=== PATIENT | male | born 1950 | race African-American/Black ===

== ENCOUNTER 2018-08-25 16:32 | Inpatient (IN) | payer MEDICARE, OTHER ==
[~2018-08-25] VITALS: Ht 180.3 cm; Wt 68.0 kg
--- NOTE | 2018-08-25 16:40 | NUR ---
ED Nurse Note: pt walked in c/o sorethroat and difficulty swallowing for past four days. noted dry cracked white tongue with swelling in throat. airway intact, resp even and unlabored on RA. pt VSS, caregiver at the bedside, will cont monitor.
--- NOTE | 2018-08-25 16:45 | NUR ---
ED Nurse Note: pt states pt goes to dialysis on Sun//Sun, last time was this past sat, noted AV shunt on left upper arm +bruit/thrill.
[2018-08-25] MEDS ORDERED: SENSIPAR30 MG ORAL (16:51)
[2018-08-25] MEDS ORDERED: LABETALOL HCL300 MG ORAL (16:51)
[2018-08-25] MEDS ORDERED: DIALYVITE TABL1 EAC1 PO (16:51)
[2018-08-25] MEDS ORDERED: AMLODIPINE BESY10 MG ORAL (16:51)
[2018-08-25] MEDS ORDERED: VELPHORO500 MG PO (16:51)
[2018-08-25] MEDS ORDERED: ASPIR 8181 MG ORAL (16:51)
[2018-08-25] MEDS ORDERED: Isovue-300 100ml vial INJ PRN (17:00)
--- NOTE | 2018-08-25 17:06 | Emergency Room Report ---
History of Present Illness General Chief Complaint: Sore Throat Source: Patient, Medical Record Present Illness HPI 68-year-old male presents to ED for evaluation. Complaining of throat pain and swelling times one week. States it is difficult to swallow. Denies fevers or chills. Pain is dull, 8 out of 10, nonradiating. Denies cough. Known history of end-stage renal disease. Gets dialysis Sunday. No other aggravating relieving factors. Denies any other associated symptoms Allergies: Coded Allergies: No Known Allergies (Unverified , 08/25/18) Patient History Past Medical History: renal disease, dialysis Past Surgical History: none Pertinent Family History: none Social History: Denies: smoking, alcohol use, drug use Immunizations: UTD Reviewed Nursing Documentation: PMH: Agreed; PSxH: Agreed Nursing Documentation-PMH Past Medical History: No History, Except For Hx Dialysis: Yes - T, Th, Sat Review of Systems All Other Systems: negative except mentioned in HPI Physical Exam Vital Signs Date Time Temp Pulse Resp B/P (MAP) Pulse Ox O2 Delivery O2 Flow Rate FiO2 08/25/18 16:42 98.8 102 18 142/87 (105) 98 Room Air Sp02 EP Interpretation: reviewed, normal General Appearance: no apparent distress, alert, GCS 15, non-toxic Head: normocephalic Eyes: bilateral eye normal inspection, bilateral eye PERRL ENT: hearing grossly normal, normal voice, TMs + canals normal, other - swelling to pharyngeal area. unable to identify uvula Neck: full range of motion, supple, supple/symm/no masses Respiratory: chest non-tender, lungs clear, normal breath sounds, speaking full sentences Cardiovascular #1: regular rate, rhythm, no edema Gastrointestinal: normal inspection Rectal: deferred Genitourinary: no CVA tenderness Musculoskeletal: normal inspection Neurologic: alert, oriented x3, responsive, motor strength/tone normal, sensory intact, speech normal Psychiatric: normal inspection Skin: normal inspection Lymphatic: normal inspection Procedures Critical Care Time Critical Care Time i. I feel this is a highly complex case requiring extensive working including EKG/Rhythm strip, Xray/CT/US, Blood/urine lab work, repeat exams while in ED, and administration of strong opiates/narcotics for pain control, admission to hospital or close patient follow up. Total time: 45 min bedside evaluation and treatment excludes procedures (EKG). Reason for critical care: tonsillar abscess with swelling Possible complications: hypotension, hypertension, AK, shock, arrhythmias, metabolic acidosis, end organ damage, respiratory failure. Interventions: labs, IV solumedrol, IV Abx, CT neck and Facial Bones. discussion with ENT. Course: patient presenting with throat pain. On exam there is significant pharyngeal swelling without clear landmarks for the uvula. No stridor. I ordered CT which shows fairly large tonsillar abscess versus neoplasm. Given Solu-Medrol and antibiotics. Discussed with ENT Dr Blanco; patient will require admission and likely drainage of abscess in the OR. Patient protecting airway. Per discussion with ENT patient will not require intubation based on location. Consultations: nursing staff, EMS, family Performed by: Dr Finnegan Tolerated well condition = serious j. because of unstable vital signs this patient had a condition that could potentially threaten life or limb. I feel this is a critical patient who required my full attention while patient was considered critical. Total Critical Care Time excluding procedures was greater than 45 minutes Medical Decision Making Diagnostic Impression: Primary Impression: Tonsillar abscess Additional Impression: ESRD (end stage renal disease) on dialysis ER Course Hospital Course 68-year-old male presents with pain and swelling to throat. Differential diagnoses include: pharyngitis, tonsillitis, ludwigs angina, GR[employer] BAGGER Clinical course Patient placed on stretcher. monitoring specialist. After initial history and physical I ordered labs, IV solumedrol, IV Abx, and CT Labs - noted leukocytosis, Hb/Hct stable, BUN/Cr elevated, K ok EKG - NSR, no acute ischemic changes interpreted by me CT neck and Facial Bones -Enlargement of right pontine tonsil with large rim- enhancing hypodense structure measuring approximately 2.6 x 2.8 x 4.4 cm. Also concern for neoplasm. Patient does have a smoking history discussed case with ENT Dr Blanco; he agrees that patient will require admission and will require drainage in the OR Based on position of abscess in pontine tonsil will not require intubation. Patient is protecting airway with no stridor and will O2 sats Case discussed with Dr. Borjas and he agreed to accept the patient to his service for further care and support I feel this is a highly complex case requiring extensive working including EKG/ Rhythm strip, Xray/CT/US, Blood/urine lab work, repeat exams while in ED, and administration of strong opiates/narcotics for pain control, admission to hospital or close patient follow up. Diagnosis - tonsillar abscess, ESRD on dialysis Patient admitted to SDU in serious condition Labs Test 08/25/18 17:04 White Blood Count 16.2 K/UL (4.8-10.8) Red Blood Count 4.67 M/UL (4.70-6.10) Hemoglobin 14.0 G/DL (14.2-18.0) Hematocrit 39.6 % (42.0-52.0) Mean Corpuscular Volume 85 FL (80-99) Mean Corpuscular Hemoglobin 30.0 PG (27.0-31.0) Mean Corpuscular Hemoglobin Concent 35.4 G/DL (32.0-36.0) Red Cell Distribution Width 12.2 % (11.6-14.8) Platelet Count 317 K/UL (150-450) Mean Platelet Volume 5.8 FL (6.5-10.1) Neutrophils (%) (Auto) 79.6 % (45.0-75.0) Lymphocytes (%) (Auto) 10.1 % (20.0-45.0) Monocytes (%) (Auto) 7.5 % (1.0-10.0) Eosinophils (%) (Auto) 1.0 % (0.0-3.0) Basophils (%) (Auto) 1.9 % (0.0-2.0) Prothrombin Time 11.9 SEC (9.30-11.50) Prothromb Time International Ratio 1.1 (0.9-1.1) Activated Partial Thromboplast Time 31 SEC (23-33) Sodium Level 137 MMOL/L (136-145) Potassium Level 4.4 MMOL/L (3.5-5.1) Chloride Level 96 MMOL/L (98-107) Carbon Dioxide Level 30 MMOL/L (21-32) Anion Gap 11 mmol/L (5-15) Blood Urea Nitrogen 38 mg/dL (7-18) Creatinine 11.5 MG/DL (0.55-1.30) Estimat Glomerular Filtration Rate 5.3 mL/min (>60) Glucose Level 115 MG/DL (74-106) Calcium Level 10.4 MG/DL (8.5-10.1) Total Bilirubin 0.7 MG/DL (0.2-1.0) Aspartate Amino Transf (AST/SGOT) 13 U/L (15-37) Alanine Aminotransferase (ALT/SGPT) 20 U/L (12-78) Alkaline Phosphatase 136 U/L (46-116) Total Protein 9.7 G/DL (6.4-8.2) Albumin 3.5 G/DL (3.4-5.0) Globulin 6.2 g/dL Albumin/Globulin Ratio 0.6 (1.0-2.7) EKG Diagnostic Results Rate: normal Rhythm: NSR ST Segments: no acute changes ASA given to the pt in ED: No Rhythm Strip Diag. Results EP Interpretation: yes Rhythm: NSR, no PVC's, no ectopy CT/MRI/US Diagnostic Results CT/MRI/US Diagnostic Results #1: Imaging Test Ordered: CT neck w/ contrast Impression Oropharynx: Enlarged right palatine tonsil with rim-enhancing hypodense structure within the tonsil partially visualized, concerning for tonsillitis with abscess. Please see accompanying CT face. Hypopharynx: Unremarkable. Larynx: Unremarkable. Normal epiglottis. Trachea: Unremarkable. Retropharyngeal space: Unremarkable. Submandibular/parotid glands: Unremarkable. Glands are normal in size. Thyroid: Unremarkable. No enlarged or calcified nodules. Bones/joints: No acute fracture. Soft tissues: Unremarkable. Vasculature: No acute findings. Lymph nodes: Unremarkable. No lymphadenopathy. Lung apices: Unremarkable as visualized. CT/MRI/US Diagnostic Results #2: Imaging Test Ordered: CT Facial Bones w/ contrast Impression SOFT TISSUES: Significant enlargement of right pontine tonsil with large rim- enhancing hypodense structure in the right palatine tonsil measuring approximately 2.6 x 2.8 x 4.4 cm. Narrowing of the oropharynx. ADDENDUM - Added by Johnny Alonzo M.D. on 08/25/2018 6:39 PM (-07:00) Component of neoplastic process with necrosis cannot be entirely excluded. Further evaluation could be performed with direct visualization and/or tissue sampling. Last Vital Signs Date Time Temp Pulse Resp B/P (MAP) Pulse Ox O2 Delivery O2 Flow Rate FiO2 08/25/18 16:42 98.8 102 18 142/87 (105) 98 Room Air Status: improved Disposition: ADMITTED INPATIENT Condition: Serious Referrals: NON PHYSICIAN (PCP) Anand Finnegan MD August 25, 2018 17:06
[2018-08-25] MEDS ORDERED: Solu-MEDROL 125mg Inj IVP ONE (17:15)
[2018-08-25 17:16] LABS: BASOPHILS % (AUTO) 1.9 % (0.0-2.0); HEMATOCRIT 39.6 % (42.0-52.0); LYMPHOCYTES % (AUTO) 10.1 % (20.0-45.0); MEAN CORPUSCULAR VOLUME 85 FL (80-99); MONOCYTES % (AUTO) 7.5 % (1.0-10.0); NEUTROPHILS % (AUTO) 79.6 % (45.0-75.0); PLATELET COUNT 317 K/UL (150-450); RED BLOOD COUNT 4.67 M/UL (4.70-6.10); RED CELL DISTRIBUTION WIDTH 12.2 % (11.6-14.8); WHITE BLOOD COUNT 16.2 K/UL (4.8-10.8)
[2018-08-25 17:33] VITALS: BP 153/93
--- NOTE | 2018-08-25 17:37 | NUR ---
ED Nurse Note: pt off to CT, consent signed.
[2018-08-25 17:40] LABS: ANION GAP 11 mmol/L (5-15); BLOOD UREA NITROGEN 38 mg/dL (7-18); CALCIUM 10.4 MG/DL (8.5-10.1); CARBON DIOXIDE 30 MMOL/L (21-32); CHLORIDE 96 MMOL/L (98-107); CREATININE 11.5 MG/DL (0.55-1.30); POTASSIUM 4.4 MMOL/L (3.5-5.1); SODIUM 137 MMOL/L (136-145)
[2018-08-25 17:41] LABS: INR 1.1 (0.9-1.1)
[2018-08-25 17:45] LABS: ALANINE AMINOTRANSFERASE 20 U/L (12-78); ALBUMIN 3.5 G/DL (3.4-5.0); ALBUMIN/GLOBULIN RATIO 0.6 (1.0-2.7); ALKALINE PHOSPHATASE 136 U/L (46-116); ASPARTATE AMINO TRANSFERASE 13 U/L (15-37); BILIRUBIN,TOTAL 0.7 MG/DL (0.2-1.0)
--- NOTE | 2018-08-25 19:00 | NUR ---
ED Nurse Note: report given to RN Denisha and endorsed care, vss. caregiver at the bedside
--- NOTE | 2018-08-25 19:01 | NUR ---
ED Nurse Note: Received report from Keny/RN. Pt is A/OX4. VSS, will continue to monitor.
[2018-08-25] MEDS ORDERED: Miralax 17gm pkt ORAL PRN (19:30)
[2018-08-25] MEDS ORDERED: Promethazine/Codeine 5ml UD ORAL PRN (19:30)
[2018-08-25] MEDS ORDERED: Nitroglycerin Subl 0.4mg tab SL PRN (19:30)
[2018-08-25] MEDS ORDERED: Albuterol/Ipratropium 3ml neb HHN PRN (19:30)
--- NOTE | 2018-08-25 20:25 | NUR ---
ED Nurse Note: report given to RN Randall from SDU.
--- NOTE | 2018-08-25 20:35 | NUR ---
NURSE NOTES: Received patient from ED from Nurse Joanie ODOM. Patient is awake and oriented x4. He is on room air tolerating well, showing no signs of distress. On admission there is a discoloration on his upper buttocks area, pictures were taken. All belongings were brought with patient and patient signed belonging's list. Bed is locked, placed in lowest position, side rails up x3, call light within reach. Will continue to monitor.
--- NOTE | 2018-08-25 20:40 | NUR ---
ED Nurse Note: pt transferred to SDU and care endorsed to ILENE Pereira, all belongings sent w/ pt with completed belonging list, vss, resp even and unlabored on RA, IV intact. picture taken and uploaded by ILENE Denny.
[2018-08-25] MEDS ORDERED: Vancomycin 1.25gm Premix IVPB ONE (21:30)
--- NOTE | 2018-08-25 21:38 | Infectious Diseases Prog Note ---
Assessment/Plan Assessment/Plan CHART WAS REVIEWED - leukocytosis - probable pharyngitis vs tonsillar abscess - Unasyn - Cx ( Bl, throat _ - Rapid Strep - Ct of Neck : P will follow Subjective Allergies: Coded Allergies: No Known Allergies (Unverified , 08/25/18) Objective Vital Signs Last 24 Hour Vital Signs Date Time Temp Pulse Resp B/P (MAP) Pulse Ox O2 Delivery O2 Flow Rate FiO2 08/25/18 20:40 99.1 97 18 118/86 100 Room Air 08/25/18 17:33 99.4 86 18 153/93 98 Room Air 08/25/18 16:52 88 18 Room Air 08/25/18 16:42 98.8 102 18 142/87 (105) 98 Room Air Height (Feet): 5 Height (Inches): 11.00 Weight (Pounds): 160 Laboratory Tests Test 08/25/18 17:04 White Blood Count 16.2 K/UL (4.8-10.8) H Red Blood Count 4.67 M/UL (4.70-6.10) L Hemoglobin 14.0 G/DL (14.2-18.0) L Hematocrit 39.6 % (42.0-52.0) L Mean Corpuscular Volume 85 FL (80-99) Mean Corpuscular Hemoglobin 30.0 PG (27.0-31.0) Mean Corpuscular Hemoglobin Concent 35.4 G/DL (32.0-36.0) Red Cell Distribution Width 12.2 % (11.6-14.8) Platelet Count 317 K/UL (150-450) Mean Platelet Volume 5.8 FL (6.5-10.1) L Neutrophils (%) (Auto) 79.6 % (45.0-75.0) H Lymphocytes (%) (Auto) 10.1 % (20.0-45.0) L Monocytes (%) (Auto) 7.5 % (1.0-10.0) Eosinophils (%) (Auto) 1.0 % (0.0-3.0) Basophils (%) (Auto) 1.9 % (0.0-2.0) Prothrombin Time 11.9 SEC (9.30-11.50) H Prothromb Time International Ratio 1.1 (0.9-1.1) Activated Partial Thromboplast Time 31 SEC (23-33) Sodium Level 137 MMOL/L (136-145) Potassium Level 4.4 MMOL/L (3.5-5.1) Chloride Level 96 MMOL/L (98-107) L Carbon Dioxide Level 30 MMOL/L (21-32) Anion Gap 11 mmol/L (5-15) Blood Urea Nitrogen 38 mg/dL (7-18) H Creatinine 11.5 MG/DL (0.55-1.30) H Estimat Glomerular Filtration Rate 5.3 mL/min (>60) Glucose Level 115 MG/DL (74-106) H Calcium Level 10.4 MG/DL (8.5-10.1) H Total Bilirubin 0.7 MG/DL (0.2-1.0) Aspartate Amino Transf (AST/SGOT) 13 U/L (15-37) L Alanine Aminotransferase (ALT/SGPT) 20 U/L (12-78) Alkaline Phosphatase 136 U/L (46-116) H Total Protein 9.7 G/DL (6.4-8.2) H Albumin 3.5 G/DL (3.4-5.0) Globulin 6.2 g/dL Albumin/Globulin Ratio 0.6 (1.0-2.7) L Current Medications Medications (Trade) Dose Ordered Sig/Shayan Route PRN Reason Start Time Stop Time Status Last Admin Dose Admin Acetaminophen (Tylenol) 650 mg Q4H PRN ORAL T>100.5 08/25/18 19:30 09/24/18 19:29 Albuterol/ Ipratropium (Albuterol/ Ipratropium) 3 ml Q4H PRN HHN Shortness of Breath 08/25/18 19:30 08/30/18 19:29 Amlodipine Besylate (Norvasc) 10 mg DAILY ORAL 08/26/18 09:00 09/25/18 08:59 Cefepime HCl 1 gm/ Dextrose 55 ml @ 110 mls/hr ONCE IV 08/25/18 23:00 08/26/18 00:30 Cefepime HCl 500 mg/Dextrose 55 ml @ 110 mls/hr Q24H IVPB 08/26/18 23:00 09/02/18 22:59 Cinacalcet (Sensipar) 30 mg DAILY ORAL 08/26/18 09:00 09/25/18 08:59 Heparin Sodium (Porcine) (Heparin 5000 units/ml) 5,000 units EVERY 12 HOURS SUBQ 08/25/18 21:00 09/24/18 20:59 Iopamidol (Isovue-300 100ml) 100 ml NOW PRN INJ Radiology Procedure 08/25/18 17:00 08/27/18 16:52 Labetalol HCl (Normodyne) 300 mg TID ORAL 08/26/18 09:00 09/25/18 08:59 Nitroglycerin (Ntg) 0.4 mg Q5M PRN SL Prn Chest Pain 08/25/18 19:30 09/24/18 19:29 Ondansetron HCl (Zofran) 4 mg Q6H PRN IVP Nausea & Vomiting 08/25/18 19:30 09/24/18 19:29 Polyethylene Glycol (Miralax) 17 gm DAILYPRN PRN ORAL Constipation 08/25/18 19:30 09/24/18 19:29 Promethazine HCl/ Codeine (Phenergan with Codeine) 5 ml Q4H PRN ORAL For Cough 08/25/18 19:30 09/24/18 19:29 Temazepam (Restoril) 15 mg HSPRN PRN ORAL Insomnia 08/25/18 21:00 09/01/18 20:59 Vancomycin HCl (Vanco rx to dose) 1 ea DAILY PRN MISC Per rx protocol 08/25/18 19:30 09/24/18 19:29 Vancomycin HCl/ Dextrose 275 ml @ 183.333 mls/hr ONCE ONCE IVPB 08/25/18 21:30 08/25/18 22:59 Derrick La MD August 25, 2018 21:38
[2018-08-25] MEDS: Heparin 5000 units/ml inj SUBQ SCH (21:45)
[2018-08-25] MEDS ORDERED: Cefepime HCl 1 GM in D5W 55 ML IV SCH (23:00)
[2018-08-25] MEDS: Ampicillin/Sulbactam Sod 3 GM in NS 110 ML IVPB SCH (23:21)
[2018-08-26] VITALS: BP 150/88
[2018-08-26 04:00] VITALS: BP 145/100
[2018-08-26 06:23] LABS: ALBUMIN 3.1 G/DL (3.4-5.0); ANION GAP 13 mmol/L (5-15); BLOOD UREA NITROGEN 47 mg/dL (7-18); CALCIUM 10.1 MG/DL (8.5-10.1); CARBON DIOXIDE 25 MMOL/L (21-32); CHLORIDE 94 MMOL/L (98-107); CREATININE 12.5 MG/DL (0.55-1.30); PHOSPHORUS 5.3 MG/DL (2.5-4.9); SODIUM 132 MMOL/L (136-145)
[2018-08-26 06:37] LABS: HEMATOCRIT 43.1 % (42.0-52.0); HEMOGLOBIN 14.4 G/DL (14.2-18.0); MEAN CORPUSCULAR VOLUME 88 FL (80-99); PLATELET COUNT 283 K/UL (150-450); RED BLOOD COUNT 4.87 M/UL (4.70-6.10); RED CELL DISTRIBUTION WIDTH 12.6 % (11.6-14.8); WHITE BLOOD COUNT 13.4 K/UL (4.8-10.8)
--- NOTE | 2018-08-26 07:10 | NUR ---
HAND-OFF: Report given to Alyse ODOM. Patient showing no signs of distress.
--- NOTE | 2018-08-26 07:34 | NUR ---
NURSE NOTES: Received report from Pennie Mirza RN. Patient awake, alert and oriented x 4, able to make needs known. On room air, respirations even and unlabored. Right AC 20g saline lock patent and asymptomatic. Left lower arm fistula noted with bruit and thrill present. Right tonsillar mass noted. Patient remains NPO at this time. Bed locked in lowest position with side rails up x 3. All needs attended to. Call light within reach. Will continue to monitor.
[2018-08-26 08:00] VITALS: BP 152/101
[2018-08-26] MEDS: Sensipar 30mg Tab ORAL SCH (08:45)
[2018-08-26] MEDS: Heparin 5000 units/ml inj SUBQ SCH ×2 (08:50→20:45)
--- NOTE | 2018-08-26 10:21 | Consultation ---
Consult Note Consult Note asked to evaluate for dialysis management 68-year-old male presents to ED for evaluation. Complaining of throat pain and swelling times one week. States it is difficult to swallow. Denies fevers or chills. Pain is dull, 8 out of 10, nonradiating. Denies cough. Known history of end-stage renal disease. Gets dialysis Sunday. No other aggravating relieving factors. Denies any other associated symptoms No Known Allergies (Unverified , 08/25/18) Past Medical History: renal disease, dialysis Past Medical History: No History, Except For Hx Dialysis: Yes - T, , Sat HTN has fistula left forearm . Assessment/Plan ESRD Hypertensive kidney disease Pharyngitis / Tonsilar abcess / mass Antibiotics BP meds and PRN meds per ID HD in am Tate Leong MD August 26, 2018 10:21
[2018-08-26] MEDS ORDERED: traMADol 50mg tab ORAL PRN (10:30)
--- NOTE | 2018-08-26 10:45 | History and Physical Report ---
DATE OF ADMISSION: 08/25/2018 DATE AND TIME: 08/26/2018 at 8 a.m. CONSULTANTS: 1. Francis. 2. Derrick La M.D. 3. Salazar Horvath M.D. 4. Tate Leong M.D. CHIEF COMPLAINT: Poor swallow, throat pain. BRIEF HISTORY: This is a 68-year-old male, who lives at home by himself. Apparently one week history of increased throat pain and swelling, and could not really swallow up. The patient came to [facility], diagnosed with possible tonsil abscesses versus neoplasm, admitted to [facility] for further care. Currently, calm in bed, slight throat pain, no complaint otherwise. REVIEW OF SYSTEMS: No chest pain. No shortness of breath. No nausea, vomiting, or diarrhea. PAST MEDICAL HISTORY: Renal failure, on dialysis and heart disease. PAST SURGICAL HISTORY: None. ALLERGIES: Denies. MEDICATIONS: Include cefepime, amlodipine, labetalol, Augmentin, vancomycin, temazepam, Tylenol, nitroglycerin, albuterol, Zofran, and methylprednisolone. SOCIAL HISTORY: Positive smoking. No alcohol. No intravenous drug abuse. Positive marijuana use. PHYSICAL EXAMINATION: GENERAL: Calm in bed, oriented x3, in no acute distress. VITAL SIGNS: Temperature is 97 degrees, pulse 92, respirations 24, and blood pressure 152/101. HEENT: Throat exam, slightly swollen, slightly tender, opening the mouth long term. CARDIOVASCULAR: No murmurs. LUNGS: Distant and clear. ABDOMEN: Bowel sounds positive. Nontender. Nondistended. EXTREMITIES: No cyanosis, clubbing, or edema. NEUROLOGIC: The patient moves all extremities, slightly weak. LABORATORY AND DIAGNOSTIC DATA: White count 13, otherwise CBC is normal. BMP shows BUN and creatinine 47 and 4.5, otherwise glucose 151. Albumin 3.1. INR is 1.1, PTT 31. ASSESSMENT: 1. Throat pain. 2. Tonsil abscess versus neoplasm. 3. Renal failure, on dialysis. 4. Heart disease. 5. Hypertension. 6. Malnutrition. PLAN: 1. Pain control. 2. Blood pressure control. 3. Dialysis p.r.n. 4. Dietary followup. 5. Resume home medications. 6. We will continue to follow the patient. Chaim Borjas D.O. DR: MICK JOB#: [id number] CC:
--- NOTE | 2018-08-26 11:09 | Consultation ---
History of Present Illness General Date patient seen: August 26, 2018 Time patient seen: 10:30 Chief Complaint: Sore Throat Referring physician: Chaim Borjas Present Illness HPI This 68 year old presented with a 1.5 week history of a worsening sore throat. He was seen by his dialysis doctor and told to go to the ER. He received abx, steroids and CT with contrast. He is doing much better since and is able to swallow and talk and feels MUCH improved. He has a smoking history from long ago but does smoke marijuana for appetite. he also complains of recent weight loss but no recent dysphonia, dysphagia or dyspnea. He complains of a cough and some hemoptysis. He says in the last six months he had something similar happen but it was not as bad. Allergies: Coded Allergies: No Known Allergies (Unverified , 08/25/18) Medication History Scheduled Amlodipine Besylate* (Amlodipine Besylate*), 10 MG ORAL DAILY, (Reported) Aspirin* (Aspir 81*), 81 MG ORAL DAILY, (Reported) Cinacalcet* (Sensipar*), 30 MG ORAL DAILY, (Reported) Folic Acid/Vitamin B Comp W-C (Dialyvite Tablet), 1 EACH PO DAILY, (Reported) Labetalol Hcl* (Normodyne*), 300 MG ORAL TID, (Reported) Sucroferric Oxyhydroxide (Velphoro), 500 MG PO BID, (Reported) Patient History History Provided By: Patient Healthcare decision maker Oriana Raman Resuscitation status Full Code Advanced Directive on File Past Medical/Surgical History Past Medical/Surgical History: (1) ESRD (end stage renal disease) on dialysis Review of Systems Constitutional: Reports: no symptoms Eye: Reports: no symptoms ENT: Reports: throat pain Respiratory: Reports: cough Cardiovascular: Reports: no symptoms Gastrointestinal: Reports: no symptoms Genitourinary: Reports: no symptoms Musculoskeletal: Reports: no symptoms Skin: Reports: no symptoms Psychiatric: Reports: no symptoms Neurological: Reports: no symptoms Endocrine: Reports: no symptoms Hematologic/Lymphatic: Reports: no symptoms Physical Exam General Appearance: WD/WN, no apparent distress, alert, thin HEENT: normocephalic, atraumatic, PERRL, EOMI, supple, no JVD, other Neck: non-tender, supple, normal inspection Respiratory/Chest: no respiratory distress Last 24 Hour Vital Signs Date Time Temp Pulse Resp B/P (MAP) Pulse Ox O2 Delivery O2 Flow Rate FiO2 08/26/18 08:45 92 152/101 08/26/18 08:44 92 152/101 08/26/18 08:00 97.5 92 24 152/101 (118) 100 08/26/18 08:00 Room Air 08/26/18 07:41 81 16 99 Room Air 21 08/26/18 07:35 84 16 99 Room Air 21 08/26/18 05:36 87 18 97 Room Air 21 08/26/18 05:34 87 18 97 Room Air 21 08/26/18 04:00 Room Air 08/26/18 04:00 96.7 89 18 145/100 (115) 94 08/26/18 03:32 92 08/26/18 00:00 95 08/26/18 00:00 Room Air 08/26/18 00:00 97.8 89 16 150/88 (108) 100 08/25/18 22:44 Room Air 08/25/18 20:51 95 08/25/18 20:40 99.1 97 18 118/86 100 Room Air 08/25/18 17:33 99.4 86 18 153/93 98 Room Air 08/25/18 16:52 88 18 Room Air 08/25/18 16:42 98.8 102 18 142/87 (105) 98 Room Air Intake and Output 08/25/18 08/26/18 19:00 07:00 Intake Total 440 ml Balance 440 ml Intake IV Total 440 ml Laboratory Tests Test 08/25/18 17:04 08/26/18 05:30 White Blood Count 16.2 K/UL (4.8-10.8) H 13.4 K/UL (4.8-10.8) H Red Blood Count 4.67 M/UL (4.70-6.10) L 4.87 M/UL (4.70-6.10) Hemoglobin 14.0 G/DL (14.2-18.0) L 14.4 G/DL (14.2-18.0) Hematocrit 39.6 % (42.0-52.0) L 43.1 % (42.0-52.0) Mean Corpuscular Volume 85 FL (80-99) 88 FL (80-99) Mean Corpuscular Hemoglobin 30.0 PG (27.0-31.0) 29.5 PG (27.0-31.0) Mean Corpuscular Hemoglobin Concent 35.4 G/DL (32.0-36.0) 33.4 G/DL (32.0-36.0) Red Cell Distribution Width 12.2 % (11.6-14.8) 12.6 % (11.6-14.8) Platelet Count 317 K/UL (150-450) 283 K/UL (150-450) Mean Platelet Volume 5.8 FL (6.5-10.1) L 7.4 FL (6.5-10.1) Neutrophils (%) (Auto) 79.6 % (45.0-75.0) H % (45.0-75.0) Lymphocytes (%) (Auto) 10.1 % (20.0-45.0) L % (20.0-45.0) Monocytes (%) (Auto) 7.5 % (1.0-10.0) % (1.0-10.0) Eosinophils (%) (Auto) 1.0 % (0.0-3.0) % (0.0-3.0) Basophils (%) (Auto) 1.9 % (0.0-2.0) % (0.0-2.0) Prothrombin Time 11.9 SEC (9.30-11.50) H Prothromb Time International Ratio 1.1 (0.9-1.1) Activated Partial Thromboplast Time 31 SEC (23-33) Sodium Level 137 MMOL/L (136-145) 132 MMOL/L (136-145) L Potassium Level 4.4 MMOL/L (3.5-5.1) 5.0 MMOL/L (3.5-5.1) Chloride Level 96 MMOL/L (98-107) L 94 MMOL/L (98-107) L Carbon Dioxide Level 30 MMOL/L (21-32) 25 MMOL/L (21-32) Anion Gap 11 mmol/L (5-15) 13 mmol/L (5-15) Blood Urea Nitrogen 38 mg/dL (7-18) H 47 mg/dL (7-18) H Creatinine 11.5 MG/DL (0.55-1.30) H 12.5 MG/DL (0.55-1.30) H Estimat Glomerular Filtration Rate 5.3 mL/min (>60) 4.8 mL/min (>60) Glucose Level 115 MG/DL (74-106) H 151 MG/DL (74-106) H Calcium Level 10.4 MG/DL (8.5-10.1) H 10.1 MG/DL (8.5-10.1) Total Bilirubin 0.7 MG/DL (0.2-1.0) Aspartate Amino Transf (AST/SGOT) 13 U/L (15-37) L Alanine Aminotransferase (ALT/SGPT) 20 U/L (12-78) Alkaline Phosphatase 136 U/L (46-116) H Total Protein 9.7 G/DL (6.4-8.2) H Albumin 3.5 G/DL (3.4-5.0) 3.1 G/DL (3.4-5.0) L Globulin 6.2 g/dL Albumin/Globulin Ratio 0.6 (1.0-2.7) L Differential Total Cells Counted 100 Neutrophils % (Manual) 88 % (45-75) H Lymphocytes % (Manual) 9 % (20-45) L Monocytes % (Manual) 3 % (1-10) Eosinophils % (Manual) 0 % (0-3) Basophils % (Manual) 0 % (0-2) Band Neutrophils 0 % (0-8) Platelet Estimate Adequate Platelet Morphology Normal Red Blood Cell Morphology Normal Phosphorus Level 5.3 MG/DL (2.5-4.9) H Height (Feet): 5 Height (Inches): 11.00 Weight (Pounds): 160 Medications Current Medications Medications (Trade) Dose Ordered Sig/Shayan Route PRN Reason Start Time Stop Time Status Last Admin Dose Admin Acetaminophen (Tylenol) 650 mg Q4H PRN ORAL T>100.5 08/25/18 19:30 09/24/18 19:29 Albuterol/ Ipratropium (Albuterol/ Ipratropium) 3 ml Q4H PRN HHN Shortness of Breath 08/25/18 19:30 08/30/18 19:29 Amlodipine Besylate (Norvasc) 10 mg DAILY ORAL 08/27/18 09:00 09/25/18 08:59 Ampicillin Sodium/ Sulbactam Sodium 3 gm/Sodium Chloride 110 ml @ 220 mls/hr Q12HR@1100,2300 IVPB 08/25/18 23:00 09/01/18 22:59 08/25/18 23:21 Cinacalcet (Sensipar) 30 mg DAILY ORAL 08/26/18 09:00 09/25/18 08:59 08/26/18 08:45 Heparin Sodium (Porcine) (Heparin 5000 units/ml) 5,000 units EVERY 12 HOURS SUBQ 08/25/18 21:00 09/24/18 20:59 08/26/18 08:50 Hydralazine HCl (Apresoline) 10 mg Q4H PRN IV bp over 160 syst and 100 diast 08/26/18 10:30 09/25/18 10:29 Iopamidol (Isovue-300 100ml) 100 ml NOW PRN INJ Radiology Procedure 08/25/18 17:00 08/27/18 16:52 Labetalol HCl (Normodyne) 300 mg TID ORAL 08/26/18 09:00 09/25/18 08:59 08/26/18 08:44 Nitroglycerin (Ntg) 0.4 mg Q5M PRN SL Prn Chest Pain 08/25/18 19:30 09/24/18 19:29 Ondansetron HCl (Zofran) 4 mg Q6H PRN IVP Nausea & Vomiting 08/25/18 19:30 09/24/18 19:29 Pantoprazole (Protonix) 40 mg DAILY ORAL 08/26/18 11:00 09/25/18 10:59 Polyethylene Glycol (Miralax) 17 gm DAILYPRN PRN ORAL Constipation 08/25/18 19:30 09/24/18 19:29 Promethazine HCl/ Codeine (Phenergan with Codeine) 5 ml Q4H PRN ORAL For Cough 08/25/18 19:30 09/24/18 19:29 Temazepam (Restoril) 15 mg HSPRN PRN ORAL Insomnia 08/25/18 21:00 09/01/18 20:59 08/26/18 00:46 Tramadol HCl (Ultram) 50 mg Q6H PRN ORAL mod to sever pain 08/26/18 10:30 09/02/18 10:29 Assessment/Plan Status: doing well, progressing Assessment/Plan: Possible Throat mass with superimposed infection Diagnosis [place] I: Exam was very difficult to visualize pharynx given tongue position. On palpation the area was soft. I spent time reviewing the CT scan and the irregularity makes me very concerned for a malignant process. I explained the importance of follow up with this kind gentelman and would like to see him in a week. Continue Augmentin. Will scope and possible return to take him to the OR for triple endoscopy with biopsy. On a side note he did mention issues with housing so that might need to be addressed prior to discharge. Danya Blanco MD August 26, 2018 11:09
[2018-08-26] MEDS: Ampicillin/Sulbactam Sod 3 GM in NS 110 ML IVPB SCH ×2 (11:11→22:31)
--- NOTE | 2018-08-26 11:22 | Consultation ---
History of Present Illness General Date patient seen: August 26, 2018 Chief Complaint: Sore Throat Referring physician: Chaim Borjas Present Illness HPI 68-year-old male with hx of smoking, HTN, Dialysis (t,sharonda, sat) , presented to ED for evaluation of throat pain and swelling of neck for one week. He also has difficulty to swallow. Pain is dull, 8 out of 10, nonradiating. Denies cough. Pt is admitted for further evaluation. Allergies: Coded Allergies: No Known Allergies (Unverified , 08/25/18) Medication History Scheduled Amlodipine Besylate* (Amlodipine Besylate*), 10 MG ORAL DAILY, (Reported) Aspirin* (Aspir 81*), 81 MG ORAL DAILY, (Reported) Cinacalcet* (Sensipar*), 30 MG ORAL DAILY, (Reported) Folic Acid/Vitamin B Comp W-C (Dialyvite Tablet), 1 EACH PO DAILY, (Reported) Labetalol Hcl* (Normodyne*), 300 MG ORAL TID, (Reported) Sucroferric Oxyhydroxide (Velphoro), 500 MG PO BID, (Reported) Patient History Healthcare decision maker Oriana Lamine Resuscitation status Full Code Advanced Directive on File Past Medical/Surgical History Past Medical/Surgical History: (1) History of hypertension (2) History of smoking Review of Systems All Other Systems: negative except mentioned in HPI Physical Exam General Appearance: WD/WN Lines, tubes and drains: peripheral HEENT: normocephalic, atraumatic Neck: non-tender, normal alignment Respiratory/Chest: chest wall non-tender, lungs clear Breasts: no masses Cardiovascular/Chest: normal rate Abdomen: normal bowel sounds Genitourinary/Rectal: normal genital exam Last 24 Hour Vital Signs Date Time Temp Pulse Resp B/P (MAP) Pulse Ox O2 Delivery O2 Flow Rate FiO2 08/26/18 08:45 92 152/101 08/26/18 08:44 92 152/101 08/26/18 08:00 97.5 92 24 152/101 (118) 100 08/26/18 08:00 Room Air 08/26/18 07:41 81 16 99 Room Air 21 08/26/18 07:35 84 16 99 Room Air 21 08/26/18 05:36 87 18 97 Room Air 21 08/26/18 05:34 87 18 97 Room Air 21 08/26/18 04:00 Room Air 08/26/18 04:00 96.7 89 18 145/100 (115) 94 08/26/18 03:32 92 08/26/18 00:00 95 08/26/18 00:00 Room Air 08/26/18 00:00 97.8 89 16 150/88 (108) 100 08/25/18 22:44 Room Air 08/25/18 20:51 95 08/25/18 20:40 99.1 97 18 118/86 100 Room Air 08/25/18 17:33 99.4 86 18 153/93 98 Room Air 08/25/18 16:52 88 18 Room Air 08/25/18 16:42 98.8 102 18 142/87 (105) 98 Room Air Intake and Output 08/25/18 08/26/18 19:00 07:00 Intake Total 440 ml Balance 440 ml Intake IV Total 440 ml Laboratory Tests Test 08/25/18 17:04 08/26/18 05:30 White Blood Count 16.2 K/UL (4.8-10.8) H 13.4 K/UL (4.8-10.8) H Red Blood Count 4.67 M/UL (4.70-6.10) L 4.87 M/UL (4.70-6.10) Hemoglobin 14.0 G/DL (14.2-18.0) L 14.4 G/DL (14.2-18.0) Hematocrit 39.6 % (42.0-52.0) L 43.1 % (42.0-52.0) Mean Corpuscular Volume 85 FL (80-99) 88 FL (80-99) Mean Corpuscular Hemoglobin 30.0 PG (27.0-31.0) 29.5 PG (27.0-31.0) Mean Corpuscular Hemoglobin Concent 35.4 G/DL (32.0-36.0) 33.4 G/DL (32.0-36.0) Red Cell Distribution Width 12.2 % (11.6-14.8) 12.6 % (11.6-14.8) Platelet Count 317 K/UL (150-450) 283 K/UL (150-450) Mean Platelet Volume 5.8 FL (6.5-10.1) L 7.4 FL (6.5-10.1) Neutrophils (%) (Auto) 79.6 % (45.0-75.0) H % (45.0-75.0) Lymphocytes (%) (Auto) 10.1 % (20.0-45.0) L % (20.0-45.0) Monocytes (%) (Auto) 7.5 % (1.0-10.0) % (1.0-10.0) Eosinophils (%) (Auto) 1.0 % (0.0-3.0) % (0.0-3.0) Basophils (%) (Auto) 1.9 % (0.0-2.0) % (0.0-2.0) Prothrombin Time 11.9 SEC (9.30-11.50) H Prothromb Time International Ratio 1.1 (0.9-1.1) Activated Partial Thromboplast Time 31 SEC (23-33) Sodium Level 137 MMOL/L (136-145) 132 MMOL/L (136-145) L Potassium Level 4.4 MMOL/L (3.5-5.1) 5.0 MMOL/L (3.5-5.1) Chloride Level 96 MMOL/L (98-107) L 94 MMOL/L (98-107) L Carbon Dioxide Level 30 MMOL/L (21-32) 25 MMOL/L (21-32) Anion Gap 11 mmol/L (5-15) 13 mmol/L (5-15) Blood Urea Nitrogen 38 mg/dL (7-18) H 47 mg/dL (7-18) H Creatinine 11.5 MG/DL (0.55-1.30) H 12.5 MG/DL (0.55-1.30) H Estimat Glomerular Filtration Rate 5.3 mL/min (>60) 4.8 mL/min (>60) Glucose Level 115 MG/DL (74-106) H 151 MG/DL (74-106) H Calcium Level 10.4 MG/DL (8.5-10.1) H 10.1 MG/DL (8.5-10.1) Total Bilirubin 0.7 MG/DL (0.2-1.0) Aspartate Amino Transf (AST/SGOT) 13 U/L (15-37) L Alanine Aminotransferase (ALT/SGPT) 20 U/L (12-78) Alkaline Phosphatase 136 U/L (46-116) H Total Protein 9.7 G/DL (6.4-8.2) H Albumin 3.5 G/DL (3.4-5.0) 3.1 G/DL (3.4-5.0) L Globulin 6.2 g/dL Albumin/Globulin Ratio 0.6 (1.0-2.7) L Differential Total Cells Counted 100 Neutrophils % (Manual) 88 % (45-75) H Lymphocytes % (Manual) 9 % (20-45) L Monocytes % (Manual) 3 % (1-10) Eosinophils % (Manual) 0 % (0-3) Basophils % (Manual) 0 % (0-2) Band Neutrophils 0 % (0-8) Platelet Estimate Adequate Platelet Morphology Normal Red Blood Cell Morphology Normal Phosphorus Level 5.3 MG/DL (2.5-4.9) H Height (Feet): 5 Height (Inches): 11.00 Weight (Pounds): 160 Medications Current Medications Medications (Trade) Dose Ordered Sig/Shayan Route PRN Reason Start Time Stop Time Status Last Admin Dose Admin Acetaminophen (Tylenol) 650 mg Q4H PRN ORAL T>100.5 08/25/18 19:30 09/24/18 19:29 Albuterol/ Ipratropium (Albuterol/ Ipratropium) 3 ml Q4H PRN HHN Shortness of Breath 08/25/18 19:30 08/30/18 19:29 Amlodipine Besylate (Norvasc) 10 mg DAILY ORAL 08/27/18 09:00 09/25/18 08:59 Ampicillin Sodium/ Sulbactam Sodium 3 gm/Sodium Chloride 110 ml @ 220 mls/hr Q12HR@1100,2300 IVPB 08/25/18 23:00 09/01/18 22:59 08/25/18 23:21 Cinacalcet (Sensipar) 30 mg DAILY ORAL 08/26/18 09:00 09/25/18 08:59 08/26/18 08:45 Heparin Sodium (Porcine) (Heparin 5000 units/ml) 5,000 units EVERY 12 HOURS SUBQ 08/25/18 21:00 09/24/18 20:59 08/26/18 08:50 Hydralazine HCl (Apresoline) 10 mg Q4H PRN IV bp over 160 syst and 100 diast 08/26/18 10:30 09/25/18 10:29 Iopamidol (Isovue-300 100ml) 100 ml NOW PRN INJ Radiology Procedure 08/25/18 17:00 08/27/18 16:52 Labetalol HCl (Normodyne) 300 mg TID ORAL 08/26/18 09:00 09/25/18 08:59 08/26/18 08:44 Nitroglycerin (Ntg) 0.4 mg Q5M PRN SL Prn Chest Pain 08/25/18 19:30 09/24/18 19:29 Ondansetron HCl (Zofran) 4 mg Q6H PRN IVP Nausea & Vomiting 08/25/18 19:30 09/24/18 19:29 Pantoprazole (Protonix) 40 mg DAILY ORAL 08/26/18 11:00 09/25/18 10:59 Polyethylene Glycol (Miralax) 17 gm DAILYPRN PRN ORAL Constipation 08/25/18 19:30 09/24/18 19:29 Promethazine HCl/ Codeine (Phenergan with Codeine) 5 ml Q4H PRN ORAL For Cough 08/25/18 19:30 09/24/18 19:29 Temazepam (Restoril) 15 mg HSPRN PRN ORAL Insomnia 08/25/18 21:00 09/01/18 20:59 08/26/18 00:46 Tramadol HCl (Ultram) 50 mg Q6H PRN ORAL mod to sever pain 08/26/18 10:30 09/02/18 10:29 Assessment/Plan Problem List: (1) Tonsillar abscess ICD Codes: J36 - Peritonsillar abscess; Z99.2 - Dependence on renal dialysis SNOMED: 20141923 (2) Tonsillar mass ICD Codes: R22.0 - Localized swelling, mass and lump, head SNOMED: 847141919 (3) Dysphagia ICD Codes: R13.10 - Dysphagia, unspecified SNOMED: 03749117, 004909872 (4) ESRD (end stage renal disease) on dialysis ICD Codes: N18.6 - End stage renal disease; Z99.2 - Dependence on renal dialysis SNOMED: 755823042 (5) History of hypertension ICD Codes: Z86.79 - Personal history of other diseases of the circulatory system SNOMED: 503813767 (6) History of smoking ICD Codes: Z87.891 - Personal history of nicotine dependence SNOMED: 280321396 Assessment/Plan: culture and biopsy of the mass ENT evaluation IV abx symptomatic treatment respiratory treatment check electrolytes tumor markers. Salazar Horvath MD August 26, 2018 11:22
[2018-08-26 12:00] VITALS: BP 138/87
--- NOTE | 2018-08-26 12:46 | Consultation ---
History of Present Illness General Chief Complaint: Sore Throat Referring physician: Chaim Borjas Present Illness Allergies: Coded Allergies: No Known Allergies (Unverified , 08/25/18) Medication History Scheduled Amlodipine Besylate* (Amlodipine Besylate*), 10 MG ORAL DAILY, (Reported) Aspirin* (Aspir 81*), 81 MG ORAL DAILY, (Reported) Cinacalcet* (Sensipar*), 30 MG ORAL DAILY, (Reported) Folic Acid/Vitamin B Comp W-C (Dialyvite Tablet), 1 EACH PO DAILY, (Reported) Labetalol Hcl* (Normodyne*), 300 MG ORAL TID, (Reported) Sucroferric Oxyhydroxide (Velphoro), 500 MG PO BID, (Reported) Patient History Healthcare decision maker Oriana Raman Resuscitation status Full Code Advanced Directive on File Physical Exam Last 24 Hour Vital Signs Date Time Temp Pulse Resp B/P (MAP) Pulse Ox O2 Delivery O2 Flow Rate FiO2 08/26/18 12:39 89 138/87 08/26/18 12:00 98.4 89 20 138/87 (104) 100 08/26/18 12:00 Room Air 08/26/18 11:33 88 18 98 Room Air 21 08/26/18 11:24 88 18 98 Room Air 21 08/26/18 08:45 92 152/101 08/26/18 08:44 92 152/101 08/26/18 08:00 97.5 92 24 152/101 (118) 100 08/26/18 08:00 Room Air 08/26/18 07:44 87 08/26/18 07:41 81 16 99 Room Air 21 08/26/18 07:35 84 16 99 Room Air 21 08/26/18 05:36 87 18 97 Room Air 21 08/26/18 05:34 87 18 97 Room Air 21 08/26/18 04:00 Room Air 08/26/18 04:00 96.7 89 18 145/100 (115) 94 08/26/18 03:32 92 08/26/18 00:00 95 08/26/18 00:00 Room Air 08/26/18 00:00 97.8 89 16 150/88 (108) 100 08/25/18 22:44 Room Air 08/25/18 20:51 95 08/25/18 20:40 99.1 97 18 118/86 100 Room Air 08/25/18 17:33 99.4 86 18 153/93 98 Room Air 08/25/18 16:52 88 18 Room Air 08/25/18 16:42 98.8 102 18 142/87 (105) 98 Room Air Intake and Output 08/25/18 08/26/18 19:00 07:00 Intake Total 440 ml Balance 440 ml Intake IV Total 440 ml Laboratory Tests Test 08/25/18 17:04 08/26/18 05:30 White Blood Count 16.2 K/UL (4.8-10.8) H 13.4 K/UL (4.8-10.8) H Red Blood Count 4.67 M/UL (4.70-6.10) L 4.87 M/UL (4.70-6.10) Hemoglobin 14.0 G/DL (14.2-18.0) L 14.4 G/DL (14.2-18.0) Hematocrit 39.6 % (42.0-52.0) L 43.1 % (42.0-52.0) Mean Corpuscular Volume 85 FL (80-99) 88 FL (80-99) Mean Corpuscular Hemoglobin 30.0 PG (27.0-31.0) 29.5 PG (27.0-31.0) Mean Corpuscular Hemoglobin Concent 35.4 G/DL (32.0-36.0) 33.4 G/DL (32.0-36.0) Red Cell Distribution Width 12.2 % (11.6-14.8) 12.6 % (11.6-14.8) Platelet Count 317 K/UL (150-450) 283 K/UL (150-450) Mean Platelet Volume 5.8 FL (6.5-10.1) L 7.4 FL (6.5-10.1) Neutrophils (%) (Auto) 79.6 % (45.0-75.0) H % (45.0-75.0) Lymphocytes (%) (Auto) 10.1 % (20.0-45.0) L % (20.0-45.0) Monocytes (%) (Auto) 7.5 % (1.0-10.0) % (1.0-10.0) Eosinophils (%) (Auto) 1.0 % (0.0-3.0) % (0.0-3.0) Basophils (%) (Auto) 1.9 % (0.0-2.0) % (0.0-2.0) Prothrombin Time 11.9 SEC (9.30-11.50) H Prothromb Time International Ratio 1.1 (0.9-1.1) Activated Partial Thromboplast Time 31 SEC (23-33) Sodium Level 137 MMOL/L (136-145) 132 MMOL/L (136-145) L Potassium Level 4.4 MMOL/L (3.5-5.1) 5.0 MMOL/L (3.5-5.1) Chloride Level 96 MMOL/L (98-107) L 94 MMOL/L (98-107) L Carbon Dioxide Level 30 MMOL/L (21-32) 25 MMOL/L (21-32) Anion Gap 11 mmol/L (5-15) 13 mmol/L (5-15) Blood Urea Nitrogen 38 mg/dL (7-18) H 47 mg/dL (7-18) H Creatinine 11.5 MG/DL (0.55-1.30) H 12.5 MG/DL (0.55-1.30) H Estimat Glomerular Filtration Rate 5.3 mL/min (>60) 4.8 mL/min (>60) Glucose Level 115 MG/DL (74-106) H 151 MG/DL (74-106) H Calcium Level 10.4 MG/DL (8.5-10.1) H 10.1 MG/DL (8.5-10.1) Total Bilirubin 0.7 MG/DL (0.2-1.0) Aspartate Amino Transf (AST/SGOT) 13 U/L (15-37) L Alanine Aminotransferase (ALT/SGPT) 20 U/L (12-78) Alkaline Phosphatase 136 U/L (46-116) H Total Protein 9.7 G/DL (6.4-8.2) H Albumin 3.5 G/DL (3.4-5.0) 3.1 G/DL (3.4-5.0) L Globulin 6.2 g/dL Albumin/Globulin Ratio 0.6 (1.0-2.7) L Differential Total Cells Counted 100 Neutrophils % (Manual) 88 % (45-75) H Lymphocytes % (Manual) 9 % (20-45) L Monocytes % (Manual) 3 % (1-10) Eosinophils % (Manual) 0 % (0-3) Basophils % (Manual) 0 % (0-2) Band Neutrophils 0 % (0-8) Platelet Estimate Adequate Platelet Morphology Normal Red Blood Cell Morphology Normal Phosphorus Level 5.3 MG/DL (2.5-4.9) H Height (Feet): 5 Height (Inches): 11.00 Weight (Pounds): 160 Medications Current Medications Medications (Trade) Dose Ordered Sig/Shayan Route PRN Reason Start Time Stop Time Status Last Admin Dose Admin Acetaminophen (Tylenol) 650 mg Q4H PRN ORAL T>100.5 08/25/18 19:30 09/24/18 19:29 Albuterol/ Ipratropium (Albuterol/ Ipratropium) 3 ml Q4H PRN HHN Shortness of Breath 08/25/18 19:30 08/30/18 19:29 Amlodipine Besylate (Norvasc) 10 mg DAILY ORAL 08/27/18 09:00 09/25/18 08:59 Ampicillin Sodium/ Sulbactam Sodium 3 gm/Sodium Chloride 110 ml @ 220 mls/hr Q12HR@1100,2300 IVPB 08/25/18 23:00 09/01/18 22:59 08/26/18 11:11 Cinacalcet (Sensipar) 30 mg DAILY ORAL 08/26/18 09:00 09/25/18 08:59 08/26/18 08:45 Heparin Sodium (Porcine) (Heparin 5000 units/ml) 5,000 units EVERY 12 HOURS SUBQ 08/25/18 21:00 09/24/18 20:59 08/26/18 08:50 Hydralazine HCl (Apresoline) 10 mg Q4H PRN IV bp over 160 syst and 100 diast 08/26/18 10:30 09/25/18 10:29 Iopamidol (Isovue-300 100ml) 100 ml NOW PRN INJ Radiology Procedure 08/25/18 17:00 08/27/18 16:52 Labetalol HCl (Normodyne) 300 mg TID ORAL 08/26/18 09:00 09/25/18 08:59 08/26/18 12:39 Nitroglycerin (Ntg) 0.4 mg Q5M PRN SL Prn Chest Pain 08/25/18 19:30 09/24/18 19:29 Ondansetron HCl (Zofran) 4 mg Q6H PRN IVP Nausea & Vomiting 08/25/18 19:30 09/24/18 19:29 Pantoprazole (Protonix) 40 mg DAILY ORAL 08/26/18 11:00 09/25/18 10:59 08/26/18 11:12 Polyethylene Glycol (Miralax) 17 gm DAILYPRN PRN ORAL Constipation 08/25/18 19:30 09/24/18 19:29 Promethazine HCl/ Codeine (Phenergan with Codeine) 5 ml Q4H PRN ORAL For Cough 08/25/18 19:30 09/24/18 19:29 Temazepam (Restoril) 15 mg HSPRN PRN ORAL Insomnia 08/25/18 21:00 09/01/18 20:59 08/26/18 00:46 Tramadol HCl (Ultram) 50 mg Q6H PRN ORAL mod to sever pain 08/26/18 10:30 09/02/18 10:29 Assessment/Plan Assessment/Plan: Oncology Consult Date patient seen: August 26, 2018 Time patient seen: 10:30 Chief Complaint: Sore Throat Referring physician: Chaim Borjas RFC: Neck mass, elevated Ca++ HPI This 68 year old presented with a 1.5 week history of a worsening sore throat. He was seen by his dialysis doctor and told to go to the ER. He received abx, steroids and CT with contrast. He is doing much better since and is able to swallow and talk and feels MUCH improved. He has a smoking history from long ago but does smoke marijuana for appetite. he also complains of recent weight loss but no recent dysphonia, dysphagia or dyspnea. He complains of a cough and some hemoptysis. He says in the last six months he had something similar happen but it was not as bad. Allergies: Coded Allergies: No Known Allergies (Unverified , 08/25/18) Scheduled Amlodipine Besylate* (Amlodipine Besylate*), 10 MG ORAL DAILY, (Reported) Aspirin* (Aspir 81*), 81 MG ORAL DAILY, (Reported) Cinacalcet* (Sensipar*), 30 MG ORAL DAILY, (Reported) Folic Acid/Vitamin B Comp W-C (Dialyvite Tablet), 1 EACH PO DAILY, (Reported) Labetalol Hcl* (Normodyne*), 300 MG ORAL TID, (Reported) Sucroferric Oxyhydroxide (Velphoro), 500 MG PO BID, (Reported) History Provided By: Patient Healthcare decision maker Oriana Raman Resuscitation status Full Code Advanced Directive on File Past Medical/Surgical History: (1) ESRD (end stage renal disease) on dialysis ROS Constitutional: Reports: no symptoms Eye: Reports: no symptoms ENT: Reports: throat pain Respiratory: Reports: cough Cardiovascular: Reports: no symptoms Gastrointestinal: Reports: no symptoms Genitourinary: Reports: no symptoms Musculoskeletal: Reports: no symptoms Skin: Reports: no symptoms Psychiatric: Reports: no symptoms Neurological: Reports: no symptoms Endocrine: Reports: no symptoms Hematologic/Lymphatic: Reports: no symptoms PE General Appearance: WD/WN, no apparent distress, alert, thin HEENT: normocephalic, atraumatic, PERRL, EOMI, supple, no JVD, other Neck: non-tender, supple, normal inspection Respiratory/Chest: no respiratory distress Last 24 Hour Vital Signs Date Time Temp Pulse Resp B/P (MAP) Pulse Ox O2 Delivery O2 Flow Rate FiO2 08/26/18 08:45 92 152/101 08/26/18 08:44 92 152/101 08/26/18 08:00 97.5 92 24 152/101 (118) 100 08/26/18 08:00 Room Air 08/26/18 07:41 81 16 99 Room Air 21 08/26/18 07:35 84 16 99 Room Air 21 08/26/18 05:36 87 18 97 Room Air 21 08/26/18 05:34 87 18 97 Room Air 08/26/18 04:00 Room Air 08/26/18 04:00 96.7 89 18 145/100 (115) 94 08/26/18 03:32 92 08/26/18 00:00 95 08/26/18 00:00 Room Air 08/26/18 00:00 97.8 89 16 150/88 (108) 100 08/25/18 22:44 Room Air 08/25/18 20:51 95 08/25/18 20:40 99.1 97 18 118/86 100 Room Air 08/25/18 17:33 99.4 86 18 153/93 98 Room Air 08/25/18 16:52 88 18 Room Air 08/25/18 16:42 98.8 102 18 142/87 (105) 98 Room Air Intake and Output 08/25/18 08/26/18 19:00 07:00 Intake Total 440 ml Balance 440 ml Intake IV Total 440 ml Laboratory Tests Test 08/25/18 17:04 08/26/18 05:30 White Blood Count 16.2 K/UL (4.8-10.8) H 13.4 K/UL (4.8-10.8) H Red Blood Count 4.67 M/UL (4.70-6.10) L 4.87 M/UL (4.70-6.10) Hemoglobin 14.0 G/DL (14.2-18.0) L 14.4 G/DL (14.2-18.0) Hematocrit 39.6 % (42.0-52.0) L 43.1 % (42.0-52.0) Mean Corpuscular Volume 85 FL (80-99) 88 FL (80-99) Mean Corpuscular Hemoglobin 30.0 PG (27.0-31.0) 29.5 PG (27.0-31.0) Mean Corpuscular Hemoglobin Concent 35.4 G/DL (32.0-36.0) 33.4 G/DL (32.0-36.0) Red Cell Distribution Width 12.2 % (11.6-14.8) 12.6 % (11.6-14.8) Platelet Count 317 K/UL (150-450) 283 K/UL (150-450) Mean Platelet Volume 5.8 FL (6.5-10.1) L 7.4 FL (6.5-10.1) Neutrophils (%) (Auto) 79.6 % (45.0-75.0) H % (45.0-75.0) Lymphocytes (%) (Auto) 10.1 % (20.0-45.0) L % (20.0-45.0) Monocytes (%) (Auto) 7.5 % (1.0-10.0) % (1.0-10.0) Eosinophils (%) (Auto) 1.0 % (0.0-3.0) % (0.0-3.0) Basophils (%) (Auto) 1.9 % (0.0-2.0) % (0.0-2.0) Prothrombin Time 11.9 SEC (9.30-11.50) H Prothromb Time International Ratio 1.1 (0.9-1.1) Activated Partial Thromboplast Time 31 SEC (23-33) Sodium Level 137 MMOL/L (136-145) 132 MMOL/L (136-145) L Potassium Level 4.4 MMOL/L (3.5-5.1) 5.0 MMOL/L (3.5-5.1) Chloride Level 96 MMOL/L (98-107) L 94 MMOL/L (98-107) L Carbon Dioxide Level 30 MMOL/L (21-32) 25 MMOL/L (21-32) Anion Gap 11 mmol/L (5-15) 13 mmol/L (5-15) Blood Urea Nitrogen 38 mg/dL (7-18) H 47 mg/dL (7-18) H Creatinine 11.5 MG/DL (0.55-1.30) H 12.5 MG/DL (0.55-1.30) H Estimat Glomerular Filtration Rate 5.3 mL/min (>60) 4.8 mL/min (>60) Glucose Level 115 MG/DL (74-106) H 151 MG/DL (74-106) H Calcium Level 10.4 MG/DL (8.5-10.1) H 10.1 MG/DL (8.5-10.1) Total Bilirubin 0.7 MG/DL (0.2-1.0) Aspartate Amino Transf (AST/SGOT) 13 U/L (15-37) L Alanine Aminotransferase (ALT/SGPT) 20 U/L (12-78) Alkaline Phosphatase 136 U/L (46-116) H Total Protein 9.7 G/DL (6.4-8.2) H Albumin 3.5 G/DL (3.4-5.0) 3.1 G/DL (3.4-5.0) L Globulin 6.2 g/dL Albumin/Globulin Ratio 0.6 (1.0-2.7) L Differential Total Cells Counted 100 Neutrophils % (Manual) 88 % (45-75) H Lymphocytes % (Manual) 9 % (20-45) L Monocytes % (Manual) 3 % (1-10) Eosinophils % (Manual) 0 % (0-3) Basophils % (Manual) 0 % (0-2) Band Neutrophils 0 % (0-8) Platelet Estimate Adequate Platelet Morphology Normal Red Blood Cell Morphology Normal Phosphorus Level 5.3 MG/DL (2.5-4.9) H Height (Feet): 5 Height (Inches): 11.00 Weight (Pounds): 160 Medications Current Medications Medications (Trade) Dose Ordered Sig/Shayan Route PRN Reason Start Time Stop Time Status Last Admin Dose Admin Acetaminophen (Tylenol) 650 mg Q4H PRN ORAL T>100.5 08/25/18 19:30 09/24/18 19:29 Albuterol/ Ipratropium (Albuterol/ Ipratropium) 3 ml Q4H PRN HHN Shortness of Breath 08/25/18 19:30 08/30/18 19:29 Amlodipine Besylate (Norvasc) 10 mg DAILY ORAL 08/27/18 09:00 09/25/18 08:59 Ampicillin Sodium/ Sulbactam Sodium 3 gm/Sodium Chloride 110 ml @ 220 mls/hr Q12HR@1100,2300 IVPB 08/25/18 23:00 09/01/18 22:59 08/25/18 23:21 Cinacalcet (Sensipar) 30 mg DAILY ORAL 08/26/18 09:00 09/25/18 08:59 08/26/18 08:45 Heparin Sodium (Porcine) (Heparin 5000 units/ml) 5,000 units EVERY 12 HOURS SUBQ 08/25/18 21:00 09/24/18 20:59 08/26/18 08:50 Hydralazine HCl (Apresoline) 10 mg Q4H PRN IV bp over 160 syst and 100 diast 08/26/18 10:30 09/25/18 10:29 Iopamidol (Isovue-300 100ml) 100 ml NOW PRN INJ Radiology Procedure 08/25/18 17:00 08/27/18 16:52 Labetalol HCl (Normodyne) 300 mg TID ORAL 08/26/18 09:00 09/25/18 08:59 08/26/18 08:44 Nitroglycerin (Ntg) 0.4 mg Q5M PRN SL Prn Chest Pain 08/25/18 19:30 09/24/18 19:29 Ondansetron HCl (Zofran) 4 mg Q6H PRN IVP Nausea & Vomiting 08/25/18 19:30 09/24/18 19:29 Pantoprazole (Protonix) 40 mg DAILY ORAL 08/26/18 11:00 09/25/18 10:59 Polyethylene Glycol (Miralax) 17 gm DAILYPRN PRN ORAL Constipation 08/25/18 19:30 09/24/18 19:29 Promethazine HCl/ Codeine (Phenergan with Codeine) 5 ml Q4H PRN ORAL For Cough 08/25/18 19:30 09/24/18 19:29 Temazepam (Restoril) 15 mg HSPRN PRN ORAL Insomnia 08/25/18 21:00 09/01/18 20:59 08/26/18 00:46 Tramadol HCl (Ultram) 50 mg Q6H PRN ORAL mod to sever pain 08/26/18 10:30 09/02/18 10:29 Assessment/Recs: # Throat mass with superimposed infection -- per ENT, exam was very difficult to visualize pharynx given tongue position. On palpation the area was soft. I spent time reviewing the CT scan and the irregularity makes me very concerned for a malignant process. I explained the importance of follow up with this kind greg and would like to see him in a week. Continue Augmentin. Will scope and possible return to take him to the OR for triple endoscopy with biopsy. On a side note he did mention issues with housing so that might need to be addressed prior to discharge. --> imaging has been reviewed --> may need further management, as per ent first --> outpatient care # Hypercalcemia likely related to esrd --> CA++ has been re-ordered may need meds per renal --> PTH has been ordered # Dysphagia has improved, likely due to mass --> reviewed recs gi eval as needed --> ent recs # ESRD (end stage renal disease) on dialysis --> per renal recs # History of hypertension --> sbp goal <140 # History of smoking The timing of this note does not necessarily reflect the time of the patient was seen. Greatly appreciate consultation! Julius Franco MD August 26, 2018 12:46
--- NOTE | 2018-08-26 13:33 | Consultation ---
Consult Note Assessment/Plan Cardiology for Dr. Riojas Full consult dictated. #[id number] Aviva Gutiérrez MD August 26, 2018 13:33
--- NOTE | 2018-08-26 14:37 | NUR ---
CASE MANAGEMENT: REVIEW 68Y/F PRESENTED TO ED FROM HOME CC: THROAT MASS . ABSCESS . SORE THROAT X3 DAYS SI: TONSIL ABSCESS VS NEOPLASM . ESRD ON HD T 99.4 HR 102 RR 18 BP 153/93 SAT 98% ROOM AIR WBC 16.2 BUN 38 CR 11.5 IS: VANCO IV X1 CLINDAMYCIN IV X1 SOLU MEDROL IV X1 PATIENT ADMITTED TO STEP DOWN UNIT 08/25/2018 DCP: PATIENT IS FROM HOME
--- NOTE | 2018-08-26 14:40 | Cardiology Report ---
APPROVED REPORT EKG Measurement Heart [id number] Sinus rhythm with occasional premature ventricular complexes Possible Left atrial enlargement Nonspecific ST abnormality Prolonged QT Abnormal ECG
[2018-08-26 16:00] VITALS: BP 142/96
--- NOTE | 2018-08-26 19:02 | Consultation ---
DATE OF CONSULTATION: 08/26/2018 CARDIOLOGY CONSULTATION REASON FOR CONSULT: Transient bradycardia. HISTORY OF PRESENT ILLNESS: The patient is a 68-year-old man with a history of hypertension, end-stage renal disease, on hemodialysis, and previous smoking history, who presents with a 3 to 4 week history of throat pain and right neck swelling. He reports difficulty swallowing. He has chills, but no fever. No cough or sputum production. In the emergency room, he was reported to have transient bradycardia down to the 30s, which resolved. Cardiology evaluation was requested. His admission vital signs were blood pressure 142/87 and pulse 102 beats per minute. He denies any dizziness, lightheadedness, palpitations, or syncope. He denies any previous cardiac history. PAST MEDICAL HISTORY: As noted above. Hypertension and chronic kidney disease stage 5, on dialysis. MEDICATIONS ON ADMISSION: Include labetalol 300 mg three times daily, amlodipine 10 mg daily, Berta-Cruz 1 daily, aspirin 81 mg daily, Sensipar 30 mg daily, folic acid B complex, and Sensipar 30 mg daily. ALLERGIES: No known drug allergies. SOCIAL HISTORY: The patient smokes marijuana occasionally. He does not use tobacco products. No history of alcohol or drug abuse. PHYSICAL EXAMINATION: VITAL SIGNS: Blood pressure is 138/87, pulse 89 and regular, respirations 18, afebrile, and oxygen saturation 100% on room air. HEENT: Normocephalic and atraumatic. Pupils are equal, round, and reactive to light. Sclerae anicteric. Oral mucosa are moist. There is mild erythema of the right oropharynx. No facial swelling or tenderness. NECK: Supple. There is no jugular venous distention. No carotid bruits. No edema or erythema. No mass. LUNGS: Clear to auscultation bilaterally. HEART: Regular rate and rhythm. S1, S2. No murmurs or S3. ABDOMEN: Soft and nontender. No palpable mass. EXTREMITIES: No cyanosis, clubbing, or edema. NEUROLOGIC: No gross focal motor deficits. LABORATORY AND DIAGNOSTIC DATA: Hemoglobin 14, white blood count 16,000 on admission, currently 13,000, and platelets 283,000. Sodium 132, potassium 5.0, chloride 94, bicarb 25, BUN 47, and creatinine 12.5. INR 1.1. EKG shows normal sinus rhythm at a rate of 96 beats per minute with occasional premature ventricular complex, left atrial enlargement, and nonspecific ST-segment changes. A CT scan of the neck shows an enlarged right palatine tonsil with rim enhancing hypodense structure. Maxillofacial CT with and without contrast showed enlargement of the right tonsil with an abscess of 2.6 x 2.8 x 4.4 cm. ASSESSMENT AND RECOMMENDATIONS: The patient is a 68-year-old man with hypertension and end-stage renal disease, on dialysis, who was admitted with a right tonsillar mass. He had a reported episode of bradycardia in the emergency room. However, the tracings are not currently available. He is currently stable with borderline elevated blood pressures and normal sinus rhythm without arrhythmia symptoms. I would recommend continuing the patient on telemetry today. His EKG does not appear with any ischemic changes. We will obtain an echo to assess left ventricular function, rule out left ventricular hypertrophy given his history of hypertension and renal disease. Dr. Riojas will continue to follow him starting 08/26/2018. Would continue current labetalol dose unless further bradyarrhythmias occur. Aviva Gutiérrez M.D. DR: MELIDA JOB#: [id number] CC:
--- NOTE | 2018-08-26 19:16 | NUR ---
HAND-OFF: Report given to Pennie Mirza RN.
--- NOTE | 2018-08-26 19:17 | NUR ---
NURSE NOTES: Received patient from Alyse ODOM. Patient is awake, talkative, and oriented x4. He is on room air tolerating well. Patient is currently NPO and is scheduled for dialysis tomorrow. Bed is locked, placed in lowest position, side rails up x3, call light within reach, and all needs attended to. Will continue to monitor.
[2018-08-26 20:00] VITALS: BP 132/82
[2018-08-26] MEDS ORDERED: Cefepime 500mg in D5W 55ml IVPB SCH (23:00)
[2018-08-27] VITALS: BP 133/84
[2018-08-27 04:00] VITALS: BP 127/78
[2018-08-27 05:52] LABS: HEMOGLOBIN 12.9 G/DL (14.2-18.0); MEAN CORPUSCULAR VOLUME 88 FL (80-99); PLATELET COUNT 316 K/UL (150-450); RED BLOOD COUNT 4.31 M/UL (4.70-6.10); RED CELL DISTRIBUTION WIDTH 12.8 % (11.6-14.8); WHITE BLOOD COUNT 20.3 K/UL (4.8-10.8)
--- NOTE | 2018-08-27 06:26 | NUR ---
NURSE NOTES: Contacted Dr. La's office to report change in patient's WBC. August 26 WBC was 13.4 and on August 27 WBC increased to 20.3. Left message with straightening press operator helper at [id number]
[2018-08-27 06:54] LABS: ALANINE AMINOTRANSFERASE 11 U/L (12-78); ALBUMIN 2.9 G/DL (3.4-5.0); ALBUMIN/GLOBULIN RATIO 0.5 (1.0-2.7); ALKALINE PHOSPHATASE 118 U/L (46-116); ANION GAP 18 mmol/L (5-15); ASPARTATE AMINO TRANSFERASE 11 U/L (15-37); BILIRUBIN,TOTAL 0.6 MG/DL (0.2-1.0); BLOOD UREA NITROGEN 67 mg/dL (7-18); CALCIUM 8.7 MG/DL (8.5-10.1); CARBON DIOXIDE 23 MMOL/L (21-32); CHLORIDE 93 MMOL/L (98-107); CHOLESTEROL 146 MG/DL (< 200); CREATININE 15.3 MG/DL (0.55-1.30); HDL CHOLESTEROL 49 MG/DL (40-60); PHOSPHORUS 6.1 MG/DL (2.5-4.9); POTASSIUM 4.8 MMOL/L (3.5-5.1); SODIUM 134 MMOL/L (136-145); TRIGLYCERIDES 100 MG/DL (30-150)
--- NOTE | 2018-08-27 06:58 | NUR ---
NURSE NOTES: Called Dr. Borjas's office. Left message regarding patient's change in level of consciousness.
--- NOTE | 2018-08-27 07:52 | NUR ---
HAND-OFF: Report given to Kimi Tejada RN. Nurse aware of patient's change in condition. Dr. Horvath and Dr. Borjas made aware of change.
[2018-08-27 08:00] VITALS: BP 159/97
--- NOTE | 2018-08-27 08:00 | NUR ---
NURSE NOTES: Report received from Raul Mirza RN.Pt with ongoing dialysis ,HD RN at bedside.Pt alert now awake, responding verbally to questions noted no resp distress or discomfort, SR on the monitor,SR up x2,call kuhn at bedside,,HOB elevated, bed lock in lowest position,will continue with plans of care.
[2018-08-27] MEDS: Sensipar 30mg Tab ORAL SCH (09:00)
[2018-08-27] MEDS ORDERED: LORazepam Inj 2mg/ml 1ml IV PRN (10:00)
--- NOTE | 2018-08-27 10:00 | Pulmonology Progress Note ---
Assessment/Plan Problems: (1) Acute encephalopathy (2) Acute psychosis (3) Tonsillar abscess (4) Tonsillar mass (5) Dysphagia (6) ESRD (end stage renal disease) on dialysis (7) History of hypertension (8) History of smoking Assessment/Plan start seroquel bid MRI of head continue abx check cultures HD by director channel. monitor BP Subjective ROS Limited/Unobtainable: No Constitutional: Reports: no symptoms HEENT: Repors: no symptoms Respiratory: Reports: no symptoms Allergies: Coded Allergies: No Known Allergies (Unverified , 08/25/18) Objective Last 24 Hour Vital Signs Date Time Temp Pulse Resp B/P (MAP) Pulse Ox O2 Delivery O2 Flow Rate FiO2 08/27/18 08:00 97.3 87 20 159/97 (117) 100 08/27/18 06:44 Room Air 08/27/18 06:44 Room Air 08/27/18 04:00 Room Air 08/27/18 04:00 98.3 83 20 127/78 (94) 100 08/27/18 03:40 81 08/27/18 03:16 Room Air 21 08/27/18 03:16 Room Air 21 08/27/18 01:00 87 08/27/18 00:00 Room Air 08/27/18 00:00 97.6 85 20 133/84 (100) 98 08/26/18 23:23 86 25 98 Room Air 21 08/26/18 23:14 86 18 98 Room Air 21 08/26/18 20:00 97.7 85 20 132/82 (99) 96 08/26/18 20:00 Room Air 08/26/18 19:39 86 25 98 Room Air 21 08/26/18 19:30 83 18 98 Room Air 21 08/26/18 19:29 86 08/26/18 18:05 97 135/93 08/26/18 16:00 90 08/26/18 16:00 Room Air 08/26/18 16:00 97.9 64 20 142/96 (111) 99 08/26/18 15:35 86 25 98 Room Air 21 08/26/18 15:25 84 20 99 Room Air 21 08/26/18 12:39 89 138/87 08/26/18 12:00 98.4 89 20 138/87 (104) 100 08/26/18 12:00 Room Air 08/26/18 11:52 98 08/26/18 11:33 88 18 98 Room Air 21 08/26/18 11:24 88 18 98 Room Air 21 Intake and Output 08/26/18 08/27/18 19:00 07:00 Intake Total 110 ml 110 ml Balance 110 ml 110 ml Intake IV Total 110 ml 110 ml # Voids 1 Objective more confused General Appearance: WD/WN HEENT: normocephalic, atraumatic Respiratory/Chest: chest wall non-tender, lungs clear Abdomen: soft, non tender, no organomegaly Genitourinary: normal external genitalia Extremities: no clubbing Skin: no lesions Neurologic/Psychiatric: no motor/sensory deficits, oriented x 3 Lymphatic: no neck adenopathy Microbiology Date/Time Source Procedure Growth Status 08/25/18 17:20 Blood Blood Culture - Preliminary NO GROWTH AFTER 24 HOURS Resulted 08/25/18 17:00 Blood Blood Culture - Preliminary NO GROWTH AFTER 24 HOURS Resulted 08/26/18 07:20 Sputum Gram Stain - Final Resulted 08/26/18 07:20 Sputum Sputum Culture Pending Resulted Laboratory Tests 08/26/18 14:43: Calcium (Send out) [Pending], Total Protein (PEP) [Pending], Albumin (PEP) [ Pending], Globulin (PEP) [Pending], Albumin/Globulin Ratio [Pending], Alpha-1- Globulins [Pending], Ychvj-4-Xegaffemp [Pending], Beta Globulins [Pending], Beta Gamma Globulin [Pending], PEP Abnormal Protein Bands [Pending], Protein Electrophoresis Interpret [Pending], Parathyroid Hormone (Intact) [Pending] 08/27/18 03:40: Albumin/Globulin Ratio 0.5L, White Blood Count 20.3#H, Red Blood Count 4.31L, Hemoglobin 12.9L, Hematocrit 38.0L, Mean Corpuscular Volume 88, Mean Corpuscular Hemoglobin 30.0, Mean Corpuscular Hemoglobin Concent 34.0, Red Cell Distribution Width 12.8, Platelet Count 316, Mean Platelet Volume 6.2L, Neutrophils (%) (Auto) , Lymphocytes (%) (Auto) , Monocytes (%) (Auto) , Eosinophils (%) (Auto) , Basophils (%) (Auto) , Differential Total Cells Counted 100, Neutrophils % (Manual) 83H, Lymphocytes % (Manual) 10L, Monocytes % (Manual) 7, Eosinophils % (Manual) 0, Basophils % (Manual) 0, Band Neutrophils 0, Platelet Estimate Adequate, Platelet Morphology Normal, Red Blood Cell Morphology Normal, Sodium Level 134L, Potassium Level 4.8, Chloride Level 93L, Carbon Dioxide Level 23, Anion Gap 18H, Blood Urea Nitrogen 67H, Creatinine 15.3H, Estimat Glomerular Filtration Rate 3.9, Glucose Level 95, Hemoglobin A1c 5.5, Uric Acid 7.3H, Calcium Level 8.7, Phosphorus Level 6.1H, Magnesium Level 2.3, Total Bilirubin 0.6, Aspartate Amino Transf (AST/SGOT) 11L , Alanine Aminotransferase (ALT/SGPT) 11L, Alkaline Phosphatase 118H, C- Reactive Protein, Quantitative 3.3H, Pro-B-Type Natriuretic Peptide > [id number], Total Protein 8.3H, Albumin 2.9L, Globulin 5.4, Triglycerides Level 100, Cholesterol Level 146, LDL Cholesterol 75, HDL Cholesterol 49, Cholesterol/HDL Ratio 3.0L, Thyroid Stimulating Hormone (TSH) 1.084 Current Medications Medications (Trade) Dose Ordered Sig/Shayan Route PRN Reason Start Time Stop Time Status Last Admin Dose Admin Acetaminophen (Tylenol) 650 mg Q4H PRN ORAL T>100.5 08/25/18 19:30 09/24/18 19:29 Albuterol/ Ipratropium (Albuterol/ Ipratropium) 3 ml Q4H PRN HHN Shortness of Breath 08/25/18 19:30 08/30/18 19:29 Amlodipine Besylate (Norvasc) 10 mg DAILY ORAL 08/27/18 09:00 09/25/18 08:59 Ampicillin Sodium/ Sulbactam Sodium 3 gm/Sodium Chloride 110 ml @ 220 mls/hr Q12HR@1100,2300 IVPB 08/25/18 23:00 09/01/18 22:59 08/26/18 22:31 Cinacalcet (Sensipar) 30 mg DAILY ORAL 08/26/18 09:00 09/25/18 08:59 08/26/18 08:45 Heparin Sodium (Porcine) (Heparin 5000 units/ml) 5,000 units EVERY 12 HOURS SUBQ 08/25/18 21:00 09/24/18 20:59 08/26/18 20:45 Hydralazine HCl (Apresoline) 10 mg Q4H PRN IV bp over 160 syst and 100 diast 08/26/18 10:30 09/25/18 10:29 Iopamidol (Isovue-300 100ml) 100 ml NOW PRN INJ Radiology Procedure 08/25/18 17:00 08/27/18 16:52 Labetalol HCl (Normodyne) 300 mg TID ORAL 08/26/18 09:00 09/25/18 08:59 08/26/18 18:05 Nitroglycerin (Ntg) 0.4 mg Q5M PRN SL Prn Chest Pain 08/25/18 19:30 09/24/18 19:29 Ondansetron HCl (Zofran) 4 mg Q6H PRN IVP Nausea & Vomiting 08/25/18 19:30 09/24/18 19:29 Pantoprazole (Protonix) 40 mg DAILY ORAL 08/26/18 11:00 09/25/18 10:59 08/26/18 11:12 Polyethylene Glycol (Miralax) 17 gm DAILYPRN PRN ORAL Constipation 08/25/18 19:30 09/24/18 19:29 Promethazine HCl/ Codeine (Phenergan with Codeine) 5 ml Q4H PRN ORAL For Cough 08/25/18 19:30 09/24/18 19:29 Temazepam (Restoril) 15 mg HSPRN PRN ORAL Insomnia 08/25/18 21:00 09/01/18 20:59 08/26/18 23:06 Tramadol HCl (Ultram) 50 mg Q6H PRN ORAL mod to sever pain 08/26/18 10:30 09/02/18 10:29 Salazar Horvath MD August 27, 2018 10:00
--- NOTE | 2018-08-27 10:10 | NUR ---
NURSE NOTES: NIHS scale intervention done.
--- NOTE | 2018-08-27 10:10 | NUR ---
RAPID RESPONSE: Rapid Response was called in @ 1010 due to pt was witnessed by JENNA Madrid nurse in change of mentation, cold, clammy skin, pt staring blank. 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 vital signs taken- initially-178/100,hr-69,rr-24, spo2-100%, pain level -0, Dr Leong at the bedside, Dr Dane Borjas was notified @ 1025 returned call @ 1044. Stat CBC,PT/PTT,CMP DONE @ 1030, ekg DONE @ 1030. Results relayed to Dr Pennie Street and Dr Leong. 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
[2018-08-27 10:47] LABS: HEMATOCRIT 43.3 % (42.0-52.0); HEMOGLOBIN 14.5 G/DL (14.2-18.0); MEAN CORPUSCULAR VOLUME 87 FL (80-99); PLATELET COUNT 387 K/UL (150-450); RED BLOOD COUNT 4.99 M/UL (4.70-6.10); RED CELL DISTRIBUTION WIDTH 12.3 % (11.6-14.8)
[2018-08-27 10:55] LABS: ANION GAP 16 mmol/L (5-15); BLOOD UREA NITROGEN 42 mg/dL (7-18); CALCIUM 9.4 MG/DL (8.5-10.1); CARBON DIOXIDE 26 MMOL/L (21-32); CHLORIDE 95 MMOL/L (98-107); CREATININE 10.7 MG/DL (0.55-1.30); POTASSIUM 3.7 MMOL/L (3.5-5.1); SODIUM 137 MMOL/L (136-145)
--- NOTE | 2018-08-27 10:57 | NUR ---
NURSE NOTES: Pt given Ativan 2mg ivp for MRI procedure.Pt brought down to MRI per juan,sedated,in no resp distress accompanied by transporter and RN.
[2018-08-27 10:59] LABS: INR 1.1 (0.9-1.1)
[2018-08-27 11:00] LABS: ALANINE AMINOTRANSFERASE 17 U/L (12-78); ALBUMIN 3.4 G/DL (3.4-5.0); ALBUMIN/GLOBULIN RATIO 0.5 (1.0-2.7); ALKALINE PHOSPHATASE 128 U/L (46-116); ASPARTATE AMINO TRANSFERASE 13 U/L (15-37); BILIRUBIN,TOTAL 0.7 MG/DL (0.2-1.0)
--- NOTE | 2018-08-27 11:26 | Consultation ---
History of Present Illness General Date patient seen: August 27, 2018 Chief Complaint: Sore Throat Referring physician: Chaim Borjas Present Illness HPI 68 y/o M with hx of ESRD on HD, tobacco abuse, HTN, malnutrition presents to ED on 08/25 with 1 week of increased throat pain, R neck swelling and difficulty swallowing; pain described as dull, 8/10 intensity, nonradiating. +chills but not fever. Patient was found to have possible tonsil abscess vs neoplasm Denied CP, SOB, n/v/d, cough upon admission Allergies: Coded Allergies: No Known Allergies (Unverified , 08/25/18) Medication History Scheduled Amlodipine Besylate* (Amlodipine Besylate*), 10 MG ORAL DAILY, (Reported) Aspirin* (Aspir 81*), 81 MG ORAL DAILY, (Reported) Cinacalcet* (Sensipar*), 30 MG ORAL DAILY, (Reported) Folic Acid/Vitamin B Comp W-C (Dialyvite Tablet), 1 EACH PO DAILY, (Reported) Labetalol Hcl* (Normodyne*), 300 MG ORAL TID, (Reported) Sucroferric Oxyhydroxide (Velphoro), 500 MG PO BID, (Reported) Patient History Healthcare decision maker Oriana Vazquezt Resuscitation status Full Code Advanced Directive on File Patient History Narrative PMhx: as above Shx: Positive smoking. No alcohol. No intravenous drug abuse. Positive marijuana use. Fhx: non contributory Review of Systems All Other Systems: negative except mentioned in HPI Physical Exam Physical Exam Narrative HEENT: Normocephalic and atraumatic. Pupils are equal, round, and reactive to light. Sclerae anicteric. Oral mucosa are moist. There is mild erythema of the right oropharynx. No facial swelling or tenderness. NECK: Supple. There is no jugular venous distention. No carotid bruits. No edema or erythema. No mass. LUNGS: Clear to auscultation bilaterally. HEART: Regular rate and rhythm. S1, S2. No murmurs or S3. ABDOMEN: Soft and nontender. No palpable mass. EXTREMITIES: No cyanosis, clubbing, or edema. NEUROLOGIC: No gross focal motor deficits. Last 24 Hour Vital Signs Date Time Temp Pulse Resp B/P (MAP) Pulse Ox O2 Delivery O2 Flow Rate FiO2 08/27/18 10:31 Room Air 08/27/18 10:31 Room Air 08/27/18 08:00 97.3 87 20 159/97 (117) 100 08/27/18 06:44 Room Air 08/27/18 06:44 Room Air 08/27/18 04:00 Room Air 08/27/18 04:00 98.3 83 20 127/78 (94) 100 08/27/18 03:40 81 08/27/18 03:16 Room Air 21 08/27/18 03:16 Room Air 21 08/27/18 01:00 87 08/27/18 00:00 Room Air 08/27/18 00:00 97.6 85 20 133/84 (100) 98 08/26/18 23:23 86 25 98 Room Air 21 08/26/18 23:14 86 18 98 Room Air 21 08/26/18 20:00 97.7 85 20 132/82 (99) 96 08/26/18 20:00 Room Air 08/26/18 19:39 86 25 98 Room Air 21 08/26/18 19:30 83 18 98 Room Air 21 08/26/18 19:29 86 08/26/18 18:05 97 135/93 08/26/18 16:00 90 08/26/18 16:00 Room Air 08/26/18 16:00 97.9 64 20 142/96 (111) 99 08/26/18 15:35 86 25 98 Room Air 21 08/26/18 15:25 84 20 99 Room Air 21 08/26/18 12:39 89 138/87 08/26/18 12:00 98.4 89 20 138/87 (104) 100 08/26/18 12:00 Room Air 08/26/18 11:52 98 08/26/18 11:33 88 18 98 Room Air 21 08/26/18 11:24 88 18 98 Room Air 21 Intake and Output 08/26/18 08/27/18 19:00 07:00 Intake Total 110 ml 110 ml Balance 110 ml 110 ml Intake IV Total 110 ml 110 ml # Voids 1 Laboratory Tests Test 08/26/18 14:43 08/27/18 03:40 08/27/18 10:20 08/27/18 10:30 Calcium (Send out) Pending Total Protein (PEP) Pending Albumin (PEP) Pending Globulin (PEP) Pending Albumin/Globulin Ratio Pending 0.5 (1.0-2.7) L 0.5 (1.0-2.7) L Wteyb-0-Cbxddrqpb Pending Qzdte-4-Eliupremz Pending Beta Globulins Pending Beta Gamma Globulin Pending PEP Abnormal Protein Bands Pending Protein Electrophoresis Interpret Pending Parathyroid Hormone (Intact) Pending White Blood Count 20.3 K/UL (4.8-10.8) #H 19.0 K/UL (4.8-10.8) H Red Blood Count 4.31 M/UL (4.70-6.10) L 4.99 M/UL (4.70-6.10) Hemoglobin 12.9 G/DL (14.2-18.0) L 14.5 G/DL (14.2-18.0) Hematocrit 38.0 % (42.0-52.0) L 43.3 % (42.0-52.0) Mean Corpuscular Volume 88 FL (80-99) 87 FL (80-99) Mean Corpuscular Hemoglobin 30.0 PG (27.0-31.0) 29.2 PG (27.0-31.0) Mean Corpuscular Hemoglobin Concent 34.0 G/DL (32.0-36.0) 33.6 G/DL (32.0-36.0) Red Cell Distribution Width 12.8 % (11.6-14.8) 12.3 % (11.6-14.8) Platelet Count 316 K/UL (150-450) 387 K/UL (150-450) Mean Platelet Volume 6.2 FL (6.5-10.1) L 5.9 FL (6.5-10.1) L Neutrophils (%) (Auto) % (45.0-75.0) % (45.0-75.0) Lymphocytes (%) (Auto) % (20.0-45.0) % (20.0-45.0) Monocytes (%) (Auto) % (1.0-10.0) % (1.0-10.0) Eosinophils (%) (Auto) % (0.0-3.0) % (0.0-3.0) Basophils (%) (Auto) % (0.0-2.0) % (0.0-2.0) Differential Total Cells Counted 100 Neutrophils % (Manual) 83 % (45-75) H Pending Lymphocytes % (Manual) 10 % (20-45) L Pending Monocytes % (Manual) 7 % (1-10) Eosinophils % (Manual) 0 % (0-3) Basophils % (Manual) 0 % (0-2) Band Neutrophils 0 % (0-8) Platelet Estimate Adequate Pending Platelet Morphology Normal Pending Red Blood Cell Morphology Normal Sodium Level 134 MMOL/L (136-145) L 137 MMOL/L (136-145) Potassium Level 4.8 MMOL/L (3.5-5.1) 3.7 MMOL/L (3.5-5.1) Chloride Level 93 MMOL/L (98-107) L 95 MMOL/L (98-107) L Carbon Dioxide Level 23 MMOL/L (21-32) 26 MMOL/L (21-32) Anion Gap 18 mmol/L (5-15) H 16 mmol/L (5-15) H Blood Urea Nitrogen 67 mg/dL (7-18) H 42 mg/dL (7-18) H Creatinine 15.3 MG/DL (0.55-1.30) H 10.7 MG/DL (0.55-1.30) H Estimat Glomerular Filtration Rate 3.9 mL/min (>60) 5.8 mL/min (>60) Glucose Level 95 MG/DL (74-106) 132 MG/DL (74-106) H Hemoglobin A1c 5.5 % (4.3-6.0) Uric Acid 7.3 MG/DL (2.6-7.2) H Calcium Level 8.7 MG/DL (8.5-10.1) 9.4 MG/DL (8.5-10.1) Phosphorus Level 6.1 MG/DL (2.5-4.9) H Magnesium Level 2.3 MG/DL (1.8-2.4) Total Bilirubin 0.6 MG/DL (0.2-1.0) 0.7 MG/DL (0.2-1.0) Aspartate Amino Transf (AST/SGOT) 11 U/L (15-37) L 13 U/L (15-37) L Alanine Aminotransferase (ALT/SGPT) 11 U/L (12-78) L 17 U/L (12-78) Alkaline Phosphatase 118 U/L (46-116) H 128 U/L (46-116) H C-Reactive Protein, Quantitative 3.3 mg/dL (0.00-0.90) H Pro-B-Type Natriuretic Peptide > 96170 pg/mL (0-125) H Total Protein 8.3 G/DL (6.4-8.2) H 9.6 G/DL (6.4-8.2) H Albumin 2.9 G/DL (3.4-5.0) L 3.4 G/DL (3.4-5.0) Globulin 5.4 g/dL 6.2 g/dL Triglycerides Level 100 MG/DL (30-150) Cholesterol Level 146 MG/DL (< 200) LDL Cholesterol 75 mg/dL (<100) HDL Cholesterol 49 MG/DL (40-60) Cholesterol/HDL Ratio 3.0 (3.3-4.4) L Thyroid Stimulating Hormone (TSH) 1.084 uiU/mL (0.358-3.740) Arterial Blood pH 7.450 (7.350-7.450) Arterial Blood Partial Pressure CO2 35.4 mmHg (35.0-45.0) Arterial Blood Partial Pressure O2 > 494.6 mmHg (75.0-100.0) H Arterial Blood HCO3 24.1 mmol/L (22.0-26.0) Arterial Blood Oxygen Saturation 99.9 % (95-100) Arterial Blood Base Excess 0.6 (-2-2) Maxwell Test Positive Prothrombin Time Pending Prothromb Time International Ratio Pending Activated Partial Thromboplast Time Pending Height (Feet): 5 Height (Inches): 11.00 Weight (Pounds): 160 Medications Current Medications Medications (Trade) Dose Ordered Sig/Shayan Route PRN Reason Start Time Stop Time Status Last Admin Dose Admin Acetaminophen (Tylenol) 650 mg Q4H PRN ORAL T>100.5 08/25/18 19:30 09/24/18 19:29 Albuterol/ Ipratropium (Albuterol/ Ipratropium) 3 ml Q4H PRN HHN Shortness of Breath 08/25/18 19:30 08/30/18 19:29 Amlodipine Besylate (Norvasc) 10 mg DAILY ORAL 08/27/18 09:00 09/25/18 08:59 Ampicillin Sodium/ Sulbactam Sodium 3 gm/Sodium Chloride 110 ml @ 220 mls/hr Q12HR@1100,2300 IVPB 08/25/18 23:00 09/01/18 22:59 08/26/18 22:31 Cinacalcet (Sensipar) 30 mg DAILY ORAL 08/26/18 09:00 09/25/18 08:59 08/26/18 08:45 Heparin Sodium (Porcine) (Heparin 5000 units/ml) 5,000 units EVERY 12 HOURS SUBQ 08/25/18 21:00 09/24/18 20:59 08/26/18 20:45 Hydralazine HCl (Apresoline) 10 mg Q4H PRN IV bp over 160 syst and 100 diast 08/26/18 10:30 09/25/18 10:29 Iopamidol (Isovue-300 100ml) 100 ml NOW PRN INJ Radiology Procedure 08/25/18 17:00 08/27/18 16:52 Labetalol HCl (Normodyne) 300 mg TID ORAL 08/26/18 09:00 09/25/18 08:59 08/26/18 18:05 Lorazepam (Ativan 2mg/ml 1ml) 2 mg ONCE PRN IV prior to MRI 08/27/18 10:00 08/27/18 23:59 08/27/18 10:57 Nitroglycerin (Ntg) 0.4 mg Q5M PRN SL Prn Chest Pain 08/25/18 19:30 09/24/18 19:29 Ondansetron HCl (Zofran) 4 mg Q6H PRN IVP Nausea & Vomiting 08/25/18 19:30 09/24/18 19:29 Pantoprazole (Protonix) 40 mg DAILY ORAL 08/26/18 11:00 09/25/18 10:59 08/26/18 11:12 Polyethylene Glycol (Miralax) 17 gm DAILYPRN PRN ORAL Constipation 08/25/18 19:30 09/24/18 19:29 Promethazine HCl/ Codeine (Phenergan with Codeine) 5 ml Q4H PRN ORAL For Cough 08/25/18 19:30 09/24/18 19:29 Temazepam (Restoril) 15 mg HSPRN PRN ORAL Insomnia 08/25/18 21:00 09/01/18 20:59 08/26/18 23:06 Tramadol HCl (Ultram) 50 mg Q6H PRN ORAL mod to sever pain 08/26/18 10:30 09/02/18 10:29 Assessment/Plan Assessment/Plan: Abx: Unasyn 08/25- Cefepime x1 08/25 Unasyn x1 08/25 IV Vancomycin x1 08/25 Assessment: Possible Throat mass with superimposed infection - CT neck/maxillofacial: Enlarged right palatine tonsil with rim-enhancing hypodense structure within the tonsil partially visualized, concerning for tonsillitis with abscess. Please see accompanying CT face. 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 Will continue to follow along with you. Discussed with Mandy Cueto M.D. August 27, 2018 11:26
--- NOTE | 2018-08-27 11:47 | NUR ---
MRI BRAIN COMPLETED.
[2018-08-27 12:00] VITALS: BP 138/65
--- NOTE | 2018-08-27 12:00 | NUR ---
NURSE NOTES: Back from MRI , in no resp distress,lethargic,unable to give po medic.
--- NOTE | 2018-08-27 12:28 | Diagnostic Imaging Report ---
Indication: Altered level of consciousness 68-year-old male Technique: The head was imaged in a 1.5 Bhargavi magnet. Sequences obtained include sagittal and axial T1 FLAIR, axial T2 fast spin echo with fat saturation, axial T2 FLAIR, diffusion and ADC map. Comparison: None Findings: There is moderate prominence of the sulci, ventricles, and basal cisterns consistent with atrophy. Moderate, nonspecific T2 hyperintensity noted within white matter. This may be due to chronic small vessel disease. 1 to 2 mm focus demonstrated within the left aspect of the patricia consistent with an old lacunar infarct. Similar findings with 1 to 2 mm cystic foci within the basal ganglia and thalami bilaterally. These may be old lacunar infarcts or perivascular Virchow-Bubba spaces. There is no restricted diffusion. Brennan-white differentiation is normal. There is no mass effect, midline shift, edema, or hemorrhage. There are no abnormal extra-axial or intra-axial fluid collections. Fluid retention cyst in the left maxillary sinus noted. The corpus callosum and sella are unremarkable. The brainstem and cerebellum are unremarkable. Bone marrow signal within the visualized osseous structures appears age appropriate and unremarkable otherwise. Impression: No acute intracranial findings. 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 Moderate atrophy and evidence of chronic small vessel disease involving white matter tracts. Sinus disease
--- NOTE | 2018-08-27 12:35 | General Progress Note ---
Assessment/Plan Problem List: (1) ESRD (end stage renal disease) on dialysis ICD Codes: N18.6 - End stage renal disease; Z99.2 - Dependence on renal dialysis SNOMED: 111465685 (2) History of smoking ICD Codes: Z87.891 - Personal history of nicotine dependence SNOMED: 438439484 (3) History of hypertension ICD Codes: Z86.79 - Personal history of other diseases of the circulatory system SNOMED: 682944578 (4) Tonsillar abscess ICD Codes: J36 - Peritonsillar abscess; Z99.2 - Dependence on renal dialysis SNOMED: 34493535 (5) Tonsillar mass ICD Codes: R22.0 - Localized swelling, mass and lump, head SNOMED: 370186483 (6) Dysphagia ICD Codes: R13.10 - Dysphagia, unspecified SNOMED: 55702301, 715793153 (7) Acute encephalopathy ICD Codes: G93.40 - Encephalopathy, unspecified SNOMED: 48845763, 208655644 Status: unchanged Assessment/Plan: pt diet neuro f/u abx per id ent f/u cbc bmp am Subjective Constitutional: Reports: weakness Allergies: Coded Allergies: No Known Allergies (Unverified , 08/25/18) All Systems: reviewed and negative except above Subjective altered just had mri Objective Last 24 Hour Vital Signs Date Time Temp Pulse Resp B/P (MAP) Pulse Ox O2 Delivery O2 Flow Rate FiO2 08/27/18 10:31 Room Air 08/27/18 10:31 Room Air 08/27/18 08:00 97.3 87 20 159/97 (117) 100 08/27/18 06:44 Room Air 08/27/18 06:44 Room Air 08/27/18 04:00 Room Air 08/27/18 04:00 98.3 83 20 127/78 (94) 100 08/27/18 03:40 81 08/27/18 03:16 Room Air 21 08/27/18 03:16 Room Air 21 08/27/18 01:00 87 08/27/18 00:00 Room Air 08/27/18 00:00 97.6 85 20 133/84 (100) 98 08/26/18 23:23 86 25 98 Room Air 21 08/26/18 23:14 86 18 98 Room Air 21 08/26/18 20:00 97.7 85 20 132/82 (99) 96 08/26/18 20:00 Room Air 08/26/18 19:39 86 25 98 Room Air 21 08/26/18 19:30 83 18 98 Room Air 21 08/26/18 19:29 86 08/26/18 18:05 97 135/93 08/26/18 16:00 90 08/26/18 16:00 Room Air 08/26/18 16:00 97.9 64 20 142/96 (111) 99 08/26/18 15:35 86 25 98 Room Air 21 08/26/18 15:25 84 20 99 Room Air 21 08/26/18 12:39 89 138/87 Intake and Output 08/26/18 08/27/18 19:00 07:00 Intake Total 110 ml 110 ml Balance 110 ml 110 ml Intake IV Total 110 ml 110 ml # Voids 1 Laboratory Tests 08/26/18 14:43: Calcium (Send out) [Pending], Total Protein (PEP) [Pending], Albumin (PEP) [ Pending], Globulin (PEP) [Pending], Albumin/Globulin Ratio [Pending], Alpha-1- Globulins [Pending], [id number]-[id number] [Pending], Beta Globulins [Pending], Beta Gamma Globulin [Pending], PEP Abnormal Protein Bands [Pending], Protein Electrophoresis Interpret [Pending], Parathyroid Hormone (Intact) [Pending] 08/27/18 03:40: Albumin/Globulin Ratio 0.5L, White Blood Count 20.3#H, Red Blood Count 4.31L, Hemoglobin 12.9L, Hematocrit 38.0L, Mean Corpuscular Volume 88, Mean Corpuscular Hemoglobin 30.0, Mean Corpuscular Hemoglobin Concent 34.0, Red Cell Distribution Width 12.8, Platelet Count 316, Mean Platelet Volume 6.2L, Neutrophils (%) (Auto) , Lymphocytes (%) (Auto) , Monocytes (%) (Auto) , Eosinophils (%) (Auto) , Basophils (%) (Auto) , Differential Total Cells Counted 100, Neutrophils % (Manual) 83H, Lymphocytes % (Manual) 10L, Monocytes % (Manual) 7, Eosinophils % (Manual) 0, Basophils % (Manual) 0, Band Neutrophils 0, Platelet Estimate Adequate, Platelet Morphology Normal, Red Blood Cell Morphology Normal, Sodium Level 134L, Potassium Level 4.8, Chloride Level 93L, Carbon Dioxide Level 23, Anion Gap 18H, Blood Urea Nitrogen 67H, Creatinine 15.3H, Estimat Glomerular Filtration Rate 3.9, Glucose Level 95, Hemoglobin A1c 5.5, Uric Acid 7.3H, Calcium Level 8.7, Phosphorus Level 6.1H, Magnesium Level 2.3, Total Bilirubin 0.6, Aspartate Amino Transf (AST/SGOT) 11L , Alanine Aminotransferase (ALT/SGPT) 11L, Alkaline Phosphatase 118H, C- Reactive Protein, Quantitative 3.3H, Pro-B-Type Natriuretic Peptide > 87685F, Total Protein 8.3H, Albumin 2.9L, Globulin 5.4, Triglycerides Level 100, Cholesterol Level 146, LDL Cholesterol 75, HDL Cholesterol 49, Cholesterol/HDL Ratio 3.0L, Thyroid Stimulating Hormone (TSH) 1.084 08/27/18 10:20: Arterial Blood pH 7.450, Arterial Blood Partial Pressure CO2 35.4, Arterial Blood Partial Pressure O2 > 494.6H, Arterial Blood HCO3 24.1, Arterial Blood Oxygen Saturation 99.9, Arterial Blood Base Excess 0.6, Maxwell Test Positive 08/27/18 10:30: Albumin/Globulin Ratio 0.5L, White Blood Count 19.0H, Red Blood Count 4.99, Hemoglobin 14.5, Hematocrit 43.3, Mean Corpuscular Volume 87, Mean Corpuscular Hemoglobin 29.2, Mean Corpuscular Hemoglobin Concent 33.6, Red Cell Distribution Width 12.3, Platelet Count 387, Mean Platelet Volume 5.9L, Neutrophils (%) (Auto) , Lymphocytes (%) (Auto) , Monocytes (%) (Auto) , Eosinophils (%) (Auto) , Basophils (%) (Auto) , Differential Total Cells Counted 100, Neutrophils % (Manual) 84H, Lymphocytes % (Manual) 12L, Monocytes % (Manual) 4, Eosinophils % (Manual) 0, Basophils % (Manual) 0, Band Neutrophils 0, Platelet Estimate Adequate, Platelet Morphology Normal, Red Blood Cell Morphology Normal, Sodium Level 137, Potassium Level 3.7, Chloride Level 95L, Carbon Dioxide Level 26, Anion Gap 16H, Blood Urea Nitrogen 42H, Creatinine 10.7H, Estimat Glomerular Filtration Rate 5.8, Glucose Level 132H, Calcium Level 9.4, Total Bilirubin 0.7, Aspartate Amino Transf (AST/SGOT) 13L, Alanine Aminotransferase (ALT/SGPT) 17, Alkaline Phosphatase 128H, Total Protein 9.6H, Albumin 3.4, Globulin 6.2, Prothrombin Time 11.6H, Prothromb Time International Ratio 1.1, Activated Partial Thromboplast Time 26 Height (Feet): 5 Height (Inches): 11.00 Weight (Pounds): 160 EENT: normal ENT inspection Neck: normal alignment Cardiovascular: normal peripheral pulses, normal rate, regular rhythm Respiratory/Chest: chest wall non-tender, lungs clear, normal breath sounds Abdomen: normal bowel sounds, non tender, soft Extremities: normal inspection Edema: no edema noted Arm (L), no edema noted Arm (R), no edema noted Leg (L), no edema noted Leg (R), no edema noted Pedal (L), no edema noted Pedal (R), no edema noted Generalized Neurologic: motor weakness Skin: normal pigmentation, warm/dry Chaim Borjas DO August 27, 2018 12:35
--- NOTE | 2018-08-27 13:13 | Diagnostic Imaging Report ---
EXAM: CT Neck With Intravenous Contrast CLINICAL HISTORY: SWELLING and pain TECHNIQUE: Axial computed tomography images of the neck with intravenous contrast. CTDI is 17.81 mGy and DLP is 489.78 mGy-cm. One or more of the following dose reduction techniques were used: automated exposure control, adjustment of the mA and/or kV according to patient size, use of iterative reconstruction technique. COMPARISON: None FINDINGS: Oropharynx: Enlarged right palatine tonsil with rim-enhancing hypodense structure within the tonsil partially visualized, concerning for tonsillitis with abscess. Please see accompanying CT face. Hypopharynx: Unremarkable. Larynx: Unremarkable. Normal epiglottis. Trachea: Unremarkable. Retropharyngeal space: Unremarkable. Submandibular/parotid glands: Unremarkable. Glands are normal in size. Thyroid: Unremarkable. No enlarged or calcified nodules. Bones/joints: No acute fracture. Soft tissues: Unremarkable. Vasculature: No acute findings. Lymph nodes: Unremarkable. No lymphadenopathy. Lung apices: Unremarkable as visualized. IMPRESSION: Enlarged right palatine tonsil with rim-enhancing hypodense structure within the tonsil partially visualized, concerning for tonsillitis with abscess. Please see accompanying CT face.
--- NOTE | 2018-08-27 13:13 | Diagnostic Imaging Report ---
ADDENDUM - Added by Johnny Alonzo M.D. on 08/25/2018 6:39 PM (-07:00) Component of neoplastic process with necrosis cannot be entirely excluded. Further evaluation could be performed with direct visualization and/or tissue sampling. EXAM: CT Maxillofacial Without And With Intravenous Contrast CLINICAL HISTORY: SWELLING and pain TECHNIQUE: Axial computed tomography images of the face without and with intravenous contrast. CTDI is 28.19 mGy and DLP is 651.22 mGy-cm. One or more of the following dose reduction techniques were used: automated exposure control, adjustment of the mA and/or kV according to patient size, use of iterative reconstruction technique. COMPARISON: None FINDINGS: FACIAL BONES: Degenerative changes of the left temporomandibular joint. No facial fracture identified. NASAL FOSSA: Normal. No significant nasal septal deviation. No nasal bone fracture. SINUSES: Polyps versus mucous retention cysts in the left maxillary sinus. Mild mucosal thickening in the maxillary sinuses. Old fracture deformity of the left lamina papyracea. ORBITS: Normal. SOFT TISSUES: Significant enlargement of right pontine tonsil with large rim-enhancing hypodense structure in the right palatine tonsil measuring approximately 2.6 x 2.8 x 4.4 cm. Narrowing of the oropharynx. OTHER: Atherosclerotic calcifications in the vasculature. IMPRESSION: Enlargement of the right palatine tonsil with phlegmon and abscess measuring 2.6 x 2.8 x 4.4 cm. Narrowing of the oropharynx.
--- NOTE | 2018-08-27 13:15 | Hematology/Onc Progress Note ---
Assessment/Plan Assessment/Plan Assessment/Recs: # Throat mass with superimposed infection -- per ENT, exam was very difficult to visualize pharynx given tongue position. On palpation the area was soft. I spent time reviewing the CT scan and the irregularity makes me very concerned for a malignant process. I explained the importance of follow up with this kind greg and would like to see him in a week. Continue Augmentin. Will scope and possible return to take him to the OR for triple endoscopy with biopsy. On a side note he did mention issues with housing so that might need to be addressed prior to discharge. --> imaging has been reviewed --> may need further management, as per ent first --> outpatient care --> ID recs reviewed # Hypercalcemia likely related to esrd --> CA++ has been re-ordered may need meds per renal --> PTH has been ordered # Dysphagia has improved, likely due to mass --> reviewed recs gi eval as needed --> ent recs # ESRD (end stage renal disease) on dialysis --> per renal recs # History of hypertension --> sbp goal <140 # History of smoking The timing of this note does not necessarily reflect the time of the patient was seen. Greatly appreciate consultation! Subjective HEENT: Denies: no symptoms, eye pain, blurred vision, tearing, double vision, ear pain, ear discharge, nose pain, nose congestion, throat pain, throat swelling, mouth pain, mouth swelling, other Cardiovascular: Denies: no symptoms, chest pain, edema, irregular heart rate, lightheadedness, palpitations, syncope, other Respiratory: Denies: no symptoms, cough, shortness of breath, SOB with excertion, SOB at rest, sputum, wheezing, other Gastrointestinal/Abdominal: Denies: no symptoms, abdomen distended, abdominal pain, black stools, tarry stools, blood in stool, constipated, diarrhea, difficulty swallowing, nausea, poor appetite, poor fluid intake, rectal bleeding , vomiting, other Genitourinary: Denies: no symptoms, burning, discharge, frequency, flank pain, hematuria, incontinence, pain, urgency, other Neurologic/Psychiatric: Denies: no symptoms, anxiety, depressed, emotional problems, headache, numbness, paresthesia, pre-existing deficit, seizure, tingling, tremors, weakness, other Endocrine: Denies: no symptoms, excessive sweating, flushing, intolerance to cold, intolerance to heat, increased hunger, increased thirst, increased urine, unexplained weight gain, unexplained weight loss, other Hematologic/Lymphatic: Denies: no symptoms, anemia, easy bleeding, easy bruising, adenopathy, other Allergies: Coded Allergies: No Known Allergies (Unverified , 08/25/18) Subjective 08/27: getting hd today, apparently had a rapid response in the am after I left, lytes repleted Objective Objective Current Medications Medications (Trade) Dose Ordered Sig/Shayan Route PRN Reason Start Time Stop Time Status Last Admin Dose Admin Acetaminophen (Tylenol) 650 mg Q4H PRN ORAL T>100.5 08/25/18 19:30 09/24/18 19:29 Albuterol/ Ipratropium (Albuterol/ Ipratropium) 3 ml Q4H PRN HHN Shortness of Breath 08/25/18 19:30 08/30/18 19:29 Amlodipine Besylate (Norvasc) 10 mg DAILY ORAL 08/27/18 09:00 09/25/18 08:59 Ampicillin Sodium/ Sulbactam Sodium 3 gm/Sodium Chloride 110 ml @ 220 mls/hr Q12HR@1100,2300 IVPB 08/25/18 23:00 09/01/18 22:59 08/26/18 22:31 Cinacalcet (Sensipar) 30 mg DAILY ORAL 08/26/18 09:00 09/25/18 08:59 08/26/18 08:45 Heparin Sodium (Porcine) (Heparin 5000 units/ml) 5,000 units EVERY 12 HOURS SUBQ 08/25/18 21:00 09/24/18 20:59 08/26/18 20:45 Hydralazine HCl (Apresoline) 10 mg Q4H PRN IV bp over 160 syst and 100 diast 08/26/18 10:30 09/25/18 10:29 Iopamidol (Isovue-300 100ml) 100 ml NOW PRN INJ Radiology Procedure 08/25/18 17:00 08/27/18 16:52 Labetalol HCl (Normodyne) 300 mg TID ORAL 08/26/18 09:00 09/25/18 08:59 08/26/18 18:05 Lorazepam (Ativan 2mg/ml 1ml) 2 mg ONCE PRN IV prior to MRI 08/27/18 10:00 08/27/18 23:59 08/27/18 10:57 Nitroglycerin (Ntg) 0.4 mg Q5M PRN SL Prn Chest Pain 08/25/18 19:30 09/24/18 19:29 Ondansetron HCl (Zofran) 4 mg Q6H PRN IVP Nausea & Vomiting 08/25/18 19:30 09/24/18 19:29 Pantoprazole (Protonix) 40 mg DAILY ORAL 08/26/18 11:00 09/25/18 10:59 08/26/18 11:12 Polyethylene Glycol (Miralax) 17 gm DAILYPRN PRN ORAL Constipation 08/25/18 19:30 09/24/18 19:29 Promethazine HCl/ Codeine (Phenergan with Codeine) 5 ml Q4H PRN ORAL For Cough 08/25/18 19:30 09/24/18 19:29 Quetiapine Fumarate (SEROquel) 25 mg Q12HR ORAL 08/27/18 21:00 09/26/18 20:59 Temazepam (Restoril) 15 mg HSPRN PRN ORAL Insomnia 08/25/18 21:00 09/01/18 20:59 08/26/18 23:06 Tramadol HCl (Ultram) 50 mg Q6H PRN ORAL mod to sever pain 08/26/18 10:30 09/02/18 10:29 Last 24 Hour Vital Signs Date Time Temp Pulse Resp B/P (MAP) Pulse Ox O2 Delivery O2 Flow Rate FiO2 08/27/18 10:31 Room Air 08/27/18 10:31 Room Air 08/27/18 08:00 97.3 87 20 159/97 (117) 100 08/27/18 06:44 Room Air 08/27/18 06:44 Room Air 08/27/18 04:00 Room Air 08/27/18 04:00 98.3 83 20 127/78 (94) 100 08/27/18 03:40 81 08/27/18 03:16 Room Air 21 08/27/18 03:16 Room Air 21 08/27/18 01:00 87 08/27/18 00:00 Room Air 08/27/18 00:00 97.6 85 20 133/84 (100) 98 08/26/18 23:23 86 25 98 Room Air 21 08/26/18 23:14 86 18 98 Room Air 21 08/26/18 20:00 97.7 85 20 132/82 (99) 96 08/26/18 20:00 Room Air 08/26/18 19:39 86 25 98 Room Air 21 08/26/18 19:30 83 18 98 Room Air 21 08/26/18 19:29 86 08/26/18 18:05 97 135/93 08/26/18 16:00 90 08/26/18 16:00 Room Air 08/26/18 16:00 97.9 64 20 142/96 (111) 99 08/26/18 15:35 86 25 98 Room Air 21 08/26/18 15:25 84 20 99 Room Air 21 08/26/18 12:39 89 138/87 08/26/18 12:00 98.4 89 20 138/87 (104) 100 08/26/18 12:00 Room Air 08/26/18 11:52 98 08/26/18 11:33 88 18 98 Room Air 21 08/26/18 11:24 88 18 98 Room Air 21 08/26/18 08:45 92 152/101 08/26/18 08:44 92 152/101 08/26/18 08:00 97.5 92 24 152/101 (118) 100 08/26/18 08:00 Room Air 08/26/18 07:44 87 08/26/18 07:41 81 16 99 Room Air 21 08/26/18 07:35 84 16 99 Room Air 21 08/26/18 05:36 87 18 97 Room Air 21 08/26/18 05:34 87 18 97 Room Air 21 08/26/18 04:00 Room Air 08/26/18 04:00 96.7 89 18 145/100 (115) 94 08/26/18 03:32 92 08/26/18 00:00 95 08/26/18 00:00 Room Air 08/26/18 00:00 97.8 89 16 150/88 (108) 100 08/25/18 22:44 Room Air 08/25/18 20:51 95 08/25/18 20:40 99.1 97 18 118/86 100 Room Air 08/25/18 17:33 99.4 86 18 153/93 98 Room Air 08/25/18 16:52 88 18 Room Air 08/25/18 16:42 98.8 102 18 142/87 (105) 98 Room Air Intake and Output 08/26/18 08/27/18 19:00 07:00 Intake Total 110 ml 110 ml Balance 110 ml 110 ml Intake IV Total 110 ml 110 ml # Voids 1 Labs Test 08/25/18 17:04 08/26/18 05:30 08/26/18 14:43 08/27/18 03:40 White Blood Count 16.2 K/UL (4.8-10.8) 13.4 K/UL (4.8-10.8) 20.3 K/UL (4.8-10.8) Red Blood Count 4.67 M/UL (4.70-6.10) 4.87 M/UL (4.70-6.10) 4.31 M/UL (4.70-6.10) Hemoglobin 14.0 G/DL (14.2-18.0) 14.4 G/DL (14.2-18.0) 12.9 G/DL (14.2-18.0) Hematocrit 39.6 % (42.0-52.0) 43.1 % (42.0-52.0) 38.0 % (42.0-52.0) Mean Corpuscular Volume 85 FL (80-99) 88 FL (80-99) 88 FL (80-99) Mean Corpuscular Hemoglobin 30.0 PG (27.0-31.0) 29.5 PG (27.0-31.0) 30.0 PG (27.0-31.0) Mean Corpuscular Hemoglobin Concent 35.4 G/DL (32.0-36.0) 33.4 G/DL (32.0-36.0) 34.0 G/DL (32.0-36.0) Red Cell Distribution Width 12.2 % (11.6-14.8) 12.6 % (11.6-14.8) 12.8 % (11.6-14.8) Platelet Count 317 K/UL (150-450) 283 K/UL (150-450) 316 K/UL (150-450) Mean Platelet Volume 5.8 FL (6.5-10.1) 7.4 FL (6.5-10.1) 6.2 FL (6.5-10.1) Neutrophils (%) (Auto) 79.6 % (45.0-75.0) % (45.0-75.0) % (45.0-75.0) Lymphocytes (%) (Auto) 10.1 % (20.0-45.0) % (20.0-45.0) % (20.0-45.0) Monocytes (%) (Auto) 7.5 % (1.0-10.0) % (1.0-10.0) % (1.0-10.0) Eosinophils (%) (Auto) 1.0 % (0.0-3.0) % (0.0-3.0) % (0.0-3.0) Basophils (%) (Auto) 1.9 % (0.0-2.0) % (0.0-2.0) % (0.0-2.0) Prothrombin Time 11.9 SEC (9.30-11.50) Prothromb Time International Ratio 1.1 (0.9-1.1) Activated Partial Thromboplast Time 31 SEC (23-33) Sodium Level 137 MMOL/L (136-145) 132 MMOL/L (136-145) 134 MMOL/L (136-145) Potassium Level 4.4 MMOL/L (3.5-5.1) 5.0 MMOL/L (3.5-5.1) 4.8 MMOL/L (3.5-5.1) Chloride Level 96 MMOL/L (98-107) 94 MMOL/L (98-107) 93 MMOL/L (98-107) Carbon Dioxide Level 30 MMOL/L (21-32) 25 MMOL/L (21-32) 23 MMOL/L (21-32) Anion Gap 11 mmol/L (5-15) 13 mmol/L (5-15) 18 mmol/L (5-15) Blood Urea Nitrogen 38 mg/dL (7-18) 47 mg/dL (7-18) 67 mg/dL (7-18) Creatinine 11.5 MG/DL (0.55-1.30) 12.5 MG/DL (0.55-1.30) 15.3 MG/DL (0.55-1.30) Estimat Glomerular Filtration Rate 5.3 mL/min (>60) 4.8 mL/min (>60) 3.9 mL/min (>60) Glucose Level 115 MG/DL (74-106) 151 MG/DL (74-106) 95 MG/DL (74-106) Calcium Level 10.4 MG/DL (8.5-10.1) 10.1 MG/DL (8.5-10.1) 8.7 MG/DL (8.5-10.1) Total Bilirubin 0.7 MG/DL (0.2-1.0) 0.6 MG/DL (0.2-1.0) Aspartate Amino Transf (AST/SGOT) 13 U/L (15-37) 11 U/L (15-37) Alanine Aminotransferase (ALT/SGPT) 20 U/L (12-78) 11 U/L (12-78) Alkaline Phosphatase 136 U/L (46-116) 118 U/L (46-116) Total Protein 9.7 G/DL (6.4-8.2) 8.3 G/DL (6.4-8.2) Albumin 3.5 G/DL (3.4-5.0) 3.1 G/DL (3.4-5.0) 2.9 G/DL (3.4-5.0) Globulin 6.2 g/dL 5.4 g/dL Albumin/Globulin Ratio 0.6 (1.0-2.7) 0.5 (1.0-2.7) Differential Total Cells Counted 100 100 Neutrophils % (Manual) 88 % (45-75) 83 % (45-75) Lymphocytes % (Manual) 9 % (20-45) 10 % (20-45) Monocytes % (Manual) 3 % (1-10) 7 % (1-10) Eosinophils % (Manual) 0 % (0-3) 0 % (0-3) Basophils % (Manual) 0 % (0-2) 0 % (0-2) Band Neutrophils 0 % (0-8) 0 % (0-8) Platelet Estimate Adequate Adequate Platelet Morphology Normal Normal Red Blood Cell Morphology Normal Normal Phosphorus Level 5.3 MG/DL (2.5-4.9) 6.1 MG/DL (2.5-4.9) Hemoglobin A1c 5.5 % (4.3-6.0) Uric Acid 7.3 MG/DL (2.6-7.2) Magnesium Level 2.3 MG/DL (1.8-2.4) C-Reactive Protein, Quantitative 3.3 mg/dL (0.00-0.90) Pro-B-Type Natriuretic Peptide > 80133 pg/mL (0-125) Triglycerides Level 100 MG/DL (30-150) Cholesterol Level 146 MG/DL (< 200) LDL Cholesterol 75 mg/dL (<100) HDL Cholesterol 49 MG/DL (40-60) Cholesterol/HDL Ratio 3.0 (3.3-4.4) Thyroid Stimulating Hormone (TSH) 1.084 uiU/mL (0.358-3.740) Test 08/27/18 10:20 08/27/18 10:30 Arterial Blood pH 7.450 (7.350-7.450) Arterial Blood Partial Pressure CO2 35.4 mmHg (35.0-45.0) Arterial Blood Partial Pressure O2 > 494.6 mmHg (75.0-100.0) Arterial Blood HCO3 24.1 mmol/L (22.0-26.0) Arterial Blood Oxygen Saturation 99.9 % (95-100) Arterial Blood Base Excess 0.6 (-2-2) Maxwell Test Positive White Blood Count 19.0 K/UL (4.8-10.8) Red Blood Count 4.99 M/UL (4.70-6.10) Hemoglobin 14.5 G/DL (14.2-18.0) Hematocrit 43.3 % (42.0-52.0) Mean Corpuscular Volume 87 FL (80-99) Mean Corpuscular Hemoglobin 29.2 PG (27.0-31.0) Mean Corpuscular Hemoglobin Concent 33.6 G/DL (32.0-36.0) Red Cell Distribution Width 12.3 % (11.6-14.8) Platelet Count 387 K/UL (150-450) Mean Platelet Volume 5.9 FL (6.5-10.1) Neutrophils (%) (Auto) % (45.0-75.0) Lymphocytes (%) (Auto) % (20.0-45.0) Monocytes (%) (Auto) % (1.0-10.0) Eosinophils (%) (Auto) % (0.0-3.0) Basophils (%) (Auto) % (0.0-2.0) Differential Total Cells Counted 100 Neutrophils % (Manual) 84 % (45-75) Lymphocytes % (Manual) 12 % (20-45) Monocytes % (Manual) 4 % (1-10) Eosinophils % (Manual) 0 % (0-3) Basophils % (Manual) 0 % (0-2) Band Neutrophils 0 % (0-8) Platelet Estimate Adequate Platelet Morphology Normal Red Blood Cell Morphology Normal Prothrombin Time 11.6 SEC (9.30-11.50) Prothromb Time International Ratio 1.1 (0.9-1.1) Activated Partial Thromboplast Time 26 SEC (23-33) Sodium Level 137 MMOL/L (136-145) Potassium Level 3.7 MMOL/L (3.5-5.1) Chloride Level 95 MMOL/L (98-107) Carbon Dioxide Level 26 MMOL/L (21-32) Anion Gap 16 mmol/L (5-15) Blood Urea Nitrogen 42 mg/dL (7-18) Creatinine 10.7 MG/DL (0.55-1.30) Estimat Glomerular Filtration Rate 5.8 mL/min (>60) Glucose Level 132 MG/DL (74-106) Calcium Level 9.4 MG/DL (8.5-10.1) Total Bilirubin 0.7 MG/DL (0.2-1.0) Aspartate Amino Transf (AST/SGOT) 13 U/L (15-37) Alanine Aminotransferase (ALT/SGPT) 17 U/L (12-78) Alkaline Phosphatase 128 U/L (46-116) Total Protein 9.6 G/DL (6.4-8.2) Albumin 3.4 G/DL (3.4-5.0) Globulin 6.2 g/dL Albumin/Globulin Ratio 0.5 (1.0-2.7) Height (Feet): 5 Height (Inches): 11.00 Weight (Pounds): 160 Objective PE General Appearance: WD/WN, no apparent distress, alert, thin HEENT: normocephalic, atraumatic, PERRL, EOMI, supple, no JVD, other Neck: non-tender, supple, normal inspection ++ mass on right periaricular area Respiratory/Chest: no respiratory distress EXT: no cce Julius Franco MD August 27, 2018 13:15
--- NOTE | 2018-08-27 13:26 | Cardiology Progress Note ---
Assessment/Plan Assessment/Plan tonsillar mass vs abcess ams post dialysis ESRD on HD, tobacco abuse, HTN, malnutrition Objective Last 24 Hour Vital Signs Date Time Temp Pulse Resp B/P (MAP) Pulse Ox O2 Delivery O2 Flow Rate FiO2 08/27/18 10:31 Room Air 08/27/18 10:31 Room Air 08/27/18 08:00 97.3 87 20 159/97 (117) 100 08/27/18 06:44 Room Air 08/27/18 06:44 Room Air 08/27/18 04:00 Room Air 08/27/18 04:00 98.3 83 20 127/78 (94) 100 08/27/18 03:40 81 08/27/18 03:16 Room Air 21 08/27/18 03:16 Room Air 21 08/27/18 01:00 87 08/27/18 00:00 Room Air 08/27/18 00:00 97.6 85 20 133/84 (100) 98 08/26/18 23:23 86 25 98 Room Air 21 08/26/18 23:14 86 18 98 Room Air 21 08/26/18 20:00 97.7 85 20 132/82 (99) 96 08/26/18 20:00 Room Air 08/26/18 19:39 86 25 98 Room Air 21 08/26/18 19:30 83 18 98 Room Air 21 08/26/18 19:29 86 08/26/18 18:05 97 135/93 08/26/18 16:00 90 08/26/18 16:00 Room Air 08/26/18 16:00 97.9 64 20 142/96 (111) 99 08/26/18 15:35 86 25 98 Room Air 21 08/26/18 15:25 84 20 99 Room Air 21 Intake and Output 08/26/18 08/27/18 19:00 07:00 Intake Total 110 ml 110 ml Balance 110 ml 110 ml Intake IV Total 110 ml 110 ml # Voids 1 Laboratory Tests Test 08/26/18 14:43 08/27/18 03:40 08/27/18 10:20 08/27/18 10:30 Calcium (Send out) Pending Total Protein (PEP) Pending Albumin (PEP) Pending Globulin (PEP) Pending Albumin/Globulin Ratio Pending 0.5 (1.0-2.7) L 0.5 (1.0-2.7) L [id number] Pending [id number] Pending Beta Globulins Pending Beta Gamma Globulin Pending PEP Abnormal Protein Bands Pending Protein Electrophoresis Interpret Pending Parathyroid Hormone (Intact) Pending White Blood Count 20.3 K/UL (4.8-10.8) #H 19.0 K/UL (4.8-10.8) H Red Blood Count 4.31 M/UL (4.70-6.10) L 4.99 M/UL (4.70-6.10) Hemoglobin 12.9 G/DL (14.2-18.0) L 14.5 G/DL (14.2-18.0) Hematocrit 38.0 % (42.0-52.0) L 43.3 % (42.0-52.0) Mean Corpuscular Volume 88 FL (80-99) 87 FL (80-99) Mean Corpuscular Hemoglobin 30.0 PG (27.0-31.0) 29.2 PG (27.0-31.0) Mean Corpuscular Hemoglobin Concent 34.0 G/DL (32.0-36.0) 33.6 G/DL (32.0-36.0) Red Cell Distribution Width 12.8 % (11.6-14.8) 12.3 % (11.6-14.8) Platelet Count 316 K/UL (150-450) 387 K/UL (150-450) Mean Platelet Volume 6.2 FL (6.5-10.1) L 5.9 FL (6.5-10.1) L Neutrophils (%) (Auto) % (45.0-75.0) % (45.0-75.0) Lymphocytes (%) (Auto) % (20.0-45.0) % (20.0-45.0) Monocytes (%) (Auto) % (1.0-10.0) % (1.0-10.0) Eosinophils (%) (Auto) % (0.0-3.0) % (0.0-3.0) Basophils (%) (Auto) % (0.0-2.0) % (0.0-2.0) Differential Total Cells Counted 100 100 Neutrophils % (Manual) 83 % (45-75) H 84 % (45-75) H Lymphocytes % (Manual) 10 % (20-45) L 12 % (20-45) L Monocytes % (Manual) 7 % (1-10) 4 % (1-10) Eosinophils % (Manual) 0 % (0-3) 0 % (0-3) Basophils % (Manual) 0 % (0-2) 0 % (0-2) Band Neutrophils 0 % (0-8) 0 % (0-8) Platelet Estimate Adequate Adequate Platelet Morphology Normal Normal Red Blood Cell Morphology Normal Normal Sodium Level 134 MMOL/L (136-145) L 137 MMOL/L (136-145) Potassium Level 4.8 MMOL/L (3.5-5.1) 3.7 MMOL/L (3.5-5.1) Chloride Level 93 MMOL/L (98-107) L 95 MMOL/L (98-107) L Carbon Dioxide Level 23 MMOL/L (21-32) 26 MMOL/L (21-32) Anion Gap 18 mmol/L (5-15) H 16 mmol/L (5-15) H Blood Urea Nitrogen 67 mg/dL (7-18) H 42 mg/dL (7-18) H Creatinine 15.3 MG/DL (0.55-1.30) H 10.7 MG/DL (0.55-1.30) H Estimat Glomerular Filtration Rate 3.9 mL/min (>60) 5.8 mL/min (>60) Glucose Level 95 MG/DL (74-106) 132 MG/DL (74-106) H Hemoglobin A1c 5.5 % (4.3-6.0) Uric Acid 7.3 MG/DL (2.6-7.2) H Calcium Level 8.7 MG/DL (8.5-10.1) 9.4 MG/DL (8.5-10.1) Phosphorus Level 6.1 MG/DL (2.5-4.9) H Magnesium Level 2.3 MG/DL (1.8-2.4) Total Bilirubin 0.6 MG/DL (0.2-1.0) 0.7 MG/DL (0.2-1.0) Aspartate Amino Transf (AST/SGOT) 11 U/L (15-37) L 13 U/L (15-37) L Alanine Aminotransferase (ALT/SGPT) 11 U/L (12-78) L 17 U/L (12-78) Alkaline Phosphatase 118 U/L (46-116) H 128 U/L (46-116) H C-Reactive Protein, Quantitative 3.3 mg/dL (0.00-0.90) H Pro-B-Type Natriuretic Peptide > 09369 pg/mL (0-125) H Total Protein 8.3 G/DL (6.4-8.2) H 9.6 G/DL (6.4-8.2) H Albumin 2.9 G/DL (3.4-5.0) L 3.4 G/DL (3.4-5.0) Globulin 5.4 g/dL 6.2 g/dL Triglycerides Level 100 MG/DL (30-150) Cholesterol Level 146 MG/DL (< 200) LDL Cholesterol 75 mg/dL (<100) HDL Cholesterol 49 MG/DL (40-60) Cholesterol/HDL Ratio 3.0 (3.3-4.4) L Thyroid Stimulating Hormone (TSH) 1.084 uiU/mL (0.358-3.740) Arterial Blood pH 7.450 (7.350-7.450) Arterial Blood Partial Pressure CO2 35.4 mmHg (35.0-45.0) Arterial Blood Partial Pressure O2 > 494.6 mmHg (75.0-100.0) H Arterial Blood HCO3 24.1 mmol/L (22.0-26.0) Arterial Blood Oxygen Saturation 99.9 % (95-100) Arterial Blood Base Excess 0.6 (-2-2) Maxwell Test Positive Prothrombin Time 11.6 SEC (9.30-11.50) H Prothromb Time International Ratio 1.1 (0.9-1.1) Activated Partial Thromboplast Time 26 SEC (23-33) Microbiology Date/Time Source Procedure Growth Status 08/25/18 17:20 Blood Blood Culture - Preliminary NO GROWTH AFTER 24 HOURS Resulted 08/25/18 17:00 Blood Blood Culture - Preliminary NO GROWTH AFTER 24 HOURS Resulted 08/26/18 07:20 Sputum Gram Stain - Final Resulted 08/26/18 07:20 Sputum Sputum Culture Pending Resulted Sarabjit Riojas MD August 27, 2018 13:26
--- NOTE | 2018-08-27 13:33 | Cardiology Progress Note ---
Assessment/Plan Assessment/Plan tonsillar mass vs abcess ams post dialysis ESRD on HD, tobacco abuse, HTN, malnutrition had tool filer called immediately post dialysis for ams mri showed Impression: No acute intracranial findings. 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 patricia echo beign performed now not yet complete but wall motion seems fine ekg seem unchanged no evidence of injury or ischemia mentaion seem slwo but responds appropriately at this moment in time is not hypoxemic however when he falls asleep has snoring sound pulm following may need ent as well ekg will be repeated blood cx neg so far ekg personally reviewed tele personally reviewed no ashely no svt no vt no pauses reported will check trop Objective Last 24 Hour Vital Signs Date Time Temp Pulse Resp B/P (MAP) Pulse Ox O2 Delivery O2 Flow Rate FiO2 08/27/18 10:31 Room Air 08/27/18 10:31 Room Air 08/27/18 08:00 97.3 87 20 159/97 (117) 100 08/27/18 06:44 Room Air 08/27/18 06:44 Room Air 08/27/18 04:00 Room Air 08/27/18 04:00 98.3 83 20 127/78 (94) 100 08/27/18 03:40 81 08/27/18 03:16 Room Air 21 08/27/18 03:16 Room Air 21 08/27/18 01:00 87 08/27/18 00:00 Room Air 08/27/18 00:00 97.6 85 20 133/84 (100) 98 08/26/18 23:23 86 25 98 Room Air 21 08/26/18 23:14 86 18 98 Room Air 21 08/26/18 20:00 97.7 85 20 132/82 (99) 96 08/26/18 20:00 Room Air 08/26/18 19:39 86 25 98 Room Air 21 08/26/18 19:30 83 18 98 Room Air 21 08/26/18 19:29 86 08/26/18 18:05 97 135/93 08/26/18 16:00 90 08/26/18 16:00 Room Air 08/26/18 16:00 97.9 64 20 142/96 (111) 99 08/26/18 15:35 86 25 98 Room Air 21 08/26/18 15:25 84 20 99 Room Air 21 Intake and Output 08/26/18 08/27/18 19:00 07:00 Intake Total 110 ml 110 ml Balance 110 ml 110 ml Intake IV Total 110 ml 110 ml # Voids 1 Laboratory Tests Test 08/26/18 14:43 08/27/18 03:40 08/27/18 10:20 08/27/18 10:30 Calcium (Send out) Pending Total Protein (PEP) Pending Albumin (PEP) Pending Globulin (PEP) Pending Albumin/Globulin Ratio Pending 0.5 (1.0-2.7) L 0.5 (1.0-2.7) L [id number] Pending [id number] Pending Beta Globulins Pending Beta Gamma Globulin Pending PEP Abnormal Protein Bands Pending Protein Electrophoresis Interpret Pending Parathyroid Hormone (Intact) Pending White Blood Count 20.3 K/UL (4.8-10.8) #H 19.0 K/UL (4.8-10.8) H Red Blood Count 4.31 M/UL (4.70-6.10) L 4.99 M/UL (4.70-6.10) Hemoglobin 12.9 G/DL (14.2-18.0) L 14.5 G/DL (14.2-18.0) Hematocrit 38.0 % (42.0-52.0) L 43.3 % (42.0-52.0) Mean Corpuscular Volume 88 FL (80-99) 87 FL (80-99) Mean Corpuscular Hemoglobin 30.0 PG (27.0-31.0) 29.2 PG (27.0-31.0) Mean Corpuscular Hemoglobin Concent 34.0 G/DL (32.0-36.0) 33.6 G/DL (32.0-36.0) Red Cell Distribution Width 12.8 % (11.6-14.8) 12.3 % (11.6-14.8) Platelet Count 316 K/UL (150-450) 387 K/UL (150-450) Mean Platelet Volume 6.2 FL (6.5-10.1) L 5.9 FL (6.5-10.1) L Neutrophils (%) (Auto) % (45.0-75.0) % (45.0-75.0) Lymphocytes (%) (Auto) % (20.0-45.0) % (20.0-45.0) Monocytes (%) (Auto) % (1.0-10.0) % (1.0-10.0) Eosinophils (%) (Auto) % (0.0-3.0) % (0.0-3.0) Basophils (%) (Auto) % (0.0-2.0) % (0.0-2.0) Differential Total Cells Counted 100 100 Neutrophils % (Manual) 83 % (45-75) H 84 % (45-75) H Lymphocytes % (Manual) 10 % (20-45) L 12 % (20-45) L Monocytes % (Manual) 7 % (1-10) 4 % (1-10) Eosinophils % (Manual) 0 % (0-3) 0 % (0-3) Basophils % (Manual) 0 % (0-2) 0 % (0-2) Band Neutrophils 0 % (0-8) 0 % (0-8) Platelet Estimate Adequate Adequate Platelet Morphology Normal Normal Red Blood Cell Morphology Normal Normal Sodium Level 134 MMOL/L (136-145) L 137 MMOL/L (136-145) Potassium Level 4.8 MMOL/L (3.5-5.1) 3.7 MMOL/L (3.5-5.1) Chloride Level 93 MMOL/L (98-107) L 95 MMOL/L (98-107) L Carbon Dioxide Level 23 MMOL/L (21-32) 26 MMOL/L (21-32) Anion Gap 18 mmol/L (5-15) H 16 mmol/L (5-15) H Blood Urea Nitrogen 67 mg/dL (7-18) H 42 mg/dL (7-18) H Creatinine 15.3 MG/DL (0.55-1.30) H 10.7 MG/DL (0.55-1.30) H Estimat Glomerular Filtration Rate 3.9 mL/min (>60) 5.8 mL/min (>60) Glucose Level 95 MG/DL (74-106) 132 MG/DL (74-106) H Hemoglobin A1c 5.5 % (4.3-6.0) Uric Acid 7.3 MG/DL (2.6-7.2) H Calcium Level 8.7 MG/DL (8.5-10.1) 9.4 MG/DL (8.5-10.1) Phosphorus Level 6.1 MG/DL (2.5-4.9) H Magnesium Level 2.3 MG/DL (1.8-2.4) Total Bilirubin 0.6 MG/DL (0.2-1.0) 0.7 MG/DL (0.2-1.0) Aspartate Amino Transf (AST/SGOT) 11 U/L (15-37) L 13 U/L (15-37) L Alanine Aminotransferase (ALT/SGPT) 11 U/L (12-78) L 17 U/L (12-78) Alkaline Phosphatase 118 U/L (46-116) H 128 U/L (46-116) H C-Reactive Protein, Quantitative 3.3 mg/dL (0.00-0.90) H Pro-B-Type Natriuretic Peptide > 20683 pg/mL (0-125) H Total Protein 8.3 G/DL (6.4-8.2) H 9.6 G/DL (6.4-8.2) H Albumin 2.9 G/DL (3.4-5.0) L 3.4 G/DL (3.4-5.0) Globulin 5.4 g/dL 6.2 g/dL Triglycerides Level 100 MG/DL (30-150) Cholesterol Level 146 MG/DL (< 200) LDL Cholesterol 75 mg/dL (<100) HDL Cholesterol 49 MG/DL (40-60) Cholesterol/HDL Ratio 3.0 (3.3-4.4) L Thyroid Stimulating Hormone (TSH) 1.084 uiU/mL (0.358-3.740) Arterial Blood pH 7.450 (7.350-7.450) Arterial Blood Partial Pressure CO2 35.4 mmHg (35.0-45.0) Arterial Blood Partial Pressure O2 > 494.6 mmHg (75.0-100.0) H Arterial Blood HCO3 24.1 mmol/L (22.0-26.0) Arterial Blood Oxygen Saturation 99.9 % (95-100) Arterial Blood Base Excess 0.6 (-2-2) Maxwell Test Positive Prothrombin Time 11.6 SEC (9.30-11.50) H Prothromb Time International Ratio 1.1 (0.9-1.1) Activated Partial Thromboplast Time 26 SEC (23-33) Microbiology Date/Time Source Procedure Growth Status 08/25/18 17:20 Blood Blood Culture - Preliminary NO GROWTH AFTER 24 HOURS Resulted 08/25/18 17:00 Blood Blood Culture - Preliminary NO GROWTH AFTER 24 HOURS Resulted 08/26/18 07:20 Sputum Gram Stain - Final Resulted 08/26/18 07:20 Sputum Sputum Culture Pending Resulted Sarabjit Riojas MD August 27, 2018 13:33
[2018-08-27] MEDS: Ampicillin/Sulbactam Sod 3 GM in NS 110 ML IVPB SCH ×2 (13:58→22:50)
[2018-08-27] MEDS: Heparin 5000 units/ml inj SUBQ SCH ×2 (13:59→20:15)
--- NOTE | 2018-08-27 14:07 | Cardiology Report ---
APPROVED REPORT EXAM: Two-dimensional and M-mode echocardiogram with Doppler and color Doppler. INDICATION Bradycardia M-Mode DIMENSIONS IVSd1.3 (0.7-1.1cm)Left Atrium (MM)3.8 (1.6-4.0cm) LVDd5.4 (3.5-5.6cm)Aortic Root2.8 (2.0-3.7cm) PWd1.1 (0.7-1.1cm)Aortic Cusp Exc.1.8 (1.5-2.0cm) LVDs3.6 (2.5-4.0cm) PWs1.6 cm Normal left ventricular chamber size, systolic function and wall motion. Left ventricular ejection fraction estimated to be 50- 55 %. Mild left ventricular hypertrophy. Anterior Echo-free space, may be due to pericardial fat or effusion. Mild left atrial enlargement. Right cardiac chamber sizes are within normal limits. Thickening of non coronary cusp of the aortic valve with adequate cusp excursion. Clinical correlation is recommended. Thickened mitral valve leaflets with normal excursion. Mitral annulus and aortic root calcification. Pulmonic valve not well visualized. Normal tricuspid valve structure. IVC at normal size with physiologic collapse. A color flow and spectral Doppler study was performed and revealed: Trace mitral regurgitation. Mitral diastolic velocities suggest reduced left ventricular relaxation c/w mild LV diastolic dysfunction (Grade I). Trace to mild tricuspid regurgitation. Tricuspid systolic velocities suggests peak right ventricular systolic pressure of 32 mmHg.
--- NOTE | 2018-08-27 14:13 | Consultation ---
History of Present Illness General Date patient seen: August 27, 2018 Referring physician: Chaim Borjas Reason for Consultation: AMS/ Dysarthria Present Illness HPI Josh Damon is a 68-year-old man with a history of hypertension, end-stage renal disease, on hemodialysis, and previous smoking history, who presents with a 3 to 4 week history of throat pain and right neck swelling. He reports difficulty swallowing. He has chills, but no fever. No cough or sputum production. Neurological consultation has been requested secondary to disorientation and confusion for Mr. Damon following dialysis today. Upon interview, Mr. Damon tells me he believes we are in a dungeon, however he does discuss his recent history as per his medical record with good recall. Allergies: Coded Allergies: No Known Allergies (Unverified , 08/25/18) Medication History Scheduled Amlodipine Besylate* (Amlodipine Besylate*), 10 MG ORAL DAILY, (Reported) Aspirin* (Aspir 81*), 81 MG ORAL DAILY, (Reported) Cinacalcet* (Sensipar*), 30 MG ORAL DAILY, (Reported) Folic Acid/Vitamin B Comp W-C (Dialyvite Tablet), 1 EACH PO DAILY, (Reported) Labetalol Hcl* (Normodyne*), 300 MG ORAL TID, (Reported) Sucroferric Oxyhydroxide (Velphoro), 500 MG PO BID, (Reported) Patient History Limited by: medical condition History Provided By: Patient, Medical Record Healthcare decision maker Oriana Vazquezt Resuscitation status Full Code Advanced Directive on File Review of Systems Constitutional: Reports: weakness; Denies: no symptoms, see HPI, chills, sweats , fever, malaise, other Eye: Denies: no symptoms, see HPI, eye pain, blurred vision, tearing, double vision, nose pain, nose congestion, acuity changes, discharge, other ENT: Reports: throat swelling; Denies: no symptoms, see HPI, ear pain, ear discharge, nose pain, nose congestion, throat pain, mouth pain, hearing loss, nasal discharge, other Respiratory: Denies: no symptoms, see HPI, cough, orthopnea, shortness of breath, stridor, wheezing, ECHAVARRIA, sputum, other Cardiovascular: Denies: no symptoms, see HPI, chest pain, edema, palpitations, syncope, PND, other Gastrointestinal: Denies: no symptoms, see HPI, abdominal pain, constipation, diarrhea, nausea, vomiting, melena, hematemesis, other Genitourinary: Denies: no symptoms, see HPI, discharge, dysuria, frequency, hematuria, pain, retention, incontinence, urgency, vag bleed/dc, other Musculoskeletal: Denies: no symptoms, see HPI, back pain, gout, joint pain, joint swelling, muscle pain, muscle stiffness, other Skin: Denies: no symptoms, see HPI, rash, change in color, change in hair/nails , dryness, lesions, other Psychiatric: Denies: no symptoms, see HPI, prior hx, anxiety, depressed feelings, emotional problems, SI, HI, hallucinations, other Neurological: Denies: no symptoms, see HPI, headache, numbness, paresthesia, seizure, tingling, tremors, focal weakness, syncope, dizziness, other Endocrine: Denies: no symptoms, see HPI, excessive sweating, flushing, intolerance to temperature, increased thirst, increased urine, unexplained weight loss, other Hematologic/Lymphatic: Denies: no symptoms, see HPI, anemia, blood clots, easy bleeding, easy bruising, swollen glands, diathesis, other Physical Exam General Appearance: WD/WN, no apparent distress, alert, confused Lines, tubes and drains: peripheral HEENT: normocephalic, atraumatic, anicteric, mucous membranes moist, PERRL, other Neck: normal alignment, tenderness Respiratory/Chest: no respiratory distress, no accessory muscle use Cardiovascular/Chest: normal peripheral pulses Extremities: normal range of motion, non-tender, normal inspection, no calf tenderness, normal capillary refill, non-pitting, no edema, no cyanosis Skin Exam: normal pigmentation, warm/dry, no diaphoresis Neurologic: alert, responsive, disoriented, other Physical Exam Narrative Patient has large mass at back of oropharynx/ base of tongue and is dysarthric secondary to this He denies any significant issues eating but reports discomfort and denies impedement of breathing with mass. He is following all commands with generalized non focal weakness but is confused about where he is currently. He knows that he recently had dialysis and what is happening with his tongue but does not recognize his surroundings at present. Last 24 Hour Vital Signs Date Time Temp Pulse Resp B/P (MAP) Pulse Ox O2 Delivery O2 Flow Rate FiO2 5/28/19 10:31 Room Air 08/27/18 10:31 Room Air 08/27/18 09:00 82 140/91 08/27/18 09:00 82 140/91 08/27/18 08:00 97.3 87 20 159/97 (117) 100 08/27/18 06:44 Room Air 08/27/18 06:44 Room Air 08/27/18 04:00 Room Air 08/27/18 04:00 98.3 83 20 127/78 (94) 100 08/27/18 03:40 81 08/27/18 03:16 Room Air 21 08/27/18 03:16 Room Air 21 08/27/18 01:00 87 08/27/18 00:00 Room Air 08/27/18 00:00 97.6 85 20 133/84 (100) 98 08/26/18 23:23 86 25 98 Room Air 21 08/26/18 23:14 86 18 98 Room Air 21 08/26/18 20:00 97.7 85 20 132/82 (99) 96 08/26/18 20:00 Room Air 08/26/18 19:39 86 25 98 Room Air 21 08/26/18 19:30 83 18 98 Room Air 21 08/26/18 19:29 86 08/26/18 18:05 97 135/93 08/26/18 16:00 90 08/26/18 16:00 Room Air 08/26/18 16:00 97.9 64 20 142/96 (111) 99 08/26/18 15:35 86 25 98 Room Air 21 08/26/18 15:25 84 20 99 Room Air 21 Intake and Output 08/26/18 08/27/18 19:00 07:00 Intake Total 110 ml 110 ml Balance 110 ml 110 ml Intake IV Total 110 ml 110 ml # Voids 1 Laboratory Tests Test 08/26/18 14:43 08/27/18 03:40 08/27/18 10:20 08/27/18 10:30 Calcium (Send out) Pending Total Protein (PEP) Pending Albumin (PEP) Pending Globulin (PEP) Pending Albumin/Globulin Ratio Pending 0.5 (1.0-2.7) L 0.5 (1.0-2.7) L Dsyso-[id number] Pending Fhstx-6-Xuqhxkcyf Pending Beta Globulins Pending Beta Gamma Globulin Pending PEP Abnormal Protein Bands Pending Protein Electrophoresis Interpret Pending Parathyroid Hormone (Intact) Pending White Blood Count 20.3 K/UL (4.8-10.8) #H 19.0 K/UL (4.8-10.8) H Red Blood Count 4.31 M/UL (4.70-6.10) L 4.99 M/UL (4.70-6.10) Hemoglobin 12.9 G/DL (14.2-18.0) L 14.5 G/DL (14.2-18.0) Hematocrit 38.0 % (42.0-52.0) L 43.3 % (42.0-52.0) Mean Corpuscular Volume 88 FL (80-99) 87 FL (80-99) Mean Corpuscular Hemoglobin 30.0 PG (27.0-31.0) 29.2 PG (27.0-31.0) Mean Corpuscular Hemoglobin Concent 34.0 G/DL (32.0-36.0) 33.6 G/DL (32.0-36.0) Red Cell Distribution Width 12.8 % (11.6-14.8) 12.3 % (11.6-14.8) Platelet Count 316 K/UL (150-450) 387 K/UL (150-450) Mean Platelet Volume 6.2 FL (6.5-10.1) L 5.9 FL (6.5-10.1) L Neutrophils (%) (Auto) % (45.0-75.0) % (45.0-75.0) Lymphocytes (%) (Auto) % (20.0-45.0) % (20.0-45.0) Monocytes (%) (Auto) % (1.0-10.0) % (1.0-10.0) Eosinophils (%) (Auto) % (0.0-3.0) % (0.0-3.0) Basophils (%) (Auto) % (0.0-2.0) % (0.0-2.0) Differential Total Cells Counted 100 100 Neutrophils % (Manual) 83 % (45-75) H 84 % (45-75) H Lymphocytes % (Manual) 10 % (20-45) L 12 % (20-45) L Monocytes % (Manual) 7 % (1-10) 4 % (1-10) Eosinophils % (Manual) 0 % (0-3) 0 % (0-3) Basophils % (Manual) 0 % (0-2) 0 % (0-2) Band Neutrophils 0 % (0-8) 0 % (0-8) Platelet Estimate Adequate Adequate Platelet Morphology Normal Normal Red Blood Cell Morphology Normal Normal Sodium Level 134 MMOL/L (136-145) L 137 MMOL/L (136-145) Potassium Level 4.8 MMOL/L (3.5-5.1) 3.7 MMOL/L (3.5-5.1) Chloride Level 93 MMOL/L (98-107) L 95 MMOL/L (98-107) L Carbon Dioxide Level 23 MMOL/L (21-32) 26 MMOL/L (21-32) Anion Gap 18 mmol/L (5-15) H 16 mmol/L (5-15) H Blood Urea Nitrogen 67 mg/dL (7-18) H 42 mg/dL (7-18) H Creatinine 15.3 MG/DL (0.55-1.30) H 10.7 MG/DL (0.55-1.30) H Estimat Glomerular Filtration Rate 3.9 mL/min (>60) 5.8 mL/min (>60) Glucose Level 95 MG/DL (74-106) 132 MG/DL (74-106) H Hemoglobin A1c 5.5 % (4.3-6.0) Uric Acid 7.3 MG/DL (2.6-7.2) H Calcium Level 8.7 MG/DL (8.5-10.1) 9.4 MG/DL (8.5-10.1) Phosphorus Level 6.1 MG/DL (2.5-4.9) H Magnesium Level 2.3 MG/DL (1.8-2.4) Total Bilirubin 0.6 MG/DL (0.2-1.0) 0.7 MG/DL (0.2-1.0) Aspartate Amino Transf (AST/SGOT) 11 U/L (15-37) L 13 U/L (15-37) L Alanine Aminotransferase (ALT/SGPT) 11 U/L (12-78) L 17 U/L (12-78) Alkaline Phosphatase 118 U/L (46-116) H 128 U/L (46-116) H C-Reactive Protein, Quantitative 3.3 mg/dL (0.00-0.90) H Pro-B-Type Natriuretic Peptide > 71327 pg/mL (0-125) H Total Protein 8.3 G/DL (6.4-8.2) H 9.6 G/DL (6.4-8.2) H Albumin 2.9 G/DL (3.4-5.0) L 3.4 G/DL (3.4-5.0) Globulin 5.4 g/dL 6.2 g/dL Triglycerides Level 100 MG/DL (30-150) Cholesterol Level 146 MG/DL (< 200) LDL Cholesterol 75 mg/dL (<100) HDL Cholesterol 49 MG/DL (40-60) Cholesterol/HDL Ratio 3.0 (3.3-4.4) L Thyroid Stimulating Hormone (TSH) 1.084 uiU/mL (0.358-3.740) Arterial Blood pH 7.450 (7.350-7.450) Arterial Blood Partial Pressure CO2 35.4 mmHg (35.0-45.0) Arterial Blood Partial Pressure O2 > 494.6 mmHg (75.0-100.0) H Arterial Blood HCO3 24.1 mmol/L (22.0-26.0) Arterial Blood Oxygen Saturation 99.9 % (95-100) Arterial Blood Base Excess 0.6 (-2-2) Maxwell Test Positive Prothrombin Time 11.6 SEC (9.30-11.50) H Prothromb Time International Ratio 1.1 (0.9-1.1) Activated Partial Thromboplast Time 26 SEC (23-33) Height (Feet): 5 Height (Inches): 11.00 Weight (Pounds): 160 Medications Current Medications Medications (Trade) Dose Ordered Sig/Shayan Route PRN Reason Start Time Stop Time Status Last Admin Dose Admin Acetaminophen (Tylenol) 650 mg Q4H PRN ORAL T>100.5 08/25/18 19:30 09/24/18 19:29 Albuterol/ Ipratropium (Albuterol/ Ipratropium) 3 ml Q4H PRN HHN Shortness of Breath 5/26/19 19:30 08/30/18 19:29 Amlodipine Besylate (Norvasc) 10 mg DAILY ORAL 08/27/18 09:00 09/25/18 08:59 Ampicillin Sodium/ Sulbactam Sodium 3 gm/Sodium Chloride 110 ml @ 220 mls/hr Q12HR@1100,2300 IVPB 08/25/18 23:00 09/01/18 22:59 08/27/18 13:58 Cinacalcet (Sensipar) 30 mg DAILY ORAL 08/26/18 09:00 09/25/18 08:59 08/26/18 08:45 Heparin Sodium (Porcine) (Heparin 5000 units/ml) 5,000 units EVERY 12 HOURS SUBQ 08/25/18 21:00 09/24/18 20:59 08/27/18 13:59 Hydralazine HCl (Apresoline) 10 mg Q4H PRN IV bp over 160 syst and 100 diast 08/26/18 10:30 09/25/18 10:29 Iopamidol (Isovue-300 100ml) 100 ml NOW PRN INJ Radiology Procedure 08/25/18 17:00 08/27/18 16:52 Labetalol HCl (Normodyne) 300 mg TID ORAL 08/26/18 09:00 09/25/18 08:59 08/26/18 18:05 Lorazepam (Ativan 2mg/ml 1ml) 2 mg ONCE PRN IV prior to MRI 08/27/18 10:00 08/27/18 23:59 08/27/18 10:57 Nitroglycerin (Ntg) 0.4 mg Q5M PRN SL Prn Chest Pain 08/25/18 19:30 09/24/18 19:29 Ondansetron HCl (Zofran) 4 mg Q6H PRN IVP Nausea & Vomiting 08/25/18 19:30 09/24/18 19:29 Pantoprazole (Protonix) 40 mg DAILY ORAL 08/26/18 11:00 09/25/18 10:59 08/26/18 11:12 Polyethylene Glycol (Miralax) 17 gm DAILYPRN PRN ORAL Constipation 08/25/18 19:30 09/24/18 19:29 Promethazine HCl/ Codeine (Phenergan with Codeine) 5 ml Q4H PRN ORAL For Cough 08/25/18 19:30 09/24/18 19:29 Quetiapine Fumarate (SEROquel) 25 mg Q12HR ORAL 08/27/18 21:00 09/26/18 20:59 Temazepam (Restoril) 15 mg HSPRN PRN ORAL Insomnia 08/25/18 21:00 09/01/18 20:59 08/26/18 23:06 Tramadol HCl (Ultram) 50 mg Q6H PRN ORAL mod to sever pain 08/26/18 10:30 09/02/18 10:29 Assessment/Plan Problem List: (1) ESRD (end stage renal disease) on dialysis ICD Codes: N18.6 - End stage renal disease; Z99.2 - Dependence on renal dialysis SNOMED: 347955710 (2) History of smoking ICD Codes: Z87.891 - Personal history of nicotine dependence SNOMED: 131443242 (3) History of hypertension ICD Codes: Z86.79 - Personal history of other diseases of the circulatory system SNOMED: 272168470 (4) Tonsillar abscess ICD Codes: J36 - Peritonsillar abscess; Z99.2 - Dependence on renal dialysis SNOMED: 06459958 (5) Tonsillar mass ICD Codes: R22.0 - Localized swelling, mass and lump, head SNOMED: 064665931 (6) Dysphagia ICD Codes: R13.10 - Dysphagia, unspecified SNOMED: 74348534, 991012469 (7) Acute psychosis ICD Codes: F23 - Brief psychotic disorder SNOMED: 8719618, 03313048 (8) Acute encephalopathy ICD Codes: G93.40 - Encephalopathy, unspecified SNOMED: 22419156, 869201615 Status: stable Assessment/Plan: Q4 Neuro Obs MRI Brain w/wo contrast Na 135-145 Frequently reorient the patient and maintain good sleep hygiene by making the room dark and quiet at night Continue IVH Swallow eval Heme/Onc W/U Abx as per Katie Buchanan N.P. August 27, 2018 14:13
--- NOTE | 2018-08-27 15:02 | Nephrology Progress Note ---
Assessment/Plan Problem List: (1) ESRD (end stage renal disease) on dialysis (2) History of hypertension (3) Tonsillar mass (4) Tonsillar abscess Assessment ESRD Hypertensive kidney disease Pharyngitis / Tonsilar abcess / mass Plan Antibiotics BP meds and PRN meds per ID HD done this am - 2 liters removed per ENT Subjective ROS Limited/Unobtainable: No Objective Objective Last 24 Hour Vital Signs Date Time Temp Pulse Resp B/P (MAP) Pulse Ox O2 Delivery O2 Flow Rate FiO2 08/27/18 14:55 Room Air 08/27/18 14:55 Room Air 08/27/18 12:00 Room Air 08/27/18 12:00 97.9 69 18 138/65 (89) 98 08/27/18 10:31 Room Air 08/27/18 10:31 Room Air 08/27/18 09:00 82 140/91 08/27/18 09:00 82 140/91 08/27/18 08:00 97.3 87 20 159/97 (117) 100 08/27/18 08:00 Room Air 08/27/18 08:00 85 08/27/18 06:44 Room Air 08/27/18 06:44 Room Air 08/27/18 04:00 Room Air 08/27/18 04:00 98.3 83 20 127/78 (94) 100 08/27/18 03:40 81 08/27/18 03:16 Room Air 21 08/27/18 03:16 Room Air 21 08/27/18 01:00 87 08/27/18 00:00 Room Air 08/27/18 00:00 97.6 85 20 133/84 (100) 98 08/26/18 23:23 86 25 98 Room Air 21 08/26/18 23:14 86 18 98 Room Air 21 08/26/18 20:00 97.7 85 20 132/82 (99) 96 08/26/18 20:00 Room Air 08/26/18 19:39 86 25 98 Room Air 21 08/26/18 19:30 83 18 98 Room Air 21 08/26/18 19:29 86 08/26/18 18:05 97 135/93 08/26/18 16:00 90 08/26/18 16:00 Room Air 08/26/18 16:00 97.9 64 20 142/96 (111) 99 08/26/18 15:35 86 25 98 Room Air 21 08/26/18 15:25 84 20 99 Room Air 21 Intake and Output 08/26/18 08/27/18 19:00 07:00 Intake Total 110 ml 110 ml Balance 110 ml 110 ml Intake IV Total 110 ml 110 ml # Voids 1 Laboratory Tests 08/27/18 03:40: White Blood Count 20.3#H, Red Blood Count 4.31L, Hemoglobin 12.9L, Hematocrit 38.0L, Mean Corpuscular Volume 88, Mean Corpuscular Hemoglobin 30.0, Mean Corpuscular Hemoglobin Concent 34.0, Red Cell Distribution Width 12.8, Platelet Count 316, Mean Platelet Volume 6.2L, Neutrophils (%) (Auto) , Lymphocytes (%) ( Auto) , Monocytes (%) (Auto) , Eosinophils (%) (Auto) , Basophils (%) (Auto) , Differential Total Cells Counted 100, Neutrophils % (Manual) 83H, Lymphocytes % (Manual) 10L, Monocytes % (Manual) 7, Eosinophils % (Manual) 0, Basophils % ( Manual) 0, Band Neutrophils 0, Platelet Estimate Adequate, Platelet Morphology Normal, Red Blood Cell Morphology Normal, Sodium Level 134L, Potassium Level 4.8 , Chloride Level 93L, Carbon Dioxide Level 23, Anion Gap 18H, Blood Urea Nitrogen 67H, Creatinine 15.3H, Estimat Glomerular Filtration Rate 3.9, Glucose Level 95, Hemoglobin A1c 5.5, Uric Acid 7.3H, Calcium Level 8.7, Phosphorus Level 6.1H, Magnesium Level 2.3, Total Bilirubin 0.6, Aspartate Amino Transf ( AST/SGOT) 11L, Alanine Aminotransferase (ALT/SGPT) 11L, Alkaline Phosphatase 118H, C-Reactive Protein, Quantitative 3.3H, Pro-B-Type Natriuretic Peptide > 05879Q, Total Protein 8.3H, Albumin 2.9L, Globulin 5.4, Albumin/Globulin Ratio 0.5L, Triglycerides Level 100, Cholesterol Level 146, LDL Cholesterol 75, HDL Cholesterol 49, Cholesterol/HDL Ratio 3.0L, Thyroid Stimulating Hormone (TSH) 1.084 08/27/18 10:20: Arterial Blood pH 7.450, Arterial Blood Partial Pressure CO2 35.4, Arterial Blood Partial Pressure O2 > 494.6H, Arterial Blood HCO3 24.1, Arterial Blood Oxygen Saturation 99.9, Arterial Blood Base Excess 0.6, Maxwell Test Positive 08/27/18 10:30: White Blood Count 19.0H, Red Blood Count 4.99, Hemoglobin 14.5, Hematocrit 43.3 , Mean Corpuscular Volume 87, Mean Corpuscular Hemoglobin 29.2, Mean Corpuscular Hemoglobin Concent 33.6, Red Cell Distribution Width 12.3, Platelet Count 387, Mean Platelet Volume 5.9L, Neutrophils (%) (Auto) , Lymphocytes (%) ( Auto) , Monocytes (%) (Auto) , Eosinophils (%) (Auto) , Basophils (%) (Auto) , Differential Total Cells Counted 100, Neutrophils % (Manual) 84H, Lymphocytes % (Manual) 12L, Monocytes % (Manual) 4, Eosinophils % (Manual) 0, Basophils % ( Manual) 0, Band Neutrophils 0, Platelet Estimate Adequate, Platelet Morphology Normal, Red Blood Cell Morphology Normal, Sodium Level 137, Potassium Level 3.7 , Chloride Level 95L, Carbon Dioxide Level 26, Anion Gap 16H, Blood Urea Nitrogen 42H, Creatinine 10.7H, Estimat Glomerular Filtration Rate 5.8, Glucose Level 132H, Calcium Level 9.4, Total Bilirubin 0.7, Aspartate Amino Transf (AST/ SGOT) 13L, Alanine Aminotransferase (ALT/SGPT) 17, Alkaline Phosphatase 128H, Total Protein 9.6H, Albumin 3.4, Globulin 6.2, Albumin/Globulin Ratio 0.5L, Prothrombin Time 11.6H, Prothromb Time International Ratio 1.1, Activated Partial Thromboplast Time 26 Height (Feet): 5 Height (Inches): 11.00 Weight (Pounds): 160 General Appearance: lethargic, other - sedated after MRI Cardiovascular: normal rate Respiratory/Chest: decreased breath sounds Abdomen: soft Tate Leong MD August 27, 2018 15:02
[2018-08-27 16:00] VITALS: BP 159/87
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
--- NOTE | 2018-08-27 16:44 | NUR ---
ST NOTE: BEDSIDE SWALLOW EVAL RECEIVED BEDSIDE SWALLOW EVAL CHART REVIEWED PRIOR THE EVALUATION PT IS A 68-YEAR-OLD MALE WHO WAS ADMITTED DUE TO THROAT ABSCESS/MASS DYSPHAGIA RISK FACTORS: TONSILLAR MASS, H/O SMOKING, H/O SMOKING FROM LONG AGO, ESRD, HTN. PER CT NECK: Enlarged right palatine tonsil with rim-enhancing hypodense structure within the tonsil partially visualized, concerning for tonsillitis with abscess. Please see accompanying CT face. PER BRAIN MRI: Impression: No acute intracranial findings. 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 Moderate atrophy and evidence of chronic small vessel disease involving white matter tracts. Sinus disease PLOF: PT RESIDES AT HOME CURRENT STATUS: PT SEEN AT BEDSIDE IN PM. RR CALLED IN AM. PT SEEMS MORE ALERT AND FOLLOWS DIRECTIONS, BUT SEEMS DISORIENTED, CONFUSED. HOWEVER, PT REPORTED THAT FEELING VERY HUNGRY AND WOULD LIKE TO EAT. GIVEN PO TRIALS: THIN(CUP), PUREE(TSP) AND CRACKER X1 INITIAL IMPRESSION: SLOW LABIAL MOVEMENT AND GOOD LINGUAL MOVEMENT MIN TO MILD ORAL TRANSIT TIME AND OROPHARYNGEAL TRANSIT TIME, FAIR TO GOOD LARYNGEAL ELEVATION, NO OVERT S/S OF ASPIRATION WAS NOTED. HAS RISK FOR ASPIRATION DUE TO TONSILLAR ABSCESS/MASS, H/O CVA AND POSS TIA. RECOMMENDATIONS: 1. FOR QUALITY OF LIFE, SLOWLY INITIATE MOIST PUREE WITH THIN LIQUIDS 2. ASPIRATION PRECAUTIONS WITH 1TO1 SUPERVISION 3. MODIFIED BARIUM SWALLOW STUDY D/W PT AND RN AND THE STAFF POSTED ASPIRATION PRECAUTIONS SIGN.
--- NOTE | 2018-08-27 17:00 | NUR ---
NURSE NOTES: Pt woke up,appears more alert,dinner tray served,ate with good appetite.
[2018-08-27] MEDS ORDERED: NS 275ml ONE (17:46)
[2018-08-27] MEDS ORDERED: Tubing IV Secondary IV ONE (17:46)
--- NOTE | 2018-08-27 19:25 | NUR ---
HAND-OFF: Report given to Charlotte ODOM.
--- NOTE | 2018-08-27 19:26 | NUR ---
NURSE NOTES: BEDSIDE REPORT RECEIVED FROM ILENE VAUGHAN. PT IS X4, ABLE TO MAKE NEEDS KNOWN. 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 PT IS NOW ABLE TO RECALL NAME, BIRTHDAY, THE CURRENT PRESIDENT, AND HOSPITAL. CURRENTLY ON RA, SATING WELL. SKIN IS CLEAN, DRY, INTACT. RAC 20, LLA SHUNT ASYMPTOMATIC. 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 BED IS LOCKED IN LOWEST POSITION, SRX3, CALL WILLIS W/ IN REACH, BED ALARM ON. WILL CONTINUE TO MONITOR AND FOLLOW W/ PLAN OF CARE.
[2018-08-27 20:00] VITALS: BP 138/78
[2018-08-28] VITALS: BP 146/67
--- NOTE | 2018-08-28 03:01 | Neurology Progress Note ---
Interim History Interim History ROS Limited/Unobtainable: No Complaints: AMS Events: Improved MS today. Interim History This visit was performed on August 28, [address] Pablito Quick. Review of Systems All Systems: reviewed and negative except above Objective Physical Exam Last Vital Signs Date Time Temp Pulse Resp B/P (MAP) Pulse Ox O2 Delivery O2 Flow Rate FiO2 08/28/18 00:00 Room Air 08/28/18 00:00 94 08/28/18 00:00 97.7 18 146/67 (93) 96 08/27/18 03:16 21 Laboratory Tests Test 08/27/18 03:40 08/27/18 10:20 08/27/18 10:30 White Blood Count 20.3 K/UL (4.8-10.8) #H 19.0 K/UL (4.8-10.8) H Red Blood Count 4.31 M/UL (4.70-6.10) L 4.99 M/UL (4.70-6.10) Hemoglobin 12.9 G/DL (14.2-18.0) L 14.5 G/DL (14.2-18.0) Hematocrit 38.0 % (42.0-52.0) L 43.3 % (42.0-52.0) Mean Corpuscular Volume 88 FL (80-99) 87 FL (80-99) Mean Corpuscular Hemoglobin 30.0 PG (27.0-31.0) 29.2 PG (27.0-31.0) Mean Corpuscular Hemoglobin Concent 34.0 G/DL (32.0-36.0) 33.6 G/DL (32.0-36.0) Red Cell Distribution Width 12.8 % (11.6-14.8) 12.3 % (11.6-14.8) Platelet Count 316 K/UL (150-450) 387 K/UL (150-450) Mean Platelet Volume 6.2 FL (6.5-10.1) L 5.9 FL (6.5-10.1) L Neutrophils (%) (Auto) % (45.0-75.0) % (45.0-75.0) Lymphocytes (%) (Auto) % (20.0-45.0) % (20.0-45.0) Monocytes (%) (Auto) % (1.0-10.0) % (1.0-10.0) Eosinophils (%) (Auto) % (0.0-3.0) % (0.0-3.0) Basophils (%) (Auto) % (0.0-2.0) % (0.0-2.0) Differential Total Cells Counted 100 100 Neutrophils % (Manual) 83 % (45-75) H 84 % (45-75) H Lymphocytes % (Manual) 10 % (20-45) L 12 % (20-45) L Monocytes % (Manual) 7 % (1-10) 4 % (1-10) Eosinophils % (Manual) 0 % (0-3) 0 % (0-3) Basophils % (Manual) 0 % (0-2) 0 % (0-2) Band Neutrophils 0 % (0-8) 0 % (0-8) Platelet Estimate Adequate Adequate Platelet Morphology Normal Normal Red Blood Cell Morphology Normal Normal Sodium Level 134 MMOL/L (136-145) L 137 MMOL/L (136-145) Potassium Level 4.8 MMOL/L (3.5-5.1) 3.7 MMOL/L (3.5-5.1) Chloride Level 93 MMOL/L (98-107) L 95 MMOL/L (98-107) L Carbon Dioxide Level 23 MMOL/L (21-32) 26 MMOL/L (21-32) Anion Gap 18 mmol/L (5-15) H 16 mmol/L (5-15) H Blood Urea Nitrogen 67 mg/dL (7-18) H 42 mg/dL (7-18) H Creatinine 15.3 MG/DL (0.55-1.30) H 10.7 MG/DL (0.55-1.30) H Estimat Glomerular Filtration Rate 3.9 mL/min (>60) 5.8 mL/min (>60) Glucose Level 95 MG/DL (74-106) 132 MG/DL (74-106) H Hemoglobin A1c 5.5 % (4.3-6.0) Uric Acid 7.3 MG/DL (2.6-7.2) H Calcium Level 8.7 MG/DL (8.5-10.1) 9.4 MG/DL (8.5-10.1) Phosphorus Level 6.1 MG/DL (2.5-4.9) H Magnesium Level 2.3 MG/DL (1.8-2.4) Total Bilirubin 0.6 MG/DL (0.2-1.0) 0.7 MG/DL (0.2-1.0) Aspartate Amino Transf (AST/SGOT) 11 U/L (15-37) L 13 U/L (15-37) L Alanine Aminotransferase (ALT/SGPT) 11 U/L (12-78) L 17 U/L (12-78) Alkaline Phosphatase 118 U/L (46-116) H 128 U/L (46-116) H C-Reactive Protein, Quantitative 3.3 mg/dL (0.00-0.90) H Pro-B-Type Natriuretic Peptide > 32905 pg/mL (0-125) H Total Protein 8.3 G/DL (6.4-8.2) H 9.6 G/DL (6.4-8.2) H Albumin 2.9 G/DL (3.4-5.0) L 3.4 G/DL (3.4-5.0) Globulin 5.4 g/dL 6.2 g/dL Albumin/Globulin Ratio 0.5 (1.0-2.7) L 0.5 (1.0-2.7) L Triglycerides Level 100 MG/DL (30-150) Cholesterol Level 146 MG/DL (< 200) LDL Cholesterol 75 mg/dL (<100) HDL Cholesterol 49 MG/DL (40-60) Cholesterol/HDL Ratio 3.0 (3.3-4.4) L Thyroid Stimulating Hormone (TSH) 1.084 uiU/mL (0.358-3.740) Arterial Blood pH 7.450 (7.350-7.450) Arterial Blood Partial Pressure CO2 35.4 mmHg (35.0-45.0) Arterial Blood Partial Pressure O2 > 494.6 mmHg (75.0-100.0) H Arterial Blood HCO3 24.1 mmol/L (22.0-26.0) Arterial Blood Oxygen Saturation 99.9 % (95-100) Arterial Blood Base Excess 0.6 (-2-2) Maxwell Test Positive Prothrombin Time 11.6 SEC (9.30-11.50) H Prothromb Time International Ratio 1.1 (0.9-1.1) Activated Partial Thromboplast Time 26 SEC (23-33) Neurologic Exam Mental Status: awake, alert, normal cognition, good mathematical skills, normal recent memory, normal remote memory, preserved visuospatial function Speech: other Language: normal language, no aphasia Cranial Nerve II: fundus normal, visual martinez, no papilledema Cranial Nerves III, IV, : PERRLA, EOMI, pupils Cranial Nerve V: normal facial sensations, temporales function normal, masseters function normal, pterygoids function normal Cranial Nerve VII: no facial asymmetry Cranial Nerve VIII: normal hearing Cranial Nerve IX: normal palate elevation Cranial Nerve X: no voice hoarseness Cranial Nerve XI: SCM symmetric, trapezii function normal Cranial Nerve XII: tongue midline, no tongue atrophy/fasciculations Motor System: normal muscle tone, strength 5/5, no involuntary movement, no muscle wasting Sensory: normal pinprick, normal light touch, normal position sense, normal graphesthesia Coordination: normal finger to nose bilaterally, normal heel to amador bilaterally Deep Tendon Reflexes: 2+ bicep (L), 2+ bicep (R), 2+ tricep (L), 2+ tricep (R) , 2+ brachioradialis (L), 2+ brachioradialis (R), 2+ knee (L), 2+ knee (R), 2+ ankle (L), 2+ ankle (R) Reflexes: flexor plantar (L), flexor plantar (R); extensor plantar (L), extensor plantar (R) Gait: stable, normal regular Objective Patient has large mass at back of oropharynx/ base of tongue and is dysarthric secondary to this He denies any significant issues eating but reports discomfort and denies impedement of breathing with mass. He is following all commands with generalized non focal weakness - He is now aware that he is in the hospital- he is more alert and oriented today. Imaging [facility] [address] [place] , [place] [id number] , fax [phone] Joshua Ahn M.D. Seismic Plotter Patient : RAUL ROSSI Referring Physician: Salazar Horvath MD ID Number: [id number] Service Date: 08/27/18 : 1950 Report Date: 08/27/18 Gender: M Accession No.: [id number] Location: 2W Procedure: MRI Brain no Contrast Indication: Altered level of consciousness 68-year-old male Technique: The head was imaged in a 1.5 Bhargavi magnet. Sequences obtained include sagittal and axial T1 FLAIR, axial T2 fast spin echo with fat saturation, axial T2 FLAIR, diffusion and ADC map. Comparison: None Findings: There is moderate prominence of the sulci, ventricles, and basal cisterns consistent with atrophy. Moderate, nonspecific T2 hyperintensity noted within white matter. This may be due to chronic small vessel disease. 1 to 2 mm focus demonstrated within the left aspect of the patricia consistent with an old lacunar infarct. Similar findings with 1 to 2 mm cystic foci within the basal ganglia and thalami bilaterally. These may be old lacunar infarcts or perivascular Virchow-Bubba spaces. There is no restricted diffusion. Brennan-white differentiation is normal. There is no mass effect, midline shift, edema, or hemorrhage. There are no abnormal extra- axial or intra-axial fluid collections. Fluid retention cyst in the left maxillary sinus noted. The corpus callosum and sella are unremarkable. The brainstem and cerebellum are unremarkable. Bone marrow signal within the visualized osseous structures appears age appropriate and unremarkable otherwise. Impression: No acute intracranial findings. 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 Moderate atrophy and evidence of chronic small vessel disease involving white matter tracts. 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 Status: stable, tolerating diet Recommendations Continue Q 4 Neuro Obs MRI completed - negative for acute infarct or other acute process. SBP<140 Na 135-145 Prevent Delirium by : Frequently reorienting the patient to place and time Maintain sleep hygiene by keeping room dark and quiet at night, with minimal interruptions for nonessential care. Swallow Evaluation PT Eval OOB during day Abx as per ID Heme/Onc w/u Katie Lema N.P. August 28, 2018 03:01
[2018-08-28 04:00] VITALS: BP 154/92
[2018-08-28 05:26] LABS: BASOPHILS % (AUTO) 1.1 % (0.0-2.0); EOSINOPHILS % (AUTO) 0.2 % (0.0-3.0); HEMATOCRIT 41.7 % (42.0-52.0); HEMOGLOBIN 13.8 G/DL (14.2-18.0); LYMPHOCYTES % (AUTO) 15.4 % (20.0-45.0); MEAN CORPUSCULAR VOLUME 88 FL (80-99); MONOCYTES % (AUTO) 10.1 % (1.0-10.0); NEUTROPHILS % (AUTO) 73.2 % (45.0-75.0); PLATELET COUNT 339 K/UL (150-450); RED BLOOD COUNT 4.71 M/UL (4.70-6.10); WHITE BLOOD COUNT 10.3 K/UL (4.8-10.8)
[2018-08-28 05:33] LABS: ANION GAP 15 mmol/L (5-15); BLOOD UREA NITROGEN 58 mg/dL (7-18); CALCIUM 9.2 MG/DL (8.5-10.1); CARBON DIOXIDE 26 MMOL/L (21-32); CHLORIDE 96 MMOL/L (98-107); CREATININE 13.5 MG/DL (0.55-1.30); POTASSIUM 4.6 MMOL/L (3.5-5.1); SODIUM 137 MMOL/L (136-145)
--- NOTE | 2018-08-28 07:13 | NUR ---
HAND-OFF: Report given to ILENE VAUGHAN.
--- NOTE | 2018-08-28 07:15 | NUR ---
NURSE NOTES: Report received from Diane Eason RN.Pt awake,alert,sitting up on bed noted no resp distress,c/o burning pain to Lt eye,appears red and teary,pt more coherent at this time,no signs of confusion presented,IV site to RAC and,AV Shunt to Lt LA intact, skin warm and dry,SR up x2 ,bed lock in lowest position will continue with plans of care.
[2018-08-28 08:00] VITALS: BP 155/90
--- NOTE | 2018-08-28 09:08 | NUR ---
RADIOLOGY DEPT., CHEST X-RAY DONE.-P.DYE
[2018-08-28] MEDS: Sensipar 30mg Tab ORAL SCH (09:25)
[2018-08-28] MEDS: Heparin 5000 units/ml inj SUBQ SCH ×2 (09:28→20:17)
--- NOTE | 2018-08-28 10:14 | Pulmonology Progress Note ---
Assessment/Plan Problems: (1) Acute encephalopathy (2) Acute psychosis (3) Tonsillar abscess (4) Tonsillar mass (5) Dysphagia (6) ESRD (end stage renal disease) on dialysis (7) History of hypertension (8) History of smoking Assessment/Plan start seroquel bid MRI of brain: Impression: No acute intracranial findings. 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 Moderate atrophy and evidence of chronic small vessel disease involving white matter tracts. continue abx check cultures HD by supervisor tower. monitor BP social service note reviewed and appreciated pt will need placement. Subjective ROS Limited/Unobtainable: No Constitutional: Reports: no symptoms HEENT: Repors: no symptoms Respiratory: Reports: no symptoms Allergies: Coded Allergies: No Known Allergies (Unverified , 08/25/18) Objective Last 24 Hour Vital Signs Date Time Temp Pulse Resp B/P (MAP) Pulse Ox O2 Delivery O2 Flow Rate FiO2 08/28/18 09:25 98 155/90 08/28/18 09:24 98 155/90 08/28/18 08:00 97.8 98 20 155/90 (111) 100 08/28/18 07:17 82 18 98 Room Air 21 08/28/18 07:12 75 18 98 Room Air 21 08/28/18 04:00 98.4 89 20 154/92 (112) 93 08/28/18 04:00 94 08/28/18 04:00 Room Air 08/28/18 02:48 Room Air 08/28/18 02:48 Room Air 08/28/18 00:00 Room Air 08/28/18 00:00 94 08/28/18 00:00 97.7 94 18 146/67 (93) 96 08/27/18 23:14 Room Air 08/27/18 23:14 Room Air 08/27/18 20:05 Room Air 08/27/18 20:05 Room Air 08/27/18 20:00 Room Air 08/27/18 20:00 96 08/27/18 20:00 98.4 92 20 138/78 (98) 98 08/27/18 18:25 102 159/87 08/27/18 16:00 102 08/27/18 16:00 97.9 99 20 159/87 (111) 100 08/27/18 16:00 Room Air 08/27/18 14:55 Room Air 08/27/18 14:55 Room Air 08/27/18 12:01 Room Air 08/27/18 12:00 84 08/27/18 12:00 97.9 69 18 138/65 (89) 98 08/27/18 10:31 Room Air 08/27/18 10:31 Room Air Intake and Output 08/27/18 08/28/18 19:00 07:00 Intake Total 2240 ml 350 ml Balance 2240 ml 350 ml Intake Oral 240 ml 240 ml IV Total 110 ml Hemodialysis 2000 ml Objective less confused General Appearance: cachetic HEENT: normocephalic Respiratory/Chest: chest wall non-tender, lungs clear Cardiovascular: normal peripheral pulses, regular rhythm Abdomen: normal bowel sounds, soft, non tender Genitourinary: normal external genitalia Extremities: no clubbing Skin: no lesions Neurologic/Psychiatric: utility hand II-XII grossly normal Lymphatic: no neck adenopathy Musculoskeletal: normal muscle bulk Microbiology Date/Time Source Procedure Growth Status 08/25/18 17:20 Blood Blood Culture - Preliminary NO GROWTH AFTER 48 HOURS Resulted 08/25/18 17:00 Blood Blood Culture - Preliminary NO GROWTH AFTER 48 HOURS Resulted 08/26/18 07:20 Sputum Gram Stain - Final Complete 08/26/18 07:20 Sputum Sputum Culture - Final NORMAL UPPER RESPIRATORY IRMA PRESENT Complete 08/25/18 21:52 Throat Throat Culture - Preliminary Resulted 08/25/18 20:24 Nasal Nares MRSA Culture - Final Staphylococcus Aureus - Mrsa Complete 08/25/18 20:24 Rectum - Final NO CARBAPENEM-RESISTANT ENTEROBACTERI... Complete 08/25/18 20:24 Rectum VRE Culture - Final NO VANCOMYCIN RESISTANT ENTEROCOCCUS ... Complete Laboratory Tests 08/27/18 10:20: Arterial Blood pH 7.450, Arterial Blood Partial Pressure CO2 35.4, Arterial Blood Partial Pressure O2 > 494.6H, Arterial Blood HCO3 24.1, Arterial Blood Oxygen Saturation 99.9, Arterial Blood Base Excess 0.6, Maxwell Test Positive 08/27/18 10:30: White Blood Count 19.0H, Red Blood Count 4.99, Hemoglobin 14.5, Hematocrit 43.3 , Mean Corpuscular Volume 87, Mean Corpuscular Hemoglobin 29.2, Mean Corpuscular Hemoglobin Concent 33.6, Red Cell Distribution Width 12.3, Platelet Count 387, Mean Platelet Volume 5.9L, Neutrophils (%) (Auto) , Lymphocytes (%) ( Auto) , Monocytes (%) (Auto) , Eosinophils (%) (Auto) , Basophils (%) (Auto) , Differential Total Cells Counted 100, Neutrophils % (Manual) 84H, Lymphocytes % (Manual) 12L, Monocytes % (Manual) 4, Eosinophils % (Manual) 0, Basophils % ( Manual) 0, Band Neutrophils 0, Platelet Estimate Adequate, Platelet Morphology Normal, Red Blood Cell Morphology Normal, Prothrombin Time 11.6H, Prothromb Time International Ratio 1.1, Activated Partial Thromboplast Time 26, Sodium Level 137, Potassium Level 3.7, Chloride Level 95L, Carbon Dioxide Level 26, Anion Gap 16H, Blood Urea Nitrogen 42H, Creatinine 10.7H, Estimat Glomerular Filtration Rate 5.8, Glucose Level 132H, Calcium Level 9.4, Total Bilirubin 0.7 , Aspartate Amino Transf (AST/SGOT) 13L, Alanine Aminotransferase (ALT/SGPT) 17 , Alkaline Phosphatase 128H, Total Protein 9.6H, Albumin 3.4, Globulin 6.2, Albumin/Globulin Ratio 0.5L 08/28/18 03:50: White Blood Count 10.3, Red Blood Count 4.71, Hemoglobin 13.8L, Hematocrit 41.7L , Mean Corpuscular Volume 88, Mean Corpuscular Hemoglobin 29.4, Mean Corpuscular Hemoglobin Concent 33.2, Red Cell Distribution Width 13.0, Platelet Count 339, Mean Platelet Volume 6.1L, Neutrophils (%) (Auto) 73.2, Lymphocytes ( %) (Auto) 15.4L, Monocytes (%) (Auto) 10.1H, Eosinophils (%) (Auto) 0.2, Basophils (%) (Auto) 1.1, Sodium Level 137, Potassium Level 4.6, Chloride Level 96L, Carbon Dioxide Level 26, Anion Gap 15, Blood Urea Nitrogen 58H, Creatinine 13.5H, Estimat Glomerular Filtration Rate 4.5, Glucose Level 91, Calcium Level 9.2, Troponin I 0.002, Pro-B-Type Natriuretic Peptide > 70430Q Current Medications Medications (Trade) Dose Ordered Sig/Shayan Route PRN Reason Start Time Stop Time Status Last Admin Dose Admin Acetaminophen (Tylenol) 650 mg Q4H PRN ORAL T>100.5 08/25/18 19:30 09/24/18 19:29 Albuterol/ Ipratropium (Albuterol/ Ipratropium) 3 ml Q4H PRN HHN Shortness of Breath 08/25/18 19:30 08/30/18 19:29 Amlodipine Besylate (Norvasc) 10 mg DAILY ORAL 08/27/18 09:00 09/25/18 08:59 08/28/18 09:24 Ampicillin Sodium/ Sulbactam Sodium 3 gm/Sodium Chloride 110 ml @ 220 mls/hr Q12HR@1100,2300 IVPB 08/25/18 23:00 09/01/18 22:59 08/27/18 22:50 Cinacalcet (Sensipar) 30 mg DAILY ORAL 08/26/18 09:00 09/25/18 08:59 08/28/18 09:25 Heparin Sodium (Porcine) (Heparin 5000 units/ml) 5,000 units EVERY 12 HOURS SUBQ 08/25/18 21:00 09/24/18 20:59 08/28/18 09:28 Hydralazine HCl (Apresoline) 10 mg Q4H PRN IV bp over 160 syst and 100 diast 08/26/18 10:30 09/25/18 10:29 Labetalol HCl (Normodyne) 300 mg TID ORAL 08/26/18 09:00 09/25/18 08:59 08/28/18 09:25 Nitroglycerin (Ntg) 0.4 mg Q5M PRN SL Prn Chest Pain 08/25/18 19:30 09/24/18 19:29 Ondansetron HCl (Zofran) 4 mg Q6H PRN IVP Nausea & Vomiting 08/25/18 19:30 09/24/18 19:29 Pantoprazole (Protonix) 40 mg DAILY ORAL 08/26/18 11:00 09/25/18 10:59 08/28/18 09:24 Polyethylene Glycol (Miralax) 17 gm DAILYPRN PRN ORAL Constipation 08/25/18 19:30 09/24/18 19:29 Promethazine HCl/ Codeine (Phenergan with Codeine) 5 ml Q4H PRN ORAL For Cough 08/25/18 19:30 09/24/18 19:29 Quetiapine Fumarate (SEROquel) 25 mg Q12HR ORAL 08/27/18 21:00 09/26/18 20:59 08/28/18 09:25 Temazepam (Restoril) 15 mg HSPRN PRN ORAL Insomnia 08/25/18 21:00 09/01/18 20:59 08/26/18 23:06 Tramadol HCl (Ultram) 50 mg Q6H PRN ORAL mod to sever pain 08/26/18 10:30 09/02/18 10:29 Salazar Horvath MD August 28, 2018 10:14
--- NOTE | 2018-08-28 11:00 | NUR ---
NURSE NOTES: Pt resting in bed ,more alert and coherent,no signs of confusion presented,sister at bedside
--- NOTE | 2018-08-28 11:50 | Diagnostic Imaging Report ---
Indication: Cough Technique: One view of the chest Comparison: none Findings: Lungs and pleural spaces are clear. The heart size is upper limits normal. Impression: No acute process
--- NOTE | 2018-08-28 11:58 | NUR ---
RD ASSESSMENT & RECOMMENDATIONS SEE CARE ACTIVITY FOR COMPLETE ASSESSMENT DAILY ESTIMATED NEEDS: Needs based on ESRD on HD 70kg 30-35 kcals/kg 1184-9208 total kcals 1.2-1.8 g protein/kg 84-126 g total protein Fluid per MD, on Hd NUTRITION DIAGNOSIS: Increased kcal and pro needs r/t ESRD as evidenced by pt on dialysis, w/ generalized mild to moderate wasting. CURRENT DIET: Regular puree, thin liquids PO DIET RECOMMENDATIONS: RENAL DIET (texture per QUILL MACHINE OPERATOR) ADDITIONAL RECOMMENDATIONS: 1) Add snacks in b/w meals 2) Add NEPRO x1 daily (425 kcal/19g pro each) 3) Obtain a calibrated bed scale or standing wt as able 4) Monitor po intake on puree diet
[2018-08-28 12:00] VITALS: BP 146/92
[2018-08-28] MEDS: Ampicillin/Sulbactam Sod 3 GM in NS 110 ML IVPB SCH ×2 (12:11→22:39)
--- NOTE | 2018-08-28 12:42 | Hematology/Onc Progress Note ---
Assessment/Plan Assessment/Plan Assessment/Recs: # Throat mass with superimposed infection -- per ENT, exam was very difficult to visualize pharynx given tongue position. On palpation the area was soft. I spent time reviewing the CT scan and the irregularity makes me very concerned for a malignant process. I explained the importance of follow up with this kind greg and would like to see him in a week. Continue Augmentin. Will scope and possible return to take him to the OR for triple endoscopy with biopsy. On a side note he did mention issues with housing so that might need to be addressed prior to discharge. --> imaging has been reviewed --> may need further management, as per ent first --> outpatient care --> ID recs reviewed # Hypercalcemia likely related to esrd --> has been on sensipar, as per renal --> PTH has been ordered # Dysphagia has improved, likely due to mass --> reviewed recs gi eval as needed --> ent recs # ESRD (end stage renal disease) on dialysis --> per renal recs # History of hypertension --> sbp goal <140 # History of smoking The timing of this note does not necessarily reflect the time of the patient was seen. Greatly appreciate consultation! Subjective HEENT: Denies: no symptoms, eye pain, blurred vision, tearing, double vision, ear pain, ear discharge, nose pain, nose congestion, throat pain, throat swelling, mouth pain, mouth swelling, other Cardiovascular: Denies: no symptoms, chest pain, edema, irregular heart rate, lightheadedness, palpitations, syncope, other Respiratory: Denies: no symptoms, cough, shortness of breath, SOB with excertion, SOB at rest, sputum, wheezing, other Gastrointestinal/Abdominal: Denies: no symptoms, abdomen distended, abdominal pain, black stools, tarry stools, blood in stool, constipated, diarrhea, difficulty swallowing, nausea, poor appetite, poor fluid intake, rectal bleeding , vomiting, other Genitourinary: Denies: no symptoms, burning, discharge, frequency, flank pain, hematuria, incontinence, pain, urgency, other Neurologic/Psychiatric: Denies: no symptoms, anxiety, depressed, emotional problems, headache, numbness, paresthesia, pre-existing deficit, seizure, tingling, tremors, weakness, other Hematologic/Lymphatic: Denies: no symptoms, anemia, easy bleeding, easy bruising, adenopathy, other Allergies: Coded Allergies: No Known Allergies (Unverified , 08/25/18) Subjective 08/27: getting hd today, apparently had a rapid response in the am after I left, lytes repleted 08/28: no events, no f/c, no night sweats, comfortable Objective Objective Current Medications Medications (Trade) Dose Ordered Sig/Shayan Route PRN Reason Start Time Stop Time Status Last Admin Dose Admin Acetaminophen (Tylenol) 650 mg Q4H PRN ORAL T>100.5 08/25/18 19:30 09/24/18 19:29 Albuterol/ Ipratropium (Albuterol/ Ipratropium) 3 ml Q4H PRN HHN Shortness of Breath 08/25/18 19:30 08/30/18 19:29 Amlodipine Besylate (Norvasc) 10 mg DAILY ORAL 08/27/18 09:00 09/25/18 08:59 08/28/18 09:24 Ampicillin Sodium/ Sulbactam Sodium 3 gm/Sodium Chloride 110 ml @ 220 mls/hr Q12HR@1100,2300 IVPB 08/25/18 23:00 09/01/18 22:59 08/28/18 12:11 Cinacalcet (Sensipar) 30 mg DAILY ORAL 08/26/18 09:00 09/25/18 08:59 08/28/18 09:25 Heparin Sodium (Porcine) (Heparin 5000 units/ml) 5,000 units EVERY 12 HOURS SUBQ 08/25/18 21:00 09/24/18 20:59 08/28/18 09:28 Hydralazine HCl (Apresoline) 10 mg Q4H PRN IV bp over 160 syst and 100 diast 08/26/18 10:30 09/25/18 10:29 Labetalol HCl (Normodyne) 300 mg TID ORAL 08/26/18 09:00 09/25/18 08:59 08/28/18 09:25 Nitroglycerin (Ntg) 0.4 mg Q5M PRN SL Prn Chest Pain 08/25/18 19:30 09/24/18 19:29 Ondansetron HCl (Zofran) 4 mg Q6H PRN IVP Nausea & Vomiting 08/25/18 19:30 09/24/18 19:29 Pantoprazole (Protonix) 40 mg DAILY ORAL 08/26/18 11:00 09/25/18 10:59 08/28/18 09:24 Polyethylene Glycol (Miralax) 17 gm DAILYPRN PRN ORAL Constipation 08/25/18 19:30 09/24/18 19:29 Promethazine HCl/ Codeine (Phenergan with Codeine) 5 ml Q4H PRN ORAL For Cough 08/25/18 19:30 09/24/18 19:29 Quetiapine Fumarate (SEROquel) 25 mg Q12HR ORAL 08/27/18 21:00 09/26/18 20:59 08/28/18 09:25 Temazepam (Restoril) 15 mg HSPRN PRN ORAL Insomnia 08/25/18 21:00 09/01/18 20:59 08/26/18 23:06 Tramadol HCl (Ultram) 50 mg Q6H PRN ORAL mod to sever pain 08/26/18 10:30 09/02/18 10:29 Last 24 Hour Vital Signs Date Time Temp Pulse Resp B/P (MAP) Pulse Ox O2 Delivery O2 Flow Rate FiO2 08/28/18 12:00 Room Air 08/28/18 10:50 75 16 98 Room Air 08/28/18 10:47 79 16 98 Room Air 08/28/18 09:25 98 155/90 08/28/18 09:24 98 155/90 08/28/18 08:00 Room Air 08/28/18 08:00 97.8 98 20 155/90 (111) 100 08/28/18 07:37 106 08/28/18 07:17 82 18 98 Room Air 21 08/28/18 07:12 75 18 98 Room Air 21 08/28/18 04:00 98.4 89 20 154/92 (112) 93 08/28/18 04:00 94 08/28/18 04:00 Room Air 08/28/18 02:48 Room Air 08/28/18 02:48 Room Air 08/28/18 00:00 Room Air 08/28/18 00:00 94 08/28/18 00:00 97.7 94 18 146/67 (93) 96 08/27/18 23:14 Room Air 08/27/18 23:14 Room Air 08/27/18 20:05 Room Air 08/27/18 20:05 Room Air 08/27/18 20:00 Room Air 08/27/18 20:00 96 08/27/18 20:00 98.4 92 20 138/78 (98) 98 08/27/18 18:25 102 159/87 08/27/18 16:00 102 08/27/18 16:00 97.9 99 20 159/87 (111) 100 08/27/18 16:00 Room Air 08/27/18 14:55 Room Air 08/27/18 14:55 Room Air 08/27/18 12:01 Room Air 08/27/18 12:00 84 08/27/18 12:00 97.9 69 18 138/65 (89) 98 08/27/18 10:31 Room Air 08/27/18 10:31 Room Air 08/27/18 09:00 82 140/91 08/27/18 09:00 82 140/91 08/27/18 08:00 97.3 87 20 159/97 (117) 100 08/27/18 08:00 Room Air 08/27/18 08:00 85 08/27/18 06:44 Room Air 08/27/18 06:44 Room Air 08/27/18 04:00 Room Air 08/27/18 04:00 98.3 83 20 127/78 (94) 100 08/27/18 03:40 81 08/27/18 03:16 Room Air 21 08/27/18 03:16 Room Air 21 08/27/18 01:00 87 08/27/18 00:00 Room Air 08/27/18 00:00 97.6 85 20 133/84 (100) 98 08/26/18 23:23 86 25 98 Room Air 21 08/26/18 23:14 86 18 98 Room Air 21 08/26/18 20:00 97.7 85 20 132/82 (99) 96 08/26/18 20:00 Room Air 08/26/18 19:39 86 25 98 Room Air 21 08/26/18 19:30 83 18 98 Room Air 21 08/26/18 19:29 86 08/26/18 18:05 97 135/93 08/26/18 16:00 90 5/27/19 16:00 Room Air 08/26/18 16:00 97.9 64 20 142/96 (111) 99 08/26/18 15:35 86 25 98 Room Air 21 08/26/18 15:25 84 20 99 Room Air 21 Intake and Output 08/27/18 08/28/18 19:00 07:00 Intake Total 2240 ml 350 ml Balance 2240 ml 350 ml Intake Oral 240 ml 240 ml IV Total 110 ml Hemodialysis 2000 ml Labs Test 08/25/18 17:04 08/26/18 05:30 08/26/18 14:43 08/27/18 03:40 White Blood Count 16.2 K/UL (4.8-10.8) 13.4 K/UL (4.8-10.8) 20.3 K/UL (4.8-10.8) Red Blood Count 4.67 M/UL (4.70-6.10) 4.87 M/UL (4.70-6.10) 4.31 M/UL (4.70-6.10) Hemoglobin 14.0 G/DL (14.2-18.0) 14.4 G/DL (14.2-18.0) 12.9 G/DL (14.2-18.0) Hematocrit 39.6 % (42.0-52.0) 43.1 % (42.0-52.0) 38.0 % (42.0-52.0) Mean Corpuscular Volume 85 FL (80-99) 88 FL (80-99) 88 FL (80-99) Mean Corpuscular Hemoglobin 30.0 PG (27.0-31.0) 29.5 PG (27.0-31.0) 30.0 PG (27.0-31.0) Mean Corpuscular Hemoglobin Concent 35.4 G/DL (32.0-36.0) 33.4 G/DL (32.0-36.0) 34.0 G/DL (32.0-36.0) Red Cell Distribution Width 12.2 % (11.6-14.8) 12.6 % (11.6-14.8) 12.8 % (11.6-14.8) Platelet Count 317 K/UL (150-450) 283 K/UL (150-450) 316 K/UL (150-450) Mean Platelet Volume 5.8 FL (6.5-10.1) 7.4 FL (6.5-10.1) 6.2 FL (6.5-10.1) Neutrophils (%) (Auto) 79.6 % (45.0-75.0) % (45.0-75.0) % (45.0-75.0) Lymphocytes (%) (Auto) 10.1 % (20.0-45.0) % (20.0-45.0) % (20.0-45.0) Monocytes (%) (Auto) 7.5 % (1.0-10.0) % (1.0-10.0) % (1.0-10.0) Eosinophils (%) (Auto) 1.0 % (0.0-3.0) % (0.0-3.0) % (0.0-3.0) Basophils (%) (Auto) 1.9 % (0.0-2.0) % (0.0-2.0) % (0.0-2.0) Prothrombin Time 11.9 SEC (9.30-11.50) Prothromb Time International Ratio 1.1 (0.9-1.1) Activated Partial Thromboplast Time 31 SEC (23-33) Sodium Level 137 MMOL/L (136-145) 132 MMOL/L (136-145) 134 MMOL/L (136-145) Potassium Level 4.4 MMOL/L (3.5-5.1) 5.0 MMOL/L (3.5-5.1) 4.8 MMOL/L (3.5-5.1) Chloride Level 96 MMOL/L (98-107) 94 MMOL/L (98-107) 93 MMOL/L (98-107) Carbon Dioxide Level 30 MMOL/L (21-32) 25 MMOL/L (21-32) 23 MMOL/L (21-32) Anion Gap 11 mmol/L (5-15) 13 mmol/L (5-15) 18 mmol/L (5-15) Blood Urea Nitrogen 38 mg/dL (7-18) 47 mg/dL (7-18) 67 mg/dL (7-18) Creatinine 11.5 MG/DL (0.55-1.30) 12.5 MG/DL (0.55-1.30) 15.3 MG/DL (0.55-1.30) Estimat Glomerular Filtration Rate 5.3 mL/min (>60) 4.8 mL/min (>60) 3.9 mL/min (>60) Glucose Level 115 MG/DL (74-106) 151 MG/DL (74-106) 95 MG/DL (74-106) Calcium Level 10.4 MG/DL (8.5-10.1) 10.1 MG/DL (8.5-10.1) 8.7 MG/DL (8.5-10.1) Total Bilirubin 0.7 MG/DL (0.2-1.0) 0.6 MG/DL (0.2-1.0) Aspartate Amino Transf (AST/SGOT) 13 U/L (15-37) 11 U/L (15-37) Alanine Aminotransferase (ALT/SGPT) 20 U/L (12-78) 11 U/L (12-78) Alkaline Phosphatase 136 U/L (46-116) 118 U/L (46-116) Total Protein 9.7 G/DL (6.4-8.2) 8.3 G/DL (6.4-8.2) Albumin 3.5 G/DL (3.4-5.0) 3.1 G/DL (3.4-5.0) 2.9 G/DL (3.4-5.0) Globulin 6.2 g/dL 5.4 g/dL Albumin/Globulin Ratio 0.6 (1.0-2.7) 0.7 (0.7-1.7) 0.5 (1.0-2.7) Differential Total Cells Counted 100 100 Neutrophils % (Manual) 88 % (45-75) 83 % (45-75) Lymphocytes % (Manual) 9 % (20-45) 10 % (20-45) Monocytes % (Manual) 3 % (1-10) 7 % (1-10) Eosinophils % (Manual) 0 % (0-3) 0 % (0-3) Basophils % (Manual) 0 % (0-2) 0 % (0-2) Band Neutrophils 0 % (0-8) 0 % (0-8) Platelet Estimate Adequate Adequate Platelet Morphology Normal Normal Red Blood Cell Morphology Normal Normal Phosphorus Level 5.3 MG/DL (2.5-4.9) 6.1 MG/DL (2.5-4.9) Total Protein (PEP) 8.2 g/dL (6.0-8.5) Albumin (PEP) 3.3 g/dL (2.9-4.4) Globulin (PEP) 4.9 g/dL (2.2-3.9) Mahyv-9-Frnrrldel 0.4 g/dL (0.0-0.4) Mxxav-9-Tvatntzqk 1.1 g/dL (0.4-1.0) Beta Globulins 1.1 g/dL (0.7-1.3) Beta Gamma Globulin 2.3 g/dL (0.4-1.8) PEP Abnormal Protein Bands Not observed g/dL (Not Protein Electrophoresis Interpret Comment (.) Hemoglobin A1c 5.5 % (4.3-6.0) Uric Acid 7.3 MG/DL (2.6-7.2) Magnesium Level 2.3 MG/DL (1.8-2.4) C-Reactive Protein, Quantitative 3.3 mg/dL (0.00-0.90) Pro-B-Type Natriuretic Peptide > 64492 pg/mL (0-125) Triglycerides Level 100 MG/DL (30-150) Cholesterol Level 146 MG/DL (< 200) LDL Cholesterol 75 mg/dL (<100) HDL Cholesterol 49 MG/DL (40-60) Cholesterol/HDL Ratio 3.0 (3.3-4.4) Thyroid Stimulating Hormone (TSH) 1.084 uiU/mL (0.358-3.740) Test 08/27/18 10:20 08/27/18 10:30 08/28/18 03:50 Arterial Blood pH 7.450 (7.350-7.450) Arterial Blood Partial Pressure CO2 35.4 mmHg (35.0-45.0) Arterial Blood Partial Pressure O2 > 494.6 mmHg (75.0-100.0) Arterial Blood HCO3 24.1 mmol/L (22.0-26.0) Arterial Blood Oxygen Saturation 99.9 % (95-100) Arterial Blood Base Excess 0.6 (-2-2) Maxwell Test Positive White Blood Count 19.0 K/UL (4.8-10.8) 10.3 K/UL (4.8-10.8) Red Blood Count 4.99 M/UL (4.70-6.10) 4.71 M/UL (4.70-6.10) Hemoglobin 14.5 G/DL (14.2-18.0) 13.8 G/DL (14.2-18.0) Hematocrit 43.3 % (42.0-52.0) 41.7 % (42.0-52.0) Mean Corpuscular Volume 87 FL (80-99) 88 FL (80-99) Mean Corpuscular Hemoglobin 29.2 PG (27.0-31.0) 29.4 PG (27.0-31.0) Mean Corpuscular Hemoglobin Concent 33.6 G/DL (32.0-36.0) 33.2 G/DL (32.0-36.0) Red Cell Distribution Width 12.3 % (11.6-14.8) 13.0 % (11.6-14.8) Platelet Count 387 K/UL (150-450) 339 K/UL (150-450) Mean Platelet Volume 5.9 FL (6.5-10.1) 6.1 FL (6.5-10.1) Neutrophils (%) (Auto) % (45.0-75.0) 73.2 % (45.0-75.0) Lymphocytes (%) (Auto) % (20.0-45.0) 15.4 % (20.0-45.0) Monocytes (%) (Auto) % (1.0-10.0) 10.1 % (1.0-10.0) Eosinophils (%) (Auto) % (0.0-3.0) 0.2 % (0.0-3.0) Basophils (%) (Auto) % (0.0-2.0) 1.1 % (0.0-2.0) Differential Total Cells Counted 100 Neutrophils % (Manual) 84 % (45-75) Lymphocytes % (Manual) 12 % (20-45) Monocytes % (Manual) 4 % (1-10) Eosinophils % (Manual) 0 % (0-3) Basophils % (Manual) 0 % (0-2) Band Neutrophils 0 % (0-8) Platelet Estimate Adequate Platelet Morphology Normal Red Blood Cell Morphology Normal Prothrombin Time 11.6 SEC (9.30-11.50) Prothromb Time International Ratio 1.1 (0.9-1.1) Activated Partial Thromboplast Time 26 SEC (23-33) Sodium Level 137 MMOL/L (136-145) 137 MMOL/L (136-145) Potassium Level 3.7 MMOL/L (3.5-5.1) 4.6 MMOL/L (3.5-5.1) Chloride Level 95 MMOL/L (98-107) 96 MMOL/L (98-107) Carbon Dioxide Level 26 MMOL/L (21-32) 26 MMOL/L (21-32) Anion Gap 16 mmol/L (5-15) 15 mmol/L (5-15) Blood Urea Nitrogen 42 mg/dL (7-18) 58 mg/dL (7-18) Creatinine 10.7 MG/DL (0.55-1.30) 13.5 MG/DL (0.55-1.30) Estimat Glomerular Filtration Rate 5.8 mL/min (>60) 4.5 mL/min (>60) Glucose Level 132 MG/DL (74-106) 91 MG/DL (74-106) Calcium Level 9.4 MG/DL (8.5-10.1) 9.2 MG/DL (8.5-10.1) Total Bilirubin 0.7 MG/DL (0.2-1.0) Aspartate Amino Transf (AST/SGOT) 13 U/L (15-37) Alanine Aminotransferase (ALT/SGPT) 17 U/L (12-78) Alkaline Phosphatase 128 U/L (46-116) Total Protein 9.6 G/DL (6.4-8.2) Albumin 3.4 G/DL (3.4-5.0) Globulin 6.2 g/dL Albumin/Globulin Ratio 0.5 (1.0-2.7) Troponin I 0.002 ng/mL (0.000-0.056) Pro-B-Type Natriuretic Peptide > 00657 pg/mL (0-125) Height (Feet): 5 Height (Inches): 11.00 Weight (Pounds): 150 Objective PE General Appearance: WD/WN, no apparent distress, alert, thin HEENT: normocephalic, atraumatic, PERRL, EOMI, supple, no JVD, other Neck: non-tender, supple, normal inspection ++ mass on right periaricular area Respiratory/Chest: no respiratory distress EXT: no cce Julius Franco MD August 28, 2018 12:42
--- NOTE | 2018-08-28 13:52 | General Progress Note ---
Assessment/Plan Problem List: (1) ESRD (end stage renal disease) on dialysis ICD Codes: N18.6 - End stage renal disease; Z99.2 - Dependence on renal dialysis SNOMED: 730430455 (2) History of smoking ICD Codes: Z87.891 - Personal history of nicotine dependence SNOMED: 773557209 (3) History of hypertension ICD Codes: Z86.79 - Personal history of other diseases of the circulatory system SNOMED: 682429350 (4) Tonsillar abscess ICD Codes: J36 - Peritonsillar abscess; Z99.2 - Dependence on renal dialysis SNOMED: 18131946 (5) Tonsillar mass ICD Codes: R22.0 - Localized swelling, mass and lump, head SNOMED: 895225544 (6) Dysphagia ICD Codes: R13.10 - Dysphagia, unspecified SNOMED: 80890331, 488244731 (7) Acute encephalopathy ICD Codes: G93.40 - Encephalopathy, unspecified SNOMED: 52242060, 350225240 Status: unchanged Assessment/Plan: pt diet neuro f/u abx per id ent f/u cbc bmp am aru eval Subjective Constitutional: Reports: weakness Allergies: Coded Allergies: No Known Allergies (Unverified , 08/25/18) All Systems: reviewed and negative except above Subjective sleepy in bed calm Objective Last 24 Hour Vital Signs Date Time Temp Pulse Resp B/P (MAP) Pulse Ox O2 Delivery O2 Flow Rate FiO2 08/28/18 12:00 Room Air 08/28/18 10:50 75 16 98 Room Air 08/28/18 10:47 79 16 98 Room Air 08/28/18 09:25 98 155/90 08/28/18 09:24 98 155/90 08/28/18 08:00 Room Air 08/28/18 08:00 97.8 98 20 155/90 (111) 100 08/28/18 07:37 106 08/28/18 07:17 82 18 98 Room Air 08/28/18 07:12 75 18 98 Room Air 08/28/18 04:00 98.4 89 20 154/92 (112) 93 08/28/18 04:00 94 08/28/18 04:00 Room Air 08/28/18 02:48 Room Air 08/28/18 02:48 Room Air 08/28/18 00:00 Room Air 08/28/18 00:00 94 08/28/18 00:00 97.7 94 18 146/67 (93) 96 08/27/18 23:14 Room Air 08/27/18 23:14 Room Air 08/27/18 20:05 Room Air 08/27/18 20:05 Room Air 08/27/18 20:00 Room Air 08/27/18 20:00 96 08/27/18 20:00 98.4 92 20 138/78 (98) 98 08/27/18 18:25 102 159/87 08/27/18 16:00 102 08/27/18 16:00 97.9 99 20 159/87 (111) 100 08/27/18 16:00 Room Air 08/27/18 14:55 Room Air 08/27/18 14:55 Room Air Intake and Output 08/27/18 08/28/18 19:00 07:00 Intake Total 2240 ml 350 ml Balance 2240 ml 350 ml Intake Oral 240 ml 240 ml IV Total 110 ml Hemodialysis 2000 ml Laboratory Tests 08/28/18 03:50: White Blood Count 10.3, Red Blood Count 4.71, Hemoglobin 13.8L, Hematocrit 41.7L , Mean Corpuscular Volume 88, Mean Corpuscular Hemoglobin 29.4, Mean Corpuscular Hemoglobin Concent 33.2, Red Cell Distribution Width 13.0, Platelet Count 339, Mean Platelet Volume 6.1L, Neutrophils (%) (Auto) 73.2, Lymphocytes ( %) (Auto) 15.4L, Monocytes (%) (Auto) 10.1H, Eosinophils (%) (Auto) 0.2, Basophils (%) (Auto) 1.1, Sodium Level 137, Potassium Level 4.6, Chloride Level 96L, Carbon Dioxide Level 26, Anion Gap 15, Blood Urea Nitrogen 58H, Creatinine 13.5H, Estimat Glomerular Filtration Rate 4.5, Glucose Level 91, Calcium Level 9.2, Troponin I 0.002, Pro-B-Type Natriuretic Peptide > 47982V Height (Feet): 5 Height (Inches): 11.00 Weight (Pounds): 150 General Appearance: lethargic EENT: normal ENT inspection Neck: normal alignment Cardiovascular: normal peripheral pulses, normal rate, regular rhythm Respiratory/Chest: chest wall non-tender, lungs clear, normal breath sounds Abdomen: normal bowel sounds, non tender, soft Extremities: normal inspection Edema: no edema noted Arm (L), no edema noted Arm (R), no edema noted Leg (L), no edema noted Leg (R), no edema noted Pedal (L), no edema noted Pedal (R), no edema noted Generalized Neurologic: motor weakness Skin: normal pigmentation, warm/dry Chaim Borjas August 28, 2018 13:52
--- NOTE | 2018-08-28 14:42 | Infectious Diseases Prog Note ---
Assessment/Plan Assessment/Plan Abx: Unasyn 08/25- Cefepime x1 08/25 Unasyn x1 08/25 IV Vancomycin x1 08/25 Assessment: Possible Throat mass with superimposed infection - CT neck/maxillofacial: Enlarged right palatine tonsil with rim-enhancing hypodense structure within the tonsil partially visualized, concerning for tonsillitis with abscess. Please see accompanying CT face. 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 Will continue to follow along with you. Discussed with RN Subjective Allergies: Coded Allergies: No Known Allergies (Unverified , 08/25/18) Subjective afebrile leukocytosis resolved Bcx NTD Objective Vital Signs Last 24 Hour Vital Signs Date Time Temp Pulse Resp B/P (MAP) Pulse Ox O2 Delivery O2 Flow Rate FiO2 08/28/18 14:28 91 146/92 08/28/18 12:00 98.1 89 22 146/92 (110) 100 08/28/18 12:00 Room Air 08/28/18 12:00 91 08/28/18 10:50 75 16 98 Room Air 21 08/28/18 10:47 79 16 98 Room Air 21 08/28/18 09:25 98 155/90 08/28/18 09:24 98 155/90 08/28/18 08:00 Room Air 08/28/18 08:00 97.8 98 20 155/90 (111) 100 08/28/18 07:37 106 08/28/18 07:17 82 18 98 Room Air 21 08/28/18 07:12 75 18 98 Room Air 21 08/28/18 04:00 98.4 89 20 154/92 (112) 93 08/28/18 04:00 94 08/28/18 04:00 Room Air 08/28/18 02:48 Room Air 08/28/18 02:48 Room Air 08/28/18 00:00 Room Air 08/28/18 00:00 94 08/28/18 00:00 97.7 94 18 146/67 (93) 96 08/27/18 23:14 Room Air 08/27/18 23:14 Room Air 08/27/18 20:05 Room Air 08/27/18 20:05 Room Air 08/27/18 20:00 Room Air 08/27/18 20:00 96 08/27/18 20:00 98.4 92 20 138/78 (98) 98 08/27/18 18:25 102 159/87 08/27/18 16:00 102 08/27/18 16:00 97.9 99 20 159/87 (111) 100 08/27/18 16:00 Room Air 08/27/18 14:55 Room Air 08/27/18 14:55 Room Air Height (Feet): 5 Height (Inches): 11.00 Weight (Pounds): 150 Objective HEENT: Normocephalic and atraumatic. Pupils are equal, round, and reactive to light. Sclerae anicteric. Oral mucosa are moist. There is mild erythema of the right oropharynx. No facial swelling or tenderness. NECK: Supple. There is no jugular venous distention. No carotid bruits. No edema or erythema. No mass. LUNGS: Clear to auscultation bilaterally. HEART: Regular rate and rhythm. S1, S2. No murmurs or S3. ABDOMEN: Soft and nontender. No palpable mass. EXTREMITIES: No cyanosis, clubbing, or edema. NEUROLOGIC: No gross focal motor deficits. Microbiology Date/Time Source Procedure Growth Status 08/25/18 17:20 Blood Blood Culture - Preliminary NO GROWTH AFTER 48 HOURS Resulted 08/25/18 17:00 Blood Blood Culture - Preliminary NO GROWTH AFTER 48 HOURS Resulted 08/26/18 07:20 Sputum Gram Stain - Final Complete 08/26/18 07:20 Sputum Sputum Culture - Final NORMAL UPPER RESPIRATORY MADHURI PRESENT Complete 08/25/18 21:52 Throat Throat Culture - Preliminary Resulted 08/25/18 20:24 Nasal Nares MRSA Culture - Final Staphylococcus Aureus - Mrsa Complete 08/25/18 20:24 Rectum - Final NO CARBAPENEM-RESISTANT ENTEROBACTERI... Complete 08/25/18 20:24 Rectum VRE Culture - Final NO VANCOMYCIN RESISTANT ENTEROCOCCUS ... Complete Laboratory Tests Test 08/28/18 03:50 White Blood Count 10.3 K/UL (4.8-10.8) Red Blood Count 4.71 M/UL (4.70-6.10) Hemoglobin 13.8 G/DL (14.2-18.0) L Hematocrit 41.7 % (42.0-52.0) L Mean Corpuscular Volume 88 FL (80-99) Mean Corpuscular Hemoglobin 29.4 PG (27.0-31.0) Mean Corpuscular Hemoglobin Concent 33.2 G/DL (32.0-36.0) Red Cell Distribution Width 13.0 % (11.6-14.8) Platelet Count 339 K/UL (150-450) Mean Platelet Volume 6.1 FL (6.5-10.1) L Neutrophils (%) (Auto) 73.2 % (45.0-75.0) Lymphocytes (%) (Auto) 15.4 % (20.0-45.0) L Monocytes (%) (Auto) 10.1 % (1.0-10.0) H Eosinophils (%) (Auto) 0.2 % (0.0-3.0) Basophils (%) (Auto) 1.1 % (0.0-2.0) Sodium Level 137 MMOL/L (136-145) Potassium Level 4.6 MMOL/L (3.5-5.1) Chloride Level 96 MMOL/L (98-107) L Carbon Dioxide Level 26 MMOL/L (21-32) Anion Gap 15 mmol/L (5-15) Blood Urea Nitrogen 58 mg/dL (7-18) H Creatinine 13.5 MG/DL (0.55-1.30) H Estimat Glomerular Filtration Rate 4.5 mL/min (>60) Glucose Level 91 MG/DL (74-106) Calcium Level 9.2 MG/DL (8.5-10.1) Troponin I 0.002 ng/mL (0.000-0.056) Pro-B-Type Natriuretic Peptide > 46700 pg/mL (0-125) H Current Medications Medications (Trade) Dose Ordered Sig/Shayan Route PRN Reason Start Time Stop Time Status Last Admin Dose Admin Acetaminophen (Tylenol) 650 mg Q4H PRN ORAL T>100.5 08/25/18 19:30 09/24/18 19:29 Albuterol/ Ipratropium (Albuterol/ Ipratropium) 3 ml Q4H PRN HHN Shortness of Breath 08/25/18 19:30 08/30/18 19:29 Amlodipine Besylate (Norvasc) 10 mg DAILY ORAL 08/27/18 09:00 09/25/18 08:59 08/28/18 09:24 Ampicillin Sodium/ Sulbactam Sodium 3 gm/Sodium Chloride 110 ml @ 220 mls/hr Q12HR@1100,2300 IVPB 08/25/18 23:00 09/03/18 22:59 08/28/18 12:11 Cinacalcet (Sensipar) 30 mg DAILY ORAL 08/26/18 09:00 09/25/18 08:59 08/28/18 09:25 Heparin Sodium (Porcine) (Heparin 5000 units/ml) 5,000 units EVERY 12 HOURS SUBQ 08/25/18 21:00 09/24/18 20:59 08/28/18 09:28 Hydralazine HCl (Apresoline) 10 mg Q4H PRN IV bp over 160 syst and 100 diast 08/26/18 10:30 09/25/18 10:29 Labetalol HCl (Normodyne) 300 mg Q8HR ORAL 08/28/18 14:00 09/27/18 13:59 08/28/18 14:28 Nitroglycerin (Ntg) 0.4 mg Q5M PRN SL Prn Chest Pain 08/25/18 19:30 09/24/18 19:29 Ondansetron HCl (Zofran) 4 mg Q6H PRN IVP Nausea & Vomiting 08/25/18 19:30 09/24/18 19:29 Pantoprazole (Protonix) 40 mg DAILY ORAL 08/26/18 11:00 09/25/18 10:59 08/28/18 09:24 Polyethylene Glycol (Miralax) 17 gm DAILYPRN PRN ORAL Constipation 08/25/18 19:30 09/24/18 19:29 Promethazine HCl/ Codeine (Phenergan with Codeine) 5 ml Q4H PRN ORAL For Cough 08/25/18 19:30 09/24/18 19:29 Quetiapine Fumarate (SEROquel) 25 mg Q12HR ORAL 08/27/18 21:00 09/26/18 20:59 08/28/18 09:25 Temazepam (Restoril) 15 mg HSPRN PRN ORAL Insomnia 08/25/18 21:00 09/01/18 20:59 08/26/18 23:06 Tramadol HCl (Ultram) 50 mg Q6H PRN ORAL mod to sever pain 08/26/18 10:30 09/02/18 10:29 Mandy Waddell M.D. August 28, 2018 14:42
--- NOTE | 2018-08-28 15:48 | Nephrology Progress Note ---
Assessment/Plan Problem List: (1) ESRD (end stage renal disease) on dialysis (2) History of hypertension (3) Tonsillar mass (4) Tonsillar abscess Assessment ESRD Hypertensive kidney disease Pharyngitis / Tonsilar abcess / mass Plan Antibiotics BP meds and PRN meds per ID HD 08/27 next 08/29 per ENT MRI brain wo: No acute intracranial findings.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 patricia.Moderate atrophy and evidence of chronic small vessel disease involving white matter tracts.Sinus disease Subjective ROS Limited/Unobtainable: No Objective Objective Last 24 Hour Vital Signs Date Time Temp Pulse Resp B/P (MAP) Pulse Ox O2 Delivery O2 Flow Rate FiO2 08/28/18 14:56 Room Air 21 08/28/18 14:56 Room Air 21 08/28/18 14:28 91 146/92 08/28/18 12:00 98.1 89 22 146/92 (110) 100 08/28/18 12:00 Room Air 08/28/18 12:00 91 08/28/18 10:50 75 16 98 Room Air 08/28/18 10:47 79 16 98 Room Air 08/28/18 09:25 98 155/90 08/28/18 09:24 98 155/90 08/28/18 08:00 Room Air 08/28/18 08:00 97.8 98 20 155/90 (111) 100 08/28/18 07:37 106 08/28/18 07:17 82 18 98 Room Air 08/28/18 07:12 75 18 98 Room Air 08/28/18 04:00 98.4 89 20 154/92 (112) 93 08/28/18 04:00 94 08/28/18 04:00 Room Air 08/28/18 02:48 Room Air 08/28/18 02:48 Room Air 08/28/18 00:00 Room Air 08/28/18 00:00 94 08/28/18 00:00 97.7 94 18 146/67 (93) 96 08/27/18 23:14 Room Air 08/27/18 23:14 Room Air 08/27/18 20:05 Room Air 08/27/18 20:05 Room Air 08/27/18 20:00 Room Air 08/27/18 20:00 96 08/27/18 20:00 98.4 92 20 138/78 (98) 98 08/27/18 18:25 102 159/87 08/27/18 16:00 102 08/27/18 16:00 97.9 99 20 159/87 (111) 100 08/27/18 16:00 Room Air Intake and Output 08/27/18 08/28/18 19:00 07:00 Intake Total 2240 ml 350 ml Balance 2240 ml 350 ml Intake Oral 240 ml 240 ml IV Total 110 ml Hemodialysis 2000 ml Laboratory Tests 08/28/18 03:50: White Blood Count 10.3, Red Blood Count 4.71, Hemoglobin 13.8L, Hematocrit 41.7L , Mean Corpuscular Volume 88, Mean Corpuscular Hemoglobin 29.4, Mean Corpuscular Hemoglobin Concent 33.2, Red Cell Distribution Width 13.0, Platelet Count 339, Mean Platelet Volume 6.1L, Neutrophils (%) (Auto) 73.2, Lymphocytes ( %) (Auto) 15.4L, Monocytes (%) (Auto) 10.1H, Eosinophils (%) (Auto) 0.2, Basophils (%) (Auto) 1.1, Sodium Level 137, Potassium Level 4.6, Chloride Level 96L, Carbon Dioxide Level 26, Anion Gap 15, Blood Urea Nitrogen 58H, Creatinine 13.5H, Estimat Glomerular Filtration Rate 4.5, Glucose Level 91, Calcium Level 9.2, Troponin I 0.002, Pro-B-Type Natriuretic Peptide > 14875Q Height (Feet): 5 Height (Inches): 11.00 Weight (Pounds): 150 General Appearance: no apparent distress Cardiovascular: normal rate Respiratory/Chest: decreased breath sounds Abdomen: soft Tate Leong MD August 28, 2018 15:48
[2018-08-28 16:00] VITALS: BP 142/76
--- NOTE | 2018-08-28 16:04 | NUR ---
ST NOTE: SWALLOW/SPEECH/COGNITION STATUS FOLLOWED UP PT'S CONDITION. PT SEEN AT BEDSIDE IN AM AND PM. MORE ALERT, COOPERATIVE, SOFT VOICE, ORIENTED X 4. PT STATED THAT COUPLE DAYS AGO, HE WAS UNABLE TO SWALLOW AND SWOLLEN ON THE R-SIDED OF NECK. AFTER HE GOT ADMITTED TO HOSPITAL, RECEIVING ANTIBIOTIC, IT SEEMS THE SWELLING WENT AWAY; AND HIS SWALLOWING RETURNS NORMAL. PT CONSUMED THE MEAL 90 TO 100% OF THE TRAY. ADVANCED DIET TOLERATED. D/W PT AND THE STAFF.
--- NOTE | 2018-08-28 16:35 | Cardiology Report ---
APPROVED REPORT EKG Measurement Heart [id number] Normal sinus rhythm Biatrial enlargement Left ventricular hypertrophy Prolonged QT Abnormal ECG
--- NOTE | 2018-08-28 19:13 | NUR ---
: HAND-OFF: Report given to Diane Eason RN.Pt asleep in bed no distress presented.
--- NOTE | 2018-08-28 19:14 | NUR ---
NURSE NOTES: BEDSIDE REPORT RECEIVED FROM ILENE VAUGHAN. PT IS X4, ABLE TO MAKE NEEDS KNOWN. CURRENTLY ON RA, SATING WELL. SKIN IS CLEAN, DRY, INTACT. RAC 20, LLA SHUNT ASYMPTOMATIC. OIL BURNER JOURNEYMAN SHOWING NSR. ORDER TO TX TO TELE, AWAITING BED. BED IS LOCKED IN LOWEST POSITION, SRX3, CALL [facility] W/ IN REACH, BED ALARM ON. WILL CONTINUE TO MONITOR AND FOLLOW W/ PLAN OF CARE.
--- NOTE | 2018-08-28 19:46 | Cardiology Progress Note ---
Assessment/Plan Assessment/Plan tonsillar mass vs abcess ams post dialysis ESRD on HD, tobacco abuse, HTN, malnutrition had benefits counselor called immediately post dialysis for ams mri showed Impression: No acute intracranial findings. 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 patricia echo noraml wall motion av thickening blood cx remain neg ekg seem unchanged no evidence of injury or ischemia mentaion seem better wbc better notmuch upper airway sounds pulm following tele personally reviewed no ashely no svt no vt no pauses reported normal rop Subjective Cardiovascular: Denies: chest pain, lightheadedness, palpitations Respiratory: Denies: shortness of breath Gastrointestinal/Abdominal: Denies: abdominal pain Genitourinary: Denies: burning Objective Last 24 Hour Vital Signs Date Time Temp Pulse Resp B/P (MAP) Pulse Ox O2 Delivery O2 Flow Rate FiO2 08/28/18 19:25 82 16 99 Room Air 21 08/28/18 19:25 84 16 99 Room Air 21 08/28/18 16:00 98.7 86 21 142/76 (98) 100 08/28/18 16:00 Room Air 08/28/18 16:00 90 08/28/18 14:56 Room Air 21 08/28/18 14:56 Room Air 08/28/18 14:28 91 146/92 08/28/18 12:00 98.1 89 22 146/92 (110) 100 08/28/18 12:00 Room Air 08/28/18 12:00 91 08/28/18 10:50 75 16 98 Room Air 08/28/18 10:47 79 16 98 Room Air 08/28/18 09:25 98 155/90 08/28/18 09:24 98 155/90 08/28/18 08:00 Room Air 08/28/18 08:00 97.8 98 20 155/90 (111) 100 08/28/18 07:37 106 08/28/18 07:17 82 18 98 Room Air 08/28/18 07:12 75 18 98 Room Air 08/28/18 04:00 98.4 89 20 154/92 (112) 93 08/28/18 04:00 94 08/28/18 04:00 Room Air 08/28/18 02:48 Room Air 08/28/18 02:48 Room Air 08/28/18 00:00 Room Air 08/28/18 00:00 94 08/28/18 00:00 97.7 94 18 146/67 (93) 96 08/27/18 23:14 Room Air 08/27/18 23:14 Room Air 08/27/18 20:05 Room Air 08/27/18 20:05 Room Air 08/27/18 20:00 Room Air 08/27/18 20:00 96 08/27/18 20:00 98.4 92 20 138/78 (98) 98 General Appearance: no apparent distress, alert Neck: supple Cardiovascular: normal rate Respiratory/Chest: lungs clear, normal breath sounds Abdomen: normal bowel sounds, non tender, soft Extremities: no swelling Intake and Output 08/27/18 08/28/18 19:00 07:00 Intake Total 2240 ml 350 ml Balance 2240 ml 350 ml Intake Oral 240 ml 240 ml IV Total 110 ml Hemodialysis 2000 ml Laboratory Tests Test 08/28/18 03:50 White Blood Count 10.3 K/UL (4.8-10.8) Red Blood Count 4.71 M/UL (4.70-6.10) Hemoglobin 13.8 G/DL (14.2-18.0) L Hematocrit 41.7 % (42.0-52.0) L Mean Corpuscular Volume 88 FL (80-99) Mean Corpuscular Hemoglobin 29.4 PG (27.0-31.0) Mean Corpuscular Hemoglobin Concent 33.2 G/DL (32.0-36.0) Red Cell Distribution Width 13.0 % (11.6-14.8) Platelet Count 339 K/UL (150-450) Mean Platelet Volume 6.1 FL (6.5-10.1) L Neutrophils (%) (Auto) 73.2 % (45.0-75.0) Lymphocytes (%) (Auto) 15.4 % (20.0-45.0) L Monocytes (%) (Auto) 10.1 % (1.0-10.0) H Eosinophils (%) (Auto) 0.2 % (0.0-3.0) Basophils (%) (Auto) 1.1 % (0.0-2.0) Sodium Level 137 MMOL/L (136-145) Potassium Level 4.6 MMOL/L (3.5-5.1) Chloride Level 96 MMOL/L (98-107) L Carbon Dioxide Level 26 MMOL/L (21-32) Anion Gap 15 mmol/L (5-15) Blood Urea Nitrogen 58 mg/dL (7-18) H Creatinine 13.5 MG/DL (0.55-1.30) H Estimat Glomerular Filtration Rate 4.5 mL/min (>60) Glucose Level 91 MG/DL (74-106) Calcium Level 9.2 MG/DL (8.5-10.1) Troponin I 0.002 ng/mL (0.000-0.056) Pro-B-Type Natriuretic Peptide > 09606 pg/mL (0-125) H Microbiology Date/Time Source Procedure Growth Status 08/26/18 07:20 Sputum Gram Stain - Final Complete 08/26/18 07:20 Sputum Sputum Culture - Final NORMAL UPPER RESPIRATORY IRMA PRESENT Complete 08/25/18 21:52 Throat Throat Culture - Preliminary Resulted 08/25/18 20:24 Nasal Nares MRSA Culture - Final Staphylococcus Aureus - Mrsa Complete 08/25/18 20:24 Rectum - Final NO CARBAPENEM-RESISTANT ENTEROBACTERI... Complete 08/25/18 20:24 Rectum VRE Culture - Final NO VANCOMYCIN RESISTANT ENTEROCOCCUS ... Complete Sarabjit Riojas MD August 28, 2018 19:46
[2018-08-28 20:00] VITALS: BP 144/84
[2018-08-28] MEDS ORDERED: Miralax 17gm pkt ORAL PRN (21:30)
[2018-08-28] MEDS ORDERED: Nitroglycerin Subl 0.4mg tab SL PRN (21:35)
--- NOTE | 2018-08-28 21:40 | NUR ---
TRANSFER TO FLOOR: Patient transferred to [facility], per DR. ROMERO. Report given to ILENE POLLARD. Belongings and medications given to ILENE POLLARD. Family and or S/O informed of transfer.
[2018-08-28] MEDS ORDERED: Promethazine/Codeine 5ml UD ORAL PRN (21:45)
[2018-08-28] MEDS ORDERED: Albuterol/Ipratropium 3ml neb HHN PRN (21:45)
[2018-08-28] MEDS ORDERED: traMADol 50mg tab ORAL PRN (21:45)
[2018-08-29] VITALS (7 sets, daily range): BP systolic 139–159; BP diastolic 69–120
[2018-08-29 07:46] LABS: EOSINOPHILS % (AUTO) 1.3 % (0.0-3.0); HEMOGLOBIN 13.3 G/DL (14.2-18.0); LYMPHOCYTES % (AUTO) 22.8 % (20.0-45.0); MEAN CORPUSCULAR VOLUME 88 FL (80-99); MONOCYTES % (AUTO) 10.1 % (1.0-10.0); NEUTROPHILS % (AUTO) 64.7 % (45.0-75.0); PLATELET COUNT 311 K/UL (150-450); RED BLOOD COUNT 4.55 M/UL (4.70-6.10); RED CELL DISTRIBUTION WIDTH 12.8 % (11.6-14.8); WHITE BLOOD COUNT 9.3 K/UL (4.8-10.8)
[2018-08-29 07:58] LABS: ANION GAP 18 mmol/L (5-15); BLOOD UREA NITROGEN 67 mg/dL (7-18); CALCIUM 9.4 MG/DL (8.5-10.1); CARBON DIOXIDE 25 MMOL/L (21-32); CHLORIDE 95 MMOL/L (98-107); CREATININE 16.2 MG/DL (0.55-1.30); POTASSIUM 4.1 MMOL/L (3.5-5.1); SODIUM 138 MMOL/L (136-145)
[2018-08-29 08:09] LABS: ALANINE AMINOTRANSFERASE 21 U/L (12-78); ALKALINE PHOSPHATASE 102 U/L (46-116); ASPARTATE AMINO TRANSFERASE 18 U/L (15-37); BILIRUBIN,DIRECT 0.2 MG/DL (0.0-0.3); BILIRUBIN,TOTAL 0.7 MG/DL (0.2-1.0)
[2018-08-29] MEDS: Sensipar 30mg Tab ORAL SCH (08:20)
[2018-08-29] MEDS: Heparin 5000 units/ml inj SUBQ SCH ×2 (08:21→21:47)
--- NOTE | 2018-08-29 08:33 | NUR ---
NURSE NOTES: pt awake alert, no distress. no sob. call light within reach. will monitor. bed in lowest position, locked.
--- NOTE | 2018-08-29 09:10 | Infectious Diseases Prog Note ---
Assessment/Plan Assessment/Plan Abx: Unasyn 08/25- Cefepime x1 08/25 Unasyn x1 08/25 IV Vancomycin x1 08/25 Assessment: Possible Throat mass with superimposed infection - CT neck/maxillofacial: Enlarged right palatine tonsil with rim-enhancing hypodense structure within the tonsil partially visualized, concerning for tonsillitis with abscess. Please see accompanying CT face. -rapid strep p -throat cx neg Afebrile Leukocytosis, increased (s/p high dose steroid)- now resolved -Bcx NTD -sp cx normal resp madhuri -CXR: No acute process Encephalopathy: -MRI brain wo: No acute intracranial findings.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 patricia.Moderate atrophy and evidence of chronic small vessel disease involving white matter tracts.Sinus disease ESRD on HD tobacco abuse HTN malnutrition Plan: -Continue Unasyn #08/09-14 -upon discharge can be switch to PO augmentin -f/u cx -Monitor CBC/CMP, temperatures -f/u rapid strep and throat culture -ENT f/u: plan for scope and possible return to take him to the OR for triple endoscopy with biopsy. Thank you for this consultation. Will continue to follow along with you. Discussed with RN Subjective Allergies: Coded Allergies: No Known Allergies (Unverified , 08/25/18) Subjective afebrile no leukocytosis Bcx NTD Objective Vital Signs Last 24 Hour Vital Signs Date Time Temp Pulse Resp B/P (MAP) Pulse Ox O2 Delivery O2 Flow Rate FiO2 08/29/18 08:27 Room Air 08/29/18 08:20 91 152/85 08/29/18 08:00 97.2 91 18 152/85 (107) 98 08/29/18 07:23 72 18 99 Room Air 21 08/29/18 07:20 71 16 99 Room Air 21 08/29/18 06:30 87 150/85 08/29/18 04:00 97.2 87 18 150/85 (106) 98 08/29/18 03:21 Room Air 21 08/29/18 03:21 Room Air 21 08/29/18 00:00 98.0 90 18 153/92 (112) 98 08/28/18 23:29 79 16 99 Room Air 21 08/28/18 23:29 77 16 98 Room Air 21 08/28/18 22:32 97 152/90 08/28/18 20:00 98.1 89 20 144/84 (104) 99 08/28/18 20:00 Room Air 08/28/18 20:00 91 08/28/18 19:25 82 16 99 Room Air 21 08/28/18 19:25 84 16 99 Room Air 21 08/28/18 16:00 98.7 86 21 142/76 (98) 100 08/28/18 16:00 Room Air 08/28/18 16:00 90 08/28/18 14:56 Room Air 21 08/28/18 14:56 Room Air 21 08/28/18 14:28 91 146/92 08/28/18 12:00 98.1 89 22 146/92 (110) 100 08/28/18 12:00 Room Air 08/28/18 12:00 91 08/28/18 10:50 75 16 98 Room Air 21 08/28/18 10:47 79 16 98 Room Air 08/28/18 09:25 98 155/90 08/28/18 09:24 98 155/90 Height (Feet): 5 Height (Inches): 11.00 Weight (Pounds): 150 Objective HEENT: Normocephalic and atraumatic. Pupils are equal, round, and reactive to light. Sclerae anicteric. Oral mucosa are moist. There is mild erythema of the right oropharynx. No facial swelling or tenderness. NECK: Supple. There is no jugular venous distention. No carotid bruits. No edema or erythema. No mass. LUNGS: Clear to auscultation bilaterally. HEART: Regular rate and rhythm. S1, S2. No murmurs or S3. ABDOMEN: Soft and nontender. No palpable mass. EXTREMITIES: No cyanosis, clubbing, or edema. NEUROLOGIC: No gross focal motor deficits. Laboratory Tests Test 08/29/18 06:50 White Blood Count 9.3 K/UL (4.8-10.8) Red Blood Count 4.55 M/UL (4.70-6.10) L Hemoglobin 13.3 G/DL (14.2-18.0) L Hematocrit 40.0 % (42.0-52.0) L Mean Corpuscular Volume 88 FL (80-99) Mean Corpuscular Hemoglobin 29.1 PG (27.0-31.0) Mean Corpuscular Hemoglobin Concent 33.2 G/DL (32.0-36.0) Red Cell Distribution Width 12.8 % (11.6-14.8) Platelet Count 311 K/UL (150-450) Mean Platelet Volume 5.8 FL (6.5-10.1) L Neutrophils (%) (Auto) 64.7 % (45.0-75.0) Lymphocytes (%) (Auto) 22.8 % (20.0-45.0) Monocytes (%) (Auto) 10.1 % (1.0-10.0) H Eosinophils (%) (Auto) 1.3 % (0.0-3.0) Basophils (%) (Auto) 1.0 % (0.0-2.0) Sodium Level 138 MMOL/L (136-145) Potassium Level 4.1 MMOL/L (3.5-5.1) Chloride Level 95 MMOL/L (98-107) L Carbon Dioxide Level 25 MMOL/L (21-32) Anion Gap 18 mmol/L (5-15) H Blood Urea Nitrogen 67 mg/dL (7-18) H Creatinine 16.2 MG/DL (0.55-1.30) H Estimat Glomerular Filtration Rate 3.6 mL/min (>60) Glucose Level 93 MG/DL (74-106) Uric Acid 7.2 MG/DL (2.6-7.2) Calcium Level 9.4 MG/DL (8.5-10.1) Phosphorus Level 6.0 MG/DL (2.5-4.9) H Magnesium Level 2.5 MG/DL (1.8-2.4) H Total Bilirubin 0.7 MG/DL (0.2-1.0) Direct Bilirubin 0.2 MG/DL (0.0-0.3) Aspartate Amino Transf (AST/SGOT) 18 U/L (15-37) Alanine Aminotransferase (ALT/SGPT) 21 U/L (12-78) Alkaline Phosphatase 102 U/L (46-116) Total Protein 8.1 G/DL (6.4-8.2) Albumin 3.0 G/DL (3.4-5.0) L Current Medications Medications (Trade) Dose Ordered Sig/Shayan Route PRN Reason Start Time Stop Time Status Last Admin Dose Admin Acetaminophen (Tylenol) 650 mg Q4H PRN ORAL T>100.5 08/28/18 21:30 09/24/18 21:29 Albuterol/ Ipratropium (Albuterol/ Ipratropium) 3 ml Q4H PRN HHN Shortness of Breath 08/28/18 21:45 08/30/18 21:44 Amlodipine Besylate (Norvasc) 10 mg DAILY ORAL 08/29/18 09:00 09/25/18 08:59 08/29/18 08:20 Ampicillin Sodium/ Sulbactam Sodium 3 gm/Sodium Chloride 110 ml @ 220 mls/hr Q12HR@1100,2300 IVPB 08/28/18 23:00 09/03/18 22:59 08/28/18 22:39 Cinacalcet (Sensipar) 30 mg DAILY ORAL 08/29/18 09:00 09/25/18 08:59 08/29/18 08:20 Heparin Sodium (Porcine) (Heparin 5000 units/ml) 5,000 units EVERY 12 HOURS SUBQ 08/29/18 09:00 09/24/18 20:59 Labetalol HCl (Normodyne) 300 mg Q8HR ORAL 08/28/18 22:00 09/27/18 13:59 08/29/18 06:30 Nitroglycerin (Ntg) 0.4 mg Q5M PRN SL Prn Chest Pain 08/28/18 21:35 09/24/18 19:29 Ondansetron HCl (Zofran) 4 mg Q6H PRN IVP Nausea & Vomiting 08/28/18 21:45 09/27/18 21:44 Pantoprazole (Protonix) 40 mg DAILY ORAL 08/29/18 09:00 09/25/18 10:59 08/29/18 08:20 Polyethylene Glycol (Miralax) 17 gm DAILYPRN PRN ORAL Constipation 08/28/18 21:30 09/27/18 21:29 Promethazine HCl/ Codeine (Phenergan with Codeine) 5 ml Q4H PRN ORAL For Cough 08/28/18 21:45 09/24/18 21:44 Quetiapine Fumarate (SEROquel) 25 mg Q12HR ORAL 08/29/18 09:00 09/26/18 20:59 Temazepam (Restoril) 15 mg HSPRN PRN ORAL Insomnia 08/28/18 21:45 09/04/18 21:44 Tramadol HCl (Ultram) 50 mg Q6H PRN ORAL mod to sever pain 08/28/18 21:45 09/02/18 21:44 Mandy Waddell M.D. August 29, 2018 09:10
--- NOTE | 2018-08-29 10:35 | NUR ---
PT EVALUATION NOTE Patient seen for initial evaluation, see complete evaluation for details. Patient presents with generalized weakness and impaired functional mobility. Patient will benefit from skilled inpatient PT intervention to address strength, balance, safety and functional mobility. Recommend discharge to ARU vs SNF for further rehab to improve level of function. DME needs to be determined based on patient's progress and discharge disposition. Addendum: 08/29/18 at 1316 by NAVNEET PEARSON PT Amended: Links added.
[2018-08-29] MEDS: Ampicillin/Sulbactam Sod 3 GM in NS 110 ML IVPB SCH ×2 (11:00→23:16)
--- NOTE | 2018-08-29 11:59 | NUR ---
ST NOTE: SWALLOW/SPEECH/COGNITION STATUS: FOLLOWED UP PT'S CONDITIONS. DISCUSSED WITH MD. BLANCO WHITE RE:PT'S CONDITIONS. PER MD, ENT IS IN CASE(NO NOTE SEEN) AND WILL SCOPE PT AFTER NECK SWELLING WENT DOWN. D/W , DR. REID RE:PT'S CONDITIONS. AND MD AGREED WITH MODIFIED BARIUM SWALLOW STUDY. PER MRI: Impression: No acute intracranial findings. 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 Moderate atrophy and evidence of chronic small vessel disease involving white matter tracts. PER FACIAL/BONE CT: Enlargement of the right palatine tonsil with phlegmon and abscess measuring 2.6 x 2.8 x 4.4 cm. Narrowing of the oropharynx. PT SEEM AT BEDSIDE IN LATE AM. ALERT, COOPERATIVE, SOFT VOICE, ORIENTED X 4. D/W PT. PT STATED THAT WAS ABLE TO TOLERATE MOIST PUREE WITH THIN LIQUIDS WITHOUT DIFFICULTY, PT'S PO INTAKE: 50-75%. CURRENTLY, PT IS ON DIALYSIS, WILL HOLD OFF ON MODIFIED BARIUM SWALLOW STUDY FOR NOW. WILL FOLLOW. D/W CHARGE NURSE.
--- NOTE | 2018-08-29 12:19 | Pulmonology Progress Note ---
Assessment/Plan Problems: (1) Acute encephalopathy (2) Acute psychosis (3) Tonsillar abscess (4) Tonsillar mass (5) Dysphagia (6) ESRD (end stage renal disease) on dialysis (7) History of hypertension (8) History of smoking Assessment/Plan start seroquel bid MRI of brain: Impression: No acute intracranial findings. 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 Moderate atrophy and evidence of chronic small vessel disease involving white matter tracts. continue abx check cultures HD by medical assistant cardiology. monitor BP social service note reviewed and appreciated pt will need placement. Subjective ROS Limited/Unobtainable: No Constitutional: Reports: no symptoms HEENT: Repors: no symptoms Respiratory: Reports: no symptoms Allergies: Coded Allergies: No Known Allergies (Unverified , 08/25/18) Objective Last 24 Hour Vital Signs Date Time Temp Pulse Resp B/P (MAP) Pulse Ox O2 Delivery O2 Flow Rate FiO2 08/29/18 11:54 97.2 87 18 148/90 (109) 98 08/29/18 10:58 Room Air 21 08/29/18 10:58 Room Air 21 08/29/18 08:27 Room Air 08/29/18 08:20 91 152/85 08/29/18 08:00 97.2 91 18 152/85 (107) 98 08/29/18 07:23 72 18 99 Room Air 21 08/29/18 07:20 71 16 99 Room Air 21 08/29/18 06:30 87 150/85 08/29/18 04:00 97.2 87 18 150/85 (106) 98 08/29/18 03:21 Room Air 21 08/29/18 03:21 Room Air 21 08/29/18 00:00 98.0 90 18 153/92 (112) 98 08/28/18 23:29 79 16 99 Room Air 21 08/28/18 23:29 77 16 98 Room Air 21 08/28/18 22:32 97 152/90 08/28/18 20:00 98.1 89 20 144/84 (104) 99 08/28/18 20:00 Room Air 08/28/18 20:00 91 08/28/18 19:25 82 16 99 Room Air 21 08/28/18 19:25 84 16 99 Room Air 21 08/28/18 16:00 98.7 86 21 142/76 (98) 100 08/28/18 16:00 Room Air 08/28/18 16:00 90 08/28/18 14:56 Room Air 21 08/28/18 14:56 Room Air 21 08/28/18 14:28 91 146/92 Intake and Output 08/28/18 08/29/18 19:00 07:00 Intake Total 720 ml Balance 720 ml Intake Oral 720 ml # Voids 1 # Bowel Movements 3 Objective less confused General Appearance: WD/WN HEENT: normocephalic, atraumatic Respiratory/Chest: chest wall non-tender, lungs clear, normal breath sounds Cardiovascular: normal peripheral pulses, normal rate Abdomen: normal bowel sounds, soft, non tender Genitourinary: normal external genitalia Extremities: no cyanosis Neurologic/Psychiatric: manager marketing communications II-XII grossly normal Laboratory Tests 08/29/18 06:50: White Blood Count 9.3, Red Blood Count 4.55L, Hemoglobin 13.3L, Hematocrit 40.0L , Mean Corpuscular Volume 88, Mean Corpuscular Hemoglobin 29.1, Mean Corpuscular Hemoglobin Concent 33.2, Red Cell Distribution Width 12.8, Platelet Count 311, Mean Platelet Volume 5.8L, Neutrophils (%) (Auto) 64.7, Lymphocytes ( %) (Auto) 22.8, Monocytes (%) (Auto) 10.1H, Eosinophils (%) (Auto) 1.3, Basophils (%) (Auto) 1.0, Sodium Level 138, Potassium Level 4.1, Chloride Level 95L, Carbon Dioxide Level 25, Anion Gap 18H, Blood Urea Nitrogen 67H, Creatinine 16.2H, Estimat Glomerular Filtration Rate 3.6, Glucose Level 93, Uric Acid 7.2, Calcium Level 9.4, Phosphorus Level 6.0H, Magnesium Level 2.5H, Total Bilirubin 0.7, Direct Bilirubin 0.2, Aspartate Amino Transf (AST/SGOT) 18 , Alanine Aminotransferase (ALT/SGPT) 21, Alkaline Phosphatase 102, Total Protein 8.1, Albumin 3.0L Current Medications Medications (Trade) Dose Ordered Sig/Shayan Route PRN Reason Start Time Stop Time Status Last Admin Dose Admin Acetaminophen (Tylenol) 650 mg Q4H PRN ORAL T>100.5 08/28/18 21:30 09/24/18 21:29 Albuterol/ Ipratropium (Albuterol/ Ipratropium) 3 ml Q4H PRN HHN Shortness of Breath 08/28/18 21:45 08/30/18 21:44 Amlodipine Besylate (Norvasc) 10 mg DAILY ORAL 08/29/18 09:00 09/25/18 08:59 08/29/18 08:20 Ampicillin Sodium/ Sulbactam Sodium 3 gm/Sodium Chloride 110 ml @ 220 mls/hr Q12HR@1100,2300 IVPB 08/28/18 23:00 09/03/18 22:59 08/29/18 11:00 Cinacalcet (Sensipar) 30 mg DAILY ORAL 08/29/18 09:00 09/25/18 08:59 08/29/18 08:20 Heparin Sodium (Porcine) (Heparin 5000 units/ml) 5,000 units EVERY 12 HOURS SUBQ 08/29/18 09:00 09/24/18 20:59 Labetalol HCl (Normodyne) 300 mg Q8HR ORAL 08/28/18 22:00 09/27/18 13:59 08/29/18 06:30 Nitroglycerin (Ntg) 0.4 mg Q5M PRN SL Prn Chest Pain 08/28/18 21:35 09/24/18 19:29 Ondansetron HCl (Zofran) 4 mg Q6H PRN IVP Nausea & Vomiting 08/28/18 21:45 09/27/18 21:44 Pantoprazole (Protonix) 40 mg DAILY ORAL 08/29/18 09:00 09/25/18 10:59 08/29/18 08:20 Polyethylene Glycol (Miralax) 17 gm DAILYPRN PRN ORAL Constipation 08/28/18 21:30 09/27/18 21:29 Promethazine HCl/ Codeine (Phenergan with Codeine) 5 ml Q4H PRN ORAL For Cough 08/28/18 21:45 09/24/18 21:44 Quetiapine Fumarate (SEROquel) 25 mg Q12HR ORAL 08/29/18 09:00 09/26/18 20:59 Temazepam (Restoril) 15 mg HSPRN PRN ORAL Insomnia 08/28/18 21:45 09/04/18 21:44 Tramadol HCl (Ultram) 50 mg Q6H PRN ORAL mod to sever pain 08/28/18 21:45 09/02/18 21:44 Salazar Horvath MD August 29, 2018 12:19
--- NOTE | 2018-08-29 13:14 | Nephrology Progress Note ---
Assessment/Plan Problem List: (1) ESRD (end stage renal disease) on dialysis (2) History of hypertension (3) Tonsillar mass (4) Tonsillar abscess Assessment ESRD Hypertensive kidney disease Pharyngitis / Tonsilar abcess / mass Plan Antibiotics BP meds and PRN meds per ID HD 08/27 next 08/29 ( in process) per ENT MRI brain wo: No acute intracranial findings.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 patricia.Moderate atrophy and evidence of chronic small vessel disease involving white matter tracts.Sinus disease Subjective ROS Limited/Unobtainable: No Constitutional: Reports: malaise Objective Objective Last 24 Hour Vital Signs Date Time Temp Pulse Resp B/P (MAP) Pulse Ox O2 Delivery O2 Flow Rate FiO2 08/29/18 11:54 97.2 87 18 148/90 (109) 98 08/29/18 10:58 Room Air 21 08/29/18 10:58 Room Air 21 08/29/18 08:27 Room Air 08/29/18 08:20 91 152/85 08/29/18 08:00 97.2 91 18 152/85 (107) 98 08/29/18 07:23 72 18 99 Room Air 21 08/29/18 07:20 71 16 99 Room Air 08/29/18 06:30 87 150/85 08/29/18 04:00 97.2 87 18 150/85 (106) 98 08/29/18 03:21 Room Air 21 08/29/18 03:21 Room Air 21 08/29/18 00:00 98.0 90 18 153/92 (112) 98 08/28/18 23:29 79 16 99 Room Air 08/28/18 23:29 77 16 98 Room Air 21 08/28/18 22:32 97 152/90 08/28/18 20:00 98.1 89 20 144/84 (104) 99 08/28/18 20:00 Room Air 08/28/18 20:00 91 08/28/18 19:25 82 16 99 Room Air 21 08/28/18 19:25 84 16 99 Room Air 08/28/18 16:00 98.7 86 21 142/76 (98) 100 08/28/18 16:00 Room Air 08/28/18 16:00 90 08/28/18 14:56 Room Air 21 08/28/18 14:56 Room Air 21 08/28/18 14:28 91 146/92 Intake and Output 08/28/18 08/29/18 18:59 06:59 Intake Total 720 ml Balance 720 ml Intake Oral 720 ml # Voids 1 # Bowel Movements 3 Laboratory Tests 08/29/18 06:50: White Blood Count 9.3, Red Blood Count 4.55L, Hemoglobin 13.3L, Hematocrit 40.0L , Mean Corpuscular Volume 88, Mean Corpuscular Hemoglobin 29.1, Mean Corpuscular Hemoglobin Concent 33.2, Red Cell Distribution Width 12.8, Platelet Count 311, Mean Platelet Volume 5.8L, Neutrophils (%) (Auto) 64.7, Lymphocytes ( %) (Auto) 22.8, Monocytes (%) (Auto) 10.1H, Eosinophils (%) (Auto) 1.3, Basophils (%) (Auto) 1.0, Sodium Level 138, Potassium Level 4.1, Chloride Level 95L, Carbon Dioxide Level 25, Anion Gap 18H, Blood Urea Nitrogen 67H, Creatinine 16.2H, Estimat Glomerular Filtration Rate 3.6, Glucose Level 93, Uric Acid 7.2, Calcium Level 9.4, Phosphorus Level 6.0H, Magnesium Level 2.5H, Total Bilirubin 0.7, Direct Bilirubin 0.2, Aspartate Amino Transf (AST/SGOT) 18 , Alanine Aminotransferase (ALT/SGPT) 21, Alkaline Phosphatase 102, Total Protein 8.1, Albumin 3.0L Height (Feet): 5 Height (Inches): 11.00 Weight (Pounds): 150 General Appearance: no apparent distress Cardiovascular: normal rate Respiratory/Chest: decreased breath sounds Abdomen: soft Objective no change Tate Leong MD August 29, 2018 13:14
--- NOTE | 2018-08-29 14:29 | Hematology/Onc Progress Note ---
Assessment/Plan Assessment/Plan Assessment/Recs: # Throat mass with superimposed infection -- per ENT, exam was very difficult to visualize pharynx given tongue position. On palpation the area was soft. I spent time reviewing the CT scan and the irregularity makes me very concerned for a malignant process. I explained the importance of follow up with this kind greg and would like to see him in a week. Continue Augmentin. Will scope and possible return to take him to the OR for triple endoscopy with biopsy. On a side note he did mention issues with housing so that might need to be addressed prior to discharge. --> imaging has been reviewed --> may need further management, as per ent first --> outpatient care --> ID recs reviewed # Hypercalcemia likely related to esrd --> has been on sensipar, as per renal --> PTH 148 --> per renal # Dysphagia has improved, likely due to mass --> reviewed recs gi eval as needed --> ent recs # ESRD (end stage renal disease) on dialysis --> per renal recs # History of hypertension --> sbp goal <140 # History of smoking The timing of this note does not necessarily reflect the time of the patient was seen. Greatly appreciate consultation! Subjective Constitutional: Denies: no symptoms, chills, fever, malaise, weakness, other HEENT: Denies: no symptoms, eye pain, blurred vision, tearing, double vision, ear pain, ear discharge, nose pain, nose congestion, throat pain, throat swelling, mouth pain, mouth swelling, other Cardiovascular: Denies: no symptoms, chest pain, edema, irregular heart rate, lightheadedness, palpitations, syncope, other Respiratory: Denies: no symptoms, cough, shortness of breath, SOB with excertion, SOB at rest, sputum, wheezing, other Gastrointestinal/Abdominal: Denies: no symptoms, abdomen distended, abdominal pain, black stools, tarry stools, blood in stool, constipated, diarrhea, difficulty swallowing, nausea, poor appetite, poor fluid intake, rectal bleeding , vomiting, other Genitourinary: Denies: no symptoms, burning, discharge, frequency, flank pain, hematuria, incontinence, pain, urgency, other Neurologic/Psychiatric: Denies: no symptoms, anxiety, depressed, emotional problems, headache, numbness, paresthesia, pre-existing deficit, seizure, tingling, tremors, weakness, other Endocrine: Denies: no symptoms, excessive sweating, flushing, intolerance to cold, intolerance to heat, increased hunger, increased thirst, increased urine, unexplained weight gain, unexplained weight loss, other Allergies: Coded Allergies: No Known Allergies (Unverified , 08/25/18) Subjective 08/27: getting hd today, apparently had a rapid response in the am after I left, lytes repleted 08/28: no events, no f/c, no night sweats, comfortable 08/29: no events noted, no bleeding, no night sweats Objective Objective Current Medications Medications (Trade) Dose Ordered Sig/Shayan Route PRN Reason Start Time Stop Time Status Last Admin Dose Admin Acetaminophen (Tylenol) 650 mg Q4H PRN ORAL T>100.5 08/28/18 21:30 09/24/18 21:29 Albuterol/ Ipratropium (Albuterol/ Ipratropium) 3 ml Q4H PRN HHN Shortness of Breath 08/28/18 21:45 08/30/18 21:44 Amlodipine Besylate (Norvasc) 10 mg DAILY ORAL 08/29/18 09:00 09/25/18 08:59 08/29/18 08:20 Ampicillin Sodium/ Sulbactam Sodium 3 gm/Sodium Chloride 110 ml @ 220 mls/hr Q12HR@1100,2300 IVPB 08/28/18 23:00 09/03/18 22:59 08/29/18 11:00 Cinacalcet (Sensipar) 30 mg DAILY ORAL 08/29/18 09:00 09/25/18 08:59 08/29/18 08:20 Heparin Sodium (Porcine) (Heparin 5000 units/ml) 5,000 units EVERY 12 HOURS SUBQ 08/29/18 09:00 09/24/18 20:59 Labetalol HCl (Normodyne) 300 mg Q8HR ORAL 08/28/18 22:00 09/27/18 13:59 08/29/18 14:14 Nitroglycerin (Ntg) 0.4 mg Q5M PRN SL Prn Chest Pain 08/28/18 21:35 09/24/18 19:29 Ondansetron HCl (Zofran) 4 mg Q6H PRN IVP Nausea & Vomiting 08/28/18 21:45 09/27/18 21:44 Pantoprazole (Protonix) 40 mg DAILY ORAL 08/29/18 09:00 09/25/18 10:59 08/29/18 08:20 Polyethylene Glycol (Miralax) 17 gm DAILYPRN PRN ORAL Constipation 08/28/18 21:30 09/27/18 21:29 Promethazine HCl/ Codeine (Phenergan with Codeine) 5 ml Q4H PRN ORAL For Cough 08/28/18 21:45 09/24/18 21:44 Quetiapine Fumarate (SEROquel) 25 mg Q12HR ORAL 08/29/18 09:00 09/26/18 20:59 Temazepam (Restoril) 15 mg HSPRN PRN ORAL Insomnia 08/28/18 21:45 09/04/18 21:44 Tramadol HCl (Ultram) 50 mg Q6H PRN ORAL mod to sever pain 08/28/18 21:45 09/02/18 21:44 Last 24 Hour Vital Signs Date Time Temp Pulse Resp B/P (MAP) Pulse Ox O2 Delivery O2 Flow Rate FiO2 08/29/18 14:14 91 152/120 08/29/18 14:13 98.0 91 18 152/120 (131) 98 08/29/18 11:54 97.2 87 18 148/90 (109) 98 08/29/18 10:58 Room Air 08/29/18 10:58 Room Air 08/29/18 08:27 Room Air 08/29/18 08:20 91 152/85 08/29/18 08:00 97.2 91 18 152/85 (107) 98 08/29/18 07:23 72 18 99 Room Air 21 08/29/18 07:20 71 16 99 Room Air 08/29/18 06:30 87 150/85 08/29/18 04:00 97.2 87 18 150/85 (106) 98 08/29/18 03:21 Room Air 08/29/18 03:21 Room Air 08/29/18 00:00 98.0 90 18 153/92 (112) 98 08/28/18 23:29 79 16 99 Room Air 08/28/18 23:29 77 16 98 Room Air 08/28/18 22:32 97 152/90 08/28/18 20:00 98.1 89 20 144/84 (104) 99 08/28/18 20:00 Room Air 08/28/18 20:00 91 08/28/18 19:25 82 16 99 Room Air 21 08/28/18 19:25 84 16 99 Room Air 21 08/28/18 16:00 98.7 86 21 142/76 (98) 100 08/28/18 16:00 Room Air 08/28/18 16:00 90 08/28/18 14:56 Room Air 21 08/28/18 14:56 Room Air 21 08/28/18 14:28 91 146/92 08/28/18 12:00 98.1 89 22 146/92 (110) 100 08/28/18 12:00 Room Air 08/28/18 12:00 91 08/28/18 10:50 75 16 98 Room Air 21 08/28/18 10:47 79 16 98 Room Air 21 08/28/18 09:25 98 155/90 08/28/18 09:24 98 155/90 08/28/18 08:00 Room Air 08/28/18 08:00 97.8 98 20 155/90 (111) 100 08/28/18 07:37 106 08/28/18 07:17 82 18 98 Room Air 08/28/18 07:12 75 18 98 Room Air 21 08/28/18 04:00 98.4 89 20 154/92 (112) 93 08/28/18 04:00 94 08/28/18 04:00 Room Air 08/28/18 02:48 Room Air 08/28/18 02:48 Room Air 08/28/18 00:00 Room Air 08/28/18 00:00 94 08/28/18 00:00 97.7 94 18 146/67 (93) 96 08/27/18 23:14 Room Air 08/27/18 23:14 Room Air 08/27/18 20:05 Room Air 08/27/18 20:05 Room Air 08/27/18 20:00 Room Air 08/27/18 20:00 96 08/27/18 20:00 98.4 92 20 138/78 (98) 98 08/27/18 18:25 102 159/87 08/27/18 16:00 102 08/27/18 16:00 97.9 99 20 159/87 (111) 100 08/27/18 16:00 Room Air 08/27/18 14:55 Room Air 08/27/18 14:55 Room Air Intake and Output 08/28/18 08/29/18 19:00 07:00 Intake Total 720 ml Balance 720 ml Intake Oral 720 ml # Voids 1 # Bowel Movements 3 Labs Test 08/26/18 14:43 08/27/18 03:40 08/27/18 10:20 08/27/18 10:30 Calcium (Send out) 9.6 mg/dL (8.6-10.2) Total Protein (PEP) 8.2 g/dL (6.0-8.5) Albumin (PEP) 3.3 g/dL (2.9-4.4) Globulin (PEP) 4.9 g/dL (2.2-3.9) Albumin/Globulin Ratio 0.7 (0.7-1.7) 0.5 (1.0-2.7) 0.5 (1.0-2.7) Cxtpq-8-Hmulydjlb 0.4 g/dL (0.0-0.4) Vizii-8-Dfebjrjlc 1.1 g/dL (0.4-1.0) Beta Globulins 1.1 g/dL (0.7-1.3) Beta Gamma Globulin 2.3 g/dL (0.4-1.8) PEP Abnormal Protein Bands Not observed g/dL (Not Protein Electrophoresis Interpret Comment (.) PTH (Intact) Whole Molecule Comment (.) Parathyroid Hormone (Intact) 148 pg/mL (15-65) White Blood Count 20.3 K/UL (4.8-10.8) 19.0 K/UL (4.8-10.8) Red Blood Count 4.31 M/UL (4.70-6.10) 4.99 M/UL (4.70-6.10) Hemoglobin 12.9 G/DL (14.2-18.0) 14.5 G/DL (14.2-18.0) Hematocrit 38.0 % (42.0-52.0) 43.3 % (42.0-52.0) Mean Corpuscular Volume 88 FL (80-99) 87 FL (80-99) Mean Corpuscular Hemoglobin 30.0 PG (27.0-31.0) 29.2 PG (27.0-31.0) Mean Corpuscular Hemoglobin Concent 34.0 G/DL (32.0-36.0) 33.6 G/DL (32.0-36.0) Red Cell Distribution Width 12.8 % (11.6-14.8) 12.3 % (11.6-14.8) Platelet Count 316 K/UL (150-450) 387 K/UL (150-450) Mean Platelet Volume 6.2 FL (6.5-10.1) 5.9 FL (6.5-10.1) Neutrophils (%) (Auto) % (45.0-75.0) % (45.0-75.0) Lymphocytes (%) (Auto) % (20.0-45.0) % (20.0-45.0) Monocytes (%) (Auto) % (1.0-10.0) % (1.0-10.0) Eosinophils (%) (Auto) % (0.0-3.0) % (0.0-3.0) Basophils (%) (Auto) % (0.0-2.0) % (0.0-2.0) Differential Total Cells Counted 100 100 Neutrophils % (Manual) 83 % (45-75) 84 % (45-75) Lymphocytes % (Manual) 10 % (20-45) 12 % (20-45) Monocytes % (Manual) 7 % (1-10) 4 % (1-10) Eosinophils % (Manual) 0 % (0-3) 0 % (0-3) Basophils % (Manual) 0 % (0-2) 0 % (0-2) Band Neutrophils 0 % (0-8) 0 % (0-8) Platelet Estimate Adequate Adequate Platelet Morphology Normal Normal Red Blood Cell Morphology Normal Normal Sodium Level 134 MMOL/L (136-145) 137 MMOL/L (136-145) Potassium Level 4.8 MMOL/L (3.5-5.1) 3.7 MMOL/L (3.5-5.1) Chloride Level 93 MMOL/L (98-107) 95 MMOL/L (98-107) Carbon Dioxide Level 23 MMOL/L (21-32) 26 MMOL/L (21-32) Anion Gap 18 mmol/L (5-15) 16 mmol/L (5-15) Blood Urea Nitrogen 67 mg/dL (7-18) 42 mg/dL (7-18) Creatinine 15.3 MG/DL (0.55-1.30) 10.7 MG/DL (0.55-1.30) Estimat Glomerular Filtration Rate 3.9 mL/min (>60) 5.8 mL/min (>60) Glucose Level 95 MG/DL (74-106) 132 MG/DL (74-106) Hemoglobin A1c 5.5 % (4.3-6.0) Uric Acid 7.3 MG/DL (2.6-7.2) Calcium Level 8.7 MG/DL (8.5-10.1) 9.4 MG/DL (8.5-10.1) Phosphorus Level 6.1 MG/DL (2.5-4.9) Magnesium Level 2.3 MG/DL (1.8-2.4) Total Bilirubin 0.6 MG/DL (0.2-1.0) 0.7 MG/DL (0.2-1.0) Aspartate Amino Transf (AST/SGOT) 11 U/L (15-37) 13 U/L (15-37) Alanine Aminotransferase (ALT/SGPT) 11 U/L (12-78) 17 U/L (12-78) Alkaline Phosphatase 118 U/L (46-116) 128 U/L (46-116) C-Reactive Protein, Quantitative 3.3 mg/dL (0.00-0.90) Pro-B-Type Natriuretic Peptide > 08052 pg/mL (0-125) Total Protein 8.3 G/DL (6.4-8.2) 9.6 G/DL (6.4-8.2) Albumin 2.9 G/DL (3.4-5.0) 3.4 G/DL (3.4-5.0) Globulin 5.4 g/dL 6.2 g/dL Triglycerides Level 100 MG/DL (30-150) Cholesterol Level 146 MG/DL (< 200) LDL Cholesterol 75 mg/dL (<100) HDL Cholesterol 49 MG/DL (40-60) Cholesterol/HDL Ratio 3.0 (3.3-4.4) Thyroid Stimulating Hormone (TSH) 1.084 uiU/mL (0.358-3.740) Arterial Blood pH 7.450 (7.350-7.450) Arterial Blood Partial Pressure CO2 35.4 mmHg (35.0-45.0) Arterial Blood Partial Pressure O2 > 494.6 mmHg (75.0-100.0) Arterial Blood HCO3 24.1 mmol/L (22.0-26.0) Arterial Blood Oxygen Saturation 99.9 % (95-100) Arterial Blood Base Excess 0.6 (-2-2) Maxwell Test Positive Prothrombin Time 11.6 SEC (9.30-11.50) Prothromb Time International Ratio 1.1 (0.9-1.1) Activated Partial Thromboplast Time 26 SEC (23-33) Test 08/28/18 03:50 08/29/18 06:50 White Blood Count 10.3 K/UL (4.8-10.8) 9.3 K/UL (4.8-10.8) Red Blood Count 4.71 M/UL (4.70-6.10) 4.55 M/UL (4.70-6.10) Hemoglobin 13.8 G/DL (14.2-18.0) 13.3 G/DL (14.2-18.0) Hematocrit 41.7 % (42.0-52.0) 40.0 % (42.0-52.0) Mean Corpuscular Volume 88 FL (80-99) 88 FL (80-99) Mean Corpuscular Hemoglobin 29.4 PG (27.0-31.0) 29.1 PG (27.0-31.0) Mean Corpuscular Hemoglobin Concent 33.2 G/DL (32.0-36.0) 33.2 G/DL (32.0-36.0) Red Cell Distribution Width 13.0 % (11.6-14.8) 12.8 % (11.6-14.8) Platelet Count 339 K/UL (150-450) 311 K/UL (150-450) Mean Platelet Volume 6.1 FL (6.5-10.1) 5.8 FL (6.5-10.1) Neutrophils (%) (Auto) 73.2 % (45.0-75.0) 64.7 % (45.0-75.0) Lymphocytes (%) (Auto) 15.4 % (20.0-45.0) 22.8 % (20.0-45.0) Monocytes (%) (Auto) 10.1 % (1.0-10.0) 10.1 % (1.0-10.0) Eosinophils (%) (Auto) 0.2 % (0.0-3.0) 1.3 % (0.0-3.0) Basophils (%) (Auto) 1.1 % (0.0-2.0) 1.0 % (0.0-2.0) Sodium Level 137 MMOL/L (136-145) 138 MMOL/L (136-145) Potassium Level 4.6 MMOL/L (3.5-5.1) 4.1 MMOL/L (3.5-5.1) Chloride Level 96 MMOL/L (98-107) 95 MMOL/L (98-107) Carbon Dioxide Level 26 MMOL/L (21-32) 25 MMOL/L (21-32) Anion Gap 15 mmol/L (5-15) 18 mmol/L (5-15) Blood Urea Nitrogen 58 mg/dL (7-18) 67 mg/dL (7-18) Creatinine 13.5 MG/DL (0.55-1.30) 16.2 MG/DL (0.55-1.30) Estimat Glomerular Filtration Rate 4.5 mL/min (>60) 3.6 mL/min (>60) Glucose Level 91 MG/DL (74-106) 93 MG/DL (74-106) Calcium Level 9.2 MG/DL (8.5-10.1) 9.4 MG/DL (8.5-10.1) Troponin I 0.002 ng/mL (0.000-0.056) Pro-B-Type Natriuretic Peptide > 59623 pg/mL (0-125) Uric Acid 7.2 MG/DL (2.6-7.2) Phosphorus Level 6.0 MG/DL (2.5-4.9) Magnesium Level 2.5 MG/DL (1.8-2.4) Total Bilirubin 0.7 MG/DL (0.2-1.0) Direct Bilirubin 0.2 MG/DL (0.0-0.3) Aspartate Amino Transf (AST/SGOT) 18 U/L (15-37) Alanine Aminotransferase (ALT/SGPT) 21 U/L (12-78) Alkaline Phosphatase 102 U/L (46-116) Total Protein 8.1 G/DL (6.4-8.2) Albumin 3.0 G/DL (3.4-5.0) Height (Feet): 5 Height (Inches): 11.00 Weight (Pounds): 150 Objective PE General Appearance: WD/WN, no apparent distress, alert, thin HEENT: normocephalic, atraumatic, PERRL, EOMI, supple, no JVD, other Neck: non-tender, supple, normal inspection ++ mass on right periaricular area Respiratory/Chest: no respiratory distress EXT: no cce Julius Franco MD August 29, 2018 14:29
--- NOTE | 2018-08-29 14:34 | General Progress Note ---
Assessment/Plan Problem List: (1) ESRD (end stage renal disease) on dialysis ICD Codes: N18.6 - End stage renal disease; Z99.2 - Dependence on renal dialysis SNOMED: 311361514 (2) History of smoking ICD Codes: Z87.891 - Personal history of nicotine dependence SNOMED: 881129379 (3) History of hypertension ICD Codes: Z86.79 - Personal history of other diseases of the circulatory system SNOMED: 341884595 (4) Tonsillar abscess ICD Codes: J36 - Peritonsillar abscess; Z99.2 - Dependence on renal dialysis SNOMED: 78693871 (5) Tonsillar mass ICD Codes: R22.0 - Localized swelling, mass and lump, head SNOMED: 753569028 (6) Dysphagia ICD Codes: R13.10 - Dysphagia, unspecified SNOMED: 16730325, 897593211 (7) Acute encephalopathy ICD Codes: G93.40 - Encephalopathy, unspecified SNOMED: 18089674, 836487132 Status: stable, progressing Assessment/Plan: pt diet neuro f/u abx per id ent f/u cbc bmp am aru eval Subjective Constitutional: Reports: weakness Allergies: Coded Allergies: No Known Allergies (Unverified , 08/25/18) All Systems: reviewed and negative except above Subjective sleepy in bed calm Objective Last 24 Hour Vital Signs Date Time Temp Pulse Resp B/P (MAP) Pulse Ox O2 Delivery O2 Flow Rate FiO2 08/29/18 14:14 91 152/120 08/29/18 14:13 98.0 91 18 152/120 (131) 98 08/29/18 11:54 97.2 87 18 148/90 (109) 98 08/29/18 10:58 Room Air 21 08/29/18 10:58 Room Air 21 08/29/18 08:27 Room Air 08/29/18 08:20 91 152/85 08/29/18 08:00 97.2 91 18 152/85 (107) 98 08/29/18 07:23 72 18 99 Room Air 21 08/29/18 07:20 71 16 99 Room Air 21 08/29/18 06:30 87 150/85 08/29/18 04:00 97.2 87 18 150/85 (106) 98 08/29/18 03:21 Room Air 21 08/29/18 03:21 Room Air 21 08/29/18 00:00 98.0 90 18 153/92 (112) 98 08/28/18 23:29 79 16 99 Room Air 21 08/28/18 23:29 77 16 98 Room Air 21 08/28/18 22:32 97 152/90 08/28/18 20:00 98.1 89 20 144/84 (104) 99 08/28/18 20:00 Room Air 08/28/18 20:00 91 08/28/18 19:25 82 16 99 Room Air 21 08/28/18 19:25 84 16 99 Room Air 21 08/28/18 16:00 98.7 86 21 142/76 (98) 100 08/28/18 16:00 Room Air 08/28/18 16:00 90 08/28/18 14:56 Room Air 21 08/28/18 14:56 Room Air 21 Intake and Output 08/28/18 08/29/18 19:00 07:00 Intake Total 720 ml Balance 720 ml Intake Oral 720 ml # Voids 1 # Bowel Movements 3 Laboratory Tests 08/29/18 06:50: White Blood Count 9.3, Red Blood Count 4.55L, Hemoglobin 13.3L, Hematocrit 40.0L , Mean Corpuscular Volume 88, Mean Corpuscular Hemoglobin 29.1, Mean Corpuscular Hemoglobin Concent 33.2, Red Cell Distribution Width 12.8, Platelet Count 311, Mean Platelet Volume 5.8L, Neutrophils (%) (Auto) 64.7, Lymphocytes ( %) (Auto) 22.8, Monocytes (%) (Auto) 10.1H, Eosinophils (%) (Auto) 1.3, Basophils (%) (Auto) 1.0, Sodium Level 138, Potassium Level 4.1, Chloride Level 95L, Carbon Dioxide Level 25, Anion Gap 18H, Blood Urea Nitrogen 67H, Creatinine 16.2H, Estimat Glomerular Filtration Rate 3.6, Glucose Level 93, Uric Acid 7.2, Calcium Level 9.4, Phosphorus Level 6.0H, Magnesium Level 2.5H, Total Bilirubin 0.7, Direct Bilirubin 0.2, Aspartate Amino Transf (AST/SGOT) 18 , Alanine Aminotransferase (ALT/SGPT) 21, Alkaline Phosphatase 102, Total Protein 8.1, Albumin 3.0L Height (Feet): 5 Height (Inches): 11.00 Weight (Pounds): 150 General Appearance: lethargic EENT: normal ENT inspection Neck: normal alignment Cardiovascular: normal peripheral pulses, normal rate, regular rhythm Respiratory/Chest: chest wall non-tender, lungs clear, normal breath sounds Abdomen: normal bowel sounds, non tender, soft Extremities: normal inspection Edema: no edema noted Arm (L), no edema noted Arm (R), no edema noted Leg (L), no edema noted Leg (R), no edema noted Pedal (L), no edema noted Pedal (R), no edema noted Generalized Neurologic: motor weakness Skin: normal pigmentation, warm/dry Chaim Borjas DO August 29, 2018 14:34
--- NOTE | 2018-08-29 15:16 | NUR ---
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 ACUTE ENCEPHALOPATHY VS: BP 152/120, P 91, T 97.2, RR 18, SpO2 98 RBC 4.55, H&H 13.3/40.0, BUN 67, CR 16.2 IS:NORVASC 10mg SENSIPAR 30mg AMPICILLIN 110ml IVPB LABETALOL 300mg MED/SURG STATUS
--- NOTE | 2018-08-29 16:24 | NUR ---
NURSE NOTES: received patient awake,alert,oriented x4, no sign of distres, sitting on the edge of the bed, HL Patent and,V Shunt to Lt LA intact, skin warm and dry,on fall precaution, SR up x2 ,bed lock in lowest position will continue with plans of care, kept clean dry and comfortable in bed, janee graham
--- NOTE | 2018-08-29 19:00 | NUR ---
HAND-OFF: Report given to ILENE Wang.
--- NOTE | 2018-08-29 22:00 | Neurology Progress Note ---
Interim History Interim History ROS Limited/Unobtainable: No Complaints: AMS Events: Ongoing improvement in MS - alert and oriented now as per baseline Interim History This visit was performed on August 29, [address] Pabilto Quick . Review of Systems All Systems: reviewed and negative except above Objective Physical Exam Last Vital Signs Date Time Temp Pulse Resp B/P (MAP) Pulse Ox O2 Delivery O2 Flow Rate FiO2 08/29/18 21:46 87 144/72 08/29/18 20:31 20 99 Room Air 21 08/29/18 16:22 99.0 Laboratory Tests Test 08/29/18 06:50 White Blood Count 9.3 K/UL (4.8-10.8) Red Blood Count 4.55 M/UL (4.70-6.10) L Hemoglobin 13.3 G/DL (14.2-18.0) L Hematocrit 40.0 % (42.0-52.0) L Mean Corpuscular Volume 88 FL (80-99) Mean Corpuscular Hemoglobin 29.1 PG (27.0-31.0) Mean Corpuscular Hemoglobin Concent 33.2 G/DL (32.0-36.0) Red Cell Distribution Width 12.8 % (11.6-14.8) Platelet Count 311 K/UL (150-450) Mean Platelet Volume 5.8 FL (6.5-10.1) L Neutrophils (%) (Auto) 64.7 % (45.0-75.0) Lymphocytes (%) (Auto) 22.8 % (20.0-45.0) Monocytes (%) (Auto) 10.1 % (1.0-10.0) H Eosinophils (%) (Auto) 1.3 % (0.0-3.0) Basophils (%) (Auto) 1.0 % (0.0-2.0) Sodium Level 138 MMOL/L (136-145) Potassium Level 4.1 MMOL/L (3.5-5.1) Chloride Level 95 MMOL/L (98-107) L Carbon Dioxide Level 25 MMOL/L (21-32) Anion Gap 18 mmol/L (5-15) H Blood Urea Nitrogen 67 mg/dL (7-18) H Creatinine 16.2 MG/DL (0.55-1.30) H Estimat Glomerular Filtration Rate 3.6 mL/min (>60) Glucose Level 93 MG/DL (74-106) Uric Acid 7.2 MG/DL (2.6-7.2) Calcium Level 9.4 MG/DL (8.5-10.1) Phosphorus Level 6.0 MG/DL (2.5-4.9) H Magnesium Level 2.5 MG/DL (1.8-2.4) H Total Bilirubin 0.7 MG/DL (0.2-1.0) Direct Bilirubin 0.2 MG/DL (0.0-0.3) Aspartate Amino Transf (AST/SGOT) 18 U/L (15-37) Alanine Aminotransferase (ALT/SGPT) 21 U/L (12-78) Alkaline Phosphatase 102 U/L (46-116) Total Protein 8.1 G/DL (6.4-8.2) Albumin 3.0 G/DL (3.4-5.0) L General: well developed, well nourished Head: normocophalic Neck: no rigidity EENT: benign Neurologic Exam Mental Status: awake, alert, oriented x4 Speech: other Language: normal language, no aphasia Cranial Nerve II: fundus normal, visual martinez, no papilledema Cranial Nerves III, IV, : PERRLA, EOMI Cranial Nerve V: normal facial sensations, temporales function normal Cranial Nerve VII: no facial asymmetry Cranial Nerve VIII: normal hearing Cranial Nerve IX: normal palate elevation Cranial Nerve X: no voice hoarseness Cranial Nerve XI: SCM symmetric Cranial Nerve XII: tongue midline Motor System: normal muscle tone, no involuntary movement, no muscle wasting Sensory: normal pinprick, normal light touch Coordination: normal finger to nose bilaterally, normal heel to amador bilaterally Deep Tendon Reflexes: 2+ bicep (L), 2+ bicep (R), 2+ tricep (L), 2+ tricep (R) , 2+ brachioradialis (L), 2+ brachioradialis (R), 2+ knee (L), 2+ knee (R), 2+ ankle (L), 2+ ankle (R) Reflexes: flexor plantar (L), flexor plantar (R); extensor plantar (L), extensor plantar (R) Stance: normal Gait: stable Objective Patient has large mass at back of oropharynx/ base of tongue and is dysarthric secondary to this He denies any significant issues eating but reports discomfort and denies impedement of breathing with mass. He is following all commands with generalized non focal weakness - He is now aware that he is in the hospital- he is alert and oriented fully as per baseline today. 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 (2) Acute encephalopathy (3) Dysphagia (4) Tonsillar mass (5) Tonsillar abscess (6) History of hypertension (7) History of smoking (8) ESRD (end stage renal disease) on dialysis Status: stable, progressing Recommendations Will follow along No new orders Q4 Neuro Obs SBP<140 Katie Lema N.P. August 29, 2018 22:00
[2018-08-30] VITALS: BP 149/94
[2018-08-30 04:00] VITALS: BP 145/90
[2018-08-30 07:14] LABS: BASOPHILS % (AUTO) 1.4 % (0.0-2.0); EOSINOPHILS % (AUTO) 2.8 % (0.0-3.0); HEMATOCRIT 38.1 % (42.0-52.0); HEMOGLOBIN 12.8 G/DL (14.2-18.0); LYMPHOCYTES % (AUTO) 26.8 % (20.0-45.0); MEAN CORPUSCULAR VOLUME 88 FL (80-99); MONOCYTES % (AUTO) 10.1 % (1.0-10.0); NEUTROPHILS % (AUTO) 58.9 % (45.0-75.0); PLATELET COUNT 298 K/UL (150-450); RED BLOOD COUNT 4.32 M/UL (4.70-6.10); RED CELL DISTRIBUTION WIDTH 12.8 % (11.6-14.8); WHITE BLOOD COUNT 8.9 K/UL (4.8-10.8)
[2018-08-30 07:29] LABS: ANION GAP 15 mmol/L (5-15); BLOOD UREA NITROGEN 52 mg/dL (7-18); CALCIUM 9.3 MG/DL (8.5-10.1); CARBON DIOXIDE 26 MMOL/L (21-32); CHLORIDE 98 MMOL/L (98-107); CREATININE 13.7 MG/DL (0.55-1.30); POTASSIUM 4.2 MMOL/L (3.5-5.1); SODIUM 139 MMOL/L (136-145)
--- NOTE | 2018-08-30 07:30 | NUR ---
HAND-OFF: Report given to ILENE WONG.
--- NOTE | 2018-08-30 07:41 | NUR ---
NURSE NOTES: received patient awake,alert,oriented x4, no sign of distres, eating at this time, HL Patent and,AV Shunt to Lt LA intact, skin warm and dry,on fall precaution, bed lock in lowest position , Instructed patient to call for assistance when in need,will continue with plans of care, kept clean dry and comfortable in bed, janee graham
[2018-08-30 08:00] VITALS: BP_SYST 120; BP_SYST 141; BP_DIAS 76; BP_DIAS 85
[2018-08-30] MEDS: Sensipar 30mg Tab ORAL SCH (08:19)
[2018-08-30] MEDS: Heparin 5000 units/ml inj SUBQ SCH ×2 (08:20→20:50)
--- NOTE | 2018-08-30 09:22 | Infectious Diseases Prog Note ---
Assessment/Plan Assessment/Plan Assessment: Possible Throat mass with superimposed infection - CT neck/maxillofacial: Enlarged right palatine tonsil with rim-enhancing hypodense structure within the tonsil partially visualized, concerning for tonsillitis with abscess. Please see accompanying CT face. 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 Subjective Allergies: Coded Allergies: No Known Allergies (Unverified , 08/25/18) Subjective sore throat has improved comfortable Objective Vital Signs Last 24 Hour Vital Signs Date Time Temp Pulse Resp B/P (MAP) Pulse Ox O2 Delivery O2 Flow Rate FiO2 08/30/18 08:25 Room Air 08/30/18 08:19 90 145/90 08/30/18 08:00 97.7 84 17 141/85 (103) 99 08/30/18 07:32 Room Air 21 08/30/18 07:32 90 18 98 Room Air 21 08/30/18 05:54 82 145/90 08/30/18 04:00 98.3 82 18 145/90 (108) 100 08/30/18 03:28 Room Air 21 08/30/18 03:28 Room Air 21 08/30/18 00:00 98.3 90 20 149/94 (112) 98 08/29/18 23:50 99 20 99 Room Air 21 08/29/18 23:49 98 20 99 Room Air 21 08/29/18 21:46 87 144/72 08/29/18 21:00 Room Air 08/29/18 20:31 91 20 99 Room Air 21 08/29/18 20:29 91 20 99 Room Air 21 08/29/18 20:00 98.4 58 18 159/69 (99) 99 08/29/18 16:24 Room Air 08/29/18 16:23 Room Air 08/29/18 16:22 99.0 94 18 139/88 (105) 99 08/29/18 15:09 90 18 98 Room Air 21 08/29/18 15:09 89 18 98 Room Air 21 08/29/18 14:14 91 152/120 08/29/18 14:13 98.0 91 18 152/120 (131) 98 08/29/18 11:54 97.2 87 18 148/90 (109) 98 08/29/18 10:58 Room Air 21 08/29/18 10:58 Room Air 21 Height (Feet): 5 Height (Inches): 11.00 Weight (Pounds): 150 HEENT: anicteric Respiratory/Chest: lungs clear Cardiovascular: regular rhythm Abdomen: non distended Laboratory Tests Test 08/30/18 06:22 White Blood Count 8.9 K/UL (4.8-10.8) Red Blood Count 4.32 M/UL (4.70-6.10) L Hemoglobin 12.8 G/DL (14.2-18.0) L Hematocrit 38.1 % (42.0-52.0) L Mean Corpuscular Volume 88 FL (80-99) Mean Corpuscular Hemoglobin 29.7 PG (27.0-31.0) Mean Corpuscular Hemoglobin Concent 33.7 G/DL (32.0-36.0) Red Cell Distribution Width 12.8 % (11.6-14.8) Platelet Count 298 K/UL (150-450) Mean Platelet Volume 5.8 FL (6.5-10.1) L Neutrophils (%) (Auto) 58.9 % (45.0-75.0) Lymphocytes (%) (Auto) 26.8 % (20.0-45.0) Monocytes (%) (Auto) 10.1 % (1.0-10.0) H Eosinophils (%) (Auto) 2.8 % (0.0-3.0) Basophils (%) (Auto) 1.4 % (0.0-2.0) Sodium Level 139 MMOL/L (136-145) Potassium Level 4.2 MMOL/L (3.5-5.1) Chloride Level 98 MMOL/L (98-107) Carbon Dioxide Level 26 MMOL/L (21-32) Anion Gap 15 mmol/L (5-15) Blood Urea Nitrogen 52 mg/dL (7-18) H Creatinine 13.7 MG/DL (0.55-1.30) H Estimat Glomerular Filtration Rate 4.4 mL/min (>60) Glucose Level 90 MG/DL (74-106) Calcium Level 9.3 MG/DL (8.5-10.1) Current Medications Medications (Trade) Dose Ordered Sig/Shayan Route PRN Reason Start Time Stop Time Status Last Admin Dose Admin Acetaminophen (Tylenol) 650 mg Q4H PRN ORAL T>100.5 08/28/18 21:30 09/24/18 21:29 Albuterol/ Ipratropium (Albuterol/ Ipratropium) 3 ml Q4H PRN HHN Shortness of Breath 08/28/18 21:45 08/30/18 21:44 Amlodipine Besylate (Norvasc) 10 mg DAILY ORAL 08/29/18 09:00 09/25/18 08:59 08/30/18 08:19 Ampicillin Sodium/ Sulbactam Sodium 3 gm/Sodium Chloride 110 ml @ 220 mls/hr Q12HR@1100,2300 IVPB 08/28/18 23:00 09/03/18 22:59 08/29/18 23:16 Cinacalcet (Sensipar) 30 mg DAILY ORAL 08/29/18 09:00 09/25/18 08:59 08/30/18 08:19 Heparin Sodium (Porcine) (Heparin 5000 units/ml) 5,000 units EVERY 12 HOURS SUBQ 08/29/18 09:00 09/24/18 20:59 08/30/18 08:20 Labetalol HCl (Normodyne) 300 mg Q8HR ORAL 08/28/18 22:00 09/27/18 13:59 08/30/18 05:54 Nitroglycerin (Ntg) 0.4 mg Q5M PRN SL Prn Chest Pain 08/28/18 21:35 09/24/18 19:29 Ondansetron HCl (Zofran) 4 mg Q6H PRN IVP Nausea & Vomiting 08/28/18 21:45 09/27/18 21:44 Pantoprazole (Protonix) 40 mg DAILY ORAL 08/29/18 09:00 09/25/18 10:59 08/30/18 08:19 Polyethylene Glycol (Miralax) 17 gm DAILYPRN PRN ORAL Constipation 08/28/18 21:30 09/27/18 21:29 Promethazine HCl/ Codeine (Phenergan with Codeine) 5 ml Q4H PRN ORAL For Cough 08/28/18 21:45 09/24/18 21:44 Quetiapine Fumarate (SEROquel) 25 mg Q12HR ORAL 08/29/18 09:00 09/26/18 20:59 08/30/18 08:19 Temazepam (Restoril) 15 mg HSPRN PRN ORAL Insomnia 08/28/18 21:45 09/04/18 21:44 Tramadol HCl (Ultram) 50 mg Q6H PRN ORAL mod to sever pain 08/28/18 21:45 09/02/18 21:44 Derrick La MD August 30, 2018 09:22
[2018-08-30] MEDS: Ampicillin/Sulbactam Sod 3 GM in NS 110 ML IVPB SCH ×2 (10:09→21:52)
--- NOTE | 2018-08-30 11:56 | Nephrology Progress Note ---
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 patricia.Moderate atrophy and evidence of chronic small vessel disease involving white matter tracts.Sinus disease Subjective ROS Limited/Unobtainable: No Constitutional: Reports: malaise Objective Objective Last 24 Hour Vital Signs Date Time Temp Pulse Resp B/P (MAP) Pulse Ox O2 Delivery O2 Flow Rate FiO2 08/30/18 11:21 94 18 97 Room Air 21 08/30/18 11:21 94 18 97 Room Air 21 08/30/18 08:25 Room Air 08/30/18 08:19 90 145/90 08/30/18 08:00 97.7 84 17 141/85 (103) 99 08/30/18 07:32 Room Air 21 08/30/18 07:32 90 18 98 Room Air 21 08/30/18 05:54 82 145/90 08/30/18 04:00 98.3 82 18 145/90 (108) 100 08/30/18 03:28 Room Air 21 08/30/18 03:28 Room Air 21 08/30/18 00:00 98.3 90 20 149/94 (112) 98 08/29/18 23:50 99 20 99 Room Air 21 08/29/18 23:49 98 20 99 Room Air 21 08/29/18 21:46 87 144/72 08/29/18 21:00 Room Air 08/29/18 20:31 91 20 99 Room Air 21 08/29/18 20:29 91 20 99 Room Air 21 08/29/18 20:00 98.4 58 18 159/69 (99) 99 08/29/18 16:24 Room Air 08/29/18 16:23 Room Air 08/29/18 16:22 99.0 94 18 139/88 (105) 99 08/29/18 15:09 90 18 98 Room Air 21 08/29/18 15:09 89 18 98 Room Air 21 08/29/18 14:14 91 152/120 08/29/18 14:13 98.0 91 18 152/120 (131) 98 Intake and Output 08/29/18 08/30/18 19:00 07:00 Intake Total 600 ml 120 ml Output Total 1000 ml Balance -400 ml 120 ml Intake Oral 600 ml 120 ml Hemodialysis UF 1000 ml # Voids 2 2 Laboratory Tests 08/30/18 06:22: White Blood Count 8.9, Red Blood Count 4.32L, Hemoglobin 12.8L, Hematocrit 38.1L , Mean Corpuscular Volume 88, Mean Corpuscular Hemoglobin 29.7, Mean Corpuscular Hemoglobin Concent 33.7, Red Cell Distribution Width 12.8, Platelet Count 298, Mean Platelet Volume 5.8L, Neutrophils (%) (Auto) 58.9, Lymphocytes ( %) (Auto) 26.8, Monocytes (%) (Auto) 10.1H, Eosinophils (%) (Auto) 2.8, Basophils (%) (Auto) 1.4, Sodium Level 139, Potassium Level 4.2, Chloride Level 98, Carbon Dioxide Level 26, Anion Gap 15, Blood Urea Nitrogen 52H, Creatinine 13.7H, Estimat Glomerular Filtration Rate 4.4, Glucose Level 90, Calcium Level 9.3 Height (Feet): 5 Height (Inches): 11.00 Weight (Pounds): 150 General Appearance: no apparent distress Cardiovascular: tachycardia Respiratory/Chest: decreased breath sounds Abdomen: distended Objective no change Tate Leong MD August 30, 2018 11:56
[2018-08-30 12:00] VITALS: BP 159/90
--- NOTE | 2018-08-30 12:02 | Hematology/Onc Progress Note ---
Assessment/Plan Assessment/Plan Assessment/Recs: # Throat mass with superimposed infection -- per ENT, exam was very difficult to visualize pharynx given tongue position. On palpation the area was soft. I spent time reviewing the CT scan and the irregularity makes me very concerned for a malignant process. I explained the importance of follow up with this kind greg and would like to see him in a week. Continue Augmentin. Will scope and possible return to take him to the OR for triple endoscopy with biopsy. On a side note he did mention issues with housing so that might need to be addressed prior to discharge. --> imaging has been reviewed --> may need further management, as per ent first --> outpatient care --> ID recs reviewed # Hypercalcemia likely related to esrd --> has been on sensipar, as per renal --> PTH 148 --> per renal # Dysphagia has improved, likely due to mass --> reviewed recs gi eval as needed --> ent recs # ESRD (end stage renal disease) on dialysis --> per renal recs # History of hypertension --> sbp goal <140 # History of smoking The timing of this note does not necessarily reflect the time of the patient was seen. Greatly appreciate consultation! Subjective Allergies: Coded Allergies: No Known Allergies (Unverified , 08/25/18) All Systems: reviewed and negative except above Subjective 08/27: getting hd today, apparently had a rapid response in the am after I left, lytes repleted 08/28: no events, no f/c, no night sweats, comfortable 08/29: no events noted, no bleeding, no night sweats 08/30: Pt awake and alert, resting in bed. No acute events. Objective Objective Current Medications Medications (Trade) Dose Ordered Sig/Shayan Route PRN Reason Start Time Stop Time Status Last Admin Dose Admin Acetaminophen (Tylenol) 650 mg Q4H PRN ORAL T>100.5 08/28/18 21:30 09/24/18 21:29 Albuterol/ Ipratropium (Albuterol/ Ipratropium) 3 ml Q4H PRN HHN Shortness of Breath 08/28/18 21:45 08/30/18 21:44 Amlodipine Besylate (Norvasc) 10 mg DAILY ORAL 08/29/18 09:00 09/25/18 08:59 08/30/18 08:19 Ampicillin Sodium/ Sulbactam Sodium 3 gm/Sodium Chloride 110 ml @ 220 mls/hr Q12HR@1100,2300 IVPB 08/28/18 23:00 09/03/18 22:59 08/30/18 10:09 Cinacalcet (Sensipar) 30 mg DAILY ORAL 08/29/18 09:00 09/25/18 08:59 08/30/18 08:19 Heparin Sodium (Porcine) (Heparin 5000 units/ml) 5,000 units EVERY 12 HOURS SUBQ 08/29/18 09:00 09/24/18 20:59 08/30/18 08:20 Labetalol HCl (Normodyne) 300 mg Q8HR ORAL 08/28/18 22:00 09/27/18 13:59 08/30/18 05:54 Nitroglycerin (Ntg) 0.4 mg Q5M PRN SL Prn Chest Pain 08/28/18 21:35 09/24/18 19:29 Ondansetron HCl (Zofran) 4 mg Q6H PRN IVP Nausea & Vomiting 08/28/18 21:45 09/27/18 21:44 Pantoprazole (Protonix) 40 mg DAILY ORAL 08/29/18 09:00 09/25/18 10:59 08/30/18 08:19 Polyethylene Glycol (Miralax) 17 gm DAILYPRN PRN ORAL Constipation 08/28/18 21:30 09/27/18 21:29 Promethazine HCl/ Codeine (Phenergan with Codeine) 5 ml Q4H PRN ORAL For Cough 08/28/18 21:45 09/24/18 21:44 Quetiapine Fumarate (SEROquel) 25 mg Q12HR ORAL 08/29/18 09:00 09/26/18 20:59 08/30/18 08:19 Temazepam (Restoril) 15 mg HSPRN PRN ORAL Insomnia 08/28/18 21:45 09/04/18 21:44 Tramadol HCl (Ultram) 50 mg Q6H PRN ORAL mod to sever pain 08/28/18 21:45 09/02/18 21:44 Last 24 Hour Vital Signs Date Time Temp Pulse Resp B/P (MAP) Pulse Ox O2 Delivery O2 Flow Rate FiO2 08/30/18 11:21 94 18 97 Room Air 21 08/30/18 11:21 94 18 97 Room Air 21 08/30/18 08:25 Room Air 08/30/18 08:19 90 145/90 08/30/18 08:00 97.7 84 17 141/85 (103) 99 08/30/18 07:32 Room Air 21 08/30/18 07:32 90 18 98 Room Air 21 08/30/18 05:54 82 145/90 08/30/18 04:00 98.3 82 18 145/90 (108) 100 08/30/18 03:28 Room Air 21 08/30/18 03:28 Room Air 21 08/30/18 00:00 98.3 90 20 149/94 (112) 98 08/29/18 23:50 99 20 99 Room Air 21 08/29/18 23:49 98 20 99 Room Air 21 08/29/18 21:46 87 144/72 08/29/18 21:00 Room Air 08/29/18 20:31 91 20 99 Room Air 21 08/29/18 20:29 91 20 99 Room Air 21 08/29/18 20:00 98.4 58 18 159/69 (99) 99 08/29/18 16:24 Room Air 08/29/18 16:23 Room Air 08/29/18 16:22 99.0 94 18 139/88 (105) 99 08/29/18 15:09 90 18 98 Room Air 21 08/29/18 15:09 89 18 98 Room Air 21 08/29/18 14:14 91 152/120 08/29/18 14:13 98.0 91 18 152/120 (131) 98 08/29/18 11:54 97.2 87 18 148/90 (109) 98 08/29/18 10:58 Room Air 21 08/29/18 10:58 Room Air 21 08/29/18 08:27 Room Air 08/29/18 08:20 91 152/85 08/29/18 08:00 97.2 91 18 152/85 (107) 98 08/29/18 07:23 72 18 99 Room Air 21 08/29/18 07:20 71 16 99 Room Air 21 08/29/18 06:30 87 150/85 08/29/18 04:00 97.2 87 18 150/85 (106) 98 08/29/18 03:21 Room Air 21 08/29/18 03:21 Room Air 21 08/29/18 00:00 98.0 90 18 153/92 (112) 98 08/28/18 23:29 79 16 99 Room Air 21 08/28/18 23:29 77 16 98 Room Air 21 08/28/18 22:32 97 152/90 08/28/18 20:00 98.1 89 20 144/84 (104) 99 08/28/18 20:00 Room Air 08/28/18 20:00 91 08/28/18 19:25 82 16 99 Room Air 21 08/28/18 19:25 84 16 99 Room Air 21 08/28/18 16:00 98.7 86 21 142/76 (98) 100 08/28/18 16:00 Room Air 08/28/18 16:00 90 08/28/18 14:56 Room Air 21 08/28/18 14:56 Room Air 08/28/18 14:28 91 146/92 08/28/18 12:00 98.1 89 22 146/92 (110) 100 08/28/18 12:00 Room Air 08/28/18 12:00 91 Intake and Output 08/29/18 08/30/18 19:00 07:00 Intake Total 600 ml 120 ml Output Total 1000 ml Balance -400 ml 120 ml Intake Oral 600 ml 120 ml Hemodialysis UF 1000 ml # Voids 2 2 Labs Test 08/28/18 03:50 08/29/18 06:50 08/30/18 06:22 White Blood Count 10.3 K/UL (4.8-10.8) 9.3 K/UL (4.8-10.8) 8.9 K/UL (4.8-10.8) Red Blood Count 4.71 M/UL (4.70-6.10) 4.55 M/UL (4.70-6.10) 4.32 M/UL (4.70-6.10) Hemoglobin 13.8 G/DL (14.2-18.0) 13.3 G/DL (14.2-18.0) 12.8 G/DL (14.2-18.0) Hematocrit 41.7 % (42.0-52.0) 40.0 % (42.0-52.0) 38.1 % (42.0-52.0) Mean Corpuscular Volume 88 FL (80-99) 88 FL (80-99) 88 FL (80-99) Mean Corpuscular Hemoglobin 29.4 PG (27.0-31.0) 29.1 PG (27.0-31.0) 29.7 PG (27.0-31.0) Mean Corpuscular Hemoglobin Concent 33.2 G/DL (32.0-36.0) 33.2 G/DL (32.0-36.0) 33.7 G/DL (32.0-36.0) Red Cell Distribution Width 13.0 % (11.6-14.8) 12.8 % (11.6-14.8) 12.8 % (11.6-14.8) Platelet Count 339 K/UL (150-450) 311 K/UL (150-450) 298 K/UL (150-450) Mean Platelet Volume 6.1 FL (6.5-10.1) 5.8 FL (6.5-10.1) 5.8 FL (6.5-10.1) Neutrophils (%) (Auto) 73.2 % (45.0-75.0) 64.7 % (45.0-75.0) 58.9 % (45.0-75.0) Lymphocytes (%) (Auto) 15.4 % (20.0-45.0) 22.8 % (20.0-45.0) 26.8 % (20.0-45.0) Monocytes (%) (Auto) 10.1 % (1.0-10.0) 10.1 % (1.0-10.0) 10.1 % (1.0-10.0) Eosinophils (%) (Auto) 0.2 % (0.0-3.0) 1.3 % (0.0-3.0) 2.8 % (0.0-3.0) Basophils (%) (Auto) 1.1 % (0.0-2.0) 1.0 % (0.0-2.0) 1.4 % (0.0-2.0) Sodium Level 137 MMOL/L (136-145) 138 MMOL/L (136-145) 139 MMOL/L (136-145) Potassium Level 4.6 MMOL/L (3.5-5.1) 4.1 MMOL/L (3.5-5.1) 4.2 MMOL/L (3.5-5.1) Chloride Level 96 MMOL/L (98-107) 95 MMOL/L (98-107) 98 MMOL/L (98-107) Carbon Dioxide Level 26 MMOL/L (21-32) 25 MMOL/L (21-32) 26 MMOL/L (21-32) Anion Gap 15 mmol/L (5-15) 18 mmol/L (5-15) 15 mmol/L (5-15) Blood Urea Nitrogen 58 mg/dL (7-18) 67 mg/dL (7-18) 52 mg/dL (7-18) Creatinine 13.5 MG/DL (0.55-1.30) 16.2 MG/DL (0.55-1.30) 13.7 MG/DL (0.55-1.30) Estimat Glomerular Filtration Rate 4.5 mL/min (>60) 3.6 mL/min (>60) 4.4 mL/min (>60) Glucose Level 91 MG/DL (74-106) 93 MG/DL (74-106) 90 MG/DL (74-106) Calcium Level 9.2 MG/DL (8.5-10.1) 9.4 MG/DL (8.5-10.1) 9.3 MG/DL (8.5-10.1) Troponin I 0.002 ng/mL (0.000-0.056) Pro-B-Type Natriuretic Peptide > 63222 pg/mL (0-125) Uric Acid 7.2 MG/DL (2.6-7.2) Phosphorus Level 6.0 MG/DL (2.5-4.9) Magnesium Level 2.5 MG/DL (1.8-2.4) Total Bilirubin 0.7 MG/DL (0.2-1.0) Direct Bilirubin 0.2 MG/DL (0.0-0.3) Aspartate Amino Transf (AST/SGOT) 18 U/L (15-37) Alanine Aminotransferase (ALT/SGPT) 21 U/L (12-78) Alkaline Phosphatase 102 U/L (46-116) Total Protein 8.1 G/DL (6.4-8.2) Albumin 3.0 G/DL (3.4-5.0) Height (Feet): 5 Height (Inches): 11.00 Weight (Pounds): 150 Objective PE General Appearance: WD/WN, no apparent distress, alert, thin HEENT: normocephalic, atraumatic, PERRL, EOMI, supple, no JVD, other Neck: non-tender, supple, normal inspection ++ mass on right periaricular area Respiratory/Chest: no respiratory distress EXT: no cce Julius Franco MD August 30, 2018 12:02
--- NOTE | 2018-08-30 12:59 | Pulmonology Progress Note ---
Assessment/Plan Problems: (1) Acute encephalopathy (2) Acute psychosis (3) Tonsillar abscess (4) Tonsillar mass (5) Dysphagia (6) ESRD (end stage renal disease) on dialysis (7) History of hypertension (8) History of smoking Assessment/Plan start seroquel bid MRI of brain: Impression: No acute intracranial findings. 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 Moderate atrophy and evidence of chronic small vessel disease involving white matter tracts. continue abx check cultures HD by orthophotography technician. monitor BP social service note reviewed and appreciated pt will need placement. dc planning in progress. Subjective ROS Limited/Unobtainable: No Constitutional: Reports: no symptoms HEENT: Repors: no symptoms Respiratory: Reports: no symptoms Allergies: Coded Allergies: No Known Allergies (Unverified , 08/25/18) Objective Last 24 Hour Vital Signs Date Time Temp Pulse Resp B/P (MAP) Pulse Ox O2 Delivery O2 Flow Rate FiO2 08/30/18 12:00 98.8 92 18 159/90 (113) 99 08/30/18 11:21 94 18 97 Room Air 21 08/30/18 11:21 94 18 97 Room Air 21 08/30/18 08:25 Room Air 08/30/18 08:19 90 145/90 08/30/18 08:00 97.7 84 17 141/85 (103) 99 08/30/18 07:32 Room Air 21 08/30/18 07:32 90 18 98 Room Air 21 08/30/18 05:54 82 145/90 08/30/18 04:00 98.3 82 18 145/90 (108) 100 08/30/18 03:28 Room Air 21 08/30/18 03:28 Room Air 21 08/30/18 00:00 98.3 90 20 149/94 (112) 98 08/29/18 23:50 99 20 99 Room Air 21 08/29/18 23:49 98 20 99 Room Air 21 08/29/18 21:46 87 144/72 08/29/18 21:00 Room Air 08/29/18 20:31 91 20 99 Room Air 21 08/29/18 20:29 91 20 99 Room Air 21 08/29/18 20:00 98.4 58 18 159/69 (99) 99 08/29/18 16:24 Room Air 08/29/18 16:23 Room Air 08/29/18 16:22 99.0 94 18 139/88 (105) 99 08/29/18 15:09 90 18 98 Room Air 21 08/29/18 15:09 89 18 98 Room Air 21 08/29/18 14:14 91 152/120 08/29/18 14:13 98.0 91 18 152/120 (131) 98 Intake and Output 08/29/18 08/30/18 19:00 07:00 Intake Total 600 ml 120 ml Output Total 1000 ml Balance -400 ml 120 ml Intake Oral 600 ml 120 ml Hemodialysis UF 1000 ml # Voids 2 2 Objective less confused HEENT: normocephalic, atraumatic Respiratory/Chest: chest wall non-tender, lungs clear, normal breath sounds Cardiovascular: normal peripheral pulses, normal rate Abdomen: normal bowel sounds, no organomegaly Genitourinary: normal external genitalia Extremities: no cyanosis Skin: no rash Neurologic/Psychiatric: sql consultant II-XII grossly normal Lymphatic: no neck adenopathy Laboratory Tests 08/30/18 06:22: White Blood Count 8.9, Red Blood Count 4.32L, Hemoglobin 12.8L, Hematocrit 38.1L , Mean Corpuscular Volume 88, Mean Corpuscular Hemoglobin 29.7, Mean Corpuscular Hemoglobin Concent 33.7, Red Cell Distribution Width 12.8, Platelet Count 298, Mean Platelet Volume 5.8L, Neutrophils (%) (Auto) 58.9, Lymphocytes ( %) (Auto) 26.8, Monocytes (%) (Auto) 10.1H, Eosinophils (%) (Auto) 2.8, Basophils (%) (Auto) 1.4, Sodium Level 139, Potassium Level 4.2, Chloride Level 98, Carbon Dioxide Level 26, Anion Gap 15, Blood Urea Nitrogen 52H, Creatinine 13.7H, Estimat Glomerular Filtration Rate 4.4, Glucose Level 90, Calcium Level 9.3 Current Medications Medications (Trade) Dose Ordered Sig/Shayan Route PRN Reason Start Time Stop Time Status Last Admin Dose Admin Acetaminophen (Tylenol) 650 mg Q4H PRN ORAL T>100.5 08/28/18 21:30 09/24/18 21:29 Albuterol/ Ipratropium (Albuterol/ Ipratropium) 3 ml Q4H PRN HHN Shortness of Breath 08/28/18 21:45 08/30/18 21:44 Amlodipine Besylate (Norvasc) 10 mg DAILY ORAL 08/29/18 09:00 09/25/18 08:59 08/30/18 08:19 Ampicillin Sodium/ Sulbactam Sodium 3 gm/Sodium Chloride 110 ml @ 220 mls/hr Q12HR@1100,2300 IVPB 08/28/18 23:00 09/03/18 22:59 08/30/18 10:09 Cinacalcet (Sensipar) 30 mg DAILY ORAL 08/29/18 09:00 09/25/18 08:59 08/30/18 08:19 Heparin Sodium (Porcine) (Heparin 5000 units/ml) 5,000 units EVERY 12 HOURS SUBQ 08/29/18 09:00 09/24/18 20:59 08/30/18 08:20 Labetalol HCl (Normodyne) 300 mg Q8HR ORAL 08/28/18 22:00 09/27/18 13:59 08/30/18 05:54 Nitroglycerin (Ntg) 0.4 mg Q5M PRN SL Prn Chest Pain 08/28/18 21:35 09/24/18 19:29 Ondansetron HCl (Zofran) 4 mg Q6H PRN IVP Nausea & Vomiting 08/28/18 21:45 09/27/18 21:44 Pantoprazole (Protonix) 40 mg DAILY ORAL 08/29/18 09:00 09/25/18 10:59 08/30/18 08:19 Polyethylene Glycol (Miralax) 17 gm DAILYPRN PRN ORAL Constipation 08/28/18 21:30 09/27/18 21:29 Promethazine HCl/ Codeine (Phenergan with Codeine) 5 ml Q4H PRN ORAL For Cough 08/28/18 21:45 09/24/18 21:44 Quetiapine Fumarate (SEROquel) 25 mg Q12HR ORAL 08/29/18 09:00 09/26/18 20:59 08/30/18 08:19 Temazepam (Restoril) 15 mg HSPRN PRN ORAL Insomnia 08/28/18 21:45 09/04/18 21:44 Tramadol HCl (Ultram) 50 mg Q6H PRN ORAL mod to sever pain 08/28/18 21:45 09/02/18 21:44 Salazar Horvath MD August 30, 2018 12:59
--- NOTE | 2018-08-30 13:35 | NUR ---
ST NOTE: SWALLOW STATUS: PT SEEN AT THE EDGE OF THE BED. PT ALERT, COOPERATIVE, PT REFUSED ANY PUREED FOOD. REGULAR DIET WAS ORDERED. PER BRAIN MRI: Impression: No acute intracranial findings. 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 Moderate atrophy and evidence of chronic small vessel disease involving white matter tracts. Sinus disease OBSERVED PT DURING FOR LUNCH, PT TOLERATED REGULAR DIET WITH THIN LIQUIDS, MISSING MOLAR TEETH, SLOW BUT FUNCTIONAL MASTICATION TIME, FAIR ORAL TRANSIT TIME(2 TO 3 SECONDS) UNTIL PHARYNGEAL SWALLOW INITIATED, ADEQUATE LARYNGEAL ELEVATION, NO OVERT S/S OF ASPIRATION. PT DENIED ANY SWALLOWING DIFFICULTY. FOR QUALITY OF LIFE, CONTINUE RENAL REGULAR WITH THIN LIQUIDS DIET. HOLD OFF THE MODIFIED BARIUM SWALLOW STUDY FOR NOW. D/W PT AND RNDEBBIE.
--- NOTE | 2018-08-30 14:17 | General Progress Note ---
Assessment/Plan Problem List: (1) ESRD (end stage renal disease) on dialysis ICD Codes: N18.6 - End stage renal disease; Z99.2 - Dependence on renal dialysis SNOMED: 486758804 (2) History of smoking ICD Codes: Z87.891 - Personal history of nicotine dependence SNOMED: 369057670 (3) History of hypertension ICD Codes: Z86.79 - Personal history of other diseases of the circulatory system SNOMED: 950374277 (4) Tonsillar abscess ICD Codes: J36 - Peritonsillar abscess; Z99.2 - Dependence on renal dialysis SNOMED: 78170370 (5) Tonsillar mass ICD Codes: R22.0 - Localized swelling, mass and lump, head SNOMED: 380032000 (6) Dysphagia ICD Codes: R13.10 - Dysphagia, unspecified SNOMED: 99589998, 753552674 (7) Acute encephalopathy ICD Codes: G93.40 - Encephalopathy, unspecified SNOMED: 33348617, 400377133 Status: stable, progressing Assessment/Plan: pt diet neuro f/u abx per id ent f/u cbc bmp am dc to [facility] Subjective Constitutional: Reports: weakness Allergies: Coded Allergies: No Known Allergies (Unverified , 08/25/18) All Systems: reviewed and negative except above Subjective sleepy in bed calm Objective Last 24 Hour Vital Signs Date Time Temp Pulse Resp B/P (MAP) Pulse Ox O2 Delivery O2 Flow Rate FiO2 08/30/18 13:04 92 159/90 08/30/18 12:00 98.8 92 18 159/90 (113) 99 08/30/18 11:21 94 18 97 Room Air 21 08/30/18 11:21 94 18 97 Room Air 21 08/30/18 08:25 Room Air 08/30/18 08:19 90 145/90 08/30/18 08:00 97.7 84 17 141/85 (103) 99 08/30/18 07:32 Room Air 21 08/30/18 07:32 90 18 98 Room Air 21 08/30/18 05:54 82 145/90 08/30/18 04:00 98.3 82 18 145/90 (108) 100 08/30/18 03:28 Room Air 21 08/30/18 03:28 Room Air 21 08/30/18 00:00 98.3 90 20 149/94 (112) 98 08/29/18 23:50 99 20 99 Room Air 21 08/29/18 23:49 98 20 99 Room Air 21 08/29/18 21:46 87 144/72 08/29/18 21:00 Room Air 08/29/18 20:31 91 20 99 Room Air 21 08/29/18 20:29 91 20 99 Room Air 21 08/29/18 20:00 98.4 58 18 159/69 (99) 99 08/29/18 16:24 Room Air 08/29/18 16:23 Room Air 08/29/18 16:22 99.0 94 18 139/88 (105) 99 08/29/18 15:09 90 18 98 Room Air 21 08/29/18 15:09 89 18 98 Room Air 21 Intake and Output 08/29/18 08/30/18 19:00 07:00 Intake Total 600 ml 120 ml Output Total 1000 ml Balance -400 ml 120 ml Intake Oral 600 ml 120 ml Hemodialysis UF 1000 ml # Voids 2 2 Laboratory Tests 08/30/18 06:22: White Blood Count 8.9, Red Blood Count 4.32L, Hemoglobin 12.8L, Hematocrit 38.1L , Mean Corpuscular Volume 88, Mean Corpuscular Hemoglobin 29.7, Mean Corpuscular Hemoglobin Concent 33.7, Red Cell Distribution Width 12.8, Platelet Count 298, Mean Platelet Volume 5.8L, Neutrophils (%) (Auto) 58.9, Lymphocytes ( %) (Auto) 26.8, Monocytes (%) (Auto) 10.1H, Eosinophils (%) (Auto) 2.8, Basophils (%) (Auto) 1.4, Sodium Level 139, Potassium Level 4.2, Chloride Level 98, Carbon Dioxide Level 26, Anion Gap 15, Blood Urea Nitrogen 52H, Creatinine 13.7H, Estimat Glomerular Filtration Rate 4.4, Glucose Level 90, Calcium Level 9.3 Height (Feet): 5 Height (Inches): 11.00 Weight (Pounds): 150 General Appearance: lethargic EENT: normal ENT inspection Neck: normal alignment Cardiovascular: normal peripheral pulses, normal rate, regular rhythm Respiratory/Chest: chest wall non-tender, lungs clear, normal breath sounds Abdomen: normal bowel sounds, non tender, soft Extremities: normal inspection Edema: no edema noted Arm (L), no edema noted Arm (R), no edema noted Leg (L), no edema noted Leg (R), no edema noted Pedal (L), no edema noted Pedal (R), no edema noted Generalized Neurologic: motor weakness Skin: normal pigmentation, warm/dry Chaim Borjas DO August 30, 2018 14:17
[2018-08-30 15:50] VITALS: BP 139/89
--- NOTE | 2018-08-30 17:31 | NUR ---
DISCHARGE NOTES FAXED REFERRAL TO ESVIN MENDEZ [phone]
--- NOTE | 2018-08-30 19:29 | NUR ---
HAND-OFF: Report given to ILENE Fam .
--- NOTE | 2018-08-30 19:30 | NUR ---
NURSE NOTES: Pt received in bed, alert X 4, IV intact, able to make needs known, call light within reach, will continue to monitor.
[2018-08-30 20:00] VITALS: BP 167/87
--- NOTE | 2018-08-30 20:50 | NUR ---
NURSE NOTES: Pt refused Heparin medication, explained the benefits and risks.
--- NOTE | 2018-08-30 23:38 | Neurology Progress Note ---
Interim History Interim History ROS Limited/Unobtainable: No Complaints: AMS Events: Stable MS Interim History This visit was performed on August 30, [address] Emile Quick. Review of Systems All Systems: reviewed and negative except above Objective Physical Exam Last Vital Signs Date Time Temp Pulse Resp B/P (MAP) Pulse Ox O2 Delivery O2 Flow Rate FiO2 08/30/18 21:51 90 167/87 08/30/18 21:00 Room Air 08/30/18 20:32 20 97 21 08/30/18 20:00 99.3 Laboratory Tests Test 08/30/18 06:22 08/30/18 06:35 White Blood Count 8.9 K/UL (4.8-10.8) Red Blood Count 4.32 M/UL (4.70-6.10) L Hemoglobin 12.8 G/DL (14.2-18.0) L Hematocrit 38.1 % (42.0-52.0) L Mean Corpuscular Volume 88 FL (80-99) Mean Corpuscular Hemoglobin 29.7 PG (27.0-31.0) Mean Corpuscular Hemoglobin Concent 33.7 G/DL (32.0-36.0) Red Cell Distribution Width 12.8 % (11.6-14.8) Platelet Count 298 K/UL (150-450) Mean Platelet Volume 5.8 FL (6.5-10.1) L Neutrophils (%) (Auto) 58.9 % (45.0-75.0) Lymphocytes (%) (Auto) 26.8 % (20.0-45.0) Monocytes (%) (Auto) 10.1 % (1.0-10.0) H Eosinophils (%) (Auto) 2.8 % (0.0-3.0) Basophils (%) (Auto) 1.4 % (0.0-2.0) Sodium Level 139 MMOL/L (136-145) Potassium Level 4.2 MMOL/L (3.5-5.1) Chloride Level 98 MMOL/L (98-107) Carbon Dioxide Level 26 MMOL/L (21-32) Anion Gap 15 mmol/L (5-15) Blood Urea Nitrogen 52 mg/dL (7-18) H Creatinine 13.7 MG/DL (0.55-1.30) H Estimat Glomerular Filtration Rate 4.4 mL/min (>60) Glucose Level 90 MG/DL (74-106) Calcium Level 9.3 MG/DL (8.5-10.1) Hepatitis B Surface Antigen Pending General: well developed, well nourished, no acute distress Head: normocophalic Neck: no rigidity EENT: benign Neurologic Exam Mental Status: awake, alert, oriented x4, normal cognition, good mathematical skills, normal recent memory, normal remote memory, preserved visuospatial function Language: normal language, no aphasia Cranial Nerve II: fundus normal, visual martinez, no papilledema Cranial Nerves III, IV, : PERRLA, EOMI, pupils Cranial Nerve V: normal facial sensations, temporales function normal, masseters function normal, pterygoids function normal Cranial Nerve VII: no facial asymmetry, normal facial expressions Cranial Nerve VIII: normal hearing, no nystagmus Cranial Nerve IX: normal palate elevation, gag response Cranial Nerve X: no voice hoarseness Cranial Nerve XI: SCM symmetric, trapezii function normal Cranial Nerve XII: tongue midline, no tongue atrophy/fasciculations Motor System: normal muscle tone, strength 5/5, no involuntary movement, no muscle wasting Sensory: normal pinprick, normal light touch, normal position sense, normal graphesthesia Coordination: normal finger to nose bilaterally, normal heel to amador bilaterally, negative Romberg test Deep Tendon Reflexes: 2+ bicep (L), 2+ bicep (R), 2+ tricep (L), 2+ tricep (R) , 2+ brachioradialis (L), 2+ brachioradialis (R), 2+ knee (L), 2+ knee (R), 2+ ankle (L), 2+ ankle (R) Reflexes: flexor plantar (L), flexor plantar (R); extensor plantar (L), extensor plantar (R) Stance: normal Gait: stable, normal regular Objective Patient has large mass at back of oropharynx/ base of tongue and is dysarthric secondary to this He denies any significant issues eating but reports discomfort and denies impedement of breathing with mass. He is following all commands with generalized non focal weakness - He is alert and oriented as per baseline. 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 Status: stable, progressing Recommendations Q4 Neuro obs PT Eval Abx as per ID SBP< 140 Continue to track/ trend BUN/ Cr Mgmt as per Nephrology IV Hydration Na 135-145 Swallow Eval PT Eval Katie Lema N.P. August 30, 2018 23:38
[2018-08-31] VITALS: BP 155/68
[2018-08-31 04:00] VITALS: BP 130/83
[2018-08-31 06:48] LABS: BASOPHILS % (AUTO) 1.1 % (0.0-2.0); EOSINOPHILS % (AUTO) 3.3 % (0.0-3.0); HEMATOCRIT 36.4 % (42.0-52.0); HEMOGLOBIN 12.3 G/DL (14.2-18.0); MEAN CORPUSCULAR VOLUME 88 FL (80-99); MONOCYTES % (AUTO) 7.8 % (1.0-10.0); NEUTROPHILS % (AUTO) 56.9 % (45.0-75.0); PLATELET COUNT 279 K/UL (150-450); RED BLOOD COUNT 4.14 M/UL (4.70-6.10); RED CELL DISTRIBUTION WIDTH 12.7 % (11.6-14.8); WHITE BLOOD COUNT 8.8 K/UL (4.8-10.8)
[2018-08-31 07:03] LABS: ANION GAP 17 mmol/L (5-15); BLOOD UREA NITROGEN 66 mg/dL (7-18); CALCIUM 8.8 MG/DL (8.5-10.1); CARBON DIOXIDE 24 MMOL/L (21-32); CHLORIDE 97 MMOL/L (98-107); CREATININE 16.1 MG/DL (0.55-1.30); POTASSIUM 4.3 MMOL/L (3.5-5.1); SODIUM 138 MMOL/L (136-145)
--- NOTE | 2018-08-31 07:17 | NUR ---
HAND-OFF: Report given to ILENE Majano.
[2018-08-31 08:00] VITALS: BP 137/82
--- NOTE | 2018-08-31 08:04 | Pulmonology Progress Note ---
Assessment/Plan Assessment/Plan ASSESSMENT acute encephalopathy Tonsillar abscess , possible mass End-stage renal disease , on hemodialysis Hypertensive kidney disease History of smoking Protein calorie malnutrition Dysphagia Hyperparathyroidism Acute psychosis PLAN OF CARE MS floor CT neck and facial bone noted abx as per ID recs BCX -, SCX-, throat cx no Strep ENT evaluation appreciated , outpatient follow-up with ENT O2 HHN as needed continue abstinence from smoking hemodialysis as per nephro monitor volumes, renal parameters and lytes DVT, GI prophylaxis BP management with CCB Continue Sensipar for hyperparathyroidism MRI of the brain - no acute intracranial pathology, but 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 strict aspiration precaution started on Seroquel will need placement case discussed and evaluated by supervising physician Subjective Allergies: Coded Allergies: No Known Allergies (Unverified , 08/25/18) Subjective remains afebrile, no leukocytosis, on abx no signs of resp distress pulse ox stable on RA Objective Last 24 Hour Vital Signs Date Time Temp Pulse Resp B/P (MAP) Pulse Ox O2 Delivery O2 Flow Rate FiO2 08/31/18 06:13 85 130/83 08/31/18 04:00 97.8 85 18 130/83 (99) 98 08/31/18 03:43 Room Air 21 08/31/18 03:43 Room Air 21 08/31/18 00:00 96.4 80 18 155/68 (97) 95 08/30/18 23:43 Room Air 21 08/30/18 23:42 Room Air 21 08/30/18 21:51 90 167/87 08/30/18 21:00 Room Air 08/30/18 20:32 90 20 97 Room Air 21 08/30/18 20:31 90 20 97 Room Air 21 08/30/18 20:00 99.3 89 18 167/87 (113) 96 08/30/18 15:50 98.0 87 19 139/89 (106) 99 08/30/18 15:23 91 18 98 Room Air 21 08/30/18 15:23 93 18 98 Room Air 21 08/30/18 13:04 92 159/90 08/30/18 12:00 98.8 92 18 159/90 (113) 99 08/30/18 11:21 94 18 97 Room Air 21 08/30/18 11:21 94 18 97 Room Air 21 08/30/18 08:25 Room Air 08/30/18 08:19 90 145/90 Intake and Output 08/30/18 08/31/18 18:59 06:59 Intake Total 1310 ml 120 ml Output Total 600 ml Balance 1310 ml -480 ml Intake Oral 200 ml 120 ml IV Total 110 ml Other 1000 ml Output Urine Total 600 ml General Appearance: no acute distress, other - awake, alert, responsive AA male HEENT: normocephalic, atraumatic, anicteric Respiratory/Chest: lungs clear, no respiratory distress, no accessory muscle use Cardiovascular: normal rate, no JVD Abdomen: normal bowel sounds, soft, non tender, non distended Extremities: no edema Neurologic/Psychiatric: alert, responsive Musculoskeletal: normal muscle bulk Laboratory Tests 08/31/18 04:55: White Blood Count 8.8, Red Blood Count 4.14L, Hemoglobin 12.3L, Hematocrit 36.4L , Mean Corpuscular Volume 88, Mean Corpuscular Hemoglobin 29.8, Mean Corpuscular Hemoglobin Concent 33.8, Red Cell Distribution Width 12.7, Platelet Count 279, Mean Platelet Volume 5.6L, Neutrophils (%) (Auto) 56.9, Lymphocytes ( %) (Auto) 31.0, Monocytes (%) (Auto) 7.8, Eosinophils (%) (Auto) 3.3H, Basophils (%) (Auto) 1.1, Sodium Level 138, Potassium Level 4.3, Chloride Level 97L, Carbon Dioxide Level 24, Anion Gap 17H, Blood Urea Nitrogen 66H, Creatinine 16.1H, Estimat Glomerular Filtration Rate 3.6, Glucose Level 96, Calcium Level 8.8 Current Medications Medications (Trade) Dose Ordered Sig/Shayan Route PRN Reason Start Time Stop Time Status Last Admin Dose Admin Acetaminophen (Tylenol) 650 mg Q4H PRN ORAL T>100.5 08/28/18 21:30 09/24/18 21:29 Amlodipine Besylate (Norvasc) 10 mg DAILY ORAL 08/29/18 09:00 09/25/18 08:59 08/30/18 08:19 Ampicillin Sodium/ Sulbactam Sodium 3 gm/Sodium Chloride 110 ml @ 220 mls/hr Q12HR@1100,2300 IVPB 08/28/18 23:00 09/03/18 22:59 08/30/18 21:52 Cinacalcet (Sensipar) 30 mg DAILY ORAL 08/29/18 09:00 09/25/18 08:59 08/30/18 08:19 Heparin Sodium (Porcine) (Heparin 5000 units/ml) 5,000 units EVERY 12 HOURS SUBQ 08/29/18 09:00 09/24/18 20:59 08/30/18 08:20 Labetalol HCl (Normodyne) 300 mg Q8HR ORAL 08/28/18 22:00 09/27/18 13:59 08/31/18 06:13 Nitroglycerin (Ntg) 0.4 mg Q5M PRN SL Prn Chest Pain 08/28/18 21:35 09/24/18 19:29 Ondansetron HCl (Zofran) 4 mg Q6H PRN IVP Nausea & Vomiting 08/28/18 21:45 09/27/18 21:44 Pantoprazole (Protonix) 40 mg DAILY ORAL 08/29/18 09:00 09/25/18 10:59 08/30/18 08:19 Polyethylene Glycol (Miralax) 17 gm DAILYPRN PRN ORAL Constipation 08/28/18 21:30 09/27/18 21:29 Promethazine HCl/ Codeine (Phenergan with Codeine) 5 ml Q4H PRN ORAL For Cough 08/28/18 21:45 09/24/18 21:44 Quetiapine Fumarate (SEROquel) 25 mg Q12HR ORAL 08/29/18 09:00 09/26/18 20:59 08/30/18 20:49 Temazepam (Restoril) 15 mg HSPRN PRN ORAL Insomnia 08/28/18 21:45 09/04/18 21:44 Tramadol HCl (Ultram) 50 mg Q6H PRN ORAL mod to sever pain 08/28/18 21:45 09/02/18 21:44 Shannan Bryant [employer]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
--- NOTE | 2018-08-31 08:05 | General Progress Note ---
Assessment/Plan Problem List: (1) ESRD (end stage renal disease) on dialysis ICD Codes: N18.6 - End stage renal disease; Z99.2 - Dependence on renal dialysis SNOMED: 642984388 (2) History of smoking ICD Codes: Z87.891 - Personal history of nicotine dependence SNOMED: 937600941 (3) History of hypertension ICD Codes: Z86.79 - Personal history of other diseases of the circulatory system SNOMED: 998904001 (4) Tonsillar abscess ICD Codes: J36 - Peritonsillar abscess; Z99.2 - Dependence on renal dialysis SNOMED: 46010563 (5) Tonsillar mass ICD Codes: R22.0 - Localized swelling, mass and lump, head SNOMED: 210974155 (6) Dysphagia ICD Codes: R13.10 - Dysphagia, unspecified SNOMED: 93821688, 342598534 (7) Acute encephalopathy ICD Codes: G93.40 - Encephalopathy, unspecified SNOMED: 90024468, 835291973 Status: stable, progressing Assessment/Plan: pt diet neuro f/u abx per id ent f/u cbc bmp am dc to [facility] Subjective Constitutional: Reports: weakness Allergies: Coded Allergies: No Known Allergies (Unverified , 08/25/18) All Systems: reviewed and negative except above Subjective sleepy in bed calm Objective Last 24 Hour Vital Signs Date Time Temp Pulse Resp B/P (MAP) Pulse Ox O2 Delivery O2 Flow Rate FiO2 08/31/18 06:13 85 130/83 08/31/18 04:00 97.8 85 18 130/83 (99) 98 08/31/18 03:43 Room Air 21 08/31/18 03:43 Room Air 21 08/31/18 00:00 96.4 80 18 155/68 (97) 95 08/30/18 23:43 Room Air 21 08/30/18 23:42 Room Air 21 08/30/18 21:51 90 167/87 08/30/18 21:00 Room Air 08/30/18 20:32 90 20 97 Room Air 21 08/30/18 20:31 90 20 97 Room Air 21 08/30/18 20:00 99.3 89 18 167/87 (113) 96 08/30/18 15:50 98.0 87 19 139/89 (106) 99 08/30/18 15:23 91 18 98 Room Air 21 08/30/18 15:23 93 18 98 Room Air 21 08/30/18 13:04 92 159/90 08/30/18 12:00 98.8 92 18 159/90 (113) 99 08/30/18 11:21 94 18 97 Room Air 21 08/30/18 11:21 94 18 97 Room Air 21 08/30/18 08:25 Room Air 08/30/18 08:19 90 145/90 Intake and Output 08/30/18 08/31/18 18:59 06:59 Intake Total 1310 ml 120 ml Output Total 600 ml Balance 1310 ml -480 ml Intake Oral 200 ml 120 ml IV Total 110 ml Other 1000 ml Output Urine Total 600 ml Laboratory Tests 08/31/18 04:55: White Blood Count 8.8, Red Blood Count 4.14L, Hemoglobin 12.3L, Hematocrit 36.4L , Mean Corpuscular Volume 88, Mean Corpuscular Hemoglobin 29.8, Mean Corpuscular Hemoglobin Concent 33.8, Red Cell Distribution Width 12.7, Platelet Count 279, Mean Platelet Volume 5.6L, Neutrophils (%) (Auto) 56.9, Lymphocytes ( %) (Auto) 31.0, Monocytes (%) (Auto) 7.8, Eosinophils (%) (Auto) 3.3H, Basophils (%) (Auto) 1.1, Sodium Level 138, Potassium Level 4.3, Chloride Level 97L, Carbon Dioxide Level 24, Anion Gap 17H, Blood Urea Nitrogen 66H, Creatinine 16.1H, Estimat Glomerular Filtration Rate 3.6, Glucose Level 96, Calcium Level 8.8 Height (Feet): 5 Height (Inches): 11.00 Weight (Pounds): 150 General Appearance: lethargic EENT: normal ENT inspection Neck: normal alignment Cardiovascular: normal peripheral pulses, normal rate, regular rhythm Respiratory/Chest: chest wall non-tender, lungs clear, normal breath sounds Abdomen: normal bowel sounds, non tender, soft Extremities: normal inspection Edema: no edema noted Arm (L), no edema noted Arm (R), no edema noted Leg (L), no edema noted Leg (R), no edema noted Pedal (L), no edema noted Pedal (R), no edema noted Generalized Neurologic: responsive Skin: normal pigmentation, warm/dry Chaim Borjas DO Aug 31, 2018 08:05
[2018-08-31] MEDS: Heparin 5000 units/ml inj SUBQ SCH ×2 (09:00→21:00)
[2018-08-31] MEDS: Sensipar 30mg Tab ORAL SCH (10:19)
[2018-08-31] MEDS ORDERED: Albuterol/Ipratropium 3ml neb HHN PRN (10:45)
[2018-08-31] MEDS: Ampicillin/Sulbactam Sod 3 GM in NS 110 ML IVPB SCH ×2 (11:28→23:34)
[2018-08-31 12:00] VITALS: BP 148/90
--- NOTE | 2018-08-31 14:37 | Nephrology Progress Note ---
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 patricia.Moderate atrophy and evidence of chronic small vessel disease involving white matter tracts.Sinus disease Subjective ROS Limited/Unobtainable: No Objective Objective Last 24 Hour Vital Signs Date Time Temp Pulse Resp B/P (MAP) Pulse Ox O2 Delivery O2 Flow Rate FiO2 08/31/18 12:00 98.9 89 19 148/90 (109) 99 08/31/18 11:02 Room Air 08/31/18 11:02 Room Air 08/31/18 09:00 Room Air 08/31/18 08:00 97.7 89 18 137/82 (100) 97 08/31/18 07:46 Room Air 08/31/18 07:46 Room Air 08/31/18 06:13 85 130/83 08/31/18 04:00 97.8 85 18 130/83 (99) 98 08/31/18 03:43 Room Air 21 08/31/18 03:43 Room Air 21 08/31/18 00:00 96.4 80 18 155/68 (97) 95 08/30/18 23:43 Room Air 21 08/30/18 23:42 Room Air 21 08/30/18 21:51 90 167/87 08/30/18 21:00 Room Air 08/30/18 20:32 90 20 97 Room Air 21 08/30/18 20:31 90 20 97 Room Air 21 08/30/18 20:00 99.3 89 18 167/87 (113) 96 08/30/18 15:50 98.0 87 19 139/89 (106) 99 08/30/18 15:23 91 18 98 Room Air 21 08/30/18 15:23 93 18 98 Room Air 21 Intake and Output 08/30/18 08/31/18 19:00 07:00 Intake Total 1310 ml 120 ml Output Total 600 ml Balance 1310 ml -480 ml Intake Oral 200 ml 120 ml IV Total 110 ml Other 1000 ml Output Urine Total 600 ml Laboratory Tests 08/31/18 04:55: White Blood Count 8.8, Red Blood Count 4.14L, Hemoglobin 12.3L, Hematocrit 36.4L , Mean Corpuscular Volume 88, Mean Corpuscular Hemoglobin 29.8, Mean Corpuscular Hemoglobin Concent 33.8, Red Cell Distribution Width 12.7, Platelet Count 279, Mean Platelet Volume 5.6L, Neutrophils (%) (Auto) 56.9, Lymphocytes ( %) (Auto) 31.0, Monocytes (%) (Auto) 7.8, Eosinophils (%) (Auto) 3.3H, Basophils (%) (Auto) 1.1, Sodium Level 138, Potassium Level 4.3, Chloride Level 97L, Carbon Dioxide Level 24, Anion Gap 17H, Blood Urea Nitrogen 66H, Creatinine 16.1H, Estimat Glomerular Filtration Rate 3.6, Glucose Level 96, Calcium Level 8.8 Height (Feet): 5 Height (Inches): 11.00 Weight (Pounds): 150 General Appearance: no apparent distress Objective no change Tate Leong MD Aug 31, 2018 14:37
--- NOTE | 2018-08-31 15:20 | NUR ---
NURSE NOTES: Spoke with Dialysis Nurse ,verify patient will have dialysis today as ordered.
[2018-08-31 16:00] VITALS: BP 141/88
--- NOTE | 2018-08-31 18:30 | NUR ---
NURSE NOTES: Patient resting,patient will receive Dialysis today Dialysis Nurse is here and patient will be next to receive dialysis as ordered.Bed alarm on,call light within reach.
--- NOTE | 2018-08-31 19:20 | NUR ---
HAND-OFF: Report given to Cecy ODOM.
[2018-08-31 20:00] VITALS: BP 160/99
--- NOTE | 2018-08-31 20:00 | NUR ---
NURSE NOTES: Pt recieved in bed, upset because he had to go restroom on his own and had been waiting for help, bed in lowest position, call light in reach, able to make needs known, dialysis has not been done yet, will continue to monitor.
[2018-09-01] VITALS: BP 157/91
[2018-09-01 04:00] VITALS: BP 154/97
[2018-09-01 06:45] LABS: BASOPHILS % (AUTO) 1.1 % (0.0-2.0); EOSINOPHILS % (AUTO) 3.1 % (0.0-3.0); HEMATOCRIT 37.6 % (42.0-52.0); HEMOGLOBIN 12.8 G/DL (14.2-18.0); LYMPHOCYTES % (AUTO) 27.9 % (20.0-45.0); MEAN CORPUSCULAR VOLUME 88 FL (80-99); MONOCYTES % (AUTO) 8.9 % (1.0-10.0); PLATELET COUNT 290 K/UL (150-450); RED CELL DISTRIBUTION WIDTH 12.7 % (11.6-14.8); WHITE BLOOD COUNT 8.2 K/UL (4.8-10.8)
[2018-09-01 07:04] LABS: ANION GAP 15 mmol/L (5-15); BLOOD UREA NITROGEN 43 mg/dL (7-18); CARBON DIOXIDE 29 MMOL/L (21-32); CHLORIDE 95 MMOL/L (98-107); CREATININE 12.3 MG/DL (0.55-1.30); POTASSIUM 3.7 MMOL/L (3.5-5.1); SODIUM 139 MMOL/L (136-145)
--- NOTE | 2018-09-01 07:17 | NUR ---
HAND-OFF: Report given to ILENE Jay.
--- NOTE | 2018-09-01 07:50 | NUR ---
NURSE NOTES: Received patient on bed, awake. IV site intact and patent. Bed in low and locked position,c all light in reach. No signs of respiratory distress or pain. Room board updated, will continue to monitor.
[2018-09-01 08:00] VITALS: BP 139/99
--- NOTE | 2018-09-01 08:42 | Pulmonology Progress Note ---
Assessment/Plan Assessment/Plan ASSESSMENT acute encephalopathy Tonsillar abscess , possible mass End-stage renal disease , on hemodialysis Hypertensive kidney disease History of smoking Protein calorie malnutrition Dysphagia Hyperparathyroidism Acute psychosis PLAN OF CARE MS floor CT neck and facial bone noted abx as per ID recs BCX -, SCX-, throat cx no Strep ENT evaluation appreciated , outpatient follow-up with ENT O2 HHN as needed continue abstinence from smoking hemodialysis as per nephro monitor volumes, renal parameters and lytes DVT, GI prophylaxis BP management with CCB Continue Sensipar for hyperparathyroidism MRI of the brain - no acute intracranial pathology, but 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 strict aspiration precaution started on Seroquel will need placement, accommodating for HD case discussed and evaluated by supervising physician Subjective Allergies: Coded Allergies: No Known Allergies (Unverified , 08/25/18) Subjective remains afebrile, no leukocytosis, on abx no signs of resp distress pulse ox stable on RA patient reports feeling better Objective Last 24 Hour Vital Signs Date Time Temp Pulse Resp B/P (MAP) Pulse Ox O2 Delivery O2 Flow Rate FiO2 09/01/18 05:11 85 154/97 09/01/18 04:00 98.1 85 20 154/97 (116) 99 09/01/18 00:00 98.6 89 18 157/91 (113) 98 08/31/18 21:00 Room Air 08/31/18 20:00 98.5 90 20 160/99 (119) 99 08/31/18 16:00 98.4 64 17 141/88 (105) 95 08/31/18 14:30 Room Air 08/31/18 14:30 Room Air 08/31/18 12:00 98.9 89 19 148/90 (109) 99 08/31/18 11:02 Room Air 08/31/18 11:02 Room Air 08/31/18 09:00 Room Air Intake and Output 08/31/18 09/01/18 18:59 06:59 Intake Total 1240 ml 960 ml Balance 1240 ml 960 ml Intake Oral 240 ml 740 ml IV Total 220 ml Other 1000 ml # Voids 2 # Bowel Movements 1 Objective General Appearance: no acute distress, awake, alert, responsive AA male HEENT: normocephalic, atraumatic, anicteric Respiratory/Chest: lungs clear, no respiratory distress, no accessory muscle use Cardiovascular: normal rate, no JVD Abdomen: normal bowel sounds, soft, non tender, non distended Extremities: no edema Neurologic/Psychiatric: alert, responsive Musculoskeletal: normal muscle bulk Laboratory Tests 09/01/18 05:05: White Blood Count 8.2, Red Blood Count 4.30L, Hemoglobin 12.8L, Hematocrit 37.6L , Mean Corpuscular Volume 88, Mean Corpuscular Hemoglobin 29.9, Mean Corpuscular Hemoglobin Concent 34.1, Red Cell Distribution Width 12.7, Platelet Count 290, Mean Platelet Volume 6.4L, Neutrophils (%) (Auto) 59.0, Lymphocytes ( %) (Auto) 27.9, Monocytes (%) (Auto) 8.9, Eosinophils (%) (Auto) 3.1H, Basophils (%) (Auto) 1.1, Sodium Level 139, Potassium Level 3.7, Chloride Level 95L, Carbon Dioxide Level 29, Anion Gap 15, Blood Urea Nitrogen 43H, Creatinine 12.3H, Estimat Glomerular Filtration Rate 5.0, Glucose Level 81, Calcium Level 9.0 Current Medications Medications (Trade) Dose Ordered Sig/Shayan Route PRN Reason Start Time Stop Time Status Last Admin Dose Admin Acetaminophen (Tylenol) 650 mg Q4H PRN ORAL T>100.5 08/28/18 21:30 09/24/18 21:29 Albuterol/ Ipratropium (Albuterol/ Ipratropium) 3 ml Q4H PRN HHN Shortness of Breath 08/31/18 10:45 09/05/18 10:44 Amlodipine Besylate (Norvasc) 10 mg DAILY ORAL 08/29/18 09:00 09/25/18 08:59 08/30/18 08:19 Ampicillin Sodium/ Sulbactam Sodium 3 gm/Sodium Chloride 110 ml @ 220 mls/hr Q12HR@1100,2300 IVPB 08/28/18 23:00 09/03/18 22:59 08/31/18 23:34 Cinacalcet (Sensipar) 30 mg DAILY ORAL 08/29/18 09:00 09/25/18 08:59 08/31/18 10:19 Heparin Sodium (Porcine) (Heparin 5000 units/ml) 5,000 units EVERY 12 HOURS SUBQ 08/29/18 09:00 09/24/18 20:59 08/30/18 08:20 Labetalol HCl (Normodyne) 300 mg Q8HR ORAL 08/28/18 22:00 09/27/18 13:59 09/01/18 05:11 Nitroglycerin (Ntg) 0.4 mg Q5M PRN SL Prn Chest Pain 08/28/18 21:35 09/24/18 19:29 Ondansetron HCl (Zofran) 4 mg Q6H PRN IVP Nausea & Vomiting 08/28/18 21:45 09/27/18 21:44 Pantoprazole (Protonix) 40 mg DAILY ORAL 08/29/18 09:00 09/25/18 10:59 08/31/18 10:19 Polyethylene Glycol (Miralax) 17 gm DAILYPRN PRN ORAL Constipation 08/28/18 21:30 09/27/18 21:29 Promethazine HCl/ Codeine (Phenergan with Codeine) 5 ml Q4H PRN ORAL For Cough 08/28/18 21:45 09/24/18 21:44 Quetiapine Fumarate (SEROquel) 25 mg Q12HR ORAL 08/29/18 09:00 09/26/18 20:59 08/31/18 10:23 Temazepam (Restoril) 15 mg HSPRN PRN ORAL Insomnia 08/28/18 21:45 09/04/18 21:44 Tramadol HCl (Ultram) 50 mg Q6H PRN ORAL mod to sever pain 08/28/18 21:45 09/02/18 21:44 Shannan Bryant [employer] SUPPORT ENGINEER Sep 01, 2018 08:42
--- NOTE | 2018-09-01 08:51 | General Progress Note ---
Assessment/Plan Problem List: (1) ESRD (end stage renal disease) on dialysis ICD Codes: N18.6 - End stage renal disease; Z99.2 - Dependence on renal dialysis SNOMED: 011019201 (2) History of smoking ICD Codes: Z87.891 - Personal history of nicotine dependence SNOMED: 753117715 (3) History of hypertension ICD Codes: Z86.79 - Personal history of other diseases of the circulatory system SNOMED: 348876094 (4) Tonsillar abscess ICD Codes: J36 - Peritonsillar abscess; Z99.2 - Dependence on renal dialysis SNOMED: 67120529 (5) Tonsillar mass ICD Codes: R22.0 - Localized swelling, mass and lump, head SNOMED: 532697155 (6) Dysphagia ICD Codes: R13.10 - Dysphagia, unspecified SNOMED: 45612760, 251893493 (7) Acute encephalopathy ICD Codes: G93.40 - Encephalopathy, unspecified SNOMED: 49455468, 536488987 Status: stable, progressing Assessment/Plan: pt diet neuro f/u abx per id ent f/u cbc bmp am dc to [facility] vs snf Subjective Constitutional: Reports: weakness Allergies: Coded Allergies: No Known Allergies (Unverified , 08/25/18) All Systems: reviewed and negative except above Subjective sleepy in bed calm Objective Last 24 Hour Vital Signs Date Time Temp Pulse Resp B/P (MAP) Pulse Ox O2 Delivery O2 Flow Rate FiO2 09/01/18 05:11 85 154/97 09/01/18 04:00 98.1 85 20 154/97 (116) 99 09/01/18 00:00 98.6 89 18 157/91 (113) 98 08/31/18 21:00 Room Air 08/31/18 20:00 98.5 90 20 160/99 (119) 99 08/31/18 16:00 98.4 64 17 141/88 (105) 95 08/31/18 14:30 Room Air 08/31/18 14:30 Room Air 08/31/18 12:00 98.9 89 19 148/90 (109) 99 08/31/18 11:02 Room Air 08/31/18 11:02 Room Air 08/31/18 09:00 Room Air Intake and Output 08/31/18 09/01/18 18:59 06:59 Intake Total 1240 ml 960 ml Balance 1240 ml 960 ml Intake Oral 240 ml 740 ml IV Total 220 ml Other 1000 ml # Voids 2 # Bowel Movements 1 Laboratory Tests 09/01/18 05:05: White Blood Count 8.2, Red Blood Count 4.30L, Hemoglobin 12.8L, Hematocrit 37.6L , Mean Corpuscular Volume 88, Mean Corpuscular Hemoglobin 29.9, Mean Corpuscular Hemoglobin Concent 34.1, Red Cell Distribution Width 12.7, Platelet Count 290, Mean Platelet Volume 6.4L, Neutrophils (%) (Auto) 59.0, Lymphocytes ( %) (Auto) 27.9, Monocytes (%) (Auto) 8.9, Eosinophils (%) (Auto) 3.1H, Basophils (%) (Auto) 1.1, Sodium Level 139, Potassium Level 3.7, Chloride Level 95L, Carbon Dioxide Level 29, Anion Gap 15, Blood Urea Nitrogen 43H, Creatinine 12.3H, Estimat Glomerular Filtration Rate 5.0, Glucose Level 81, Calcium Level 9.0 Height (Feet): 5 Height (Inches): 11.00 Weight (Pounds): 150 General Appearance: lethargic EENT: normal ENT inspection Neck: normal alignment Cardiovascular: normal peripheral pulses, normal rate, regular rhythm Respiratory/Chest: chest wall non-tender, lungs clear, normal breath sounds Abdomen: normal bowel sounds, non tender, soft Extremities: normal inspection Edema: no edema noted Arm (L), no edema noted Arm (R), no edema noted Leg (L), no edema noted Leg (R), no edema noted Pedal (L), no edema noted Pedal (R), no edema noted Generalized Neurologic: motor weakness Skin: normal pigmentation, warm/dry Chaim Borjas DO Sep 01, 2018 08:51
[2018-09-01] MEDS: Heparin 5000 units/ml inj SUBQ SCH ×2 (09:00→21:00)
[2018-09-01] MEDS: Sensipar 30mg Tab ORAL SCH (09:06)
--- NOTE | 2018-09-01 10:28 | Infectious Diseases Prog Note ---
Assessment/Plan Assessment/Plan Possible Throat mass with superimposed infection - CT neck/maxillofacial: Enlarged right palatine tonsil with rim-enhancing hypodense structure within the tonsil partially visualized, concerning for tonsillitis with abscess. Please see accompanying CT face. 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 Subjective Allergies: Coded Allergies: No Known Allergies (Unverified , 08/25/18) Subjective Afebrile No leukocytosis Breathing easily Objective Vital Signs Last 24 Hour Vital Signs Date Time Temp Pulse Resp B/P (MAP) Pulse Ox O2 Delivery O2 Flow Rate FiO2 09/01/18 09:06 86 139/99 09/01/18 05:11 85 154/97 09/01/18 04:00 98.1 85 20 154/97 (116) 99 09/01/18 00:00 98.6 89 18 157/91 (113) 98 08/31/18 21:00 Room Air 08/31/18 20:00 98.5 90 20 160/99 (119) 99 08/31/18 16:00 98.4 64 17 141/88 (105) 95 08/31/18 14:30 Room Air 08/31/18 14:30 Room Air 08/31/18 12:00 98.9 89 19 148/90 (109) 99 08/31/18 11:02 Room Air 08/31/18 11:02 Room Air Height (Feet): 5 Height (Inches): 11.00 Weight (Pounds): 150 Objective GEN: NAD HEENT: NCAT, MMM Respiratory/Chest: CTAB, No W Cardiovascular: RRR, S1, S2 Abdomen: Soft, ND Laboratory Tests Test 09/01/18 05:05 White Blood Count 8.2 K/UL (4.8-10.8) Red Blood Count 4.30 M/UL (4.70-6.10) L Hemoglobin 12.8 G/DL (14.2-18.0) L Hematocrit 37.6 % (42.0-52.0) L Mean Corpuscular Volume 88 FL (80-99) Mean Corpuscular Hemoglobin 29.9 PG (27.0-31.0) Mean Corpuscular Hemoglobin Concent 34.1 G/DL (32.0-36.0) Red Cell Distribution Width 12.7 % (11.6-14.8) Platelet Count 290 K/UL (150-450) Mean Platelet Volume 6.4 FL (6.5-10.1) L Neutrophils (%) (Auto) 59.0 % (45.0-75.0) Lymphocytes (%) (Auto) 27.9 % (20.0-45.0) Monocytes (%) (Auto) 8.9 % (1.0-10.0) Eosinophils (%) (Auto) 3.1 % (0.0-3.0) H Basophils (%) (Auto) 1.1 % (0.0-2.0) Sodium Level 139 MMOL/L (136-145) Potassium Level 3.7 MMOL/L (3.5-5.1) Chloride Level 95 MMOL/L (98-107) L Carbon Dioxide Level 29 MMOL/L (21-32) Anion Gap 15 mmol/L (5-15) Blood Urea Nitrogen 43 mg/dL (7-18) H Creatinine 12.3 MG/DL (0.55-1.30) H Estimat Glomerular Filtration Rate 5.0 mL/min (>60) Glucose Level 81 MG/DL (74-106) Calcium Level 9.0 MG/DL (8.5-10.1) Current Medications Medications (Trade) Dose Ordered Sig/Shayan Route PRN Reason Start Time Stop Time Status Last Admin Dose Admin Acetaminophen (Tylenol) 650 mg Q4H PRN ORAL T>100.5 08/28/18 21:30 09/24/18 21:29 Albuterol/ Ipratropium (Albuterol/ Ipratropium) 3 ml Q4H PRN HHN Shortness of Breath 08/31/18 10:45 09/05/18 10:44 Amlodipine Besylate (Norvasc) 10 mg DAILY ORAL 08/29/18 09:00 09/25/18 08:59 09/01/18 09:06 Ampicillin Sodium/ Sulbactam Sodium 3 gm/Sodium Chloride 110 ml @ 220 mls/hr Q12HR@1100,2300 IVPB 08/28/18 23:00 09/03/18 22:59 08/31/18 23:34 Cinacalcet (Sensipar) 30 mg DAILY ORAL 08/29/18 09:00 09/25/18 08:59 09/01/18 09:06 Heparin Sodium (Porcine) (Heparin 5000 units/ml) 5,000 units EVERY 12 HOURS SUBQ 08/29/18 09:00 09/24/18 20:59 08/30/18 08:20 Labetalol HCl (Normodyne) 300 mg Q8HR ORAL 08/28/18 22:00 09/27/18 13:59 09/01/18 05:11 Nitroglycerin (Ntg) 0.4 mg Q5M PRN SL Prn Chest Pain 08/28/18 21:35 09/24/18 19:29 Ondansetron HCl (Zofran) 4 mg Q6H PRN IVP Nausea & Vomiting 08/28/18 21:45 09/27/18 21:44 Pantoprazole (Protonix) 40 mg DAILY ORAL 08/29/18 09:00 09/25/18 10:59 09/01/18 09:06 Polyethylene Glycol (Miralax) 17 gm DAILYPRN PRN ORAL Constipation 08/28/18 21:30 09/27/18 21:29 Promethazine HCl/ Codeine (Phenergan with Codeine) 5 ml Q4H PRN ORAL For Cough 08/28/18 21:45 09/24/18 21:44 Quetiapine Fumarate (SEROquel) 25 mg Q12HR ORAL 08/29/18 09:00 09/26/18 20:59 09/01/18 09:06 Temazepam (Restoril) 15 mg HSPRN PRN ORAL Insomnia 08/28/18 21:45 09/04/18 21:44 Tramadol HCl (Ultram) 50 mg Q6H PRN ORAL mod to sever pain 08/28/18 21:45 09/02/18 21:44 Pierre Donovan MD Sep 01, 2018 10:27
[2018-09-01] MEDS: Ampicillin/Sulbactam Sod 3 GM in NS 110 ML IVPB SCH ×2 (11:42→22:52)
[2018-09-01 12:00] VITALS: BP 158/100
--- NOTE | 2018-09-01 15:07 | Hematology/Onc Progress Note ---
Assessment/Plan Assessment/Plan Assessment/Recs: # Throat mass with superimposed infection -- per ENT, exam was very difficult to visualize pharynx given tongue position. On palpation the area was soft. I spent time reviewing the CT scan and the irregularity makes me very concerned for a malignant process. I explained the importance of follow up with this kind greg and would like to see him in a week. Continue Augmentin. Will scope and possible return to take him to the OR for triple endoscopy with biopsy. On a side note he did mention issues with housing so that might need to be addressed prior to discharge. --> imaging has been reviewed --> may need further management, as per ent first --> outpatient care --> ID recs reviewed # Hypercalcemia likely related to esrd --> has been on sensipar, as per renal --> PTH 148 --> per renal # Dysphagia has improved, likely due to mass --> reviewed recs gi eval as needed --> ent recs # ESRD (end stage renal disease) on dialysis --> per renal recs # History of hypertension --> sbp goal <140 # History of smoking The timing of this note does not necessarily reflect the time of the patient was seen. Greatly appreciate consultation! Subjective Allergies: Coded Allergies: No Known Allergies (Unverified , 08/25/18) Subjective 08/27: getting hd today, apparently had a rapid response in the am after I left, lytes repleted 08/28: no events, no f/c, no night sweats, comfortable 08/29: no events noted, no bleeding, no night sweats 08/30: Pt awake and alert, resting in bed. No acute events. 09/01: Pt shows no signs of respiratory distress or pain Objective Objective Current Medications Medications (Trade) Dose Ordered Sig/Shayan Route PRN Reason Start Time Stop Time Status Last Admin Dose Admin Acetaminophen (Tylenol) 650 mg Q4H PRN ORAL T>100.5 08/28/18 21:30 09/24/18 21:29 Albuterol/ Ipratropium (Albuterol/ Ipratropium) 3 ml Q4H PRN HHN Shortness of Breath 08/31/18 10:45 09/05/18 10:44 Amlodipine Besylate (Norvasc) 10 mg DAILY ORAL 08/29/18 09:00 09/25/18 08:59 09/01/18 09:06 Ampicillin Sodium/ Sulbactam Sodium 3 gm/Sodium Chloride 110 ml @ 220 mls/hr Q12HR@1100,2300 IVPB 08/28/18 23:00 09/03/18 22:59 09/01/18 11:42 Cinacalcet (Sensipar) 30 mg DAILY ORAL 08/29/18 09:00 09/25/18 08:59 09/01/18 09:06 Heparin Sodium (Porcine) (Heparin 5000 units/ml) 5,000 units EVERY 12 HOURS SUBQ 08/29/18 09:00 09/24/18 20:59 08/30/18 08:20 Labetalol HCl (Normodyne) 300 mg Q8HR ORAL 08/28/18 22:00 09/27/18 13:59 09/01/18 14:11 Nitroglycerin (Ntg) 0.4 mg Q5M PRN SL Prn Chest Pain 08/28/18 21:35 09/24/18 19:29 Ondansetron HCl (Zofran) 4 mg Q6H PRN IVP Nausea & Vomiting 08/28/18 21:45 09/27/18 21:44 Pantoprazole (Protonix) 40 mg DAILY ORAL 08/29/18 09:00 09/25/18 10:59 09/01/18 09:06 Polyethylene Glycol (Miralax) 17 gm DAILYPRN PRN ORAL Constipation 08/28/18 21:30 09/27/18 21:29 Promethazine HCl/ Codeine (Phenergan with Codeine) 5 ml Q4H PRN ORAL For Cough 08/28/18 21:45 09/24/18 21:44 Quetiapine Fumarate (SEROquel) 25 mg Q12HR ORAL 08/29/18 09:00 09/26/18 20:59 09/01/18 09:06 Temazepam (Restoril) 15 mg HSPRN PRN ORAL Insomnia 08/28/18 21:45 09/04/18 21:44 Tramadol HCl (Ultram) 50 mg Q6H PRN ORAL mod to sever pain 08/28/18 21:45 09/02/18 21:44 Last 24 Hour Vital Signs Date Time Temp Pulse Resp B/P (MAP) Pulse Ox O2 Delivery O2 Flow Rate FiO2 09/01/18 14:11 92 158/100 09/01/18 12:00 97.6 92 20 158/100 (119) 98 09/01/18 09:06 86 139/99 09/01/18 09:00 Room Air 09/01/18 08:00 98.0 86 20 139/99 (112) 97 09/01/18 05:11 85 154/97 09/01/18 04:00 98.1 85 20 154/97 (116) 99 09/01/18 00:00 98.6 89 18 157/91 (113) 98 08/31/18 21:00 Room Air 08/31/18 20:00 98.5 90 20 160/99 (119) 99 08/31/18 16:00 98.4 64 17 141/88 (105) 95 08/31/18 14:30 Room Air 08/31/18 14:30 Room Air 08/31/18 12:00 98.9 89 19 148/90 (109) 99 08/31/18 11:02 Room Air 08/31/18 11:02 Room Air 08/31/18 09:00 Room Air 08/31/18 08:00 97.7 89 18 137/82 (100) 97 08/31/18 07:46 Room Air 08/31/18 07:46 Room Air 08/31/18 06:13 85 130/83 08/31/18 04:00 97.8 85 18 130/83 (99) 98 08/31/18 03:43 Room Air 21 08/31/18 03:43 Room Air 21 08/31/18 00:00 96.4 80 18 155/68 (97) 95 08/30/18 23:43 Room Air 21 08/30/18 23:42 Room Air 21 08/30/18 21:51 90 167/87 08/30/18 21:00 Room Air 08/30/18 20:32 90 20 97 Room Air 21 08/30/18 20:31 90 20 97 Room Air 21 08/30/18 20:00 99.3 89 18 167/87 (113) 96 08/30/18 15:50 98.0 87 19 139/89 (106) 99 08/30/18 15:23 91 18 98 Room Air 21 08/30/18 15:23 93 18 98 Room Air 21 Intake and Output 08/31/18 09/01/18 19:00 07:00 Intake Total 1240 ml 960 ml Balance 1240 ml 960 ml Intake Oral 240 ml 740 ml IV Total 220 ml Other 1000 ml # Voids 2 # Bowel Movements 1 Labs Test 08/30/18 06:22 08/30/18 06:35 08/31/18 04:55 09/01/18 05:05 White Blood Count 8.9 K/UL (4.8-10.8) 8.8 K/UL (4.8-10.8) 8.2 K/UL (4.8-10.8) Red Blood Count 4.32 M/UL (4.70-6.10) 4.14 M/UL (4.70-6.10) 4.30 M/UL (4.70-6.10) Hemoglobin 12.8 G/DL (14.2-18.0) 12.3 G/DL (14.2-18.0) 12.8 G/DL (14.2-18.0) Hematocrit 38.1 % (42.0-52.0) 36.4 % (42.0-52.0) 37.6 % (42.0-52.0) Mean Corpuscular Volume 88 FL (80-99) 88 FL (80-99) 88 FL (80-99) Mean Corpuscular Hemoglobin 29.7 PG (27.0-31.0) 29.8 PG (27.0-31.0) 29.9 PG (27.0-31.0) Mean Corpuscular Hemoglobin Concent 33.7 G/DL (32.0-36.0) 33.8 G/DL (32.0-36.0) 34.1 G/DL (32.0-36.0) Red Cell Distribution Width 12.8 % (11.6-14.8) 12.7 % (11.6-14.8) 12.7 % (11.6-14.8) Platelet Count 298 K/UL (150-450) 279 K/UL (150-450) 290 K/UL (150-450) Mean Platelet Volume 5.8 FL (6.5-10.1) 5.6 FL (6.5-10.1) 6.4 FL (6.5-10.1) Neutrophils (%) (Auto) 58.9 % (45.0-75.0) 56.9 % (45.0-75.0) 59.0 % (45.0-75.0) Lymphocytes (%) (Auto) 26.8 % (20.0-45.0) 31.0 % (20.0-45.0) 27.9 % (20.0-45.0) Monocytes (%) (Auto) 10.1 % (1.0-10.0) 7.8 % (1.0-10.0) 8.9 % (1.0-10.0) Eosinophils (%) (Auto) 2.8 % (0.0-3.0) 3.3 % (0.0-3.0) 3.1 % (0.0-3.0) Basophils (%) (Auto) 1.4 % (0.0-2.0) 1.1 % (0.0-2.0) 1.1 % (0.0-2.0) Sodium Level 139 MMOL/L (136-145) 138 MMOL/L (136-145) 139 MMOL/L (136-145) Potassium Level 4.2 MMOL/L (3.5-5.1) 4.3 MMOL/L (3.5-5.1) 3.7 MMOL/L (3.5-5.1) Chloride Level 98 MMOL/L (98-107) 97 MMOL/L (98-107) 95 MMOL/L (98-107) Carbon Dioxide Level 26 MMOL/L (21-32) 24 MMOL/L (21-32) 29 MMOL/L (21-32) Anion Gap 15 mmol/L (5-15) 17 mmol/L (5-15) 15 mmol/L (5-15) Blood Urea Nitrogen 52 mg/dL (7-18) 66 mg/dL (7-18) 43 mg/dL (7-18) Creatinine 13.7 MG/DL (0.55-1.30) 16.1 MG/DL (0.55-1.30) 12.3 MG/DL (0.55-1.30) Estimat Glomerular Filtration Rate 4.4 mL/min (>60) 3.6 mL/min (>60) 5.0 mL/min (>60) Glucose Level 90 MG/DL (74-106) 96 MG/DL (74-106) 81 MG/DL (74-106) Calcium Level 9.3 MG/DL (8.5-10.1) 8.8 MG/DL (8.5-10.1) 9.0 MG/DL (8.5-10.1) Hepatitis B Surface Antigen Negative (NEGATIVE) Height (Feet): 5 Height (Inches): 11.00 Weight (Pounds): 150 Objective PE General Appearance: WD/WN, no apparent distress, alert, thin HEENT: normocephalic, atraumatic, PERRL, EOMI, supple, no JVD, other Neck: non-tender, supple, normal inspection ++ mass on right periaricular area Respiratory/Chest: no respiratory distress EXT: no cce Julius Franco MD Sep 01, 2018 15:07
--- NOTE | 2018-09-01 15:33 | Nephrology Progress Note ---
Assessment/Plan Problem List: (1) ESRD (end stage renal disease) on dialysis (2) History of hypertension (3) Tonsillar mass (4) Tonsillar abscess Assessment ESRD Hypertensive kidney disease Pharyngitis / Tonsilar abcess / mass Plan Antibiotics BP meds and PRN meds per ID HD done 08/31 next 09/03 per ENT MRI brain wo: No acute intracranial findings.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 patricia.Moderate atrophy and evidence of chronic small vessel disease involving white matter tracts.Sinus disease Subjective ROS Limited/Unobtainable: No Objective Objective Last 24 Hour Vital Signs Date Time Temp Pulse Resp B/P (MAP) Pulse Ox O2 Delivery O2 Flow Rate FiO2 09/01/18 14:11 92 158/100 09/01/18 12:00 97.6 92 20 158/100 (119) 98 09/01/18 09:06 86 139/99 09/01/18 09:00 Room Air 09/01/18 08:00 98.0 86 20 139/99 (112) 97 09/01/18 05:11 85 154/97 09/01/18 04:00 98.1 85 20 154/97 (116) 99 09/01/18 00:00 98.6 89 18 157/91 (113) 98 08/31/18 21:00 Room Air 08/31/18 20:00 98.5 90 20 160/99 (119) 99 08/31/18 16:00 98.4 64 17 141/88 (105) 95 Intake and Output 08/31/18 09/01/18 19:00 07:00 Intake Total 1240 ml 960 ml Balance 1240 ml 960 ml Intake Oral 240 ml 740 ml IV Total 220 ml Other 1000 ml # Voids 2 # Bowel Movements 1 Laboratory Tests 09/01/18 05:05: White Blood Count 8.2, Red Blood Count 4.30L, Hemoglobin 12.8L, Hematocrit 37.6L , Mean Corpuscular Volume 88, Mean Corpuscular Hemoglobin 29.9, Mean Corpuscular Hemoglobin Concent 34.1, Red Cell Distribution Width 12.7, Platelet Count 290, Mean Platelet Volume 6.4L, Neutrophils (%) (Auto) 59.0, Lymphocytes ( %) (Auto) 27.9, Monocytes (%) (Auto) 8.9, Eosinophils (%) (Auto) 3.1H, Basophils (%) (Auto) 1.1, Sodium Level 139, Potassium Level 3.7, Chloride Level 95L, Carbon Dioxide Level 29, Anion Gap 15, Blood Urea Nitrogen 43H, Creatinine 12.3H, Estimat Glomerular Filtration Rate 5.0, Glucose Level 81, Calcium Level 9.0 Height (Feet): 5 Height (Inches): 11.00 Weight (Pounds): 150 General Appearance: no apparent distress Objective no change Tate Leong MD Sep 01, 2018 15:33
[2018-09-01 16:00] VITALS: BP_SYST 136; BP_SYST 147; BP_DIAS 91; BP_DIAS 95
[2018-09-01 16:00] LABS: ALANINE AMINOTRANSFERASE 28 U/L (12-78); ALKALINE PHOSPHATASE 87 U/L (46-116); ASPARTATE AMINO TRANSFERASE 22 U/L (15-37); BILIRUBIN,DIRECT 0.1 MG/DL (0.0-0.3); BILIRUBIN,TOTAL 0.5 MG/DL (0.2-1.0); PHOSPHORUS 5.8 MG/DL (2.5-4.9)
[2018-09-01] MEDS: Lisinopril 10mg tab ORAL SCH (16:00)
--- NOTE | 2018-09-01 17:01 | NUR ---
NURSE NOTES: Called [facility] and spoke to building equipment operator Malou. gave dialysis order for patient for 09/03/18 from [id number]. Waiting for dialysis nurse call back.
--- NOTE | 2018-09-01 18:19 | NUR ---
NURSE NOTES: Called [facility] and spoke to Mehran and advised him I did not receive a call back from the dialysis nurse. He stated he would forward the order. Awaiting confirmation.
--- NOTE | 2018-09-01 19:53 | NUR ---
HAND-OFF: Report given to ILENE Miller.
--- NOTE | 2018-09-01 19:55 | NUR ---
NURSE NOTES: Received report from ILENE Jay. Patient A&Ox4, on room air. No signs of distress or labored breathing. IV intact, patent, and saline locked. Patient has left forearm AV shunt. Bruit & thrill present. Bed in lowest position with call light in reach. Will continue with plan of care.
[2018-09-01 20:00] VITALS: BP 136/87
--- NOTE | 2018-09-01 23:00 | Neurology Progress Note ---
Interim History Interim History ROS Limited/Unobtainable: No Complaints: AMS Events: Stable MS Interim History This visit was performed on August 31, [address] Pablito Quick. Review of Systems All Systems: reviewed and negative except above Objective Physical Exam Last Vital Signs Date Time Temp Pulse Resp B/P (MAP) Pulse Ox O2 Delivery O2 Flow Rate FiO2 09/01/18 21:20 89 136/87 09/01/18 20:00 99.0 18 97 09/01/18 19:57 Room Air 21 Laboratory Tests Test 09/01/18 05:05 White Blood Count 8.2 K/UL (4.8-10.8) Red Blood Count 4.30 M/UL (4.70-6.10) L Hemoglobin 12.8 G/DL (14.2-18.0) L Hematocrit 37.6 % (42.0-52.0) L Mean Corpuscular Volume 88 FL (80-99) Mean Corpuscular Hemoglobin 29.9 PG (27.0-31.0) Mean Corpuscular Hemoglobin Concent 34.1 G/DL (32.0-36.0) Red Cell Distribution Width 12.7 % (11.6-14.8) Platelet Count 290 K/UL (150-450) Mean Platelet Volume 6.4 FL (6.5-10.1) L Neutrophils (%) (Auto) 59.0 % (45.0-75.0) Lymphocytes (%) (Auto) 27.9 % (20.0-45.0) Monocytes (%) (Auto) 8.9 % (1.0-10.0) Eosinophils (%) (Auto) 3.1 % (0.0-3.0) H Basophils (%) (Auto) 1.1 % (0.0-2.0) Sodium Level 139 MMOL/L (136-145) Potassium Level 3.7 MMOL/L (3.5-5.1) Chloride Level 95 MMOL/L (98-107) L Carbon Dioxide Level 29 MMOL/L (21-32) Anion Gap 15 mmol/L (5-15) Blood Urea Nitrogen 43 mg/dL (7-18) H Creatinine 12.3 MG/DL (0.55-1.30) H Estimat Glomerular Filtration Rate 5.0 mL/min (>60) Glucose Level 81 MG/DL (74-106) Calcium Level 9.0 MG/DL (8.5-10.1) Phosphorus Level 5.8 MG/DL (2.5-4.9) H Magnesium Level 2.0 MG/DL (1.8-2.4) Total Bilirubin 0.5 MG/DL (0.2-1.0) Direct Bilirubin 0.1 MG/DL (0.0-0.3) Aspartate Amino Transf (AST/SGOT) 22 U/L (15-37) Alanine Aminotransferase (ALT/SGPT) 28 U/L (12-78) Alkaline Phosphatase 87 U/L (46-116) Total Protein 8.6 G/DL (6.4-8.2) H Albumin 3.0 G/DL (3.4-5.0) L General: well developed, well nourished, no acute distress Head: normocophalic Neck: no rigidity EENT: benign Neurologic Exam Mental Status: awake, alert, oriented x4, normal cognition, good mathematical skills, normal recent memory, normal remote memory, preserved visuospatial function Speech: other Language: normal language, no aphasia Cranial Nerve II: fundus normal, visual martinez, no papilledema Cranial Nerves III, IV, : PERRLA, EOMI, pupils Cranial Nerve V: normal facial sensations, temporales function normal, masseters function normal, pterygoids function normal Cranial Nerve VII: no facial asymmetry, normal facial expressions Cranial Nerve VIII: normal hearing, no nystagmus Cranial Nerve IX: normal palate elevation, gag response Cranial Nerve X: no voice hoarseness Cranial Nerve XI: SCM symmetric, trapezii function normal Cranial Nerve XII: tongue midline, no tongue atrophy/fasciculations Motor System: normal muscle tone, strength 5/5, no involuntary movement, no muscle wasting Sensory: normal pinprick, normal light touch, normal position sense, normal graphesthesia Coordination: normal finger to nose bilaterally, normal heel to amador bilaterally, negative Romberg test Deep Tendon Reflexes: 2+ bicep (L), 2+ bicep (R), 2+ tricep (L), 2+ tricep (R) , 2+ brachioradialis (L), 2+ brachioradialis (R), 2+ knee (L), 2+ knee (R), 2+ ankle (L), 2+ ankle (R) Reflexes: flexor plantar (L), flexor plantar (R); extensor plantar (L), extensor plantar (R) Stance: normal Gait: stable, normal regular Objective Patient has large mass at back of oropharynx/ base of tongue and is dysarthric secondary to this He denies any significant issues eating but reports discomfort and denies impedement of breathing with mass. He is following all commands with generalized non focal weakness - He is alert and oriented as per baseline. 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 Status: stable, tolerating diet Recommendations Q4 Neuro obs PT Eval Abx as per ID SBP< 140 Continue to track/ trend BUN/ Cr Mgmt as per Nephrology IV Hydration Na 135-145 Swallow Eval PT Katie Bingham N.P. Sep 01, 2018 23:00
[2018-09-02] VITALS: BP 137/84
[2018-09-02 04:00] VITALS: BP 136/82
--- NOTE | 2018-09-02 05:58 | NUR ---
NURSE NOTES: Called [facility] to confirm dialysis for 09/03/18. Spoke to Shirlene. Shirlene stated dialysis nurse, Beto, will call back to confirm.
[2018-09-02 07:24] LABS: BASOPHILS % (AUTO) 1.4 % (0.0-2.0); EOSINOPHILS % (AUTO) 3.8 % (0.0-3.0); HEMATOCRIT 37.7 % (42.0-52.0); HEMOGLOBIN 12.3 G/DL (14.2-18.0); LYMPHOCYTES % (AUTO) 31.8 % (20.0-45.0); MEAN CORPUSCULAR VOLUME 88 FL (80-99); MONOCYTES % (AUTO) 11.4 % (1.0-10.0); NEUTROPHILS % (AUTO) 51.7 % (45.0-75.0); PLATELET COUNT 274 K/UL (150-450); RED BLOOD COUNT 4.29 M/UL (4.70-6.10); RED CELL DISTRIBUTION WIDTH 13.3 % (11.6-14.8)
--- NOTE | 2018-09-02 07:30 | NUR ---
NURSE NOTES: received patient awake,alert,oriented x4, no sign of distres, HL Patent and,AV Shunt to Lt LA intact, skin warm and dry,on fall precaution, bed lock in lowest position , Instructed patient to call for assistance when in need,will continue with plans of care, kept clean dry and comfortable in bed, janee graham
--- NOTE | 2018-09-02 07:31 | NUR ---
HAND-OFF: Report given to ILENE Parry.
[2018-09-02 07:39] LABS: ANION GAP 15 mmol/L (5-15); BLOOD UREA NITROGEN 52 mg/dL (7-18); CALCIUM 8.5 MG/DL (8.5-10.1); CARBON DIOXIDE 27 MMOL/L (21-32); CHLORIDE 96 MMOL/L (98-107); CREATININE 15.1 MG/DL (0.55-1.30); POTASSIUM 4.5 MMOL/L (3.5-5.1); SODIUM 138 MMOL/L (136-145)
[2018-09-02 08:00] VITALS: BP 161/91
[2018-09-02] MEDS: Sensipar 30mg Tab ORAL SCH (08:10)
[2018-09-02] MEDS: Heparin 5000 units/ml inj SUBQ SCH (08:10)
[2018-09-02] MEDS: Lisinopril 10mg tab ORAL SCH (08:10)
[2018-09-02] MEDS: Ampicillin/Sulbactam Sod 3 GM in NS 110 ML IVPB SCH (10:05)
--- NOTE | 2018-09-02 10:42 | Nephrology Progress Note ---
Assessment/Plan Problem List: (1) ESRD (end stage renal disease) on dialysis (2) History of hypertension (3) Tonsillar mass (4) Tonsillar abscess Assessment ESRD Hypertensive kidney disease Pharyngitis / Tonsilar abcess / mass Plan Antibiotics BP meds and PRN meds per ID HD done 08/31 next 09/03 per ENT MRI brain wo: No acute intracranial findings.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 patricia.Moderate atrophy and evidence of chronic small vessel disease involving white matter tracts.Sinus disease Subjective ROS Limited/Unobtainable: No Constitutional: Reports: malaise Objective Objective Last 24 Hour Vital Signs Date Time Temp Pulse Resp B/P (MAP) Pulse Ox O2 Delivery O2 Flow Rate FiO2 09/02/18 08:46 09/02/18 08:20 Room Air 09/02/18 08:10 136/82 09/02/18 08:10 87 136/82 09/02/18 08:00 97.9 79 18 161/91 (114) 98 09/02/18 05:40 87 136/82 09/02/18 04:00 97.9 87 18 136/82 (100) 98 09/02/18 00:00 98.1 84 18 137/84 (101) 96 09/01/18 21:20 89 136/87 09/01/18 21:00 Room Air 09/01/18 20:00 99.0 89 18 136/87 (103) 97 09/01/18 19:57 91 18 98 Room Air 21 09/01/18 16:00 97.8 90 20 147/91 (109) 99 09/01/18 16:00 98.6 108 20 136/95 (109) 96 09/01/18 16:00 147/91 09/01/18 14:11 92 158/100 09/01/18 12:00 97.6 92 20 158/100 (119) 98 Intake and Output 09/01/18 09/02/18 18:59 06:59 Intake Total 810 ml 360 ml Output Total 700 ml Balance 110 ml 360 ml Intake Oral 700 ml 250 ml IV Total 110 ml 110 ml Output Urine Total 700 ml # Bowel Movements 1 Laboratory Tests 09/02/18 06:50: White Blood Count 7.0, Red Blood Count 4.29L, Hemoglobin 12.3L, Hematocrit 37.7L , Mean Corpuscular Volume 88, Mean Corpuscular Hemoglobin 28.7, Mean Corpuscular Hemoglobin Concent 32.7, Red Cell Distribution Width 13.3, Platelet Count 274, Mean Platelet Volume 5.8L, Neutrophils (%) (Auto) 51.7, Lymphocytes ( %) (Auto) 31.8, Monocytes (%) (Auto) 11.4H, Eosinophils (%) (Auto) 3.8H, Basophils (%) (Auto) 1.4, Sodium Level 138, Potassium Level 4.5, Chloride Level 96L, Carbon Dioxide Level 27, Anion Gap 15, Blood Urea Nitrogen 52H, Creatinine 15.1H, Estimat Glomerular Filtration Rate 3.9, Glucose Level 96, Calcium Level 8.5, Phosphorus Level 7.9H Height (Feet): 5 Height (Inches): 11.00 Weight (Pounds): 150 General Appearance: no apparent distress Objective no change Tate Leong MD Sep 02, 2018 10:42
[2018-09-02 10:56] LABS: ALANINE AMINOTRANSFERASE 26 U/L (12-78); ALBUMIN 2.8 G/DL (3.4-5.0); ALKALINE PHOSPHATASE 81 U/L (46-116); ASPARTATE AMINO TRANSFERASE 19 U/L (15-37); BILIRUBIN,DIRECT 0.1 MG/DL (0.0-0.3); BILIRUBIN,TOTAL 0.5 MG/DL (0.2-1.0)
--- NOTE | 2018-09-02 11:54 | Pulmonology Progress Note ---
Assessment/Plan Problems: (1) Acute encephalopathy (2) Acute psychosis (3) Tonsillar abscess (4) Tonsillar mass (5) Dysphagia (6) ESRD (end stage renal disease) on dialysis (7) History of hypertension (8) History of smoking Assessment/Plan no new complains MRI of brain: Impression: No acute intracranial findings. 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 Moderate atrophy and evidence of chronic small vessel disease involving white matter tracts. continue abx check cultures HD by component assembler. monitor BP, controlled dc planning Subjective ROS Limited/Unobtainable: No Constitutional: Reports: no symptoms HEENT: Repors: no symptoms Respiratory: Reports: no symptoms Allergies: Coded Allergies: No Known Allergies (Unverified , 08/25/18) Objective Last 24 Hour Vital Signs Date Time Temp Pulse Resp B/P (MAP) Pulse Ox O2 Delivery O2 Flow Rate FiO2 09/02/18 09:53 88 16 99 Room Air 21 09/02/18 08:46 09/02/18 08:20 Room Air 09/02/18 08:10 136/82 09/02/18 08:10 87 136/82 09/02/18 08:00 97.9 79 18 161/91 (114) 98 09/02/18 05:40 87 136/82 09/02/18 04:00 97.9 87 18 136/82 (100) 98 09/02/18 00:00 98.1 84 18 137/84 (101) 96 09/01/18 21:20 89 136/87 09/01/18 21:00 Room Air 09/01/18 20:00 99.0 89 18 136/87 (103) 97 09/01/18 19:57 91 18 98 Room Air 21 09/01/18 16:00 97.8 90 20 147/91 (109) 99 09/01/18 16:00 98.6 108 20 136/95 (109) 96 09/01/18 16:00 147/91 09/01/18 14:11 92 158/100 09/01/18 12:00 97.6 92 20 158/100 (119) 98 Intake and Output 09/01/18 09/02/18 18:59 06:59 Intake Total 810 ml 360 ml Output Total 700 ml Balance 110 ml 360 ml Intake Oral 700 ml 250 ml IV Total 110 ml 110 ml Output Urine Total 700 ml # Bowel Movements 1 Objective less confused HEENT: normocephalic, atraumatic Respiratory/Chest: chest wall non-tender, lungs clear Cardiovascular: normal peripheral pulses, normal rate Abdomen: normal bowel sounds, non distended Extremities: no clubbing Skin: no ulcers Laboratory Tests 09/02/18 06:50: White Blood Count 7.0, Red Blood Count 4.29L, Hemoglobin 12.3L, Hematocrit 37.7L , Mean Corpuscular Volume 88, Mean Corpuscular Hemoglobin 28.7, Mean Corpuscular Hemoglobin Concent 32.7, Red Cell Distribution Width 13.3, Platelet Count 274, Mean Platelet Volume 5.8L, Neutrophils (%) (Auto) 51.7, Lymphocytes ( %) (Auto) 31.8, Monocytes (%) (Auto) 11.4H, Eosinophils (%) (Auto) 3.8H, Basophils (%) (Auto) 1.4, Sodium Level 138, Potassium Level 4.5, Chloride Level 96L, Carbon Dioxide Level 27, Anion Gap 15, Blood Urea Nitrogen 52H, Creatinine 15.1H, Estimat Glomerular Filtration Rate 3.9, Glucose Level 96, Calcium Level 8.5, Phosphorus Level 7.9H, Total Bilirubin 0.5, Direct Bilirubin 0.1, Aspartate Amino Transf (AST/SGOT) 19, Alanine Aminotransferase (ALT/SGPT) 26, Alkaline Phosphatase 81, Total Protein 7.8, Albumin 2.8L Current Medications Medications (Trade) Dose Ordered Sig/Shayan Route PRN Reason Start Time Stop Time Status Last Admin Dose Admin Acetaminophen (Tylenol) 650 mg Q4H PRN ORAL T>100.5 08/28/18 21:30 09/24/18 21:29 Albuterol/ Ipratropium (Albuterol/ Ipratropium) 3 ml Q4H PRN HHN Shortness of Breath 08/31/18 10:45 09/05/18 10:44 Amlodipine Besylate (Norvasc) 10 mg DAILY ORAL 08/29/18 09:00 09/25/18 08:59 09/02/18 08:10 Ampicillin Sodium/ Sulbactam Sodium 3 gm/Sodium Chloride 110 ml @ 220 mls/hr Q12HR@1100,2300 IVPB 08/28/18 23:00 09/07/18 22:59 09/02/18 10:05 Cinacalcet (Sensipar) 30 mg DAILY ORAL 08/29/18 09:00 09/25/18 08:59 09/02/18 08:10 Docusate Sodium (Colace) 100 mg THREE TIMES A DAY ORAL 09/02/18 13:00 10/02/18 12:59 Heparin Sodium (Porcine) (Heparin 5000 units/ml) 5,000 units EVERY 12 HOURS SUBQ 08/29/18 09:00 09/24/18 20:59 08/30/18 08:20 Labetalol HCl (Normodyne) 300 mg Q8HR ORAL 08/28/18 22:00 09/27/18 13:59 09/02/18 05:40 Lisinopril (Zestril) 10 mg DAILY ORAL 09/01/18 15:45 10/01/18 15:44 09/02/18 08:10 Nitroglycerin (Ntg) 0.4 mg Q5M PRN SL Prn Chest Pain 08/28/18 21:35 09/24/18 19:29 Ondansetron HCl (Zofran) 4 mg Q6H PRN IVP Nausea & Vomiting 08/28/18 21:45 09/27/18 21:44 Pantoprazole (Protonix) 40 mg DAILY ORAL 08/29/18 09:00 09/25/18 10:59 09/02/18 08:10 Polyethylene Glycol (Miralax) 17 gm DAILYPRN PRN ORAL Constipation 08/28/18 21:30 09/27/18 21:29 Promethazine HCl/ Codeine (Phenergan with Codeine) 5 ml Q4H PRN ORAL For Cough 08/28/18 21:45 09/24/18 21:44 Quetiapine Fumarate (SEROquel) 25 mg Q12HR ORAL 08/29/18 09:00 09/26/18 20:59 09/02/18 08:10 Sevelamer Carbonate (Renvela) 1,600 mg THREE TIMES A DAY ORAL 09/02/18 13:00 10/02/18 12:59 Temazepam (Restoril) 15 mg HSPRN PRN ORAL Insomnia 08/28/18 21:45 09/04/18 21:44 Tramadol HCl (Ultram) 50 mg Q6H PRN ORAL mod to sever pain 08/28/18 21:45 09/02/18 21:44 Salazar Horvath MD Sep 02, 2018 11:54
--- NOTE | 2018-09-02 12:12 | NUR ---
RD ASSESSMENT & RECOMMENDATIONS SEE CARE ACTIVITY FOR COMPLETE ASSESSMENT DAILY ESTIMATED NEEDS: Needs based on ESRD on HD 70kg 30-35 kcals/kg 7080-7480 total kcals 1.2-1.8 g protein/kg 84-126 g total protein Fluid per MD, on Hd NUTRITION DIAGNOSIS: Increased kcal and pro needs r/t ESRD as evidenced by pt on dialysis, w/ generalized mild to moderate wasting. CURRENT DIET:RENAL, regular PO DIET RECOMMENDATIONS: RENAL DIET (texture per LURER) ADDITIONAL RECOMMENDATIONS: 1) Add snacks in b/w meals 2) Add NEPRO x1 daily (425 kcal/19g pro each) 3) Obtain a calibrated bed scale or standing wt as able 4) Monitor lytes and renal fxn: Phos elev (7.9), on phos binder TID
[2018-09-02] MEDS: Docusate 100mg cap ORAL SCH ×2 (12:17→17:10)
[2018-09-02 12:28] VITALS: BP 148/82
--- NOTE | 2018-09-02 13:33 | General Progress Note ---
Assessment/Plan Problem List: (1) ESRD (end stage renal disease) on dialysis ICD Codes: N18.6 - End stage renal disease; Z99.2 - Dependence on renal dialysis SNOMED: 569153617 (2) History of smoking ICD Codes: Z87.891 - Personal history of nicotine dependence SNOMED: 465983094 (3) History of hypertension ICD Codes: Z86.79 - Personal history of other diseases of the circulatory system SNOMED: 743281152 (4) Tonsillar abscess ICD Codes: J36 - Peritonsillar abscess; Z99.2 - Dependence on renal dialysis SNOMED: 30435484 (5) Tonsillar mass ICD Codes: R22.0 - Localized swelling, mass and lump, head SNOMED: 567800498 (6) Dysphagia ICD Codes: R13.10 - Dysphagia, unspecified SNOMED: 27120164, 799032693 (7) Acute encephalopathy ICD Codes: G93.40 - Encephalopathy, unspecified SNOMED: 12975620, 838850487 Status: stable, progressing Assessment/Plan: pt diet neuro f/u abx per id ent f/u dc to [facility] Subjective Constitutional: Reports: weakness Allergies: Coded Allergies: No Known Allergies (Unverified , 08/25/18) All Systems: reviewed and negative except above Subjective sleepy in bed calm Objective Last 24 Hour Vital Signs Date Time Temp Pulse Resp B/P (MAP) Pulse Ox O2 Delivery O2 Flow Rate FiO2 09/02/18 13:01 87 148/82 09/02/18 12:28 98.2 87 20 148/82 (104) 98 09/02/18 09:53 88 16 99 Room Air 21 09/02/18 08:46 09/02/18 08:20 Room Air 09/02/18 08:10 136/82 09/02/18 08:10 87 136/82 09/02/18 08:00 97.9 79 18 161/91 (114) 98 09/02/18 05:40 87 136/82 09/02/18 04:00 97.9 87 18 136/82 (100) 98 09/02/18 00:00 98.1 84 18 137/84 (101) 96 09/01/18 21:20 89 136/87 09/01/18 21:00 Room Air 09/01/18 20:00 99.0 89 18 136/87 (103) 97 09/01/18 19:57 91 18 98 Room Air 21 09/01/18 16:00 97.8 90 20 147/91 (109) 99 09/01/18 16:00 98.6 108 20 136/95 (109) 96 09/01/18 16:00 147/91 09/01/18 14:11 92 158/100 Intake and Output 09/01/18 09/02/18 18:59 06:59 Intake Total 810 ml 360 ml Output Total 700 ml Balance 110 ml 360 ml Intake Oral 700 ml 250 ml IV Total 110 ml 110 ml Output Urine Total 700 ml # Bowel Movements 1 Laboratory Tests 09/02/18 06:50: White Blood Count 7.0, Red Blood Count 4.29L, Hemoglobin 12.3L, Hematocrit 37.7L , Mean Corpuscular Volume 88, Mean Corpuscular Hemoglobin 28.7, Mean Corpuscular Hemoglobin Concent 32.7, Red Cell Distribution Width 13.3, Platelet Count 274, Mean Platelet Volume 5.8L, Neutrophils (%) (Auto) 51.7, Lymphocytes ( %) (Auto) 31.8, Monocytes (%) (Auto) 11.4H, Eosinophils (%) (Auto) 3.8H, Basophils (%) (Auto) 1.4, Sodium Level 138, Potassium Level 4.5, Chloride Level 96L, Carbon Dioxide Level 27, Anion Gap 15, Blood Urea Nitrogen 52H, Creatinine 15.1H, Estimat Glomerular Filtration Rate 3.9, Glucose Level 96, Calcium Level 8.5, Phosphorus Level 7.9H, Total Bilirubin 0.5, Direct Bilirubin 0.1, Aspartate Amino Transf (AST/SGOT) 19, Alanine Aminotransferase (ALT/SGPT) 26, Alkaline Phosphatase 81, Total Protein 7.8, Albumin 2.8L Height (Feet): 5 Height (Inches): 11.00 Weight (Pounds): 150 General Appearance: lethargic EENT: normal ENT inspection Neck: normal alignment Cardiovascular: normal peripheral pulses, normal rate, regular rhythm Respiratory/Chest: chest wall non-tender, lungs clear, normal breath sounds Abdomen: normal bowel sounds, non tender, soft Extremities: normal inspection Edema: no edema noted Arm (L), no edema noted Arm (R), no edema noted Leg (L), no edema noted Leg (R), no edema noted Pedal (L), no edema noted Pedal (R), no edema noted Generalized Neurologic: motor weakness Skin: normal pigmentation, warm/dry Chaim Borjas DO Sep 02, 2018 13:33
[2018-09-02] MEDS ORDERED: TRAMADOL HCL100 M2 (13:39)
[2018-09-02] MEDS ORDERED: TRAMADOL HCL50 MG ORAL (13:40)
[2018-09-02] MEDS ORDERED: ZOFRAN 4 MG4 MG/2 ML IV ×2 (13:54→13:56)
[2018-09-02] MEDS ORDERED: MIRALAX17 G2 ORAL ×3 (13:54→13:57)
[2018-09-02] MEDS ORDERED: LISINOPRIL5 MG ORAL (13:58)
[2018-09-02] MEDS ORDERED: TYLENOL325 MG ORAL (13:58)
[2018-09-02] MEDS ORDERED: RENVELA800 MG ORAL (13:59)
[2018-09-02] MEDS ORDERED: COLACE100 MG ORAL ×2 (13:59→14:07)
[2018-09-02] MEDS ORDERED: PROTONIX40 M2 GT (13:59)
[2018-09-02] MEDS ORDERED: SEROQUEL50 MG ORAL ×2 (14:00→14:04)
[2018-09-02] MEDS ORDERED: HEPARIN SO5000 UNIT2 SUBQ ×2 (14:02→14:08)
[2018-09-02] MEDS ORDERED: UNASYN 3 GM VIAL3 GM IVPB ×2 (14:03→14:04)
[2018-09-02] MEDS ORDERED: LISINOPRIL20 MG ORAL (14:07)
[2018-09-02] MEDS ORDERED: PROTONIX IV40 MG IV (14:07)
--- NOTE | 2018-09-02 15:34 | NUR ---
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
[2018-09-02] MEDS ORDERED: AUGMENTIN 500-1 EACH ORAL ×2 (16:43→16:44)
[2018-09-02 16:50] VITALS: BP 149/92
--- NOTE | 2018-09-02 17:45 | Infectious Diseases Prog Note ---
Assessment/Plan Assessment/Plan Assessment: Possible Throat mass with superimposed infection - CT neck/maxillofacial: Enlarged right palatine tonsil with rim-enhancing hypodense structure within the tonsil partially visualized, concerning for tonsillitis with abscess. Please see accompanying CT face. 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 Subjective Constitutional: Denies: no symptoms, fever, chills, fatigue, anorexia, drenching sweats, other Allergies: Coded Allergies: No Known Allergies (Unverified , 08/25/18) Subjective sore throat has improved comfortable Objective Vital Signs Last 24 Hour Vital Signs Date Time Temp Pulse Resp B/P (MAP) Pulse Ox O2 Delivery O2 Flow Rate FiO2 09/02/18 13:01 87 148/82 09/02/18 12:28 98.2 87 20 148/82 (104) 98 09/02/18 09:53 88 16 99 Room Air 21 09/02/18 08:46 09/02/18 08:20 Room Air 09/02/18 08:10 136/82 09/02/18 08:10 87 136/82 09/02/18 08:00 97.9 79 18 161/91 (114) 98 09/02/18 05:40 87 136/82 09/02/18 04:00 97.9 87 18 136/82 (100) 98 09/02/18 00:00 98.1 84 18 137/84 (101) 96 09/01/18 21:20 89 136/87 09/01/18 21:00 Room Air 09/01/18 20:00 99.0 89 18 136/87 (103) 97 09/01/18 19:57 91 18 98 Room Air 21 Height (Feet): 5 Height (Inches): 11.00 Weight (Pounds): 150 HEENT: atraumatic Respiratory/Chest: lungs clear Cardiovascular: normal rate Abdomen: soft, non tender Laboratory Tests Test 09/02/18 06:50 White Blood Count 7.0 K/UL (4.8-10.8) Red Blood Count 4.29 M/UL (4.70-6.10) L Hemoglobin 12.3 G/DL (14.2-18.0) L Hematocrit 37.7 % (42.0-52.0) L Mean Corpuscular Volume 88 FL (80-99) Mean Corpuscular Hemoglobin 28.7 PG (27.0-31.0) Mean Corpuscular Hemoglobin Concent 32.7 G/DL (32.0-36.0) Red Cell Distribution Width 13.3 % (11.6-14.8) Platelet Count 274 K/UL (150-450) Mean Platelet Volume 5.8 FL (6.5-10.1) L Neutrophils (%) (Auto) 51.7 % (45.0-75.0) Lymphocytes (%) (Auto) 31.8 % (20.0-45.0) Monocytes (%) (Auto) 11.4 % (1.0-10.0) H Eosinophils (%) (Auto) 3.8 % (0.0-3.0) H Basophils (%) (Auto) 1.4 % (0.0-2.0) Sodium Level 138 MMOL/L (136-145) Potassium Level 4.5 MMOL/L (3.5-5.1) Chloride Level 96 MMOL/L (98-107) L Carbon Dioxide Level 27 MMOL/L (21-32) Anion Gap 15 mmol/L (5-15) Blood Urea Nitrogen 52 mg/dL (7-18) H Creatinine 15.1 MG/DL (0.55-1.30) H Estimat Glomerular Filtration Rate 3.9 mL/min (>60) Glucose Level 96 MG/DL (74-106) Calcium Level 8.5 MG/DL (8.5-10.1) Phosphorus Level 7.9 MG/DL (2.5-4.9) H Total Bilirubin 0.5 MG/DL (0.2-1.0) Direct Bilirubin 0.1 MG/DL (0.0-0.3) Aspartate Amino Transf (AST/SGOT) 19 U/L (15-37) Alanine Aminotransferase (ALT/SGPT) 26 U/L (12-78) Alkaline Phosphatase 81 U/L (46-116) Total Protein 7.8 G/DL (6.4-8.2) Albumin 2.8 G/DL (3.4-5.0) L Current Medications Medications (Trade) Dose Ordered Sig/Shayan Route PRN Reason Start Time Stop Time Status Last Admin Dose Admin Acetaminophen (Tylenol) 650 mg Q4H PRN ORAL T>100.5 08/28/18 21:30 09/24/18 21:29 Albuterol/ Ipratropium (Albuterol/ Ipratropium) 3 ml Q4H PRN HHN Shortness of Breath 08/31/18 10:45 09/05/18 10:44 Amlodipine Besylate (Norvasc) 10 mg DAILY ORAL 08/29/18 09:00 09/25/18 08:59 09/02/18 08:10 Ampicillin Sodium/ Sulbactam Sodium 3 gm/Sodium Chloride 110 ml @ 220 mls/hr Q12HR@1100,2300 IVPB 08/28/18 23:00 09/07/18 22:59 09/02/18 10:05 Cinacalcet (Sensipar) 30 mg DAILY ORAL 08/29/18 09:00 09/25/18 08:59 09/02/18 08:10 Docusate Sodium (Colace) 100 mg THREE TIMES A DAY ORAL 09/02/18 13:00 10/02/18 12:59 09/02/18 17:10 Heparin Sodium (Porcine) (Heparin 5000 units/ml) 5,000 units EVERY 12 HOURS SUBQ 08/29/18 09:00 09/24/18 20:59 08/30/18 08:20 Labetalol HCl (Normodyne) 300 mg Q8HR ORAL 08/28/18 22:00 09/27/18 13:59 09/02/18 13:01 Lisinopril (Zestril) 10 mg DAILY ORAL 09/01/18 15:45 10/01/18 15:44 09/02/18 08:10 Nitroglycerin (Ntg) 0.4 mg Q5M PRN SL Prn Chest Pain 08/28/18 21:35 09/24/18 19:29 Ondansetron HCl (Zofran) 4 mg Q6H PRN IVP Nausea & Vomiting 08/28/18 21:45 09/27/18 21:44 Pantoprazole (Protonix) 40 mg DAILY ORAL 08/29/18 09:00 09/25/18 10:59 09/02/18 08:10 Polyethylene Glycol (Miralax) 17 gm DAILYPRN PRN ORAL Constipation 08/28/18 21:30 09/27/18 21:29 Promethazine HCl/ Codeine (Phenergan with Codeine) 5 ml Q4H PRN ORAL For Cough 08/28/18 21:45 09/24/18 21:44 Quetiapine Fumarate (SEROquel) 25 mg Q12HR ORAL 08/29/18 09:00 09/26/18 20:59 09/02/18 08:10 Sevelamer Carbonate (Renvela) 1,600 mg THREE TIMES A DAY ORAL 09/02/18 13:00 10/02/18 12:59 09/02/18 17:10 Temazepam (Restoril) 15 mg HSPRN PRN ORAL Insomnia 08/28/18 21:45 09/04/18 21:44 Tramadol HCl (Ultram) 50 mg Q6H PRN ORAL mod to sever pain 08/28/18 21:45 09/02/18 21:44 Derrick La MD Sep 02, 2018 17:45
--- NOTE | 2018-09-02 18:37 | NUR ---
nurse notes patient accepted at [facility], Patient agreed with the plan of care, report given to Oliva accordingly 1836 discharged in stable condition with all belongings taken accompanied by ambulance , discharged vis ambulance report given to ambulance personnel accordingly janee graham
[2018-09-02] MEDS ORDERED: NS 275ml ONE (18:39)
--- NOTE | 2018-09-03 13:05 | Discharge Summary ---
Discharge Summary Discharge Summary _ DATE OF ADMISSION: 08/25/2018 DATE OF DISCHARGE: 09/02/2018 DISCHARGED BY: Dr Dwyer REASON FOR ADMISSION: 68 years old male with past medical history of end-stage renal disease, on hemodialysis, anemia, hyperparathyroidism, history of smoking presented to the emergency room for evaluation due to throat pain and swelling for one week. Patient reported difficulty swallowing. He denied fever or chills. Throat pain reported dull , nonradiating , 8 out of 10. He denied cough. Vital signs were relatively stable with heart rate 102 , blood pressure 142/87 , no fever. Neck CT scan revealed enlarged right palatine tonsil with rim- enhancing hypodense structure within the tonsil , partially visualized. Concern for tonsillitis with abscess. CT scan of facial bone revealed enlargement of the right palatine tonsil with phlegmon and abscess , measuring 2.6 x 2.8 x 4.4 cm. Narrowing of the oropharynx. Laboratory work-up revealed leukocytosis WBC 16.2, stable hemoglobin and hematocrit. Neutrophils 79.6. BUN 38, creatinine 11.5, consistent with known history of end-stage renal disease. Phosphorus 5.3, calcium 10.4, stable LFT . Albumin 3.1. Patient subsequently admitted for management of tonsillar abscess. [employer] hydrodynamics teacher Dr. Riojas neurologist Dr. Quick pulmonary Dr. Horvath ID specialist Dr. La good humor vendor Dr. Leong mechanical engineer/oncologist Dr. Franco ENT specialist Dr. Blanco HOSPITAL COURSE: Patient admitted to medical surgical floor and started on broad-spectrum antibiotics. Infectious disease specialist and iuss master analyst followed. Airway was closely monitored and remained patent. Symptomatic treatment provided. Supplemental oxygen provided as needed to keep pulse oximetry above 92%. Pulmonary toilet was on standby as needed. Pulse oximetry remained stable on room air. Blood cultures were negative. Throat culture revealed no evidence of beta-hemolytic strep. Sputum culture was negative. Chest x-ray revealed no acute cardiopulmonary pathology. Antibiotic regimen optimized as per ID specialist recommendation. Patient was on IV Unasyn while in the hospital and switched to oral Augmentin upon transfer to complete the course. Patient was counseled on abstinence from smoking. DVT and GI prophylaxis provided. Blood pressure was managed with calcium channel aron and BIANKA inhibitor. Hemodialysis provided as per good humor vendor recommendations with close monitoring of volumes and cardiorenal parameters. Electrolytes corrected as needed Sensipar continued for hyperparathyroidism. ENT specialist seen and evaluated patient. Per ENT specialist, exam was very difficult to visualize pharynx , giving tongue position. ENT specialist reviewed the CT scan and the irregularity made him concerned for malignancy. Importance of follow-up with the ENT was explained to the patient, who will follow-up as outpatient with ENT specialist in 1 week for scope and possible return to OR for triple endoscopy with biopsy. Neurology consult was requested secondary to disorientation and confusion after dialysis. 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 Neuro-checks were monitored initially every 4 hours as per neurologist recommendation. Mental status improved. Strict aspiration precaution maintained. Diet texture provided as per speech therapist recommendation strict aspiration precaution and one-to-one supervision. Protein supplement implemented and plan of care as per registered dietitian recommendation. Bowel regimen instituted. Leukocytosis resolved patient afebrile. Patient received steroid dose , which initially made leukocytosis go up, but in the following days leukocytosis resolved. Dysphagia improved, likely was secondary to the abscess. Oncologist followed. Recommended to complete antibiotics and encourage follow-up with a ENT specialist for further work-up. Patient was working with physical therapy. Patient require placement. Placement was arranged to [facility] to acute rehabilitation unit. Patient was stable for transfer. FINAL DIAGNOSES: Acute encephalopathy Tonsillar abscess , possible mass End-stage renal disease, on hemodialysis Hypertensive kidney disease History of smoking Dysphagia Protein calorie malnutrition Hyperparathyroidism DISCHARGE MEDICATIONS: See Medication Reconciliation list. DISCHARGE INSTRUCTIONS: Patient was discharged to acute rehabilitation unit at [facility] at [place]. Follow-up with medical doctor at the facility. Shannan Bryant NP Sep 03, 2018 13:05
== END 2018-09-02 18:40 | disposition short-term general hospital (02) | DRG 152 ==
LOC: EMR 17:00 → 2W 19:02 → EDBEDREQ 19:54 → 2W 08-26 09:50 → 4E 08-28 21:27
PROC: 5A1D70Z Performance of Urinary Filtration, Intermittent, Less than 6 Hours Per Day (ICD-10-PCS; principal; 2018-08-26)
DX: J36 Peritonsillar abscess (principal); N18.6 End stage renal disease; I12.0 Hypertensive chronic kidney disease with stage 5 chronic kidney disease or end stage renal disease; E46 Unspecified protein-calorie malnutrition; G93.40 Encephalopathy, unspecified; F23 Brief psychotic disorder; Z87.891 Personal history of nicotine dependence; Z68.20 Body mass index [BMI] 20.0-20.9, adult; R13.10 Dysphagia, unspecified; E21.3 Hyperparathyroidism, unspecified; Z99.2 Dependence on renal dialysis; E83.52 Hypercalcemia; Z86.73 Personal history of transient ischemic attack (TIA), and cerebral infarction without residual deficits
CPT/HCPCS: 36415; 36600; 70488; 70491; 70551; 71045; 80048; 80053; 80061; 80069; 80076; 82803; 82962; 83036; 83735; 83880; 83970; 84100; 84165; 84443; 84484; 84550; 85007; 85025; 85610; 85730; 86140; 86706; 87040; 87070; 87081; 87205; 93005; 93306; 94664; 96365; 96375; 99291; S0077

== ENCOUNTER 2020-01-05 18:01 | Emergency (ER) | payer MEDICARE, OTHER ==
[~2020-01-05] VITALS: Ht 180.3 cm; Wt 63.5 kg
[~2020-01-05 18:01] MED LIST: AMLODIPINE BESY10 MG ORAL; ASPIR 8181 MG ORAL; AUGMENTIN 500-1 EACH ORAL; COLACE100 MG ORAL; DIALYVITE TABL1 EAC1 PO; HEPARIN SO5000 UNIT2 SUBQ; LABETALOL HCL300 MG ORAL; LISINOPRIL20 MG ORAL; LISINOPRIL5 MG ORAL; MIRALAX17 G2 ORAL; PROTONIX IV40 MG IV; PROTONIX40 M2 GT; RENVELA800 MG ORAL; SENSIPAR30 MG ORAL; SEROQUEL50 MG ORAL; TRAMADOL HCL100 M2; TRAMADOL HCL50 MG ORAL; TYLENOL325 MG ORAL; UNASYN 3 GM VIAL3 GM IVPB; VELPHORO500 MG PO; ZOFRAN 4 MG4 MG/2 ML IV
[2020-01-05 18:35] VITALS: BP 152/96
--- NOTE | 2020-01-05 19:04 | Emergency Room Report ---
History of Present Illness General Chief Complaint: Dyspnea/Respdistress Source: Patient Present Illness HPI 69-year-old male history of hypertension hyperlipidemia, end-stage renal disease, dialysis Sunday presents with shortness of breath, chest pain, buzzing, constant, no known aggravating relieving factors severity is mild, patient also endorses coming shortness of breath this is been ongoing for about 2 to 3 weeks Allergies: Coded Allergies: No Known Allergies (Unverified , 08/25/18) COVID-19 Screening Contact w/high risk pt: No Experienced COVID-19 symptoms?: No COVID-19 Testing performed AUTOMOTIVE MECHANIC: No Patient History Past Medical History: see triage record Reviewed Nursing Documentation: PMH: Agreed; PSxH: Agreed Nursing Documentation-PMH Hx Cardiac Problems: No - HD T-TH-SAT Hx Cancer: No Hx Gastrointestinal Problems: No Hx Dialysis: Yes - T, , Sat Hx Neurological Problems: No Review of Systems All Other Systems: negative except mentioned in HPI Physical Exam Vital Signs Date Time Temp Pulse Resp B/P (MAP) Pulse Ox O2 Delivery O2 Flow Rate FiO2 01/05/20 18:19 98.8 81 18 159/97 (117) 96 Room Air 01/05/20 18:35 98 Sp02 EP Interpretation: reviewed, normal General Appearance: well appearing, no apparent distress, alert Head: normocephalic, atraumatic Eyes: bilateral eye PERRL, bilateral eye EOMI ENT: uvula midline, moist mucus membranes Neck: supple, thyroid normal, supple/symm/no masses Respiratory: lungs clear, no respiratory distress, no retraction, no accessory muscle use Cardiovascular #1: normal peripheral pulses, regular rate, rhythm, no edema, no gallop, no murmur Gastrointestinal: non tender, soft, no guarding, no rebound Musculoskeletal: normal inspection Neurologic: alert, oriented x3 Psychiatric: mood/affect normal Skin: no rash, warm/dry Medical Decision Making Diagnostic Impression: Primary Impression: Chest pain Qualified Codes: R07.9 - Chest pain, unspecified ER Course 69-year-old male, presents with vague chest discomfort constant x3 weeks, differential diagnosis includes ACS, pneumonia, CHF, fluid overload due to end- stage renal disease Patient was instructed that he may need to be admitted to the hospital for chest pain observation Troponin negative Patient's proBNP elevated in line with most likely developing fluid overload patient is due for dialysis in a few days Patient did not want to be admitted to the hospital states he wants to leave did not give a specific reason patient left AGAINST MEDICAL ADVICE The patient has requested to leave the ED against medical advice. The patient reason(s) for leaving include, but are not limited to, the following: did not want to be admitted. I believe this patient is of sound mind and competent to refuse medical care. The patient is responding and asking questions appropriately. The patient is oriented to person, place and time. The patient is not psychotic, delusional, suicidal, homicidal or hallucinating. The patient demonstrates a normal mental capacity to make decisions regarding their healthcare. The patient is clinically sober and does not appear to be under the influence of any illicit drugs at this time. The patient has been advised of the risks, in layman terms, of leaving AMA which include, but are not limited to , coma, permanent disability, loss of current lifestyle, delay in diagnosis. Alternatives have been offered - the patient remains steadfast in their wish to leave. The patient has been advised that should they change their mind they are welcome to return to this hospital, or any other, at any time. The patient understands that in no way does an AMA discharge mean that I do not want them to have the best medical care available. To this end, I have provided appropriate prescriptions, referrals, and discharge instructions. The patient did sign AMA paperwork. The above discussion was witnessed by another member of staff. Laboratory Tests Test 01/05/20 18:32 White Blood Count 6.0 K/UL (4.8-10.8) Red Blood Count 4.18 M/UL (4.70-6.10) L Hemoglobin 11.1 G/DL (14.2-18.0) L Hematocrit 34.8 % (42.0-52.0) L Mean Corpuscular Volume 83 FL (80-99) Mean Corpuscular Hemoglobin 26.6 PG (27.0-31.0) L Mean Corpuscular Hemoglobin Concent 31.9 G/DL (32.0-36.0) L Red Cell Distribution Width 18.8 % (11.6-14.8) H Platelet Count 201 K/UL (150-450) Mean Platelet Volume 6.6 FL (6.5-10.1) Neutrophils (%) (Auto) 67.6 % (45.0-75.0) Lymphocytes (%) (Auto) 21.3 % (20.0-45.0) Monocytes (%) (Auto) 7.2 % (1.0-10.0) Eosinophils (%) (Auto) 2.9 % (0.0-3.0) Basophils (%) (Auto) 1.0 % (0.0-2.0) Prothrombin Time 12.9 SEC (9.30-11.50) H Prothrombin Time INR 1.2 (0.9-1.1) H Activated Partial Thromboplast Time 29 SEC (23-33) Sodium Level 139 MMOL/L (136-145) Potassium Level 4.6 MMOL/L (3.5-5.1) Chloride Level 100 MMOL/L (98-107) Carbon Dioxide Level 25 MMOL/L (21-32) Blood Urea Nitrogen 73 mg/dL (7-18) H Creatinine 11.7 MG/DL (0.55-1.30) H Estimated Glomerular Filtration Rate 5.2 mL/min (>60) Glucose Level 124 MG/DL (74-106) H Calcium Level 9.6 MG/DL (8.5-10.1) Total Bilirubin 0.9 MG/DL (0.2-1.0) Aspartate Amino Transferase (AST) 19 U/L (15-37) Alanine Aminotransferase (ALT) 22 U/L (12-78) Alkaline Phosphatase 174 U/L (46-116) H Troponin I 0.036 ng/mL (0.000-0.056) Pro-B-Type Natriuretic Peptide > 49496 pg/mL (0-125) H Total Protein 9.4 G/DL (6.4-8.2) H Albumin 3.7 G/DL (3.4-5.0) Globulin 5.7 g/dL Albumin/Globulin Ratio 0.6 (1.0-2.7) L Lipase 223 U/L (73-393) Microbiology Date/Time Source Procedure Growth Status 01/05/20 19:00 Nasopharynx SARS-CoV-2 RdRp Gene Assay - Final Complete 01/05/20 18:30 Nasal Nares - Final Complete 01/05/20 18:30 Nasal Nares - Final Complete EKG Diagnostic Results Troponin ordered: Yes When was troponin ordered?: Jan 05, 2020 - 180 EKG Time: 18:13 EP Interpretation: NSR, rate 79, QTc 467, no acute ST elevations, normal axis Rhythm Strip Diag. Results Rhythm Strip Time: 19:04 EP Interpretation: yes Rate: 80 Rhythm: NSR, other - PVCs noted Chest X-Ray Diagnostic Results Chest X-Ray Diagnostic Results : Chest X-Ray Ordered: Yes # of Views/Limited/Complete: 1 View Indication: Chest Pain EP Interpretation: Yes Interpretation: other - Cardiomegaly Impression: Other - Cardiomegaly Electronically Signed by: Pablito Salas MD Last Vital Signs Date Time Temp Pulse Resp B/P (MAP) Pulse Ox O2 Delivery O2 Flow Rate FiO2 01/05/20 18:35 85 17 Room Air 98 01/05/20 18:35 98.8 152/96 99 Disposition: AGAINST MEDICAL ADVICE Condition: Stable Pablito Salas MD Jan 05, 2020 19:04
[2020-01-05 19:18] LABS: EOSINOPHILS % (AUTO) 2.9 % (0.0-3.0); HEMATOCRIT 34.8 % (42.0-52.0); HEMOGLOBIN 11.1 G/DL (14.2-18.0); LYMPHOCYTES % (AUTO) 21.3 % (20.0-45.0); MEAN CORPUSCULAR VOLUME 83 FL (80-99); MONOCYTES % (AUTO) 7.2 % (1.0-10.0); NEUTROPHILS % (AUTO) 67.6 % (45.0-75.0); PLATELET COUNT 201 K/UL (150-450); RED BLOOD COUNT 4.18 M/UL (4.70-6.10); RED CELL DISTRIBUTION WIDTH 18.8 % (11.6-14.8)
[2020-01-05 19:32] LABS: INR 1.2 (0.9-1.1)
[2020-01-05 20:12] LABS: ALANINE AMINOTRANSFERASE 22 U/L (12-78); ALBUMIN 3.7 G/DL (3.4-5.0); ALBUMIN/GLOBULIN RATIO 0.6 (1.0-2.7); ALKALINE PHOSPHATASE 174 U/L (46-116); ASPARTATE AMINO TRANSFERASE 19 U/L (15-37); BILIRUBIN,TOTAL 0.9 MG/DL (0.2-1.0); BLOOD UREA NITROGEN 73 mg/dL (7-18); CALCIUM 9.6 MG/DL (8.5-10.1); CARBON DIOXIDE 25 MMOL/L (21-32); CREATININE 11.7 MG/DL (0.55-1.30)
[2020-01-05 20:20] LABS: CHLORIDE 100 MMOL/L (98-107); POTASSIUM 4.6 MMOL/L (3.5-5.1); SODIUM 139 MMOL/L (136-145)
--- NOTE | 2020-01-06 15:55 | Diagnostic Imaging Report ---
Indication: Chest pain Technique: One view of the chest Comparison: 08/28/2018 Findings: The heart is enlarged, more so than on the prior study. The lungs and pleural spaces are clear. No significant change Impression: Increased cardiomegaly. No acute process
--- NOTE | 2020-01-06 16:59 | Cardiology Report ---
APPROVED REPORT EKG Measurement Heart [id number] [id number] <Conclusion> Sinus rhythm with frequent premature ventricular complexes Nonspecific ST and T wave abnormality Abnormal ECG
== END 2020-01-05 19:25 | disposition left against medical advice (07) ==
LOC: EMR 18:20 → EDBEDREQ 18:24 → CANBEDREQ 19:15 → EMR 19:25
DX: R07.9 Chest pain, unspecified (principal); I12.0 Hypertensive chronic kidney disease with stage 5 chronic kidney disease or end stage renal disease; N18.6 End stage renal disease; Z99.2 Dependence on renal dialysis; E78.5 Hyperlipidemia, unspecified; I51.7 Cardiomegaly
CPT/HCPCS: 36415; 71045; 80053; 83690; 83880; 84484; 85025; 85610; 85730; 86710; 93005; 99284; U0002